=== PATIENT | female | born 1945 | race American Indian/Alaskan Native ===

== ENCOUNTER 2018-11-05 12:14 | Emergency (ER) | payer MEDICARE ==
[2018-11-05] MEDS ORDERED: ASPIRIN PO ONE (12:39)
[2018-11-05 12:57] LABS: Basophils % (Auto) 0.4 % (0.0-1.8); Eosinophils # (Auto) 0.1 K/mm3 (0.0-0.4); Eosinophils % (Auto) 1.2 % (0.0-4.3); Hematocrit 28.5 % (30.3-42.9); Hemoglobin 9.2 gm/dl (10.1-14.3); Lymphocytes # (Auto) 1.3 K/mm3 (1.2-5.4); Lymphocytes % (Auto) 11.3 % (13.4-35.0); Mean Corpuscular HGB Conc 33 % (30-34); Mean Corpuscular Volume 89 fl (79-97); Monocytes # (Auto) 0.7 K/mm3 (0.0-0.8); Monocytes % (Auto) 5.7 % (0.0-7.3); Platelet Count 193 K/mm3 (140-440); Red Blood Count 3.19 M/mm3 (3.65-5.03); Red Cell Distribution Width 17.3 % (13.2-15.2)
[2018-11-05 13:20] LABS: Calcium 8.6 mg/dL (8.4-10.2)
--- NOTE | 2018-11-05 13:26 | Emergency Department Report ---
HPI - General Chief Complaint: Chest Pain Time Seen by Provider: 11/05/18 12:43 - HPI HPI: Room 18 The patient is a 73-year-old female presenting with a chief complaint of transient hypotension. The patient states she was at dialysis when her blood pressure dropped and her heart rate increase so she was subsequently sent to the ED for evaluation. Patient states this happens almost every time she has dialysis. Patient denied ever having chest pain or shortness of breath. Patient is currently asymptomatic. The patient states received dialysis for 45 minutes Location: [See above] Duration: [See above] Quality: [See above] Severity: [See above] Modifying factors: [see above] Context: [see above] Mode of transportation: [not driving] ED Past Medical Hx - Past Medical History Previous Medical History?: Yes Hx Hypertension: Yes Hx Congestive Heart Failure: Yes Hx Diabetes: Yes (controlled, no pills or insulin per pt) Hx Renal Disease: Yes (ESRD/dialysis) Hx Arthritis: Yes Additional medical history: trach - Surgical History Past Surgical History?: Yes Hx Pacemaker: Yes Hx Cholecystectomy: Yes Hx Breast Surgery: Yes (duct clogged 1969) Additional Surgical History: breast surgery. tubal ligation. trach - Family History Family history: no significant - Social History Smoking Status: Never Smoker Substance Use Type: None - Medications Home Medications: Home Medications Medication Instructions Recorded Confirmed Last Taken Type Albuterol Sulfate [Ventolin HFA] 2 puff IH BID PRN 09/10/18 10/31/18 Unknown History Aspirin [Adult Aspirin] 81 mg PO DAILY 09/10/18 10/31/18 Unknown History Atorvastatin Calcium [Lipitor] 40 mg PO QPM 09/10/18 10/31/18 Unknown History Cholecalciferol Vit D3 [Vitamin D3] 1,000 unit PO QDAY 09/10/18 10/31/18 Unknown History Clotrimazole 1% [Lotrimin 1%] 1 applic TP BID 09/10/18 10/31/18 Unknown History Docusate Sodium [Colace CAP] 100 mg PO TID 09/10/18 10/31/18 Unknown History Fluticasone [Flonase] 2 sprays NS DAILY PRN 09/10/18 10/31/18 Unknown History Ipratropium/Albuterol Sulfate 1 ampul IH QID 09/10/18 10/31/18 Unknown History [DUONEB *Not for PRN Use*] Topiramate [Topamax] 25 mg PO BID 09/10/18 10/31/18 Unknown History tiZANidine [Zanaflex] 4 mg PO DAILY 09/10/18 10/31/18 Unknown History HYDROcodone/APAP 10-325 [[place] 1 each PO BID PRN #7 tablet 09/15/18 10/31/18 Unknown Rx 10-325 mg TAB] Metoprolol [Lopressor TAB] 25 mg PO BID #60 11/03/18 10/31/18 Unknown Rx Vancomycin Po 125 mg PO Q6HR 2 Days oral.liqd 11/03/18 Unknown Rx methIMAzole [Tapazole] 10 mg PO Q24HR #30 tablet 11/03/18 Unknown Rx ED Review of Systems ROS: Stated complaint: CHEST PAIN/SOB Other details as noted in HPI Constitutional: no symptoms reported Eyes: denies: eye pain ENT: denies: throat pain Respiratory: no symptoms reported Cardiovascular: denies: chest pain Endocrine: no symptoms reported Gastrointestinal: denies: abdominal pain Musculoskeletal: denies: back pain Neurological: denies: headache Physical Exam - Physical Exam Vital Signs: Vital Signs 11/05/18 12:54 Temperature 98.2 F Pulse Rate 104 H Respiratory 18 Rate Blood Pressure 156/44 [Right] O2 Sat by Pulse 100 Oximetry Physical Exam: GENERAL: The patient is well-developed well-nourished female lying on stretcher not appearing to be in acute distress. [] HEENT: Normocephalic. Atraumatic. Extraocular motions are intact. Patient has moist mucous membranes. NECK: Supple. Trachea midline CHEST/LUNGS: Clear to auscultation. There is no respiratory distress noted. HEART/CARDIOVASCULAR: Regular. There is no tachycardia. There is no gallop rub or murmur. ABDOMEN: Abdomen is soft, nontender. Patient has normal bowel sounds. There is no abdominal distention. SKIN: There is no rash. There is no diaphoresis. NEURO: The patient is awake, alert, and oriented. The patient is cooperative. The patient has normal speech MUSCULOSKELETAL: There is no evidence of acute injury. ED Course Vital Signs 11/05/18 12:54 Temperature 98.2 F Pulse Rate 104 H Respiratory 18 Rate Blood Pressure 156/44 [Right] O2 Sat by Pulse 100 Oximetry - Reevaluation(s) Reevaluation #1: 11/05/18 17:18 Patient remains asymptomatic. ED Medical Decision Making - Lab Data Result diagrams: 11/05/18 12:42 11/05/18 12:42 Laboratory Tests 11/05/18 11/05/18 11/05/18 12:42 12:42 15:50 WBC 11.5 H RBC 3.19 L Hgb 9.2 L Hct 28.5 L MCV 89 MCH 29 MCHC 33 RDW 17.3 H Plt Count 193 Lymph % (Auto) 11.3 L [place] % (Auto) 5.7 Eos % (Auto) 1.2 Baso % (Auto) 0.4 Lymph # 1.3 [place] # 0.7 Eos # 0.1 Baso # 0.0 Seg Neutrophils % 81.4 H Seg Neutrophils # 9.3 H Sodium 136 L Potassium 4.0 Chloride 94.4 L Carbon Dioxide 29 Anion Gap 17 BUN 20 H Creatinine 3.7 H Estimated GFR 15 BUN/Creatinine Ratio 5 Glucose 86 Calcium 8.6 Troponin T 0.243 H* 0.216 H* - EKG Data -: EKG Interpreted by Me EKG shows normal: sinus rhythm Rate: tachycardia (103 bpm) - EKG Data When compared to previous EKG there are: no significant change Interpretation: other (no ischemic changes seen) - Radiology Data Radiology results: report reviewed (chest x-ray), image reviewed (chest x-ray) interpreted by me: Chest [id number]. No pneumothorax [facility] [address] [place] [address] XRay Report Signed Patient: JAYDEN NUNEZ MR#: [id number] : 1945 Acct:[id number] Age/Sex: 73 / F ADM Date: 11/05/18 Loc: ED Attending Dr: Ordering Physician: BREA PALOMARES MD Date of Service: 11/05/18 Procedure(s): XR chest 1V ap Accession Number(s): [id number] cc: BREA PALOMARES MD Fluoro Time In Minutes: AP CHEST: HISTORY: Transient hypotension Moderate cardiomegaly, moderate pulmonary venous congestion and small bilateral pleural effusions are identified. These findings are increased since 10/31/18. There is no convincing pneumonia or pneumothorax. The bony structures are osteopenic. A tracheostomy is in good position. IMPRESSION: CHF. Transcribed By: TTR Dictated By: SMITH DO JR, MD Electronically Authenticated By: SMITH DO JR, MD Signed Date/Time: 11/05/181446 DD/ 45 TD/TT: 11/05/181446 - Differential Diagnosis transient hypotension, end-stage renal disease Critical care attestation.: If time is entered above; I have spent that time in minutes in the direct care of this critically ill patient, excluding procedure time. ED Disposition Clinical Impression: Transient hypotension, End-stage renal disease on hemodialysis Disposition: - TO HOME OR SELFCARE Is pt being admited?: No Does the pt Need Aspirin: No Condition: Stable Additional Instructions: Return to the emergency department immediately should you develop worsening symptoms, fever, inability to tolerate food or liquid or any other concerns. Time of Disposition: 17:20
--- NOTE | 2018-11-05 14:50 | XRay Report ---
AP CHEST: HISTORY: Transient hypotension Moderate cardiomegaly, moderate pulmonary venous congestion and small bilateral pleural effusions are identified. These findings are increased since 10/31/18. There is no convincing pneumonia or pneumothorax. The bony structures are osteopenic. A tracheostomy is in good position. IMPRESSION: CHF.
[2018-11-05 18:49] VITALS: BP 174/60
== END 2018-11-05 19:01 | disposition home or self-care (01) ==
LOC: ED 12:14
DX: I95.9 Hypotension, unspecified (principal); I13.2 Hypertensive heart and chronic kidney disease with heart failure and with stage 5 chronic kidney disease, or end stage renal disease; E11.22 Type 2 diabetes mellitus with diabetic chronic kidney disease; N18.6 End stage renal disease; I50.9 Heart failure, unspecified; M19.90 Unspecified osteoarthritis, unspecified site; Z99.2 Dependence on renal dialysis; Z79.82 Long term (current) use of aspirin; Z90.49 Acquired absence of other specified parts of digestive tract; Z98.51 Tubal ligation status
CPT/HCPCS: 36415; 71045; 80048; 84484; 85025; 93005; 93010; 99284

== ENCOUNTER 2018-11-06 02:27 | Inpatient (IN) | payer MEDICARE ==
[2018-11-06] MEDS ORDERED: CARDIZEM IV ONE ×2 (03:21→04:38)
--- NOTE | 2018-11-06 03:22 | Emergency Department Report ---
ED General Adult HPI - General Chief complaint: Chest Pain Stated complaint: CHEST PAIN/ANXIETY Time Seen by Provider: 11/06/18 03:09 Source: patient, EMS (ems notes not available at time of chart dictation), RN notes reviewed, old records reviewed Mode of arrival: Stretcher Limitations: Physical Limitation - History of Present Illness Initial comments: This is a 73-year-old female. Patient resides at a local half-way, bedbound status, with multiple medical problems, including sick sinus syndrome, dual- chamber permanent pacemaker, chronic respiratory failure with tracheostomy collar, paroxysmal atrial fibrillation, as per half-way paperwork, supposed to be on eliquis, end-stage renal disease, on dialysis, coronary artery disease, recently admitted to [facility] for bacteremia, sepsis, during this recent hospitalization, patient underwent attempted dual-chamber permanent pacemaker extraction, which was complicated by hemorrhagic pericardial effusion, requiring emergent pericardial window. Patient recently admitted to this hospital for A. fib with RVR, recently seen by cardiology, found to have a low TSH level, with chronically elevated troponins Today, the patient presents to the ER with a complaint of resolved left-sided chest wall pain. The pain started at 12:00. It did not radiate anywhere. it did not have exacerbating or relieving factors. She reports her manager convention is Dr. Day. She reports she typically receives dialysis Saturday, Saturday, Saturday. -: Sudden Location: chest Radiation: non-radiation Consistency: now resolved Improves with: none Worsens with: none Associated Symptoms: chest pain. denies: confusion - Related Data Home Medications Medication Instructions Recorded Confirmed Last Taken Albuterol Sulfate [Ventolin HFA] 2 puff IH BID PRN 09/10/18 10/31/18 Unknown Aspirin [Adult Aspirin] 81 mg PO DAILY 09/10/18 10/31/18 Unknown Atorvastatin Calcium [Lipitor] 40 mg PO QPM 09/10/18 10/31/18 Unknown Cholecalciferol Vit D3 [Vitamin D3] 1,000 unit PO QDAY 09/10/18 10/31/18 Unknown Clotrimazole 1% [Lotrimin 1%] 1 applic TP BID 09/10/18 10/31/18 Unknown Docusate Sodium [Colace CAP] 100 mg PO TID 09/10/18 10/31/18 Unknown Fluticasone [Flonase] 2 sprays NS DAILY PRN 09/10/18 10/31/18 Unknown Ipratropium/Albuterol Sulfate 1 ampul IH QID 09/10/18 10/31/18 Unknown [DUONEB *Not for PRN Use*] Topiramate [Topamax] 25 mg PO BID 09/10/18 10/31/18 Unknown tiZANidine [Zanaflex] 4 mg PO DAILY 09/10/18 10/31/18 Unknown Previous Rx's Medication Instructions Recorded Last Taken Type HYDROcodone/APAP 10-325 [[place] 1 each PO BID PRN #7 tablet 09/15/18 Unknown Rx 10-325 mg TAB] Metoprolol [Lopressor TAB] 25 mg PO BID #60 11/03/18 Unknown Rx Vancomycin Po 125 mg PO Q6HR 2 Days oral.liqd 11/03/18 Unknown Rx methIMAzole [Tapazole] 10 mg PO Q24HR #30 tablet 11/03/18 Unknown Rx Allergies Allergy/AdvReac Type Severity Reaction Status Date / Time No Known Allergies Allergy Unverified 06/20/18 15:19 ED Review of Systems ROS: Stated complaint: CHEST PAIN/ANXIETY Other details as noted in HPI Constitutional: malaise, weakness, other (chronic malaise, chronic weakness). denies: fever Eyes: denies: vision change Respiratory: shortness of breath (chronic shortness of breath) Cardiovascular: chest pain, palpitations Gastrointestinal: denies: vomiting Musculoskeletal: myalgia. denies: as per HPI Skin: denies: lesions Neurological: weakness Psychiatric: anxiety ED Past Medical Hx - Past Medical History Hx Hypertension: Yes Hx Congestive Heart Failure: Yes Hx Diabetes: Yes (controlled, no pills or insulin per pt) Hx Renal Disease: Yes (ESRD/dialysis) Hx Arthritis: Yes Additional medical history: trach - Surgical History Hx Pacemaker: Yes Hx Cholecystectomy: Yes Hx Breast Surgery: Yes (duct clogged 1968) Additional Surgical History: breast surgery. tubal ligation. trach - Social History Smoking Status: Never Smoker Substance Use Type: None - Medications Home Medications: Home Medications Medication Instructions Recorded Confirmed Last Taken Type Albuterol Sulfate [Ventolin HFA] 2 puff IH BID PRN 09/10/18 10/31/18 Unknown History Aspirin [Adult Aspirin] 81 mg PO DAILY 09/10/18 10/31/18 Unknown History Atorvastatin Calcium [Lipitor] 40 mg PO QPM 09/10/18 10/31/18 Unknown History Cholecalciferol Vit D3 [Vitamin D3] 1,000 unit PO QDAY 09/10/18 10/31/18 Unknown History Clotrimazole 1% [Lotrimin 1%] 1 applic TP BID 09/10/18 10/31/18 Unknown History Docusate Sodium [Colace CAP] 100 mg PO TID 09/10/18 10/31/18 Unknown History Fluticasone [Flonase] 2 sprays NS DAILY PRN 09/10/18 10/31/18 Unknown History Ipratropium/Albuterol Sulfate 1 ampul IH QID 09/10/18 10/31/18 Unknown History [DUONEB *Not for PRN Use*] Topiramate [Topamax] 25 mg PO BID 09/10/18 10/31/18 Unknown History tiZANidine [Zanaflex] 4 mg PO DAILY 09/10/18 10/31/18 Unknown History HYDROcodone/APAP 10-325 [[place] 1 each PO BID PRN #7 tablet 09/15/18 10/31/18 Unknown Rx 10-325 mg TAB] Metoprolol [Lopressor TAB] 25 mg PO BID #60 11/03/18 10/31/18 Unknown Rx Vancomycin Po 125 mg PO Q6HR 2 Days oral.liqd 11/03/18 Unknown Rx methIMAzole [Tapazole] 10 mg PO Q24HR #30 tablet 11/03/18 Unknown Rx ED Physical Exam - General Limitations: No Limitations General appearance: alert, in no apparent distress, obese - Head Head exam: Present: atraumatic, normocephalic - Eye Eye exam: Present: normal appearance, EOMI. Absent: nystagmus - ENT ENT exam: Present: normal exam, normal orophraynx, mucous membranes moist, normal external ear exam - Neck Neck exam: Present: normal inspection, full ROM. Absent: tenderness, meningismus - Respiratory Respiratory exam: Present: decreased breath sounds. Absent: respiratory distress - Cardiovascular Cardiovascular Exam: Present: regular rate, tachycardia, irregular rhythm, normal heart sounds. Absent: systolic murmur, diastolic murmur, rubs, gallop - GI/Abdominal GI/Abdominal exam: Present: soft. Absent: distended, tenderness, guarding, rebound, pulsatile mass - Extremities Exam Extremities exam: Present: normal inspection, full ROM, pedal edema, other (upper extremity graft noted, no redness, pus or streaking.) - Back Exam Back exam: Present: normal inspection, full ROM. Absent: paraspinal tenderness, vertebral tenderness - Neurological Exam Neurological exam: Present: alert, oriented X3, other (Extraocular movements intact. Tongue midline. No facial droop. Facial sensation intact to light touch in the V1, V2, V3 distribution bilaterally. 5 and 5 strength in 4 extremities.. Sensation is intact to light touch in 4 extremities.). Absent: motor sensory deficit - Psychiatric Psychiatric exam: Present: anxious - Skin Skin exam: Present: warm, dry, intact, normal color. Absent: rash ED Course Vital Signs 11/06/18 11/06/18 11/06/18 02:48 03:30 03:50 Temperature 98.5 F Pulse Rate 132 H 131 H Respiratory 23 39 H Rate Blood Pressure 106/68 106/38 O2 Sat by Pulse 100 100 Oximetry O2 Sat by Pulse 98 Oximetry [ Assessment] 11/06/18 11/06/18 11/06/18 04:14 04:30 04:45 Temperature Pulse Rate 132 H 129 H Respiratory 26 H Rate Blood Pressure 106/38 O2 Sat by Pulse 95 Oximetry O2 Sat by Pulse Oximetry [ Assessment] 11/06/18 11/06/18 04:46 04:48 Temperature Pulse Rate 134 H 133 H Respiratory 57 H Rate Blood Pressure 106/38 O2 Sat by Pulse 98 Oximetry O2 Sat by Pulse Oximetry [ Assessment] - Reevaluation(s) Reevaluation #1: 11/06/18 05:[address] noted, with no redness, pus or streaking ED Medical Decision Making - Lab Data Result diagrams: 11/06/18 03:48 11/06/18 03:48 Vital Signs 11/06/18 11/06/18 11/06/18 02:48 03:30 03:50 Temperature 98.5 F Pulse Rate 132 H 131 H Respiratory 23 39 H Rate Blood Pressure 106/68 106/38 O2 Sat by Pulse 100 100 Oximetry O2 Sat by Pulse 98 Oximetry [ Assessment] 11/06/18 11/06/18 11/06/18 04:14 04:30 04:45 Temperature Pulse Rate 132 H 129 H Respiratory 26 H Rate Blood Pressure 106/38 O2 Sat by Pulse 95 Oximetry O2 Sat by Pulse Oximetry [ Assessment] 11/06/18 11/06/18 04:46 04:48 Temperature Pulse Rate 134 H 133 H Respiratory 57 H Rate Blood Pressure 106/38 O2 Sat by Pulse 98 Oximetry O2 Sat by Pulse Oximetry [ Assessment] Lab Results 11/06/18 11/06/18 11/06/18 Range/Units 03:48 03:48 03:48 WBC 10.1 (4.5-11.0) K/mm3 RBC 3.32 L (3.65-5.03) M/mm3 Hgb 9.6 L (10.1-14.3) gm/dl Hct 30.3 (30.3-42.9) % MCV 91 (79-97) fl MCH 29 (28-32) pg MCHC 32 (30-34) % RDW 18.0 H (13.2-15.2) % Plt Count 218 (140-440) K/mm3 PT (12.2-14.9) Sec. INR (0.87-1.13) APTT (24.2-36.6) Sec. Sodium 136 L (137-145) mmol/L Potassium 4.4 (3.6-5.0) mmol/L Chloride 93.2 L (98-107) mmol/L Carbon Dioxide 28 (22-30) mmol/L Anion Gap 19 mmol/L BUN 27 H (7-17) mg/dL Creatinine 4.7 H (0.7-1.2) mg/dL Estimated GFR 11 ml/min BUN/Creatinine Ratio 6 % Glucose 107 H (65-100) mg/dL Calcium 8.6 (8.4-10.2) mg/dL Magnesium 2.00 (1.7-2.3) mg/dL Total Creatine Kinase 35 (30-135) units/L Troponin T 0.246 H* (0.00-0.029) ng/mL TSH (0.270-4.200) mlU/mL 11/06/18 11/06/18 Range/Units 03:48 03:48 WBC (4.5-11.0) K/mm3 RBC (3.65-5.03) M/mm3 Hgb (10.1-14.3) gm/dl Hct (30.3-42.9) % MCV (79-97) fl MCH (28-32) pg MCHC (30-34) % RDW (13.2-15.2) % Plt Count (140-440) K/mm3 PT 14.4 (12.2-14.9) Sec. INR 1.08 (0.87-1.13) APTT 29.7 (24.2-36.6) Sec. Sodium (137-145) mmol/L Potassium (3.6-5.0) mmol/L Chloride (98-107) mmol/L Carbon Dioxide (22-30) mmol/L Anion Gap mmol/L BUN (7-17) mg/dL Creatinine (0.7-1.2) mg/dL Estimated GFR ml/min BUN/Creatinine Ratio % Glucose (65-100) mg/dL Calcium (8.4-10.2) mg/dL Magnesium (1.7-2.3) mg/dL Total Creatine Kinase (30-135) units/L Troponin T (0.00-0.029) ng/mL TSH < 0.005 L (0.270-4.200) mlU/mL - EKG Data 11/06/18 05:25 EKG #1 shows atrial flutter, rapid rate, 130 bpm, variable conduction, prolonged [place] interval. EKG #2 shows flutter, variable conduction, normal axis, QTC within normal limits - Radiology Data Radiology results: report reviewed X-ray report reviewed and appreciated, however, secondary to technical issues with radiology system, unable to visualize films myself. X-ray from the past 24 hours has suggested congestive heart failure. Today's x- ray suggests a same, possible infiltrates. - Medical Decision Making Differential diagnosis, including but not limited to: Hyperthyroidism, atrial flutter with variable conduction acute coronary syndrome, chronic renal insufficiency, chronic fluid overload Assessment and plan: 73-year-old female in a flutter with RVR, required 2 rounds of IV diltiazem, rate currently in the 70s, 80s, not having fevers or chills, syncope, clinically suspect mild fluid overload. Elevated TSH reviewed and appreciated, we will give the patient methimazole. Do not clinically suspect pneumonia at this time. Patient reportedly on outpatient systemic anticoagulation which we will continue . Discussed with nephrology debone processing supervisor, Dr. Barfield, who is group will follow in consultation. X Presented to Hospital physician, Dr. Hernandez, who accepted the patient to the medical service. Critical Care Time: Yes Critical care time in (mins) excluding proc time.: 35 Critical care attestation.: If time is entered above; I have spent that time in minutes in the direct care of this critically ill patient, excluding procedure time. ED Disposition Clinical Impression: Atrial flutter with rapid ventricular response, Chest pain, End-stage renal disease on hemodialysis, Tracheostomy in place Disposition: DC-09 OP ADMIT IP TO THIS HOSP Is pt being admited?: Yes Condition: Fair Instructions: Chest Pain (ED) Referrals: PRIMARY CARE, [Primary Care Provider] - 3-5 Days
[2018-11-06 03:55] LABS: Hematocrit 30.3 % (30.3-42.9); Hemoglobin 9.6 gm/dl (10.1-14.3); Mean Corpuscular HGB Conc 32 % (30-34); Mean Corpuscular Volume 91 fl (79-97); Platelet Count 218 K/mm3 (140-440); Red Blood Count 3.32 M/mm3 (3.65-5.03)
[2018-11-06 04:06] LABS: INR 1.08 (0.87-1.13); Partial Thromboplastin Time 29.7 Sec. (24.2-36.6)
[2018-11-06 04:10] LABS: Calcium 8.6 mg/dL (8.4-10.2)
[2018-11-06] MEDS ORDERED: CARDIZEM PO ONE (04:38)
[2018-11-06] MEDS ORDERED: ELIQUIS PO STA (04:56)
--- NOTE | 2018-11-06 05:03 | XRay Report ---
FINAL REPORT PROCEDURE: XR CHEST 1V AP TECHNIQUE: Chest radiograph anteroposterior view. CPT 38187 HISTORY: cp afib w rvr COMPARISON: 10/31/2018 FINDINGS: Heart: The heart is enlarged Mediastinum/Vessels: Normal. Lungs/Pleural space: There is suboptimal inspiration. There are bibasilar infiltrates. There is small pleural effusions. There are no pneumothoraces.. Bony thorax: No acute osseous abnormality. There is an old fracture of the left humerus. Life support devices: Tracheostomy tube is in proper position.. IMPRESSION: The heart is enlarged There is suboptimal inspiration. There are bibasilar infiltrates. There is small pleural effusions. T here are no pneumothoraces.. Tracheostomy tube is in proper position.. .
[2018-11-06] MEDS ORDERED: ZOFRAN IV PRN (05:25)
[2018-11-06] MEDS ORDERED: TYLENOL PO PRN (05:25)
[2018-11-06] MEDS ORDERED: SODIUM CHLORIDE FLUSH SYRINGE 10 ML IV PRN (05:25)
[2018-11-06] MEDS ORDERED: TAPAZOLE PO STA (05:30)
--- NOTE | 2018-11-06 05:38 | History and Physical Report ---
<RADHA ALEXANDER - Last Filed: 11/06/18 06:29> History of Present Illness Date of examination: 11/06/18 Date of admission: 11/06/2018 Chief complaint: chest pain History of present illness: Pt is a 73 year old BF with PMHx of CAD, A-Fib, anemia, ESRD on HD, h/o chronic trach who return to the hospital after with c/o chest pain starting today. Pt states that the chest pain is located in the substernal area, it is constant dull pain that radiates to the left arm. Pt states that the pain is similar previous chest pain she had in the past when her heart rate is elevated. Pt's son at the bedside reports that had a pacemaker extraction with remaining pacemaker leads in 10/17/18 and since she had repeated hospitalization for rapid heart rate. Review of pt's record shows that pt was admitted from the 09/30- for A-Fib she [facility] the [facility], pt returned in 48 hrs with c/o chest pain, she presents to the ER, with a heart rate 134, she was started on PO cardizem with sone improvement in the heart rate, in less that an hr, the heart rate return again to > 130. Pt first cardiac enzyme is negative, she denies lightheadedness, denies dizziness, denies diaphoresis, denies nausea, denies vomiting, denies SOB. Pt is admitted for further evaluation for the chest pain and A-Fib with RVR. Past History Past Medical History: atrial fib, CAD, diabetes, ESRD, heart failure, hypertension, hyperlipidemia Past Surgical History: Other (Pacemaker insertion and extraction, recent pericardial window) Social history: other (reside in a SNF) Medications and Allergies Allergies Allergy/AdvReac Type Severity Reaction Status Date / Time No Known Allergies Allergy Unverified 06/20/18 15:19 Home Medications Medication Instructions Recorded Confirmed Last Taken Type Albuterol Sulfate [Ventolin HFA] 2 puff IH BID PRN 09/10/18 10/31/18 Unknown History Aspirin [Adult Aspirin] 81 mg PO DAILY 09/10/18 10/31/18 Unknown History Atorvastatin Calcium [Lipitor] 40 mg PO QPM 09/10/18 10/31/18 Unknown History Cholecalciferol Vit D3 [Vitamin D3] 1,000 unit PO QDAY 09/10/18 10/31/18 Unknown History Clotrimazole 1% [Lotrimin 1%] 1 applic TP BID 09/10/18 10/31/18 Unknown History Docusate Sodium [Colace CAP] 100 mg PO TID 09/10/18 10/31/18 Unknown History Fluticasone [Flonase] 2 sprays NS DAILY PRN 09/10/18 10/31/18 Unknown History Ipratropium/Albuterol Sulfate 1 ampul IH QID 09/10/18 10/31/18 Unknown History [DUONEB *Not for PRN Use*] Topiramate [Topamax] 25 mg PO BID 09/10/18 10/31/18 Unknown History tiZANidine [Zanaflex] 4 mg PO DAILY 09/10/18 10/31/18 Unknown History HYDROcodone/APAP 10-325 [[place] 1 each PO BID PRN #7 tablet 09/15/18 10/31/18 Unknown Rx 10-325 mg TAB] Metoprolol [Lopressor TAB] 25 mg PO BID #60 11/03/18 10/31/18 Unknown Rx Vancomycin Po 125 mg PO Q6HR 2 Days oral.liqd 11/03/18 Unknown Rx methIMAzole [Tapazole] 10 mg PO Q24HR #30 tablet 11/03/18 Unknown Rx Review of Systems Cardiovascular: chest pain Respiratory: other (chronic track) Exam - Constitutional Vitals: Temp Pulse Resp BP Pulse Ox 98.5 F 133 H 57 H 106/38 98 11/06/18 02:48 11/06/18 04:48 11/06/18 04:46 11/06/18 04:46 11/06/18 04:46 General appearance: Present: no acute distress - EENT Eyes: Present: EOM intact ENT: hearing intact - Neck Neck: Present: normal ROM - Respiratory Respiratory effort: normal - Cardiovascular Heart rate: 134 Rhythm: irregularly irregular - Extremities Extremities: no ischemia - Abdominal General gastrointestinal: Present: non-tender, non-distended - Rectal Rectal Exam: deferred - Integumentary Integumentary: Present: warm, dry - Musculoskeletal Musculoskeletal: strength equal bilaterally - Psychiatric Psychiatric: appropriate mood/affect, cooperative - Neurologic Neurologic: moves all extremities Results - Labs CBC & Chem 7: 11/06/18 03:48 11/06/18 03:48 Labs: Laboratory Last Values WBC 10.1 K/mm3 (4.5-11.0) 11/06/18 03:48 RBC 3.32 M/mm3 (3.65-5.03) L 11/06/18 03:48 Hgb 9.6 gm/dl (10.1-14.3) L 11/06/18 03:48 Hct 30.3 % (30.3-42.9) 11/06/18 03:48 MCV 91 fl (79-97) 11/06/18 03:48 MCH 29 pg (28-32) 11/06/18 03:48 MCHC 32 % (30-34) 11/06/18 03:48 RDW 18.0 % (13.2-15.2) H 11/06/18 03:48 Plt Count 218 K/mm3 (140-440) 11/06/18 03:48 PT 14.4 Sec. (12.2-14.9) 11/06/18 03:48 INR 1.08 (0.87-1.13) 11/06/18 03:48 APTT 29.7 Sec. (24.2-36.6) 11/06/18 03:48 Sodium 136 mmol/L (137-145) L 11/06/18 03:48 Potassium 4.4 mmol/L (3.6-5.0) 11/06/18 03:48 Chloride 93.2 mmol/L (98-107) L 11/06/18 03:48 Carbon Dioxide 28 mmol/L (22-30) 11/06/18 03:48 Anion Gap 19 mmol/L 11/06/18 03:48 BUN 27 mg/dL (7-17) H 11/06/18 03:48 Creatinine 4.7 mg/dL (0.7-1.2) H 11/06/18 03:48 Estimated GFR 11 ml/min 11/06/18 03:48 BUN/Creatinine Ratio 6 % 11/06/18 03:48 Glucose 107 mg/dL (65-100) H 11/06/18 03:48 Calcium 8.6 mg/dL (8.4-10.2) 11/06/18 03:48 Magnesium 2.00 mg/dL (1.7-2.3) 11/06/18 03:48 Total Creatine Kinase 35 units/L (30-135) 11/06/18 03:48 Troponin T 0.246 ng/mL (0.00-0.029) H* 11/06/18 03:48 TSH < 0.005 mlU/mL (0.270-4.200) L 11/06/18 03:48 Assessment and Plan Assessment and plan: 1. Recurrrent A. fib with RVR 2. Chest pain (likely due to A-fib) 3. End-stage renal disease on HD 4. DM type 2 5. CAD/CHF, stable 6. Recent endocarditis 7. Recent pacemaker extraction due to endocarditis 8. Chronic trach collar Plan Admit to cardiac ICU for A-Fib with RVR Continue heart monitoring Continue Cardizem drip, titrated, to keep HR < 100 Check cardiac enzymes, Consult cardiology for A-Fib management consult Nephrology for HD management Accu Check ACHS with insulin per sliding scale Continue home meds including Eliquis Accu check ACHS with insulin per sliding scale Resume home meds Further plan per hospital course Plan of care was d/w pt, voiced understanding Pt's condition and plan of care discussed with Dr Hernandez Advance Directives: Yes VTE prophylaxis?: Mechanical Plan of care discussed with patient/family: Yes <STEPHANIE HERNANDEZ - Last Filed: 11/06/18 06:59> History of Present Illness Date of admission: 11/06/18 05:24 Medications and Allergies Active Meds: Active Medications Acetaminophen (Tylenol) 650 mg PO Q4H PRN PRN Reason: Pain MILD(1-3)/Fever >100.5/TORRES Albuterol/Ipratropium (Duoneb *Not For Prn Use*) 1 ampul IH QID [facility] Aspirin (Halfprin Ec) 81 mg PO DAILY [facility] Atorvastatin Calcium (Lipitor) 40 mg PO QPM [facility] Cholecalciferol (Vitamin D3) 1,000 unit PO QDAY [facility] Dextrose (D50w (25gm) Syringe) 50 ml IV PRN PRN PRN Reason: Hypoglycemia Docusate Sodium (Colace) 100 mg PO TID [facility] Fluticasone Propionate (Flonase) 100 mcg NS DAILY PRN PRN Reason: Allergy Symptoms Diltiazem HCl (Cardizem/D5w 100mg/100ml) 100 mg in 100 mls @ 5 mls/hr IV TITR [facility]; Protocol Last Titration: 11/06/18 06:41 Dose: 7.5 mg/hr, 7.5 mls/hr Documented by: Insulin Human Lispro (Humalog) 0 unit SUB-Q ACHS [facility]; Protocol Methimazole (Tapazole) 10 mg PO Q24HR [facility] Ondansetron HCl (Zofran) 4 mg IV Q8H PRN PRN Reason: Nausea And Vomiting Sodium Chloride (Sodium Chloride Flush Syringe 10 Ml) 10 ml IV BID [facility] Sodium Chloride (Sodium Chloride Flush Syringe 10 Ml) 10 ml IV PRN PRN PRN Reason: LINE FLUSH Topiramate (Topamax) 25 mg PO BID [facility] Vancomycin HCl (Vancomycin Po) 125 mg PO Q6HR [facility] Exam - Constitutional Vitals: Temp Pulse Resp BP Pulse Ox 98.5 F 133 H 57 H 106/38 98 11/06/18 02:48 11/06/18 04:48 11/06/18 04:46 11/06/18 04:46 11/06/18 04:46 Results - Labs CBC & Chem 7: 11/06/18 03:48 11/06/18 03:48 Labs: Laboratory Last Values WBC 10.1 K/mm3 (4.5-11.0) 11/06/18 03:48 RBC 3.32 M/mm3 (3.65-5.03) L 11/06/18 03:48 Hgb 9.6 gm/dl (10.1-14.3) L 11/06/18 03:48 Hct 30.3 % (30.3-42.9) 11/06/18 03:48 MCV 91 fl (79-97) 11/06/18 03:48 MCH 29 pg (28-32) 11/06/18 03:48 MCHC 32 % (30-34) 11/06/18 03:48 RDW 18.0 % (13.2-15.2) H 11/06/18 03:48 Plt Count 218 K/mm3 (140-440) 11/06/18 03:48 PT 14.4 Sec. (12.2-14.9) 11/06/18 03:48 INR 1.08 (0.87-1.13) 11/06/18 03:48 APTT 29.7 Sec. (24.2-36.6) 11/06/18 03:48 Sodium 136 mmol/L (137-145) L 11/06/18 03:48 Potassium 4.4 mmol/L (3.6-5.0) 11/06/18 03:48 Chloride 93.2 mmol/L (98-107) L 11/06/18 03:48 Carbon Dioxide 28 mmol/L (22-30) 11/06/18 03:48 Anion Gap 19 mmol/L 11/06/18 03:48 BUN 27 mg/dL (7-17) H 11/06/18 03:48 Creatinine 4.7 mg/dL (0.7-1.2) H 11/06/18 03:48 Estimated GFR 11 ml/min 11/06/18 03:48 BUN/Creatinine Ratio 6 % 11/06/18 03:48 Glucose 107 mg/dL (65-100) H 11/06/18 03:48 Calcium 8.6 mg/dL (8.4-10.2) 11/06/18 03:48 Magnesium 2.00 mg/dL (1.7-2.3) 11/06/18 03:48 Total Creatine Kinase 37 units/L (30-135) 11/06/18 05:39 CK-MB (CK-2) 1.9 ng/mL (0.0-4.0) 11/06/18 05:39 CK-MB (CK-2) Rel Index 5.1 (0-4) H 11/06/18 05:39 Troponin T 0.241 ng/mL (0.00-0.029) H* 11/06/18 05:39 TSH < 0.005 mlU/mL (0.270-4.200) L 11/06/18 03:48 Free T4 1.52 ng/dL (0.76-1.46) H 11/06/18 03:48 Assessment and Plan Assessment and plan: 73-year-old woman with a history of coronary artery disease, diabetes, hypertension, CHF, end-stage renal disease on dialysis, chronic trach collar was sent to the emergency room from dialysis today because she became hypotensive and tachycardia. She was evaluated and discharged from the emergency room. At the [facility], she had recurrence of tachycardia, chest pain, in the emergency room she was found to be in A. fib with RVR, temporary response to IV Cardizem. Her chest pain is in the epigastric area, dull, constant, intensity 6/10, cannot identify exacerbating or relieving factors. Admits to shortness of breath, nausea. Agree with Cardizem drip, consult cardiology. In addition Check cardiac enzymes, continue vancomycin for C. difficile, place on contact precaution. Consult critical care, renal. Verify dose of eliquis and restart
[2018-11-06] MEDS: CARDIZEM/D5W 100MG/100ML 100 MG/100 ML BAG IV SCH ×2 (05:41→14:40)
[2018-11-06 06:08] LABS: Creatine Kinase MB 1.9 ng/mL (0.0-4.0)
[2018-11-06] MEDS ORDERED: D50W (25GM) Syringe IV PRN (06:46)
[2018-11-06] MEDS ORDERED: FLONASE NS PRN (06:46)
[2018-11-06] MEDS: HumaLOG SUB-Q SCH ×4 (07:47→22:11)
--- NOTE | 2018-11-06 08:46 | Progress Note ---
Assessment and Plan Impression * End-stage renal disease on maintenance hemodialysis * Hypertension * COPD * Sepsis * Pericardial effusion--s/p pericardial window * Atrial fibrillation with rvr Recommendations * Continue dialysis on MWF schedule as outpatient * cardiology evaluation for her tachycardia, recent sepsis and pacer removal * continue iv abx..rec id consult for iv abx management * Avoid nephrotoxins * rec labetolol gtt for bp control * Binders with meals * Procrit with dialysis * No IV, BP R venipuncture access arm * Adjust diet and meds for ESRD state Subjective Date of service: 11/06/18 Principal diagnosis: esrd Interval history: readmitted with sepsis and hypotension Objective - Vital Signs Vital signs: Vital Signs - 12hr 11/06/18 11/06/18 11/06/18 02:48 03:30 03:50 Temperature 98.5 F Pulse Rate 132 H 131 H Respiratory 23 39 H Rate Blood Pressure 106/68 106/38 Blood Pressure [Right] O2 Sat by Pulse 100 100 Oximetry O2 Sat by Pulse 98 Oximetry [ Assessment] 11/06/18 11/06/18 11/06/18 04:14 04:30 04:45 Temperature Pulse Rate 132 H 129 H Respiratory 26 H Rate Blood Pressure 106/38 Blood Pressure [Right] O2 Sat by Pulse 95 Oximetry O2 Sat by Pulse Oximetry [ Assessment] 11/06/18 11/06/18 11/06/18 04:46 04:48 05:00 Temperature Pulse Rate 134 H 133 H 120 H Respiratory 57 H 21 Rate Blood Pressure 106/38 106/38 Blood Pressure [Right] O2 Sat by Pulse 98 97 Oximetry O2 Sat by Pulse Oximetry [ Assessment] 11/06/18 11/06/18 11/06/18 05:30 06:00 06:15 Temperature Pulse Rate 109 H 131 H 132 H Respiratory 26 H 20 23 Rate Blood Pressure 116/27 189/66 185/58 Blood Pressure [Right] O2 Sat by Pulse 97 97 90 Oximetry O2 Sat by Pulse Oximetry [ Assessment] 11/06/18 11/06/18 11/06/18 06:30 06:46 07:40 Temperature 97.4 F L Pulse Rate 132 H 132 H 129 H Respiratory 25 H 28 H 16 Rate Blood Pressure 193/54 209/50 Blood Pressure 192/57 [Right] O2 Sat by Pulse 94 94 96 Oximetry O2 Sat by Pulse Oximetry [ Assessment] - Lab 11/06/18 03:48 11/06/18 03:48 Most recent lab results Calcium 8.6 mg/dL (8.4-10.2) 11/06/18 03:48 Magnesium 2.00 mg/dL (1.7-2.3) 11/06/18 03:48 Medications & Allergies - Medications Allergies/Adverse Reactions: Allergies No Known Allergies Allergy (Unverified 06/20/18 15:19) Home Medications: Home Medications Medication Instructions Recorded Confirmed Last Taken Type Albuterol Sulfate [Ventolin HFA] 2 puff IH BID PRN 09/10/18 10/31/18 Unknown History Aspirin [Adult Aspirin] 81 mg PO DAILY 09/10/18 10/31/18 Unknown History Atorvastatin Calcium [Lipitor] 40 mg PO QPM 09/10/18 10/31/18 Unknown History Cholecalciferol Vit D3 [Vitamin D3] 1,000 unit PO QDAY 09/10/18 10/31/18 Unknown History Clotrimazole 1% [Lotrimin 1%] 1 applic TP BID 09/10/18 10/31/18 Unknown History Docusate Sodium [Colace CAP] 100 mg PO TID 09/10/18 10/31/18 Unknown History Fluticasone [Flonase] 2 sprays NS DAILY PRN 09/10/18 10/31/18 Unknown History Ipratropium/Albuterol Sulfate 1 ampul IH QID 09/10/18 10/31/18 Unknown History [DUONEB *Not for PRN Use*] Topiramate [Topamax] 25 mg PO BID 09/10/18 10/31/18 Unknown History tiZANidine [Zanaflex] 4 mg PO DAILY 09/10/18 10/31/18 Unknown History HYDROcodone/APAP 10-325 [[place] 1 each PO BID PRN #7 tablet 09/15/18 10/31/18 Unknown Rx 10-325 mg TAB] Metoprolol [Lopressor TAB] 25 mg PO BID #60 11/03/18 10/31/18 Unknown Rx Vancomycin Po 125 mg PO Q6HR 2 Days oral.liqd 11/03/18 Unknown Rx methIMAzole [Tapazole] 10 mg PO Q24HR #30 tablet 11/03/18 Unknown Rx Active Medications: Generic Name Dose Route Start Last Admin Trade Name Freq PRN Reason Stop Dose Admin Acetaminophen 650 mg 11/06/18 05:25 Tylenol PO Q4H PRN Pain MILD(1-3)/Fever >100.5/TORRES Albuterol/Ipratropium 1 ampul 11/06/18 08:00 Duoneb *Not For Prn Use* IH QIDRT [facility] Aspirin 81 mg 11/06/18 10:00 Halfprin Ec PO DAILY [facility] Atorvastatin Calcium 40 mg 11/06/18 18:00 Lipitor PO QPM [facility] Cholecalciferol 1,000 unit 11/06/18 10:00 Vitamin D3 PO QDAY [facility] Dextrose 50 ml 11/06/18 06:46 D50w (25gm) Syringe IV PRN PRN Hypoglycemia Docusate Sodium 100 mg 11/06/18 08:00 Colace PO TID [facility] Fluticasone Propionate 100 mcg 11/06/18 06:46 Flonase NS DAILY PRN Allergy Symptoms Diltiazem HCl 100 mg in 100 mls @ 5 mls/hr 11/06/18 06:00 11/06/18 07:58 Cardizem/D5w 100mg/100ml IV 10 mg/hr TITR [facility] 10 mls/hr Titration Protocol 5 MG/HR Insulin Human Lispro 0 unit 11/06/18 07:30 11/06/18 07:47 Humalog SUB-Q Not Given ACHS [facility] Protocol Methimazole 10 mg 11/07/18 10:00 Tapazole PO Q24HR [facility] Ondansetron HCl 4 mg 11/06/18 05:25 Zofran IV Q8H PRN Nausea And Vomiting Sodium Chloride 10 ml 11/06/18 10:00 Sodium Chloride Flush Syringe 10 Ml IV BID [facility] Sodium Chloride 10 ml 11/06/18 05:25 Sodium Chloride Flush Syringe 10 Ml IV PRN PRN LINE FLUSH Topiramate 25 mg 11/06/18 10:00 Topamax PO BID [facility] Vancomycin HCl 125 mg 11/06/18 12:00 Vancomycin Po PO Q6HR [facility]
[2018-11-06] MEDS ORDERED: COLACE ONE ×2 (09:16→22:11)
[2018-11-06] MEDS: TOPAMAX PO SCH ×2 (09:34→22:15)
[2018-11-06] MEDS: HALFPRIN EC PO SCH (09:35)
[2018-11-06] MEDS: COLACE PO SCH ×3 (09:35→22:15)
[2018-11-06] MEDS: VITAMIN D3 PO SCH (09:36)
--- NOTE | 2018-11-06 10:45 | Consultation ---
History of Present Illness Consult date: 11/06/18 Requesting physician: STEPHANIE ALANIS Consult reason: atrial fibrillation History of present illness: This is a 73-year-old female who resides at [facility]/bedbound status with multiple medical problems including sick sinus syndrome/history of dual-chamber permanent pacemaker, chronic respiratory failure with chronic tracheostomy collar/for 15 years, paroxysmal atrial fibrillation, end-stage renal disease on hemodialysis, coronary artery disease, C. difficile on vancomycin by mouth with planned discontinuation 11/05/2018, staph epidermidis sepsis/endocarditis/pacemaker lead infection/RA lead who was recently hospitalized at [facility] for persistent bacteremia/sepsis. During this hospitalization the patient underwent attempted dual-chamber permanent pacemaker extraction however this was complicated by hemorrhagic pericardial effusion with requiring emergent pericardial window. The pacemaker generator was extracted parts of the right atrial lead were extracted however it appears b y the chest x-ray that the right ventricular lead is in place. The patient was admitted on 10/17/2018 and discharged 10/30/2018. She presents to [facility] emergency department for evaluation of tachycardia and SOB and [facility]. Pt states that her chest pain is aggravated by coughing. Following arrival, she was noted to be in AFlutter with RVR, HR 130s with elevated BPs. She was initiated on cardizem gtt. On evaluation, HR is 80s and BPs WNL. Past History Past Medical History: atrial fib, CAD, diabetes, ESRD, heart failure, hypertension, hyperlipidemia Past Surgical History: Other (Pacemaker insertion and extraction, recent pericardial window) Social history: other (reside in a SNF) Medications and Allergies Allergies Allergy/AdvReac Type Severity Reaction Status Date / Time No Known Allergies Allergy Unverified 06/20/18 15:19 Home Medications Medication Instructions Recorded Confirmed Last Taken Type Aspirin [Adult Aspirin] 81 mg PO DAILY 09/10/18 11/06/18 Unknown History Atorvastatin Calcium [Lipitor] 40 mg PO QPM 09/10/18 11/06/18 Unknown History Cholecalciferol Vit D3 [Vitamin D3] 1,000 unit PO QDAY 09/10/18 11/06/18 Unknown History Clotrimazole 1% [Lotrimin 1%] 1 applic TP BID 09/10/18 11/06/18 Unknown History Docusate Sodium [Colace CAP] 100 mg PO TID 09/10/18 11/06/18 Unknown History Fluticasone [Flonase] 2 sprays NS DAILY PRN 09/10/18 11/06/18 Unknown History Ipratropium/Albuterol Sulfate 1 ampul IH QID 09/10/18 11/06/18 Unknown History [DUONEB *Not for PRN Use*] Topiramate [Topamax] 25 mg PO BID 09/10/18 11/06/18 Unknown History tiZANidine [Zanaflex] 4 mg PO DAILY 09/10/18 11/06/18 Unknown History HYDROcodone/APAP 10-325 [Draper 1 each PO BID PRN #7 tablet 09/15/18 11/06/18 Unknown Rx 10-325 mg TAB] Vancomycin Po 125 mg PO Q6HR 2 Days oral.liqd 11/03/18 11/06/18 Unknown Rx methIMAzole [Tapazole] 10 mg PO Q24HR #30 tablet 11/03/18 11/06/18 Unknown Rx Cinacalcet [Sensipar] 30 mg PO DAILY 11/06/18 11/06/18 Unknown History Metoprolol Tartrate 25 mg PO BID 11/06/18 11/06/18 Unknown History Ventolin HFA 2 puff IH BID PRN 11/06/18 11/06/18 Unknown History rifAMPin [Rifampin] 600 mg PO DAILY 11/06/18 11/06/18 Unknown History Active Meds: Active Medications Acetaminophen (Tylenol) 650 mg PO Q4H PRN PRN Reason: Pain MILD(1-3)/Fever >100.5/TORRES Albuterol/Ipratropium (Duoneb *Not For Prn Use*) 1 ampul IH QIDRT [facility] Aspirin (Halfprin Ec) 81 mg PO DAILY [facility] Last Admin: 11/06/18 09:35 Dose: 81 mg Documented by: Atorvastatin Calcium (Lipitor) 40 mg PO QPM [facility] Cholecalciferol (Vitamin D3) 1,000 unit PO QDAY [facility] Last Admin: 11/06/18 09:36 Dose: 1,000 unit Documented by: Cinacalcet (Sensipar) 30 mg PO DAILY [facility] Clotrimazole (Lotrimin) 1 applic TP BID [facility] Dextrose (D50w (25gm) Syringe) 50 ml IV PRN PRN PRN Reason: Hypoglycemia Docusate Sodium (Colace) 100 mg PO TID [facility] Last Admin: 11/06/18 09:35 Dose: 100 mg Documented by: Fluticasone Propionate (Flonase) 100 mcg NS DAILY PRN PRN Reason: Allergy Symptoms Diltiazem HCl (Cardizem/D5w 100mg/100ml) 100 mg in 100 mls @ 5 mls/hr IV TITR [facility]; Protocol Last Titration: 11/06/18 09:46 Dose: 15 mg/hr, 15 mls/hr Documented by: Insulin Human Lispro (Humalog) 0 unit SUB-Q ACHS [facility]; Protocol Last Admin: 11/06/18 07:47 Dose: Not Given Documented by: Methimazole (Tapazole) 10 mg PO Q24HR [facility] Metoprolol Tartrate (Lopressor) 25 mg PO BID [facility] Ondansetron HCl (Zofran) 4 mg IV Q8H PRN PRN Reason: Nausea And Vomiting Rifampin (Rifadin) 600 mg PO DAILY [facility] Sodium Chloride (Sodium Chloride Flush Syringe 10 Ml) 10 ml IV BID [facility] Sodium Chloride (Sodium Chloride Flush Syringe 10 Ml) 10 ml IV PRN PRN PRN Reason: LINE FLUSH Topiramate (Topamax) 25 mg PO BID [facility] Last Admin: 11/06/18 09:34 Dose: 25 mg Documented by: Vancomycin HCl (Vancomycin Po) 125 mg PO Q6HR [facility] Review of Systems Constitutional: no weight loss, no weight gain, no fever, no chills, no sweats Ears, nose, mouth and throat: no ear pain, no nose pain, no sinus pressure, no sinus pain Cardiovascular: chest pain, palpitations, shortness of breath, no orthopnea, no edema, no syncope, no lightheadedness Respiratory: cough, shortness of breath, no congestion, no wheezing Gastrointestinal: no abdominal pain, no nausea, no vomiting, no diarrhea, no constipation, no change in bowel habits Genitourinary Female: no pelvic pain, no flank pain, no dysuria, no urinary frequency, no urgency Musculoskeletal: no neck stiffness, no neck pain, no shooting arm pain, no arm numbness/tingling, no low back pain, no shooting leg pain, no leg numbness/tingling Integumentary: no rash, no pruritis, no redness, no sores, no wounds Neurological: no head injury, no paralysis, no weakness, no parathesias, no numbness, no tingling, no seizures, no syncope Psychiatric: no anxiety Endocrine: no cold intolerance, no heat intolerance Hematologic/Lymphatic: no easy bruising, no easy bleeding Allergic/Immunologic: no urticaria, no wheezing Physical Examination Vital Signs Temp Pulse Resp BP Pulse Ox 98.5 F 132 H 23 106/68 100 11/06/18 02:48 11/06/18 02:48 11/06/18 02:48 11/06/18 02:48 11/06/18 02:48 General appearance: no acute distress HEENT: Positive: PERRL, Normocephaly, Mucus Membranes Moist Neck: Positive: neck supple, trachea midline, Other (trach) Cardiac: Positive: irregularly irregular, S1/S2 Lungs: Positive: Decreased Breath Sounds Neuro: Positive: Grossly Intact Abdomen: Positive: Soft. Negative: Tender Skin: Negative: Rash, Wound Musculoskeletal: No Pain Extremities: Absent: edema Results 11/06/18 03:48 11/06/18 03:48 Cardiac Enzymes 11/06/18 Range/Units 05:39 CK-MB (CK-2) 1.9 (0.0-4.0) ng/mL Coagulation 11/06/18 Range/Units 03:48 PT 14.4 (12.2-14.9) Sec. INR 1.08 (0.87-1.13) APTT 29.7 (24.2-36.6) Sec. CBC 11/06/18 Range/Units 03:48 WBC 10.1 (4.5-11.0) K/mm3 RBC 3.32 L (3.65-5.03) M/mm3 Hgb 9.6 L (10.1-14.3) gm/dl Hct 30.3 (30.3-42.9) % Plt Count 218 (140-440) K/mm3 Comprehensive Metabolic Panel 11/06/18 Range/Units 03:48 Sodium 136 L (137-145) mmol/L Potassium 4.4 (3.6-5.0) mmol/L Chloride 93.2 L (98-107) mmol/L Carbon Dioxide 28 (22-30) mmol/L BUN 27 H (7-17) mg/dL Creatinine 4.7 H (0.7-1.2) mg/dL Glucose 107 H (65-100) mg/dL Calcium 8.6 (8.4-10.2) mg/dL - Imaging and Cardiology Echo: report reviewed (TTE done 10/13/2018 showed EF 65-70%, mod MS, mild TR, mild LVH, pseudonormalization, mod pulm HTN with RVSP 59mmHg) EKG: report reviewed, image reviewed EKG interpretations - Telemetry EKG Rhythm: Atrial Flutter - EKG Supraventricular dysrhythmia: atrial flutter Assessment and Plan ECHO 10/15/18: 1. Left ventricular ejection fraction is 60%. 2. Mild tricuspid regurgitation. 3. Moderate mitral annular calcification. 4. No pericardial effusion seen. 5. The tricuspid regurgitant velocity is 3.96 m/s, and with an assumed right atrial pressure of 8 mmHg, the estimated right ventricular systolic pressure is severely elevated at 70.7 mmHg. Atrial fibrillation/atrial flutter with RVR/SSS Continue on beta aden but avoiding aggressive treatment to avoid b radycardia and sinus pauses. Wean cardizem gtt for resting HR <100 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 Cont IV Vancomycin, rifampin for 6 weeks records from [place] discharge Patient will be on prolonged antibiotics and will need follow up with ID on suppressive therapies. MATEUS on 10/15/18 showed a 0.5x1.15cm echodensity of RA lead S/P Emergent pericardial window secondary to attempt at lead extractrion complicated by pericardial effusion possible due to RA tear after extraction of the RA lead Elevated Cardiac Enzymes Nonspecific given ESRD monitor for now Accelerated HTN Low TSH Chronic respiratory failure with tracheostomy ESRD, on HD outpatient follow up with [facility] C. Diff The patient has been seen in conjunction with Dr. Holley who agrees with the assessment and plan of care.
--- NOTE | 2018-11-06 11:21 | Consultation ---
History of Present Illness Consult date: 11/06/18 Requesting physician: STEPHANIE ALANIS Reason for consult: other (Atrial Fibrillation with RVR; Chroni Hypoxemic Resp Failure s/p Tracheostomy) History of present illness: PULMONARY/CCM CONSULT NOTE (Full dictation # [id number]) Please see dictated notes for full details Past History Past Medical History: atrial fib, CAD, diabetes, ESRD, heart failure, hyp ertension, hyperlipidemia Past Surgical History: Other (Pacemaker insertion and extraction, recent pericardial window) Social history: other (reside in a SNF) Medications and Allergies Allergies Allergy/AdvReac Type Severity Reaction Status Date / Time No Known Allergies Allergy Unverified 06/20/18 15:19 Home Medications Medication Instructions Recorded Confirmed Last Taken Type Aspirin [Adult Aspirin] 81 mg PO DAILY 09/10/18 11/06/18 Unknown History Atorvastatin Calcium [Lipitor] 40 mg PO QPM 09/10/18 11/06/18 Unknown History Cholecalciferol Vit D3 [Vitamin D3] 1,000 unit PO QDAY 09/10/18 11/06/18 Unknown History Clotrimazole 1% [Lotrimin 1%] 1 applic TP BID 09/10/18 11/06/18 Unknown History Docusate Sodium [Colace CAP] 100 mg PO TID 09/10/18 11/06/18 Unknown History Fluticasone [Flonase] 2 sprays NS DAILY PRN 09/10/18 11/06/18 Unknown History Ipratropium/Albuterol Sulfate 1 ampul IH QID 09/10/18 11/06/18 Unknown History [DUONEB *Not for PRN Use*] Topiramate [Topamax] 25 mg PO BID 09/10/18 11/06/18 Unknown History tiZANidine [Zanaflex] 4 mg PO DAILY 09/10/18 11/06/18 Unknown History HYDROcodone/APAP 10-325 [Stewart 1 each PO BID PRN #7 tablet 09/15/18 11/06/18 Unknown Rx 10-325 mg TAB] Vancomycin Po 125 mg PO Q6HR 2 Days oral.liqd 11/03/18 11/06/18 Unknown Rx methIMAzole [Tapazole] 10 mg PO Q24HR #30 tablet 11/03/18 11/06/18 Unknown Rx Cinacalcet [Sensipar] 30 mg PO DAILY 11/06/18 11/06/18 Unknown History Metoprolol Tartrate 25 mg PO BID 11/06/18 11/06/18 Unknown History Ventolin HFA 2 puff IH BID PRN 11/06/18 11/06/18 Unknown History rifAMPin [Rifampin] 600 mg PO DAILY 11/06/18 11/06/18 Unknown History Active Meds: Active Medications Acetaminophen (Tylenol) 650 mg PO Q4H PRN PRN Reason: Pain MILD(1-3)/Fever >100.5/TORRES Albuterol/Ipratropium (Duoneb *Not For Prn Use*) 1 ampul IH QIDRT [facility] Aspirin (Halfprin Ec) 81 mg PO DAILY [facility] Last Admin: 11/06/18 09:35 Dose: 81 mg Documented by: Atorvastatin Calcium (Lipitor) 40 mg PO QPM [facility] Cholecalciferol (Vitamin D3) 1,000 unit PO QDAY [facility] Last Admin: 11/06/18 09:36 Dose: 1,000 unit Documented by: Cinacalcet (Sensipar) 30 mg PO DAILY [facility] Clotrimazole (Lotrimin) 1 applic TP BID [facility] Dextrose (D50w (25gm) Syringe) 50 ml IV PRN PRN PRN Reason: Hypoglycemia Docusate Sodium (Colace) 100 mg PO TID [facility] Last Admin: 11/06/18 09:35 Dose: 100 mg Documented by: Fluticasone Propionate (Flonase) 100 mcg NS DAILY PRN PRN Reason: Allergy Symptoms Diltiazem HCl (Cardizem/D5w 100mg/100ml) 100 mg in 100 mls @ 5 mls/hr IV TITR [facility]; Protocol Last Titration: 11/06/18 09:46 Dose: 15 mg/hr, 15 mls/hr Documented by: Insulin Human Lispro (Humalog) 0 unit SUB-Q ACHS [facility]; Protocol Last Admin: 11/06/18 07:47 Dose: Not Given Documented by: Methimazole (Tapazole) 10 mg PO Q24HR [facility] Metoprolol Tartrate (Lopressor) 25 mg PO BID [facility] Ondansetron HCl (Zofran) 4 mg IV Q8H PRN PRN Reason: Nausea And Vomiting Rifampin (Rifadin) 600 mg PO DAILY [facility] Sodium Chloride (Sodium Chloride Flush Syringe 10 Ml) 10 ml IV BID [facility] Sodium Chloride (Sodium Chloride Flush Syringe 10 Ml) 10 ml IV PRN PRN PRN Reason: LINE FLUSH Topiramate (Topamax) 25 mg PO BID [facility] Last Admin: 11/06/18 09:34 Dose: 25 mg Documented by: Vancomycin HCl (Vancomycin Po) 125 mg PO Q6HR [facility] Physical Examination Vital signs: Vital Signs Temp Pulse Resp BP Pulse Ox 98.5 F 132 H 23 106/68 100 11/06/18 02:48 11/06/18 02:48 11/06/18 02:48 11/06/18 02:48 11/06/18 02:48 Results - Laboratory Findings CBC and BMP: 11/06/18 03:48 11/06/18 03:48 PT/INR, D-dimer PT 14.4 Sec. (12.2-14.9) 11/06/18 03:48 INR 1.08 (0.87-1.13) 11/06/18 03:48 Abnormal lab findings: Abnormal Labs 11/06/18 11/06/18 11/06/18 03:48 03:48 03:48 RBC 3.32 L Hgb 9.6 L RDW 18.0 H Sodium 136 L Chloride 93.2 L BUN 27 H Creatinine 4.7 H Glucose 107 H CK-MB (CK-2) Rel Index Troponin T 0.246 H* TSH Free T4 11/06/18 11/06/18 11/06/18 03:48 03:48 05:39 RBC Hgb RDW Sodium Chloride BUN Creatinine Glucose CK-MB (CK-2) Rel Index 5.1 H Troponin T 0.241 H* TSH < 0.005 L Free T4 1.52 H
[2018-11-06] MEDS ORDERED: LOPRESSOR ONE (11:29)
[2018-11-06] MEDS: DUONEB *Not for PRN Use IH SCH ×3 (11:30→19:47)
[2018-11-06] MEDS: RIFADIN PO SCH (11:34)
[2018-11-06] MEDS: SODIUM CHLORIDE FLUSH SYRINGE 10 ML IV SCH ×2 (11:38→22:00)
[2018-11-06 11:48] LABS: Creatine Kinase MB 1.6 ng/mL (0.0-4.0)
[2018-11-06] MEDS: LOPRESSOR PO SCH ×2 (11:59→22:11)
[2018-11-06] MEDS: LOTRIMIN TP SCH ×2 (12:00→22:15)
[2018-11-06] MEDS: SENSIPAR PO SCH (12:56)
[2018-11-06] MEDS: VANCOMYCIN PO PO SCH ×2 (12:58→18:49)
--- NOTE | 2018-11-06 13:23 | Progress Note ---
Assessment and Plan Assessment and plan: Atrial fibrillation/atrial flutter with RVR. Continue beta aden and apixaban per cardiology. Wean Cardizem drip. Recent S epidermidis bacteremia. Continue IV vancomycin, rifampin for 6 weeks per discharge instructions from [facility]. ID consultation. MATEUS on 10/15/18 showed a 0.5 x 1.15 cm echodensity of right atrial lead. Patient is status post emergent pericardial window secondary to failed attempt at lead extraction complicated by pericardial effusion Accelerated hypertension. Not controlled. Continue current antihypertensive medications. Chronic respiratory failure with tracheostomy. Pulmonary consultation pending. Continue routine trach care, secretion control and airway management. ESRD on hemodialysis. Continue per nephrology. History C. difficile. The high probability of a clinically significant, sudden or life threatening deterioration of the [cardiac and respiratory] system(s) required my full and direct attention, intervention and personal management. The aggregate critical care time was [33] minutes. This time is in addition to time spent performing reported procedures but includes the following: [x] Data Review and interpretation [x] Patient assessment and monitoring of vital signs [x] Documentation [x] Medication orders and management History Interval history: This is a 73-year-old female who resides at [facility]/bedbound status with multiple medical problems including sick sinus syndrome/history of dual-chamber permanent pacemaker, chronic respiratory failure with chronic tracheostomy collar/for 15 years, paroxysmal atrial fibrillation, end-stage renal disease on hemodialysis, coronary artery disease, C. 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 During this hospitalization the patient underwent attempted dual-chamber permanent pacemaker extraction however this was complicated by hemorrhagic pericardial effusion with requiring emergent pericardial window. The pacemaker generator was extracted parts of the right atrial lead were extracted however it appears by the chest x-ray that the right ventricular lead is in place. The patient was admitted on 10/17/2018 and discharged 10/30/2018. She presents to [facility] emergency department for evaluation of tachycardia and SOB and chest pain noted at detention. Pt states that her chest pain is aggravated by coughing. Following arrival, she was noted to be in AFlutter with RVR, HR 130s with elevated BPs. She was initiated on cardizem gtt. On evaluation, HR is 80s and BPs WNL. Hospitalist Physical - Constitutional Vitals: Temp Pulse Resp BP Pulse Ox 97.8 F 130 H 16 91/29 98 11/06/18 12:50 11/06/18 12:50 11/06/18 12:50 11/06/18 12:50 11/06/18 12:50 General appearance: Present: no acute distress - EENT Eyes: Present: PERRL, EOM intact ENT: hearing intact, clear oral mucosa, dentition normal - Neck Neck: Present: supple, normal ROM - Respiratory Respiratory effort: normal Respiratory: bilateral: CTA - Cardiovascular Rhythm: regular Heart Sounds: Present: S1 & S2. Absent: gallop, rub - Extremities Extremities: no ischemia, No edema, Full ROM - Abdominal General gastrointestinal: soft, non-tender, non-distended, normal bowel sounds - Integumentary Integumentary: Present: clear, warm, dry - Neurologic Neurologic: CNII-XII intact, moves all extremities Results - Labs CBC & Chem 7: 11/06/18 03:48 11/06/18 03:48 Labs: Laboratory Last Values WBC 10.1 K/mm3 (4.5-11.0) 11/06/18 03:48 RBC 3.32 M/mm3 (3.65-5.03) L 11/06/18 03:48 Hgb 9.6 gm/dl (10.1-14.3) L 11/06/18 03:48 Hct 30.3 % (30.3-42.9) 11/06/18 03:48 MCV 91 fl (79-97) 11/06/18 03:48 MCH 29 pg (28-32) 11/06/18 03:48 MCHC 32 % (30-34) 11/06/18 03:48 RDW 18.0 % (13.2-15.2) H 11/06/18 03:48 Plt Count 218 K/mm3 (140-440) 11/06/18 03:48 PT 14.4 Sec. (12.2-14.9) 11/06/18 03:48 INR 1.08 (0.87-1.13) 11/06/18 03:48 APTT 29.7 Sec. (24.2-36.6) 11/06/18 03:48 Sodium 136 mmol/L (137-145) L 11/06/18 03:48 Potassium 4.4 mmol/L (3.6-5.0) 11/06/18 03:48 Chloride 93.2 mmol/L (98-107) L 11/06/18 03:48 Carbon Dioxide 28 mmol/L (22-30) 11/06/18 03:48 Anion Gap 19 mmol/L 11/06/18 03:48 BUN 27 mg/dL (7-17) H 11/06/18 03:48 Creatinine 4.7 mg/dL (0.7-1.2) H 11/06/18 03:48 Estimated GFR 11 ml/min 11/06/18 03:48 BUN/Creatinine Ratio 6 % 11/06/18 03:48 Glucose 107 mg/dL (65-100) H 11/06/18 03:48 POC Glucose 95 (70-105) 11/06/18 11:36 Calcium 8.6 mg/dL (8.4-10.2) 11/06/18 03:48 Magnesium 2.00 mg/dL (1.7-2.3) 11/06/18 03:48 Total Creatine Kinase 34 units/L (30-135) 11/06/18 11:06 CK-MB (CK-2) 1.6 ng/mL (0.0-4.0) 11/06/18 11:06 CK-MB (CK-2) Rel Index 4.7 (0-4) H 11/06/18 11:06 Troponin T 0.229 ng/mL (0.00-0.029) H* 11/06/18 11:06 TSH < 0.005 mlU/mL (0.270-4.200) L 11/06/18 03:48 Free T4 1.52 ng/dL (0.76-1.46) H 11/06/18 03:48
--- NOTE | 2018-11-06 22:45 | Consultation ---
PULMONARY AND CRITICAL CARE CONSULTATION NOTE CONSULTING PHYSICIAN: Dr. Hernandez. REASON FOR CONSULTATION: Critical care management, atrial fibrillation with rapid ventricular response. CHIEF COMPLAINT AND HISTORY OF PRESENT ILLNESS: The patient is a 73-year-old -[place] female, [facility] resident with past medical history significant amongst other things for a diagnosis of end-stage renal disease, on dialysis, but also cardiomyopathy status post dual chamber permanent pacemaker placement, who was recently treated for bacteremia and sepsis. At that recent hospitalization, she underwent an attempted dual chamber permanent pacemaker extraction; however, she reportedly developed a pericardial effusion that was hemorrhagic and required an emergent pericardial window. She came into the ER yesterday complaining of left-sided chest wall pain, did not radiate anywhere, no relieving or aggravating risk factors. She had dialysis on the day of presentation, but only for 45 minutes. In the ER, she was evaluated and found to be in atrial fibrillation with a rapid ventricular response. This was felt to be the etiology of her symptoms. She was placed on a Cardizem drip. We are asked to assist with management. When I stopped by to see her, she was resting in bed. She remained on the Cardizem drip at 15 mg per hour. She was feeling a little bit better. She denied any nausea, vomiting, or overt aspiration. Denied chest wall trauma. She is not sure if the pacemaker was actually removed or not at the last time. As far as she knows, she has been compliant with her medications at the [facility]. She also seems to have a history of hyperthyroidism. This really is as much of the history of presentation as I have. PAST MEDICAL HISTORY: Hypertension, congestive heart failure, diabetes, end-stage renal disease on dialysis, history of arthritis, history of chronic hypoxemic respiratory failure status post tracheostomy. She is obese. Recent sepsis. PAST SURGICAL HISTORY: She has had a pacemaker placed in the past. She has had a cholecystectomy. She has had breast surgery. She has had a tubal ligation. She is status post tracheostomy and status post recent pacemaker extraction. MEDICATIONS: She was on at the time I stopped by to see were reviewed, pertinent medications include the following: She was on a Cardizem drip going at 50 mg per hour. She was DuoNeb treatments nebulized q.i.d., aspirin 81 mg p.o. daily, Lipitor 40 mg p.o. q.p.m., vitamin D3 1000 units p.o. daily, Sensipar 30 mg p.o. daily, Lotrimin 1 application topically b.i.d. to affected area. Docusate sodium 100 mg p.o. t.i.d., Flonase nasal spray 100 mcg each nose p.r.n. daily, insulin via sliding scale, methimazole 10 mg p.o. daily, metoprolol 25 mg p.o. b.i.d., Zofran 4 mg IV q. 8 hours p.r.n. nausea and vomiting. Rifampin 600 mg p.o. daily, vancomycin 125 mg p.o. 6 hours, and topiramate 25 mg p.o. b.i.d. ALLERGIES: No known drug allergies. DIET: Obese lady. Denies acute weight loss or gain preceding few weeks to months. FAMILY AND SOCIAL HISTORY: Lives in the community. Denies alcohol, tobacco, or illicit drug use or abuse. Family and social history otherwise noncontributory. REVIEW OF SYSTEMS: No overt loss of consciousness. No new onset seizures. No new onset focal weakness. She denied gross hematochezia or melena. Denies gross hematuria or dysuria. No hematemesis. No hemoptysis. No current palpitations. Denied heat or cold intolerance. Denied polydipsia or polyuria. Denies nonrestorative sleep. Complete 13-system review of systems obtained. Pertinent positives and/or negatives as in body of history above, otherwise noncontributory. PHYSICAL EXAMINATION: VITAL SIGNS: At presentation in the ER, she was afebrile, temperature 98.5 degrees Fahrenheit, pulse was 132, respiratory rate was 23, blood pressure 106/68, O2 sats were 98%, inspired oxygen concentration at that time was not recorded. When I stopped by to see her, sats were 98%, but that was on 28% FiO2. GENERAL: Elderly looking -Fijian female, obese. Normocephalic, atraumatic, resting in bed with mildly increased respiratory effort at rest. HEAD, EYES, EARS, NOSE AND THROAT: She is anicteric. No conjunctival erythema. Oropharynx is a Mallampati #4 oropharynx, it is moist. There is mild oropharyngeal pallor. She has a midline Shiley #[address] No significant bleeding or exudation around it. Grossly, no palpable lymph nodes in the supraclavicular or submandibular lymph node chains. No gross jugular venous distention. LUNGS: Auscultation of both lung valdez, slightly diminished bilateral air movement; however, clear. HEART: Heart sounds 1 and 2 are heard. Irregular rate and rhythm at the time of my evaluation. She was also tachycardic with a pulse of about 115. ABDOMEN: Soft, full, bowel sounds are positive, nontender, no palpable hepatosplenomegaly. EXTREMITIES: Without overt digital clubbing or cyanosis. No significant pedal edema. Dorsalis pedis pulses are palpable bilaterally. NEUROLOGIC: Pupils were equal and round, about 4 mm, reactive to light. Extraocular muscle movements were intact. She moved all 4 extremities spontaneously. The skin was of poor turgor in particular in both lower extremities. She had a right upper anterior chest wall incision scar where the extraction was tried she tells me for the AICD. She has a left upper extremity AV graft. LABORATORY DATA: From my review are as follows: White cell count 10,100, hemoglobin 9.6, hematocrit 30.3, platelet count 218. INR 1.08. Serum sodium 136, potassium 4.4, chloride 93, bicarbonate 28, BUN 27, creatinine 4.7, glucose 107. Troponin was 0.246. TSH is less than 0.005. DIAGNOSTIC DATA: Radiographic studies have been reviewed. Chest x-ray, gross cardiomegaly, small bilateral pleural effusions, mild interstitial edema pattern. No gross pneumothorax, no gross bony fracture; appears to be some dilatation of either the gastric bubble or the transverse colon in the portion of the abdomen that I can see on the chest x-ray. ASSESSMENT: 1. Chest pain. 2. Atrial fibrillation with a rapid ventricular response. 3. Acute on chronic hypoxemic respiratory failure. 4. History of cardiomyopathy. 5. Status post tracheostomy. 6. History of congestive heart failure. 7. Diabetes type 2. 8. End-stage renal disease, on dialysis. 9. Arthritis. 10. Recent sepsis syndrome. 11. Obesity. PLAN: We will continue the IV Cardizem drip at this point. She will also be placed on anticoagulation. I will defer this to the senior cytogenetics laboratory director based on what I have seen recently. I really do not see any acute contraindication to anticoagulation. However, rate control will be deferred to the senior cytogenetics laboratory director. Oxygen will be weaned to keep sats greater than or equal to about 90%. Aspiration precautions will be maintained. We will continue bronchodilators with routine trachea and pulmonary hygiene per the respiratory therapist. Dialysis is scheduled Saturday, Saturday and Saturday according to the patient. Electrolytes will be followed and corrected as necessary. We will continue her methimazole for the hyperthyroidism at this point. She will be placed on GI prophylaxis as well as DVT prophylaxis. Flu and pneumonia vaccination will be addressed per protocol. Thank you very much for the consult. We will follow along and make further recommendations as picture progresses/becomes clearer. Hopefully, we can achieve rate control with Cardizem alone. Otherwise, we will consider introduction of other rate control medications. Thank you very much for the consult. Again, she is critically ill at high risk of decompensation including the risk of from decompensation of the cardiopulmonary systems as well as the renal system. At this time, I have spent about 30-35 minutes of critical care time without overlap excluding any procedural time that may be necessary. JOB# [id number] JOS/NOELLE PENA
[2018-11-07] MEDS: VANCOMYCIN PO PO SCH ×3 (00:05→14:30)
[2018-11-07 05:22] LABS: Basophils % (Auto) 0.5 % (0.0-1.8); Eosinophils # (Auto) 0.2 K/mm3 (0.0-0.4); Eosinophils % (Auto) 2.3 % (0.0-4.3); Hematocrit 26.1 % (30.3-42.9); Hemoglobin 8.4 gm/dl (10.1-14.3); Lymphocytes # (Auto) 1.6 K/mm3 (1.2-5.4); Lymphocytes % (Auto) 20.3 % (13.4-35.0); Mean Corpuscular HGB Conc 32 % (30-34); Mean Corpuscular Volume 91 fl (79-97); Monocytes # (Auto) 0.6 K/mm3 (0.0-0.8); Monocytes % (Auto) 7.9 % (0.0-7.3); Platelet Count 196 K/mm3 (140-440); Red Blood Count 2.89 M/mm3 (3.65-5.03); Red Cell Distribution Width 17.9 % (13.2-15.2)
[2018-11-07 05:38] LABS: Calcium 8.2 mg/dL (8.4-10.2)
[2018-11-07] MEDS: CARDIZEM/D5W 100MG/100ML 100 MG/100 ML BAG IV SCH (08:05)
--- NOTE | 2018-11-07 09:08 | Progress Note ---
Assessment and Plan Atrial fibrillation/atrial flutter with RVR/SSS Continue on beta aden 25mg tid and stop cardizem drip but avoiding aggres sive treatment to avoid bradycardia and sinus pauses. 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 Cont IV Vancomycin, rifampin for 6 weeks records from [place] discharge Patient will be on prolonged antibiotics and will need follow up with ID on suppressive therapies. MATEUS on 10/15/18 showed a 0.5x1.15cm echodensity of RA lead S/P Emergent pericardial window secondary to attempt at lead extractrion complicated by pericardial effusion possible due to RA tear after extraction of the RA lead NSTEMI type 2 Nonspecific given ESRD monitor for now Accelerated HTN Low TSH Chronic respiratory failure with tracheostomy ESRD, on HD outpatient follow up with Demetria Jaimes Date of service: 11/07/18 Principal diagnosis: esrd Interval history: pt lying in bed and no chest pain or palpations, mild sob Objective Vital Signs Temp Pulse Pulse Resp Resp BP BP 11/07/18 08:00 89 21 112/44 11/07/18 07:00 88 21 102/33 11/07/18 06:00 86 17 117/34 11/07/18 05:46 97.8 F 88 21 117/49 11/07/18 05:00 83 20 108/51 11/07/18 04:34 11/07/18 04:00 87 30 H 141/97 11/07/18 03:32 83 18 116/38 11/07/18 03:00 85 22 110/36 11/07/18 02:00 82 24 128/32 11/07/18 01:00 81 25 H 112/28 11/07/18 00:46 79 21 116/28 11/07/18 00:00 82 39 H 103/84 11/06/18 23:00 84 22 111/39 11/06/18 22:49 83 22 97/40 11/06/18 22:11 118/30 11/06/18 22:00 82 20 111/34 11/06/18 21:00 83 22 139/25 11/06/18 20:06 81 18 118/30 11/06/18 20:03 85 18 11/06/18 19:49 11/06/18 19:15 85 18 11/06/18 18:40 97.7 F 88 16 119/35 11/06/18 17:55 88 16 129/34 11/06/18 16:55 86 16 104/36 11/06/18 15:55 85 16 111/55 11/06/18 14:55 85 16 105/25 11/06/18 13:35 106 H 16 98/39 11/06/18 12:50 97.8 F 130 H 16 91/29 11/06/18 11:40 130 H 16 125/39 11/06/18 11:00 72 16 138/27 11/06/18 10:46 88 16 134/20 11/06/18 10:16 76 16 125/21 11/06/18 09:46 98 F 130 H 16 154/45 Pulse Ox Pulse Ox 11/07/18 08:00 96 11/07/18 07:00 96 11/07/18 06:00 89 11/07/18 05:46 96 11/07/18 05:00 97 11/07/18 04:34 96 11/07/18 04:00 95 11/07/18 03:32 96 11/07/18 03:00 96 11/07/18 02:00 11/07/18 01:00 11/07/18 00:46 98 11/07/18 00:00 11/06/18 23:00 11/06/18 22:49 99 11/06/18 22:11 11/06/18 22:00 11/06/18 21:00 11/06/18 20:06 98 11/06/18 20:03 11/06/18 19:49 96 11/06/18 19:15 11/06/18 18:40 98 11/06/18 17:55 98 11/06/18 16:55 98 11/06/18 15:55 98 11/06/18 14:55 96 11/06/18 13:35 98 11/06/18 12:50 98 11/06/18 11:40 96 11/06/18 11:00 96 11/06/18 10:46 96 11/06/18 10:16 96 11/06/18 09:46 98 - Physical Examination General: No Apparent Distress HEENT: Positive: PERRL, Normocephaly, Mucus Membranes Moist Neck: Positive: neck supple, trachea midline, Other (trach) Cardiac: Positive: Irregularly Regular Lungs: Positive: Decreased Breath Sounds Neuro: Positive: Grossly Intact Abdomen: Positive: Soft. Negative: Tender Skin: Negative: Rash, Wound Musculoskeletal: No Pain Extremities: Absent: edema - Labs and Meds Cardiac Enzymes 11/06/18 Range/Units 11:06 CK-MB (CK-2) 1.6 (0.0-4.0) ng/mL CBC 11/07/18 Range/Units 05:02 WBC 7.9 (4.5-11.0) K/mm3 RBC 2.89 L (3.65-5.03) M/mm3 Hgb 8.4 L (10.1-14.3) gm/dl Hct 26.1 L (30.3-42.9) % Plt Count 196 (140-440) K/mm3 Lymph # 1.6 (1.2-5.4) K/mm3 [place] # 0.6 (0.0-0.8) K/mm3 Eos # 0.2 (0.0-0.4) K/mm3 Baso # 0.0 (0.0-0.1) K/mm3 Comprehensive Metabolic Panel 11/07/18 Range/Units 05:02 Sodium 138 (137-145) mmol/L Potassium 4.4 (3.6-5.0) mmol/L Chloride 95.3 L (98-107) mmol/L Carbon Dioxide 28 (22-30) mmol/L BUN 33 H (7-17) mg/dL Creatinine 5.2 H (0.7-1.2) mg/dL Glucose 85 (65-100) mg/dL Calcium 8.2 L (8.4-10.2) mg/dL - Imaging and Cardiology EKG: report reviewed, image reviewed Echo: report reviewed (TTE done 10/13/2018 showed EF 65-70%, mod MS, mild TR, mild LVH, pseudonormalization, mod pulm HTN with RVSP 59mmHg) - Telemetry EKG Rhythm: Atrial Fibrillation (afib in 80's)
[2018-11-07] MEDS: HALFPRIN EC PO SCH (09:45)
[2018-11-07] MEDS: COLACE PO SCH ×4 (09:45→22:45)
[2018-11-07] MEDS: RIFADIN PO SCH (09:45)
[2018-11-07] MEDS: LOPRESSOR PO SCH ×3 (09:45→22:30)
[2018-11-07] MEDS: TOPAMAX PO SCH ×2 (09:46→23:50)
[2018-11-07] MEDS: TAPAZOLE PO SCH (09:46)
[2018-11-07] MEDS: VITAMIN D3 PO SCH (09:46)
[2018-11-07] MEDS: SODIUM CHLORIDE FLUSH SYRINGE 10 ML IV SCH ×2 (09:46→22:45)
[2018-11-07] MEDS ORDERED: BABY ASPIRIN ONE (09:51)
[2018-11-07] MEDS ORDERED: PEPCID ONE (09:53)
[2018-11-07] MEDS: PEPCID PO SCH (09:55)
[2018-11-07] MEDS ORDERED: PROCRIT IV PRN (10:52)
[2018-11-07] MEDS ORDERED: ALBURX 25% (ALBUMIN) IV PRN (10:52)
[2018-11-07] MEDS ORDERED: NACL 0.9% 100 ML IV PRN (10:52)
[2018-11-07] MEDS ORDERED: DUONEB *Not for PRN Use IH ONE (11:14)
[2018-11-07] MEDS: HumaLOG SUB-Q SCH ×4 (11:26→22:50)
[2018-11-07] MEDS: LOTRIMIN TP SCH ×2 (11:27→23:50)
[2018-11-07] MEDS: SENSIPAR PO SCH (11:28)
--- NOTE | 2018-11-07 12:25 | Progress Note ---
Subjective Principal diagnosis: esrd Interval history: Patient was seen today for follow-up of multiple renal related issues No complaints of any chest pain pressure or shortness of breath she was seen in the emergency room She is resting comfortably, mild respiratory distress Interdisciplinary notes that also reviewed Events of 24 hours vitals labs intake output medications were reviewed Past medical history: Reviewed Family history: Reviewed Social history: Reviewed Allergies: Reviewed Physical examination: Vitals: Reviewed HEENT: No pallor or icterus oral mucosa moist Neck: Supple no JVD no thyromegaly Chest: Bilateral clear to auscultation anteriorly Heart: Regular rate and rhythm S1-S2 heard no S3-S4 Abdomen: Soft nontender no voluntary guarding rigidity rebound Extremity: Dry skin less than 1+ peripheral edema Psychiatric: No evidence of agitation and aggression noted Dermatology: No petechial rashes Labs and x-rays: Reviewed from today Assessment and plan End-stage renal disease: Patient is currently on hemodialysis, and will need to continue with hemodialysis on Saturday and Saturday, schedule. Anemia and end-stage renal disease: Monitor hemoglobin and hematocrit erythropoietin as needed. Current hemoglobin 8.4 Secondary hyperpathyroidism: Check phosphorus and PTH level periodically, binders as needed Dialysis access: Currently working well Malnutrition risk: High consider high-protein diet dietitian evaluation and follow-up in general 1.5 g protein per KG body weight Fluid restriction: 1200 cc per day not to exceed more than that Adequately counseled and educated about other hospital related issues as well Labs were discussed with patient and simple Dutch Patient does appear to have good understanding of all the dialysis related issues All questions were answered and simple Dutch We'll continue to follow and make recommendation for renal standpoint Objective - Vital Signs Vital signs: Vital Signs - 12hr 11/07/18 11/07/18 11/07/18 00:46 01:00 02:00 Temperature Pulse Rate 79 81 82 Respiratory 21 25 H 24 Rate Blood Pressure 112/28 128/32 Blood Pressure 116/28 [Right] O2 Sat by Pulse 98 Oximetry O2 Sat by Pulse Oximetry [ Assessment] 11/07/18 11/07/18 11/07/18 03:00 03:32 04:00 Temperature Pulse Rate 85 83 87 Respiratory 22 18 30 H Rate Blood Pressure 110/36 141/97 Blood Pressure 116/38 [Right] O2 Sat by Pulse 96 96 95 Oximetry O2 Sat by Pulse Oximetry [ Assessment] 11/07/18 11/07/18 11/07/18 04:34 05:00 05:46 Temperature 97.8 F Pulse Rate 83 88 Respiratory 20 21 Rate Blood Pressure 108/51 Blood Pressure 117/49 [Right] O2 Sat by Pulse 97 96 Oximetry O2 Sat by Pulse 96 Oximetry [ Assessment] 11/07/18 11/07/18 11/07/18 06:00 07:00 08:00 Temperature Pulse Rate 86 88 89 Respiratory 17 21 21 Rate Blood Pressure 117/34 102/33 112/44 Blood Pressure [Right] O2 Sat by Pulse 89 96 96 Oximetry O2 Sat by Pulse Oximetry [ Assessment] 11/07/18 11/07/18 11/07/18 09:00 09:45 10:00 Temperature Pulse Rate 89 88 94 H Respiratory 26 H 20 Rate Blood Pressure 132/42 130/36 Blood Pressure [Right] O2 Sat by Pulse 95 93 Oximetry O2 Sat by Pulse Oximetry [ Assessment] 11/07/18 11:00 Temperature Pulse Rate 90 Respiratory 26 H Rate Blood Pressure 112/77 Blood Pressure [Right] O2 Sat by Pulse 98 Oximetry O2 Sat by Pulse Oximetry [ Assessment] - Lab 11/08/18 04:49 11/08/18 04:49 Most recent lab results Calcium 8.2 mg/dL (8.4-10.2) L 11/07/18 05:02 Magnesium 2.00 mg/dL (1.7-2.3) 11/06/18 03:48 Medications & Allergies - Medications Allergies/Adverse Reactions: Allergies No Known Allergies Allergy (Unverified 06/20/18 15:19) Home Medications: Home Medications Medication Instructions Recorded Confirmed Last Taken Type Aspirin [Adult Aspirin] 81 mg PO DAILY 09/10/18 11/06/18 Unknown History Atorvastatin Calcium [Lipitor] 40 mg PO QPM 09/10/18 11/06/18 Unknown History Cholecalciferol Vit D3 [Vitamin D3] 1,000 unit PO QDAY 09/10/18 11/06/18 Unknown History Clotrimazole 1% [Lotrimin 1%] 1 applic TP BID 09/10/18 11/06/18 Unknown History Docusate Sodium [Colace CAP] 100 mg PO TID 09/10/18 11/06/18 Unknown History Fluticasone [Flonase] 2 sprays NS DAILY PRN 09/10/18 11/06/18 Unknown History Ipratropium/Albuterol Sulfate 1 ampul IH QID 09/10/18 11/06/18 Unknown History [DUONEB *Not for PRN Use*] Topiramate [Topamax] 25 mg PO BID 09/10/18 11/06/18 Unknown History tiZANidine [Zanaflex] 4 mg PO DAILY 09/10/18 11/06/18 Unknown History HYDROcodone/APAP 10-325 [[place] 1 each PO BID PRN #7 tablet 09/15/18 11/06/18 Unknown Rx 10-325 mg TAB] Vancomycin Po 125 mg PO Q6HR 2 Days oral.liqd 11/03/18 11/06/18 Unknown Rx methIMAzole [Tapazole] 10 mg PO Q24HR #30 tablet 11/03/18 11/06/18 Unknown Rx Cinacalcet [Sensipar] 30 mg PO DAILY 11/06/18 11/06/18 Unknown History Metoprolol Tartrate 25 mg PO BID 11/06/18 11/06/18 Unknown History Ventolin HFA 2 puff IH BID PRN 11/06/18 11/06/18 Unknown History rifAMPin [Rifampin] 600 mg PO DAILY 11/06/18 11/06/18 Unknown History Active Medications: Generic Name Dose Route Start Last Admin Trade Name Freq PRN Reason Stop Dose Admin Acetaminophen 650 mg 11/06/18 05:25 Tylenol PO Q4H PRN Pain MILD(1-3)/Fever >100.5/TORRES Albumin Human 25 gm 11/07/18 10:52 Alburx 25% (Albumin) IV CAROL PRN Hypotension Albuterol/Ipratropium 1 ampul 11/06/18 08:00 11/06/18 19:47 Duoneb *Not For Prn Use* IH 1 ampul QIDRT [facility] Administration Aspirin 81 mg 11/06/18 10:00 11/07/18 09:45 Halfprin Ec PO 81 mg DAILY [facility] Administration Atorvastatin Calcium 40 mg 11/06/18 18:00 11/06/18 18:49 Lipitor PO 40 mg QPM [facility] Administration Cholecalciferol 1,000 unit 11/06/18 10:00 11/07/18 09:46 Vitamin D3 PO 1,000 unit QDAY [facility] Administration Cinacalcet 30 mg 11/06/18 10:00 11/07/18 11:28 Sensipar PO Not Given DAILY [facility] Clotrimazole 1 applic 11/06/18 10:00 11/07/18 11:27 Lotrimin TP Not Given BID [facility] Dextrose 50 ml 11/06/18 06:46 D50w (25gm) Syringe IV PRN PRN Hypoglycemia Docusate Sodium 100 mg 11/06/18 08:00 11/07/18 09:45 Colace PO 100 mg TID [facility] Administration Epoetin Nomi 20,000 unit 11/07/18 10:52 Procrit IV CAROL PRN hemodialysis Famotidine 20 mg 11/07/18 10:00 11/07/18 09:55 Pepcid PO 20 mg QDAY [facility] Administration Fluticasone Propionate 100 mcg 11/06/18 06:46 Flonase NS DAILY PRN Allergy Symptoms Sodium Chloride 100 mls @ 999 mls/hr 11/07/18 10:52 Nacl 0.9% IV CAROL PRN Hypotension Insulin Human Lispro 0 unit 11/06/18 07:30 11/07/18 12:24 Humalog SUB-Q Not Given ACHS [facility] Protocol Methimazole 10 mg 11/07/18 10:00 11/07/18 09:46 Tapazole PO 10 mg Q24HR [facility] Administration Metoprolol Tartrate 25 mg 11/07/18 10:00 11/07/18 09:45 Lopressor PO 25 mg TID [facility] Administration Ondansetron HCl 4 mg 11/06/18 05:25 Zofran IV Q8H PRN Nausea And Vomiting Rifampin 600 mg 11/06/18 10:00 11/07/18 09:45 Rifadin PO 600 mg DAILY [facility] Administration Sodium Chloride 10 ml 11/06/18 10:00 11/07/18 09:46 Sodium Chloride Flush Syringe 10 Ml IV 10 ml BID [facility] Administration Sodium Chloride 10 ml 11/06/18 05:25 Sodium Chloride Flush Syringe 10 Ml IV PRN PRN LINE FLUSH Topiramate 25 mg 11/06/18 10:00 11/07/18 09:46 Topamax PO 25 mg BID [facility] Administration Vancomycin HCl 125 mg 11/06/18 12:00 11/07/18 08:04 Vancomycin Po PO 125 mg Q6HR [facility] Administration
--- NOTE | 2018-11-07 12:25 | Consultation ---
Past History Past Medical History: atrial fib, CAD, diabetes, ESRD, heart failure, hypertension, hyperlipidemia Past Surgical History: Other (Pacemaker insertion and extraction, recent pericardial window) Social history: other (reside in a SNF) Medications and Allergies Allergies Allergy/AdvReac Type Severity Reaction Status Date / Time No Known Allergies Allergy Unverified 06/20/18 15:19 Home Medications Medication Instructions Recorded Confirmed Last Taken Type Aspirin [Adult Aspirin] 81 mg PO DAILY 09/10/18 11/06/18 Unknown History Atorvastatin Calcium [Lipitor] 40 mg PO QPM 09/10/18 11/06/18 Unknown History Cholecalciferol Vit D3 [Vitamin D3] 1,000 unit PO QDAY 09/10/18 11/06/18 Unknown History Clotrimazole 1% [Lotrimin 1%] 1 applic TP BID 09/10/18 11/06/18 Unknown History Docusate Sodium [Colace CAP] 100 mg PO TID 09/10/18 11/06/18 Unknown History Fluticasone [Flonase] 2 sprays NS DAILY PRN 09/10/18 11/06/18 Unknown History Ipratropium/Albuterol Sulfate 1 ampul IH QID 09/10/18 11/06/18 Unknown History [DUONEB *Not for PRN Use*] Topiramate [Topamax] 25 mg PO BID 09/10/18 11/06/18 Unknown History tiZANidine [Zanaflex] 4 mg PO DAILY 09/10/18 11/06/18 Unknown History HYDROcodone/APAP 10-325 [[place] 1 each PO BID PRN #7 tablet 09/15/18 11/06/18 Unknown Rx 10-325 mg TAB] Vancomycin Po 125 mg PO Q6HR 2 Days oral.liqd 11/03/18 11/06/18 Unknown Rx methIMAzole [Tapazole] 10 mg PO Q24HR #30 tablet 11/03/18 11/06/18 Unknown Rx Cinacalcet [Sensipar] 30 mg PO DAILY 11/06/18 11/06/18 Unknown History Metoprolol Tartrate 25 mg PO BID 11/06/18 11/06/18 Unknown History Ventolin HFA 2 puff IH BID PRN 11/06/18 11/06/18 Unknown History rifAMPin [Rifampin] 600 mg PO DAILY 11/06/18 11/06/18 Unknown History Active Meds: Active Medications Acetaminophen (Tylenol) 650 mg PO Q4H PRN PRN Reason: Pain MILD(1-3)/Fever >100.5/TORRES Albumin Human (Alburx 25% (Albumin)) 25 gm IV CAROL PRN PRN Reason: Hypotension Albuterol/Ipratropium (Duoneb *Not For Prn Use*) 1 ampul IH QIDRT [facility] Last Admin: 11/06/18 19:47 Dose: 1 ampul Documented by: Aspirin (Halfprin Ec) 81 mg PO DAILY [facility] Last Admin: 11/07/18 09:45 Dose: 81 mg Documented by: Atorvastatin Calcium (Lipitor) 40 mg PO QPM [facility] Last Admin: 11/06/18 18:49 Dose: 40 mg Documented by: Cholecalciferol (Vitamin D3) 1,000 unit PO QDAY [facility] Last Admin: 11/07/18 09:46 Dose: 1,000 unit Documented by: Cinacalcet (Sensipar) 30 mg PO DAILY [facility] Last Admin: 11/07/18 11:28 Dose: Not Given Documented by: Clotrimazole (Lotrimin) 1 applic TP BID [facility] Last Admin: 11/07/18 11:27 Dose: Not Given Documented by: Dextrose (D50w (25gm) Syringe) 50 ml IV PRN PRN PRN Reason: Hypoglycemia Docusate Sodium (Colace) 100 mg PO TID [facility] Last Admin: 11/07/18 09:45 Dose: 100 mg Documented by: Epoetin Nomi (Procrit) 20,000 unit IV CAROL PRN PRN Reason: hemodialysis Famotidine (Pepcid) 20 mg PO QDAY [facility] Last Admin: 11/07/18 09:55 Dose: 20 mg Documented by: Fluticasone Propionate (Flonase) 100 mcg NS DAILY PRN PRN Reason: Allergy Symptoms Sodium Chloride (Nacl 0.9%) 100 mls @ 999 mls/hr IV CAROL PRN PRN Reason: Hypotension Insulin Human Lispro (Humalog) 0 unit SUB-Q ACHS [facility]; Protocol Last Admin: 11/07/18 12:24 Dose: Not Given Documented by: Methimazole (Tapazole) 10 mg PO Q24HR [facility] Last Admin: 11/07/18 09:46 Dose: 10 mg Documented by: Metoprolol Tartrate (Lopressor) 25 mg PO TID [facility] Last Admin: 11/07/18 09:45 Dose: 25 mg Documented by: Ondansetron HCl (Zofran) 4 mg IV Q8H PRN PRN Reason: Nausea And Vomiting Rifampin (Rifadin) 600 mg PO DAILY [facility] Last Admin: 11/07/18 09:45 Dose: 600 mg Documented by: Sodium Chloride (Sodium Chloride Flush Syringe 10 Ml) 10 ml IV BID [facility] Last Admin: 11/07/18 09:46 Dose: 10 ml Documented by: Sodium Chloride (Sodium Chloride Flush Syringe 10 Ml) 10 ml IV PRN PRN PRN Reason: LINE FLUSH Topiramate (Topamax) 25 mg PO BID [facility] Last Admin: 11/07/18 09:46 Dose: 25 mg Documented by: Vancomycin HCl (Vancomycin Po) 125 mg PO Q6HR [facility] Last Admin: 11/07/18 08:04 Dose: 125 mg Documented by: Exam - Vital Signs Vital signs: Vital Signs Temp Pulse Resp BP Pulse Ox 98.5 F 132 H 23 106/68 100 11/06/18 02:48 11/06/18 02:48 11/06/18 02:48 11/06/18 02:48 11/06/18 02:48 Results - Lab Results 11/07/18 05:02 11/07/18 05:02 Most recent lab results Calcium 8.2 mg/dL (8.4-10.2) L 11/07/18 05:02 Magnesium 2.00 mg/dL (1.7-2.3) 11/06/18 03:48
--- NOTE | 2018-11-07 13:29 | Progress Note ---
Assessment and Plan Assessment and plan: Atrial fibrillation/atrial flutter with RVR. Continue beta aden and apixaban per cardiology. Wean Cardizem drip. Recent S epidermidis bacteremia. Continue IV vancomycin, rifampin for 6 weeks per discharge instructions from [facility]. ID consultation. MATEUS on 10/15/18 showed a 0.5 x 1.15 cm echodensity of right atrial lead. Patient is status post emergent pericardial window secondary to failed attempt at lead extraction complicated by pericardial effusion Accelerated hypertension. Controlled. Continue current antihypertensive medications. Chronic respiratory failure with tracheostomy. Pulmonary consultation pending. Continue routine trach care, secretion control and airway management. ESRD on hemodialysis. Continue per nephrology. History C. difficile. The high probability of a clinically significant, sudden or life threatening deterioration of the [cardiac and respiratory] system(s) required my full and direct attention, intervention and personal management. The aggregate critical care time was [33] minutes. This time is in addition to time spent performing reported procedures but includes the following: [x] Data Review and interpretation [x] Patient assessment and monitoring of vital signs [x] Documentation [x] Medication orders and management History Interval history: This is a 73-year-old female who resides at [facility]/bedbound status with multiple medical problems including sick sinus syndrome/history of dual-chamber permanent pacemaker, chronic respiratory failure with chronic tracheostomy collar/for 15 years, paroxysmal atrial fibrillation, end-stage renal disease on hemodialysis, coronary artery disease, C. 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 for persistent bacteremia/sepsis. During this hospitalization the patient underwent attempted dual-chamber permanent pacemaker extraction however this was complicated by hemorrhagic pericardial effusion with requiring emergent pericardial window. The pacemaker generator was extracted parts of the right atrial lead were extracted however it appears by the chest x-ray that the right ventricular lead is in place. The patient was admitted on 10/17/2018 and discharged 10/30/2018. She presents to [facility] emergency department for evaluation of tachycardia and SOB and chest pain noted at intermediate. Pt states that her chest pain is aggravated by coughing. Following arrival, she was noted to be in AFlutter with RVR, HR 130s with elevated BPs. She was initiated on cardizem gtt. On evaluation, HR is 80s and BPs WNL. Hospitalist Physical - Constitutional Vitals: Temp Pulse Resp BP Pulse Ox 97.8 F 87 21 138/33 100 11/07/18 05:46 11/07/18 12:00 11/07/18 12:00 11/07/18 12:00 11/07/18 12:00 General appearance: Present: no acute distress - EENT Eyes: Present: PERRL, EOM intact ENT: hearing intact, clear oral mucosa, dentition normal - Neck Neck: Present: supple, normal ROM - Respiratory Respiratory effort: normal Respiratory: bilateral: CTA - Cardiovascular Rhythm: regular Heart Sounds: Present: S1 & S2. Absent: gallop, rub - Extremities Extremities: no ischemia, No edema, Full ROM - Abdominal General gastrointestinal: soft, non-tender, non-distended, normal bowel sounds - Integumentary Integumentary: Present: clear, warm, dry - Neurologic Neurologic: CNII-XII intact, moves all extremities Results - Labs CBC & Chem 7: 11/07/18 05:02 11/07/18 05:02 Labs: Laboratory Last Values WBC 7.9 K/mm3 (4.5-11.0) 11/07/18 05:02 RBC 2.89 M/mm3 (3.65-5.03) L 11/07/18 05:02 Hgb 8.4 gm/dl (10.1-14.3) L 11/07/18 05:02 Hct 26.1 % (30.3-42.9) L 11/07/18 05:02 MCV 91 fl (79-97) 11/07/18 05:02 MCH 29 pg (28-32) 11/07/18 05:02 MCHC 32 % (30-34) 11/07/18 05:02 RDW 17.9 % (13.2-15.2) H 11/07/18 05:02 Plt Count 196 K/mm3 (140-440) 11/07/18 05:02 Lymph % (Auto) 20.3 % (13.4-35.0) 11/07/18 05:02 [place] % (Auto) 7.9 % (0.0-7.3) H 11/07/18 05:02 Eos % (Auto) 2.3 % (0.0-4.3) 11/07/18 05:02 Baso % (Auto) 0.5 % (0.0-1.8) 11/07/18 05:02 Lymph # 1.6 K/mm3 (1.2-5.4) 11/07/18 05:02 [place] # 0.6 K/mm3 (0.0-0.8) 11/07/18 05:02 Eos # 0.2 K/mm3 (0.0-0.4) 11/07/18 05:02 Baso # 0.0 K/mm3 (0.0-0.1) 11/07/18 05:02 Seg Neutrophils % 69.0 % (40.0-70.0) 11/07/18 05:02 Seg Neutrophils # 5.4 K/mm3 (1.8-7.7) 11/07/18 05:02 PT 14.4 Sec. (12.2-14.9) 11/06/18 03:48 INR 1.08 (0.87-1.13) 11/06/18 03:48 APTT 29.7 Sec. (24.2-36.6) 11/06/18 03:48 Sodium 138 mmol/L (137-145) 11/07/18 05:02 Potassium 4.4 mmol/L (3.6-5.0) 11/07/18 05:02 Chloride 95.3 mmol/L (98-107) L 11/07/18 05:02 Carbon Dioxide 28 mmol/L (22-30) 11/07/18 05:02 Anion Gap 19 mmol/L 11/07/18 05:02 BUN 33 mg/dL (7-17) H 11/07/18 05:02 Creatinine 5.2 mg/dL (0.7-1.2) H 11/07/18 05:02 Estimated GFR 10 ml/min 11/07/18 05:02 BUN/Creatinine Ratio 6 % 11/07/18 05:02 Glucose 85 mg/dL (65-100) 11/07/18 05:02 POC Glucose 137 (70-105) H 11/07/18 12:25 Calcium 8.2 mg/dL (8.4-10.2) L 11/07/18 05:02 Magnesium 2.00 mg/dL (1.7-2.3) 11/06/18 03:48 Total Creatine Kinase 34 units/L (30-135) 11/06/18 11:06 CK-MB (CK-2) 1.6 ng/mL (0.0-4.0) 11/06/18 11:06 CK-MB (CK-2) Rel Index 4.7 (0-4) H 11/06/18 11:06 Troponin T 0.229 ng/mL (0.00-0.029) H* 11/06/18 11:06 TSH < 0.005 mlU/mL (0.270-4.200) L 11/06/18 03:48 Free T4 1.52 ng/dL (0.76-1.46) H 11/06/18 03:48
--- NOTE | 2018-11-07 14:41 | Progress Note ---
Assessment and Plan Chest pain. Atrial fibrillation with a rapid ventricular response. Acute on chronic hypoxemic respiratory failure. History of cardiomyopathy. Status post tracheostomy. History of congestive heart failure. Diabetes type 2. End-stage renal disease, on dialysis. Arthritis. Recent sepsis syndrome. Obesity - continue supplemental oxygen to keep O2 sat's > 90% - continue bronchodilators with routine trach care and pulmonary hygiene per RT - aspiration precautions - continue rate control per cardiology with metoprolol - continue Apixaban for anticoagulation - PT/OT - continue IV AB's (Vanc & Rifampin) to complete 6 weeks of therapy - continue HD/UF for toxin amnd volume clearance - mobility protocol for pressure ulcer prophylaxis ... continue other care per attending / other consultants ... re-evaluate in am & prn Subjective Date of service: 11/07/18 Principal diagnosis: Chest pain; A-Fib with RVR; Ac on Ch Hypoxemic Resp failure; CMOP; ESRD Interval history: Patient is seen today for: Chest pain; Atrial fibrillation with a rapid ventricular response; Acute on chronic hypoxemic respiratory failure; History of cardiomyopathy; Status post tracheostomy. Seen and examined at bedside; 24hour events reviewed; nursing and respiratory care staff consulted; no adverse overnight events reported to me; resting peacefully in bed; remains on supplemental oxygen; No emesis or overt aspiration Objective Vital Signs - 12hr 11/07/18 11/07/18 11/07/18 03:00 03:32 04:00 Temperature Pulse Rate 85 83 87 Respiratory 22 18 30 H Rate Blood Pressure 110/36 141/97 Blood Pressure 116/38 [Right] O2 Sat by Pulse 96 96 95 Oximetry O2 Sat by Pulse Oximetry [ Assessment] 11/07/18 11/07/18 11/07/18 04:34 05:00 05:46 Temperature 97.8 F Pulse Rate 83 88 Respiratory 20 21 Rate Blood Pressure 108/51 Blood Pressure 117/49 [Right] O2 Sat by Pulse 97 96 Oximetry O2 Sat by Pulse 96 Oximetry [ Assessment] 11/07/18 11/07/18 11/07/18 06:00 07:00 08:00 Temperature Pulse Rate 86 88 89 Respiratory 17 21 21 Rate Blood Pressure 117/34 102/33 112/44 Blood Pressure [Right] O2 Sat by Pulse 89 96 96 Oximetry O2 Sat by Pulse Oximetry [ Assessment] 11/07/18 11/07/18 11/07/18 09:00 09:45 10:00 Temperature Pulse Rate 89 88 94 H Respiratory 26 H 20 Rate Blood Pressure 132/42 130/36 Blood Pressure [Right] O2 Sat by Pulse 95 93 Oximetry O2 Sat by Pulse Oximetry [ Assessment] 11/07/18 11/07/18 11/07/18 11:00 12:00 13:00 Temperature Pulse Rate 90 87 89 Respiratory 26 H 21 24 Rate Blood Pressure 112/77 138/33 94/34 Blood Pressure [Right] O2 Sat by Pulse 98 100 98 Oximetry O2 Sat by Pulse Oximetry [ Assessment] 11/07/18 14:00 Temperature Pulse Rate 88 Respiratory 21 Rate Blood Pressure 110/65 Blood Pressure [Right] O2 Sat by Pulse 100 Oximetry O2 Sat by Pulse Oximetry [ Assessment] Constitutional: no acute distress, other (elderly looking female, normocephalica nd atraumatic with mildly increased respiratory effort at rest) Eyes: non-icteric ENT: oropharynx moist Neck: supple, no JVD, other (tracheostomy) Effort: mildly labored Ascultation: Bilateral: diminished breath sounds, rhonchi Percussion: Bilateral: not dull Cardiovascular: irregular rhythm, murmur noted (systolic) Gastrointestinal: normoactive bowel sounds, soft, non-tender, non-distended Integumentary: rash Extremities: no cyanosis, no edema, pulses normal, no ischemia or petechiae Neurologic: pupils equal and round, CN II-XII normal, unable to assess Psychiatric: other (unable to assess) CBC and BMP: 11/10/18 10:07 11/12/18 07:32 ABG, PT/INR, D-dimer: PT/INR, D-dimer PT 14.4 Sec. (12.2-14.9) 11/06/18 03:48 INR 1.08 (0.87-1.13) 11/06/18 03:48 Abnormal lab findings: Abnormal Labs 11/06/18 11/06/18 11/06/18 03:48 03:48 03:48 RBC 3.32 L Hgb 9.6 L Hct RDW 18.0 H [place] % (Auto) Sodium 136 L Chloride 93.2 L BUN 27 H Creatinine 4.7 H Glucose 107 H POC Glucose Calcium CK-MB (CK-2) Rel Index Troponin T 0.246 H* TSH Free T4 11/06/18 11/06/18 11/06/18 03:48 03:48 05:39 RBC Hgb Hct RDW [place] % (Auto) Sodium Chloride BUN Creatinine Glucose POC Glucose Calcium CK-MB (CK-2) Rel Index 5.1 H Troponin T 0.241 H* TSH < 0.005 L Free T4 1.52 H 11/06/18 11/06/18 11/06/18 11:06 17:39 21:20 RBC Hgb Hct RDW [place] % (Auto) Sodium Chloride BUN Creatinine Glucose POC Glucose 126 H 159 H Calcium CK-MB (CK-2) Rel Index 4.7 H Troponin T 0.229 H* TSH Free T4 11/07/18 11/07/18 11/07/18 05:02 05:02 12:25 RBC 2.89 L Hgb 8.4 L Hct 26.1 L RDW 17.9 H [place] % (Auto) 7.9 H Sodium Chloride 95.3 L BUN 33 H Creatinine 5.2 H Glucose POC Glucose 137 H Calcium 8.2 L CK-MB (CK-2) Rel Index Troponin T TSH Free T4 Chest x-ray: image reviewed (mild volume overload pattern) Allied health notes reviewed: nursing
--- NOTE | 2018-11-07 15:44 | Consultation ---
History of Present Illness - Reason for Consult Consult date: 11/07/18 Sepsis Requesting physician: DRE ENCISO - History of Present Illness The patient is a 73-year-old female with sick sinus syndrome status post permanent pacemaker, chronic respiratory failure with tracheostomy, paroxysmal atrial fibrillation, ESRD on hemodialysis via left arm AVG, coronary artery disease, recent history of C. difficile for which she was on oral vancomycin. 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 She was on IV vancomycin post HD and transferred to [facility] for cardiac device explant as well as lead extraction on 10/17/2018. Apparently, this was complicated by hemorrhagic pericardial effusion which required the patient to have an emergent pericardial window. She still has the retained lead, and hence it seems she was discharged on 6 weeks of IV vancomycin with rifampin with plans for long-term suppression with PO abx. Patient was admitted to the hospital yesterday with atrial fibrillation with rapid ventricular rate. She was placed on Cardizem drip. Currently, she is still in the emergency room awaiting a bed however denies any distress, just ate some lunch. Her heart rate has normalized and she has no complaints at this time. She denies any diarrhea. Review of Systems: General: no fevers,chills or rigors HEENT: no new visual disturbance Respiratory: No cough, sputum, hemoptysis or shortness of breath Cardiovascular: No chest pain, syncope Gastrointestinal: No nausea, vomiting or diarrhea Genitourinary: No dysuria or hematuria Musculoskeletal: No new or worsening neck pain or back pain Neurologic: No headaches, seizures Hematologic: No easy bruising or bleeding Endocrine: No night sweats or acute weight loss Skin: negative for rash, jaundice Psychiatric: No suicidal or homicidal ideation Past History Past Medical History: atrial fib, CAD, diabetes, ESRD, heart failure, hypertension, hyperlipidemia Past Surgical History: Other (Pacemaker insertion and extraction, recent pericardial window) Social history: other (reside in a SNF) Medications and Allergies Allergies Allergy/AdvReac Type Severity Reaction Status Date / Time No Known Allergies Allergy Unverified 06/20/18 15:19 Home Medications Medication Instructions Recorded Confirmed Last Taken Type Aspirin [Adult Aspirin] 81 mg PO DAILY 09/10/18 11/06/18 Unknown History Atorvastatin Calcium [Lipitor] 40 mg PO QPM 09/10/18 11/06/18 Unknown History Cholecalciferol Vit D3 [Vitamin D3] 1,000 unit PO QDAY 09/10/18 11/06/18 Unknown History Clotrimazole 1% [Lotrimin 1%] 1 applic TP BID 09/10/18 11/06/18 Unknown History Docusate Sodium [Colace CAP] 100 mg PO TID 09/10/18 11/06/18 Unknown History Fluticasone [Flonase] 2 sprays NS DAILY PRN 09/10/18 11/06/18 Unknown History Ipratropium/Albuterol Sulfate 1 ampul IH QID 09/10/18 11/06/18 Unknown History [DUONEB *Not for PRN Use*] Topiramate [Topamax] 25 mg PO BID 09/10/18 11/06/18 Unknown History tiZANidine [Zanaflex] 4 mg PO DAILY 09/10/18 11/06/18 Unknown History HYDROcodone/APAP 10-325 [[place] 1 each PO BID PRN #7 tablet 09/15/18 11/06/18 Unknown Rx 10-325 mg TAB] Vancomycin Po 125 mg PO Q6HR 2 Days oral.liqd 11/03/18 11/06/18 Unknown Rx methIMAzole [Tapazole] 10 mg PO Q24HR #30 tablet 11/03/18 11/06/18 Unknown Rx Cinacalcet [Sensipar] 30 mg PO DAILY 11/06/18 11/06/18 Unknown History Metoprolol Tartrate 25 mg PO BID 11/06/18 11/06/18 Unknown History Ventolin HFA 2 puff IH BID PRN 11/06/18 11/06/18 Unknown History rifAMPin [Rifampin] 600 mg PO DAILY 11/06/18 11/06/18 Unknown History Active Meds: Active Medications Acetaminophen (Tylenol) 650 mg PO Q4H PRN PRN Reason: Pain MILD(1-3)/Fever >100.5/TORRES Albumin Human ([place] 25% (Albumin)) 25 gm IV CAROL PRN PRN Reason: Hypotension Albuterol/Ipratropium (Duoneb *Not For Prn Use*) 1 ampul IH QIDRT [facility] Last Admin: 11/06/18 19:47 Dose: 1 ampul Documented by: Aspirin (Halfprin Ec) 81 mg PO DAILY [facility] Last Admin: 11/07/18 09:45 Dose: 81 mg Documented by: Atorvastatin Calcium (Lipitor) 40 mg PO QPM [facility] Last Admin: 11/06/18 18:49 Dose: 40 mg Documented by: Cholecalciferol (Vitamin D3) 1,000 unit PO QDAY [facility] Last Admin: 11/07/18 09:46 Dose: 1,000 unit Documented by: Cinacalcet (Sensipar) 30 mg PO DAILY [facility] Last Admin: 11/07/18 11:28 Dose: Not Given Documented by: Clotrimazole (Lotrimin) 1 applic TP BID [facility] Last Admin: 11/07/18 11:27 Dose: Not Given Documented by: Dextrose (D50w (25gm) Syringe) 50 ml IV PRN PRN PRN Reason: Hypoglycemia Docusate Sodium (Colace) 100 mg PO TID [facility] Last Admin: 11/07/18 09:45 Dose: 100 mg Documented by: Epoetin Nomi (Procrit) 20,000 unit IV CAROL PRN PRN Reason: hemodialysis Famotidine (Pepcid) 20 mg PO QDAY [facility] Last Admin: 11/07/18 09:55 Dose: 20 mg Documented by: Fluticasone Propionate (Flonase) 100 mcg NS DAILY PRN PRN Reason: Allergy Symptoms Sodium Chloride (Nacl 0.9%) 100 mls @ 999 mls/hr IV CAROL PRN PRN Reason: Hypotension Insulin Human Lispro (Humalog) 0 unit SUB-Q ACHS [facility]; Protocol Last Admin: 11/07/18 12:24 Dose: Not Given Documented by: Methimazole (Tapazole) 10 mg PO Q24HR [facility] Last Admin: 11/07/18 09:46 Dose: 10 mg Documented by: Metoprolol Tartrate (Lopressor) 25 mg PO TID [facility] Last Admin: 11/07/18 09:45 Dose: 25 mg Documented by: Ondansetron HCl (Zofran) 4 mg IV Q8H PRN PRN Reason: Nausea And Vomiting Rifampin (Rifadin) 600 mg PO DAILY [facility] Last Admin: 11/07/18 09:45 Dose: 600 mg Documented by: Sodium Chloride (Sodium Chloride Flush Syringe 10 Ml) 10 ml IV BID [facility] Last Admin: 11/07/18 09:46 Dose: 10 ml Documented by: Sodium Chloride (Sodium Chloride Flush Syringe 10 Ml) 10 ml IV PRN PRN PRN Reason: LINE FLUSH Topiramate (Topamax) 25 mg PO BID [facility] Last Admin: 11/07/18 09:46 Dose: 25 mg Documented by: Vancomycin HCl (Vancomycin Po) 125 mg PO Q6HR [facility] Last Admin: 11/07/18 14:30 Dose: 125 mg Documented by: Physical Examination - Physical Exam Narrative exam: Physical Exam: Constitutional: Alert, cooperative. No acute distress Head, Ears, Nose: Normocephalic, atraumatic. External ears, nose normal Eyes: Conjunctivae/corneas clear. No icterus. No ptosis. Neck: trach collar + Oral: no thrush, no ulcers Cardiovascular: S1, S2 normal, systolic murmur Respiratory: Good air entry, clear to auscultation bilaterally GI: Soft, non-tender; bowel sounds normal. No peritoneal signs Musculoskeletal: No pedal edema, no cyanosis. Left AVG with thrill. Old toe amputations well healed. Skin: No rash or abscess Hem/Lymphatic: No palpable cervical or supraclavicular nodes. No lymphangitis Psych: Mood ok. Affect normal Neurological: Awake, alert, oriented. No gross abnormality - Constitutional Vitals: Vital Signs Temp Pulse Resp BP Pulse Ox 97.8 F 88 21 110/65 100 11/07/18 05:46 11/07/18 14:00 11/07/18 14:00 11/07/18 14:00 11/07/18 14:00 Temperature -Last 24 Hours Temperature 97.8 F Temperature 97.7 F Results - Labs CBC & Chem 7: 11/07/18 05:02 11/07/18 05:02 Labs: Abnormal lab results 11/06/18 11/06/18 11/07/18 Range/Units 17:39 21:20 05:02 RBC 2.89 L (3.65-5.03) M/mm3 Hgb 8.4 L (10.1-14.3) gm/dl Hct 26.1 L (30.3-42.9) % RDW 17.9 H (13.2-15.2) % [place] % (Auto) 7.9 H (0.0-7.3) % Chloride (98-107) mmol/L BUN (7-17) mg/dL Creatinine (0.7-1.2) mg/dL POC Glucose 126 H 159 H (70-105) Calcium (8.4-10.2) mg/dL 11/07/18 11/07/18 Range/Units 05:02 12:25 RBC (3.65-5.03) M/mm3 Hgb (10.1-14.3) gm/dl Hct (30.3-42.9) % RDW (13.2-15.2) % [place] % (Auto) (0.0-7.3) % Chloride 95.3 L (98-107) mmol/L BUN 33 H (7-17) mg/dL Creatinine 5.2 H (0.7-1.2) mg/dL POC Glucose 137 H (70-105) Calcium 8.2 L (8.4-10.2) mg/dL - Imaging and Cardiology Chest x-ray: report reviewed, image reviewed (retained leads seen. bilateral basal effusions.) Assessment and Plan Cultures: Previous chart and cultures reviewed. Patient had coag negative staph bacteremia with Staphylococcus epidermidis, the isolate was susceptible only to vancomycin, tetracycline and was resistant to Bactrim, amoxicillin and clindamycin. A/P: 73-year-old female with sick sinus syndrome status post permanent pacemaker, chronic respiratory failure with tracheostomy, paroxysmal atrial fibrillation, ESRD on hemodialysis via left arm AVG, coronary artery disease, recent history of C. difficile for which she was on oral vancomycin, now admitted with A.fib and RVR. 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 Agree with their plan for 6 weeks of IV vancomycin along with rifampin for its biofilm activity. After completing 6 weeks, she will need long-term suppression with doxycycline. 2) Recent C. difficile: was supposed to complete oral vancomycin on 11/05/2018. Currently no diarrhea, hence can stop. Monitor for now. 3) Atrial fibrillation with rapid ventricular rate: Cardiology following. 4) ESRD on hemodialysis: Renally dose antibiotics. Recs: continue 6 weeks of IV vancomycin post HD along with PO rifampin (will have to clarify end date, bacteremia clearance here was 10/17/2018) please watch for drug - drug interactions with Rifampin since it is a potent CYP inducer and dose adjust accordingly PO vancomycin discontinued MD [facility] C: [phone] O: [phone] F: [phone]
[2018-11-07] MEDS ORDERED: VANCOMYCIN PHARMACY TO DOSE IV SCH (16:00)
[2018-11-07] MEDS ORDERED: VANCOMYCIN 1,500 MG in NACL 0.9% 500 ML 500 ML IV ONE (18:00)
[2018-11-07] MEDS: DUONEB *Not for PRN Use IH SCH ×2 (18:27→21:25)
[2018-11-08 06:13] LABS: Basophils % (Auto) 0.2 % (0.0-1.8); Eosinophils # (Auto) 0.1 K/mm3 (0.0-0.4); Eosinophils % (Auto) 1.8 % (0.0-4.3); Hemoglobin 8.6 gm/dl (10.1-14.3); Lymphocytes # (Auto) 1.1 K/mm3 (1.2-5.4); Lymphocytes % (Auto) 13.2 % (13.4-35.0); Mean Corpuscular HGB Conc 32 % (30-34); Mean Corpuscular Volume 91 fl (79-97); Monocytes # (Auto) 0.7 K/mm3 (0.0-0.8); Monocytes % (Auto) 8.4 % (0.0-7.3); Platelet Count 182 K/mm3 (140-440); Red Blood Count 2.96 M/mm3 (3.65-5.03); Red Cell Distribution Width 17.8 % (13.2-15.2)
[2018-11-08 06:33] LABS: Calcium 10.1 mg/dL (8.4-10.2)
[2018-11-08] MEDS: HumaLOG SUB-Q SCH ×4 (07:50→22:28)
[2018-11-08] MEDS: SENSIPAR PO SCH (10:00)
[2018-11-08] MEDS: RIFADIN PO SCH (10:20)
[2018-11-08] MEDS: TOPAMAX PO SCH ×2 (10:22→22:31)
[2018-11-08] MEDS: LOTRIMIN TP SCH ×2 (10:30→22:29)
[2018-11-08] MEDS: TAPAZOLE PO SCH (10:33)
[2018-11-08] MEDS: HALFPRIN EC PO SCH (10:34)
[2018-11-08] MEDS: LOPRESSOR PO SCH ×4 (10:34→22:32)
[2018-11-08] MEDS: PEPCID PO SCH (10:36)
[2018-11-08] MEDS: COLACE PO SCH ×3 (10:40→21:00)
[2018-11-08] MEDS: SODIUM CHLORIDE FLUSH SYRINGE 10 ML IV SCH ×2 (10:44→22:31)
--- NOTE | 2018-11-08 11:12 | Progress Note ---
Subjective Principal diagnosis: Chest pain; A-Fib with RVR; Ac on Ch Hypoxemic Resp failure; CMOP; ESRD Interval history: Patient was seen today for follow-up of multiple renal related issues No complaints of any chest pain pressure or shortness of breath she is feeling better, has had hemodialysis yesterday Events of 24 hours vitals labs intake output medications were reviewed Past medical history: Reviewed Family history: Reviewed Social history: Reviewed Allergies: Reviewed Physical examination: Vitals: Reviewed HEENT: No pallor or icterus oral mucosa moist Neck: Supple no JVD no thyromegaly patient does have tracheotomy Chest: Bilateral clear to auscultation anteriorly Heart: Regular rate and rhythm S1-S2 heard no S3-S4 Abdomen: Soft nontender no voluntary guarding rigidity rebound Extremity: Dry skin less than 1+ peripheral edema Psychiatric: No evidence of agitation and aggression noted Dermatology: No petechial rashes Labs and x-rays: Reviewed from today Assessment and plan End-stage renal disease: Patient is currently on hemodialysis, and will need to continue with hemodialysis on Saturday and Saturday, schedule. patient tolerated dialysis fairly well Staphylococcus epidermidis bacteremia due to pacemaker lead vegetation and endocarditis failed complete extraction, at [place] in September 2018 which is complicated by hemorrhagic pericardial effusion requiring pericardial window ; needs to follow up with Carla Hobbs as well as cardiology recommendation Anemia and end-stage renal disease: Monitor hemoglobin and hematocrit erythropoietin as needed. Current hemoglobin 8.4 Secondary hyperpathyroidism: Check phosphorus and PTH level periodically, binders as needed Dialysis access: Currently working well Malnutrition risk: High consider high-protein diet dietitian evaluation and follow-up in general 1.5 g protein per KG body weight Fluid restriction: 1200 cc per day not to exceed more than that, we'll follow We'll continue to follow and make recommendation for renal standpoint Objective - Vital Signs Vital signs: Vital Signs - 12hr 11/07/18 11/08/18 11/08/18 23:52 00:00 05:20 Temperature 98.4 F 98.2 F Pulse Rate 105 H 100 H Respiratory 20 20 Rate Blood Pressure 98/25 116/31 Blood Pressure [Right] O2 Sat by Pulse 96 97 Oximetry O2 Sat by Pulse 97 Oximetry [ Assessment] 11/08/18 11/08/18 08:49 08:51 Temperature 97.9 F 97.9 F Pulse Rate 100 H Respiratory 20 Rate Blood Pressure Blood Pressure 119/31 [Right] O2 Sat by Pulse 91 Oximetry O2 Sat by Pulse Oximetry [ Assessment] - Lab 11/08/18 04:49 11/08/18 04:49 Most recent lab results Calcium 10.1 mg/dL (8.4-10.2) D 11/08/18 04:49 Magnesium 2.00 mg/dL (1.7-2.3) 11/06/18 03:48 Medications & Allergies - Medications Allergies/Adverse Reactions: Allergies No Known Allergies Allergy (Unverified 06/20/18 15:19) Home Medications: Home Medications Medication Instructions Recorded Confirmed Last Taken Type Aspirin [Adult Aspirin] 81 mg PO DAILY 09/10/18 11/06/18 Unknown History Atorvastatin Calcium [Lipitor] 40 mg PO QPM 09/10/18 11/06/18 Unknown History Cholecalciferol Vit D3 [Vitamin D3] 1,000 unit PO QDAY 09/10/18 11/06/18 Unknown History Clotrimazole 1% [Lotrimin 1%] 1 applic TP BID 09/10/18 11/06/18 Unknown History Docusate Sodium [Colace CAP] 100 mg PO TID 09/10/18 11/06/18 Unknown History Fluticasone [Flonase] 2 sprays NS DAILY PRN 09/10/18 11/06/18 Unknown History Ipratropium/Albuterol Sulfate 1 ampul IH QID 09/10/18 11/06/18 Unknown History [DUONEB *Not for PRN Use*] Topiramate [Topamax] 25 mg PO BID 09/10/18 11/06/18 Unknown History tiZANidine [Zanaflex] 4 mg PO DAILY 09/10/18 11/06/18 Unknown History HYDROcodone/APAP 10-325 [[place] 1 each PO BID PRN #7 tablet 09/15/18 11/06/18 Unknown Rx 10-325 mg TAB] Vancomycin Po 125 mg PO Q6HR 2 Days oral.liqd 11/03/18 11/06/18 Unknown Rx methIMAzole [Tapazole] 10 mg PO Q24HR #30 tablet 11/03/18 11/06/18 Unknown Rx Cinacalcet [Sensipar] 30 mg PO DAILY 11/06/18 11/06/18 Unknown History Metoprolol Tartrate 25 mg PO BID 11/06/18 11/06/18 Unknown History Ventolin HFA 2 puff IH BID PRN 11/06/18 11/06/18 Unknown History rifAMPin [Rifampin] 600 mg PO DAILY 11/06/18 11/06/18 Unknown History Active Medications: Generic Name Dose Route Start Last Admin Trade Name Freq PRN Reason Stop Dose Admin Acetaminophen 650 mg 11/06/18 05:25 Tylenol PO Q4H PRN Pain MILD(1-3)/Fever >100.5/TORRES Albumin Human 25 gm 11/07/18 10:52 Alburx 25% (Albumin) IV CAROL PRN Hypotension Albuterol/Ipratropium 1 ampul 11/06/18 08:00 11/07/18 21:25 Duoneb *Not For Prn Use* IH 1 ampul QIDRT CRYSTAL Administration Aspirin 81 mg 11/06/18 10:00 11/07/18 09:45 Halfprin Ec PO 81 mg DAILY CRYSTAL Administration Atorvastatin Calcium 40 mg 11/06/18 18:00 11/07/18 18:39 Lipitor PO 40 mg QPM CRYSTAL Administration Cholecalciferol 1,000 unit 11/06/18 10:00 11/07/18 09:46 Vitamin D3 PO 1,000 unit QDAY CRYSTAL Administration Cinacalcet 30 mg 11/06/18 10:00 11/07/18 11:28 Sensipar PO Not Given DAILY [facility] Clotrimazole 1 applic 11/06/18 10:00 11/07/18 23:50 Lotrimin TP 1 applic BID CRYSTAL Administration Dextrose 50 ml 11/06/18 06:46 D50w (25gm) Syringe IV PRN PRN Hypoglycemia Docusate Sodium 100 mg 11/06/18 08:00 11/07/18 22:45 Colace PO Not Given TID CRYSTAL Epoetin Nomi 20,000 unit 11/07/18 10:52 Procrit IV CAROL PRN hemodialysis Famotidine 20 mg 11/07/18 10:00 11/07/18 09:55 Pepcid PO 20 mg QDAY CRYSTAL Administration Fluticasone Propionate 100 mcg 11/06/18 06:46 Flonase NS DAILY PRN Allergy Symptoms Sodium Chloride 100 mls @ 999 mls/hr 11/07/18 10:52 Nacl 0.9% IV CAROL PRN Hypotension Insulin Human Lispro 0 unit 11/06/18 07:30 11/07/18 22:50 Humalog SUB-Q Not Given ACHS CRYSTAL Protocol Methimazole 10 mg 11/07/18 10:00 11/07/18 09:46 Tapazole PO 10 mg Q24HR CRYSTAL Administration Metoprolol Tartrate 25 mg 11/07/18 10:00 11/07/18 22:30 Lopressor PO Not Given TID CRYSTAL Ondansetron HCl 4 mg 11/06/18 05:25 Zofran IV Q8H PRN Nausea And Vomiting Rifampin 600 mg 11/06/18 10:00 11/07/18 09:45 Rifadin PO 600 mg DAILY CRYSTAL Administration Sodium Chloride 10 ml 11/06/18 10:00 11/07/18 22:45 Sodium Chloride Flush Syringe 10 Ml IV 10 ml BID CRYSTAL Administration Sodium Chloride 10 ml 11/06/18 05:25 Sodium Chloride Flush Syringe 10 Ml IV PRN PRN LINE FLUSH Topiramate 25 mg 11/06/18 10:00 11/07/18 23:50 Topamax PO 25 mg BID CRYSTAL Administration
[2018-11-08] MEDS: DUONEB *Not for PRN Use IH SCH ×4 (11:28→20:17)
[2018-11-08] MEDS: VITAMIN D3 PO SCH (11:41)
--- NOTE | 2018-11-08 12:18 | Progress Note ---
Assessment and Plan Assessment and plan: Atrial fibrillation/atrial flutter with RVR. Continue beta aden and apixaban per cardiology. Recent S epidermidis bacteremia. Continue IV vancomycin, rifampin for 6 weeks per discharge instructions from [place]. ID following. MATEUS on 10/15/18 showed a 0.5 x 1.15 cm echodensity of right atrial lead. Patient is status post emergent pericardial window secondary to failed attempt at lead extraction complicated by pericardial effusion Accelerated hypertension. Controlled. Continue current antihypertensive medications. Chronic respiratory failure with tracheostomy. Pulmonary following. Continue routine trach care, secretion control and airway management. ESRD on hemodialysis. Continue per nephrology. History C. difficile. The high probability of a clinically significant, sudden or life threatening deterioration of the [cardiac and respiratory] system(s) required my full and direct attention, intervention and personal management. The aggregate critical care time was [33] minutes. This time is in addition to time spent performing reported procedures but includes the following: [x] Data Review and interpretation [x] Patient assessment and monitoring of vital signs [x] Documentation [x] Medication orders and management History Interval history: This is a 73-year-old female who resides at [facility] with multiple medical problems including sick sinus syndrome/history of dual- chamber permanent pacemaker, chronic respiratory failure with chronic tracheostomy collar/for 15 years, paroxysmal atrial fibrillation, end-stage renal disease on hemodialysis, coronary artery disease, C. difficile on [place] ncomycin by mouth with planned discontinuation 11/05/2018, staph epidermidis sepsis/endocarditis/pacemaker lead infection/RA lead who was recently hospitalized at [facility] for persistent bacteremia/sepsis. During this hospitalization the patient underwent attempted dual-chamber permanent pacemaker extraction however this was complicated by hemorrhagic pericardial effusion with requiring emergent pericardial window. The pacemaker generator was extracted parts of the right atrial lead were extracted however it appears by the chest x-ray that the right ventricular lead is in place. The patient was admitted on 10/17/2018 and discharged 10/30/2018. She presents to [facility] emergency department for evaluation of tachycardia and SOB and chest pain noted at alf. Pt states that her chest pain is aggravated by coughing. Following arrival, she was noted to be in AFlutter with RVR, HR 130s with elevated BPs. She was initiated on cardizem gtt. On evaluation, HR is 80s and BPs WNL. Hospitalist Physical - Constitutional Vitals: Temp Pulse Resp BP Pulse Ox 98.4 F 107 H 20 116/27 95 11/08/18 12:04 11/08/18 12:04 11/08/18 12:04 11/08/18 12:04 11/08/18 12:04 General appearance: Present: no acute distress - EENT Eyes: Present: PERRL, EOM intact ENT: hearing intact, clear oral mucosa, dentition normal - Neck Neck: Present: supple, normal ROM - Respiratory Respiratory effort: normal Respiratory: bilateral: CTA - Cardiovascular Rhythm: regular Heart Sounds: Present: S1 & S2. Absent: gallop, rub - Extremities Extremities: no ischemia, No edema, Full ROM - Abdominal General gastrointestinal: soft, non-tender, non-distended, normal bowel sounds - Integumentary Integumentary: Present: clear, warm, dry - Neurologic Neurologic: CNII-XII intact, moves all extremities Results - Labs CBC & Chem 7: 11/08/18 04:49 11/08/18 04:49 Labs: Laboratory Last Values WBC 8.3 K/mm3 (4.5-11.0) 11/08/18 04:49 RBC 2.96 M/mm3 (3.65-5.03) L 11/08/18 04:49 Hgb 8.6 gm/dl (10.1-14.3) L 11/08/18 04:49 Hct 27.0 % (30.3-42.9) L 11/08/18 04:49 MCV 91 fl (79-97) 11/08/18 04:49 MCH 29 pg (28-32) 11/08/18 04:49 MCHC 32 % (30-34) 11/08/18 04:49 RDW 17.8 % (13.2-15.2) H 11/08/18 04:49 Plt Count 182 K/mm3 (140-440) 11/08/18 04:49 Lymph % (Auto) 13.2 % (13.4-35.0) L 11/08/18 04:49 [place] % (Auto) 8.4 % (0.0-7.3) H 11/08/18 04:49 Eos % (Auto) 1.8 % (0.0-4.3) 11/08/18 04:49 Baso % (Auto) 0.2 % (0.0-1.8) 11/08/18 04:49 Lymph # 1.1 K/mm3 (1.2-5.4) L 11/08/18 04:49 [place] # 0.7 K/mm3 (0.0-0.8) 11/08/18 04:49 Eos # 0.1 K/mm3 (0.0-0.4) 11/08/18 04:49 Baso # 0.0 K/mm3 (0.0-0.1) 11/08/18 04:49 Seg Neutrophils % 76.4 % (40.0-70.0) H 11/08/18 04:49 Seg Neutrophils # 6.4 K/mm3 (1.8-7.7) 11/08/18 04:49 PT 14.4 Sec. (12.2-14.9) 11/06/18 03:48 INR 1.08 (0.87-1.13) 11/06/18 03:48 APTT 29.7 Sec. (24.2-36.6) 11/06/18 03:48 Sodium 141 mmol/L (137-145) 11/08/18 04:49 Potassium 4.8 mmol/L (3.6-5.0) 11/08/18 04:49 Chloride 99.9 mmol/L (98-107) 11/08/18 04:49 Carbon Dioxide 28 mmol/L (22-30) 11/08/18 04:49 Anion Gap 18 mmol/L 11/08/18 04:49 BUN 26 mg/dL (7-17) H 11/08/18 04:49 Creatinine 4.5 mg/dL (0.7-1.2) H 11/08/18 04:49 Estimated GFR 12 ml/min 11/08/18 04:49 BUN/Creatinine Ratio 6 % 11/08/18 04:49 Glucose 122 mg/dL (65-100) H 11/08/18 04:49 POC Glucose 66 (70-105) L 11/08/18 06:37 Calcium 10.1 mg/dL (8.4-10.2) D 11/08/18 04:49 Magnesium 2.00 mg/dL (1.7-2.3) 11/06/18 03:48 Total Creatine Kinase 34 units/L (30-135) 11/06/18 11:06 CK-MB (CK-2) 1.6 ng/mL (0.0-4.0) 11/06/18 11:06 CK-MB (CK-2) Rel Index 4.7 (0-4) H 11/06/18 11:06 Troponin T 0.229 ng/mL (0.00-0.029) H* 11/06/18 11:06 TSH < 0.005 mlU/mL (0.270-4.200) L 11/06/18 03:48 Free T4 1.52 ng/dL (0.76-1.46) H 11/06/18 03:48 Nutrition/Malnutrition Assess - Dietary Evaluation Nutrition/Malnutrition Findings: Nutrition Notes Start: 11/07/18 14:14 Freq: Status: Active Protocol: Document 11/07/18 14:14 JESU (Rec: 11/07/18 14:17 JESU [email or web address]) Co-Sign 11/07/18 14:14 LP Nutrition Notes Need for Assessment generated from: MD Order Initial or Follow up Brief Note Current Diagnosis CKD (stage V CKD) Coronary Artery Disease Diabetes Hypertension Heart Failure Hyperlipidemia Other Pertinent Diagnosis A.fib, anemia, ESRD on HD, Hx of c.diff Subjective/Other Information consult for evaluation of nutritional intake. Pt. in ED. Nutrition Intervention Follow-Up By: 11/10/18 Additional Comments F/U: Consult for evaluation of nutritional intake
--- NOTE | 2018-11-08 14:32 | Progress Note ---
Assessment and Plan Atrial fibrillation/atrial flutter with RVR/SSS 11/08/2018>patient is in S.r.,continue present rx. Continue on beta aden 25mg tid and stop cardizem drip but avoiding aggressive treatment to avoid bradycardia and sinus pauses. 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 Cont IV Vancomycin, rifampin for 6 weeks records from [place] discharge Patient will be on prolonged antibiotics and will need follow up with ID on suppressive therapies. MATEUS on 10/15/18 showed a 0.5x1.15cm echodensity of RA lead S/P Emergent pericardial window secondary to attempt at lead extractrion complicated by pericardial effusion possible due to RA tear after extraction of the RA lead NSTEMI type 2 Nonspecific given ESRD monitor for now Accelerated HTN Low TSH Chronic respiratory failure with tracheostomy ESRD, [facility] Date of service: 11/08/18 Principal diagnosis: Chest pain; A-Fib with RVR; Ac on Ch Hypoxemic Resp failure; CMOP; ESRD Interval history: Patient is comfortable,in no distress. Objective Vital Signs Temp Pulse Pulse Resp Resp BP BP 11/08/18 12:04 98.4 F 107 H 20 116/27 11/08/18 12:03 20 116/27 11/08/18 12:00 11/08/18 11:59 98.4 F 11/08/18 08:51 97.9 F 100 H 20 119/31 11/08/18 08:49 97.9 F 11/08/18 05:20 98.2 F 100 H 20 116/31 11/08/18 00:00 11/07/18 23:52 98.4 F 105 H 20 98/11/07/18 22:30 102 H 98/11/07/18 22:16 11/07/18 22:00 97 H 11/07/18 21:40 108 H 18 11/07/18 21:30 98.1 F 106 H 28 H 98/25 11/07/18 21:25 102 H 18 11/07/18 21:00 106 H 102/26 11/07/18 20:45 104 H 107/23 11/07/18 20:30 107 H 99/36 11/07/18 20:15 107 H 93/33 11/07/18 20:00 115 H 117/55 11/07/18 19:45 100 H 98/20 11/07/18 19:30 99 H 113/24 11/07/18 19:15 99 H 117/25 11/07/18 19:00 94 H 20 117/25 11/07/18 18:45 99 H 113/23 11/07/18 18:30 94 H 115/68 11/07/18 18:15 98 H 138/29 11/07/18 18:00 100 H 121/29 11/07/18 17:45 81 127/39 11/07/18 17:40 98 H 131/39 11/07/18 17:36 98.1 F 104 H 28 H 123/67 11/07/18 17:30 98.1 F 100 H 28 H 138/31 11/07/18 16:50 103 H 19 126/33 11/07/18 16:40 100 H 28 H 136/41 11/07/18 16:32 102 H 20 119/59 11/07/18 16:00 104 H 30 H 123/67 11/07/18 15:00 88 28 H 129/22 Pulse Ox Pulse Ox 11/08/18 12:04 95 11/08/18 12:03 11/08/18 12:00 95 11/08/18 11:59 11/08/18 08:51 91 11/08/18 08:49 11/08/18 05:20 97 11/08/18 00:00 97 11/07/18 23:52 96 11/07/18 22:30 11/07/18 22:16 100 11/07/18 22:00 11/07/18 21:40 11/07/18 21:30 11/07/18 21:25 11/07/18 21:00 11/07/18 20:45 11/07/18 20:30 11/07/18 20:15 11/07/18 20:00 11/07/18 19:45 11/07/18 19:30 11/07/18 19:15 11/07/18 19:00 11/07/18 18:45 11/07/18 18:30 11/07/18 18:15 11/07/18 18:00 11/07/18 17:45 11/07/18 17:40 11/07/18 17:36 100 11/07/18 17:30 11/07/18 16:50 11/07/18 16:40 96 11/07/18 16:32 52 L 11/07/18 16:00 100 11/07/18 15:00 99 - Physical Examination General: No Apparent Distress HEENT: Positive: PERRL, Normocephaly, Mucus Membranes Moist Neck: Positive: neck supple, trachea midline, Other (trach) Cardiac: Positive: Regular Rate Neuro: Positive: Grossly Intact Abdomen: Positive: Soft. Negative: Tender Skin: Negative: Rash, Wound Musculoskeletal: No Pain Extremities: Absent: edema - Labs and Meds CBC 11/08/18 Range/Units 04:49 WBC 8.3 (4.5-11.0) K/mm3 RBC 2.96 L (3.65-5.03) M/mm3 Hgb 8.6 L (10.1-14.3) gm/dl Hct 27.0 L (30.3-42.9) % Plt Count 182 (140-440) K/mm3 Lymph # 1.1 L (1.2-5.4) K/mm3 [place] # 0.7 (0.0-0.8) K/mm3 Eos # 0.1 (0.0-0.4) K/mm3 Baso # 0.0 (0.0-0.1) K/mm3 Comprehensive Metabolic Panel 11/08/18 Range/Units 04:49 Sodium 141 (137-145) mmol/L Potassium 4.8 (3.6-5.0) mmol/L Chloride 99.9 (98-107) mmol/L Carbon Dioxide 28 (22-30) mmol/L BUN 26 H (7-17) mg/dL Creatinine 4.5 H (0.7-1.2) mg/dL Glucose 122 H (65-100) mg/dL Calcium 10.1 D (8.4-10.2) mg/dL - Imaging and Cardiology EKG: report reviewed, image reviewed Echo: report reviewed (TTE done 10/13/2018 showed EF 65-70%, mod MS, mild TR, mild LVH, pseudonormalization, mod pulm HTN with RVSP 59mmHg) - EKG Sinus rhythms and dysrhythmias: sinus rhythm
--- NOTE | 2018-11-08 18:47 | Progress Note ---
Assessment and Plan Cultures: Previous chart and cultures reviewed. Patient had coag negative staph bacteremia with Staphylococcus epidermidis, the isolate was susceptible only to vancomycin, tetracycline and was resistant to Bactrim, amoxicillin and clindamycin. A/P: 73-year-old female with sick sinus syndrome status post permanent pacemaker, chronic respiratory failure with tracheostomy, paroxysmal atrial fibrillation, ESRD on hemodialysis via left arm AVG, coronary artery disease, recent history of C. difficile for which she was on oral vancomycin, now admitted with A.fib and RVR. 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 Agree with their plan for 6 weeks of IV vancomycin along with rifampin for its biofilm activity. After completing 6 weeks, she will need long-term suppression with doxycycline. 2) Recent C. difficile: was supposed to complete oral vancomycin on 11/05/2018. Currently no diarrhea, hence can stop. Monitor for now. 3) Atrial fibrillation with rapid ventricular rate: Cardiology following. 4) ESRD on hemodialysis: Renally dose antibiotics. Recs: - continue 6 weeks of IV vancomycin post HD along with PO rifampin (will have to clarify end date, bacteremia clearance here was 10/17/2018) - monitor drug - drug interactions with Rifampin - wound care to left chest surg wound Dr Jose vázquez on Saturday Deirdre Ramirez MD Infectious Diseases [employer] [facility] M [phone] O [phone] Subjective Date of service: 11/08/18 Principal diagnosis: esrd Interval history: Patient reports feeling good, no complaints, no fever Objective - Exam Narrative Exam: General appearance: Alert in NAD, conversant Eyes: anicteric sclerae, moist conjunctivae; no lid-lag; PERRLA HENT: Atraumatic; oropharynx clear Neck: Trach clear secretion Lungs: CTA, with normal respiratory effort and no intercostal retractions CV: RRR Abdomen: Soft, non-tender; no masses or hepatosplenomegaly Extremities: No peripheral edema or extremity lymphadenopathy Skin: right chest surg wound open with slough Psych: Appropriate affect, alert and oriented to person, place and time. Neuro: alert and oriented x 3. Moving all extermities Lines: No CVL / PICC - Constitutional Vitals: Vital Signs Temp Pulse Resp BP Pulse Ox 98.1 F 100 H 20 112/32 94 11/08/18 17:07 11/08/18 17:06 11/08/18 17:06 11/08/18 17:06 11/08/18 17:06 Temperature -Last 24 Hours Temperature 98.1 F Temperature 98.4 F Temperature 98.4 F Temperature 97.9 F Temperature 97.9 F Temperature 98.2 F Temperature 98.4 F Temperature 98.1 F - Labs CBC & Chem 7: 11/08/18 04:49 11/08/18 04:49 Labs: Abnormal lab results 11/08/18 11/08/18 11/08/18 Range/Units 04:49 04:49 06:37 RBC 2.96 L (3.65-5.03) M/mm3 Hgb 8.6 L (10.1-14.3) gm/dl Hct 27.0 L (30.3-42.9) % RDW 17.8 H (13.2-15.2) % Lymph % (Auto) 13.2 L (13.4-35.0) % [place] % (Auto) 8.4 H (0.0-7.3) % Lymph # 1.1 L (1.2-5.4) K/mm3 Seg Neutrophils % 76.4 H (40.0-70.0) % BUN 26 H (7-17) mg/dL Creatinine 4.5 H (0.7-1.2) mg/dL Glucose 122 H (65-100) mg/dL POC Glucose 66 L (70-105)
--- NOTE | 2018-11-08 22:26 | Progress Note ---
Assessment and Plan Patient alert, awake. Resting on trach collar, FIO2 35%. O2 saturation 96%.Still complaining shortness of breath even with slight exertion. - Patient Problems (1) Tracheostomy in place Current Visit: Yes Status: Acute Plan to address problem: Resting on trach collar, FIO2 35%, O2 saturation 96%. Albuterol/atrovent aerosol treatments q 6 hours. (2) Atrial flutter with rapid ventricular response Current Visit: Yes Status: Acute Plan to address problem: Management as per cardiology. Heart rate running 100 now. (3) Chest pain Current Visit: Yes Status: Acute Plan to address problem: Managent as per cardiology. (4) Acute heart failure Current Visit: No Status: Acute Plan to address problem: Management as per cardiology. (5) End-stage renal disease on hemodialysis Current Visit: Yes Status: Acute Plan to address problem: Management as per nephrology. (6) Hypotension Current Visit: No Status: Acute Plan to address problem: Improved. Recent blood pressure 112/32. (7) SIRS (systemic inflammatory response syndrome) Current Visit: No Status: Acute Plan to address problem: Improved. (8) Diabetes mellitus Current Visit: No Status: Chronic Plan to address problem: Management as per primary care. (9) History of hypertension Current Visit: No Status: Chronic Plan to address problem: Management as per primary care. Subjective Date of service: 11/08/18 Principal diagnosis: esrd Interval history: Patient alert, awake. Resting on trach collar, FIO2 35%. O2 saturation 96%.Still complaining shortness of breath even with slight exertion. Objective Vital Signs - 12hr 11/08/18 11/08/18 11/08/18 11:59 12:00 12:03 Temperature 98.4 F Pulse Rate Pulse Rate [ Anterior Bilateral Throughout] Respiratory 20 Rate Respiratory Rate [Anterior Bilateral Throughout] Blood Pressure 116/27 Blood Pressure [Right] O2 Sat by Pulse 95 Oximetry 11/08/18 11/08/18 11/08/18 12:04 16:15 17:06 Temperature 98.4 F Pulse Rate 107 H 100 H Pulse Rate [ 95 H Anterior Bilateral Throughout] Respiratory 20 20 Rate Respiratory 20 Rate [Anterior Bilateral Throughout] Blood Pressure 112/32 Blood Pressure 116/27 [Right] O2 Sat by Pulse 95 94 Oximetry 11/08/18 11/08/18 11/08/18 17:07 19:46 20:20 Temperature 98.1 F 98.3 F Pulse Rate 101 H Pulse Rate [ 100 H Anterior Bilateral Throughout] Respiratory 16 Rate Respiratory 20 Rate [Anterior Bilateral Throughout] Blood Pressure Blood Pressure [Right] O2 Sat by Pulse 87 Oximetry 11/08/18 20:38 Temperature Pulse Rate Pulse Rate [ 101 H Anterior Bilateral Throughout] Respiratory Rate Respiratory 20 Rate [Anterior Bilateral Throughout] Blood Pressure Blood Pressure [Right] O2 Sat by Pulse 96 Oximetry Constitutional: no acute distress, alert Eyes: non-icteric ENT: oropharynx moist Neck: supple, no lymphadenopathy, other (Tracheostomy.) Ascultation: Bilateral: diminished breath sounds (Decreased breath sounds at the bases.), rales Cardiovascular: irregular rhythm Gastrointestinal: normoactive bowel sounds, soft, non-tender Integumentary: normal Extremities: no cyanosis, no edema Neurologic: normal mental status, non-focal exam, pupils equal and round, CN II- XII normal Psychiatric: mood appropriate CBC and BMP: 11/08/18 04:49 11/08/18 04:49 ABG, PT/INR, D-dimer: PT/INR, D-dimer PT 14.4 Sec. (12.2-14.9) 11/06/18 03:48 INR 1.08 (0.87-1.13) 11/06/18 03:48 Abnormal lab findings: Abnormal Labs 11/06/18 11/06/18 11/06/18 03:48 03:48 03:48 RBC 3.32 L Hgb 9.6 L Hct RDW 18.0 H Lymph % (Auto) [facility] % (Auto) Lymph # Seg Neutrophils % Sodium 136 L Chloride 93.2 L BUN 27 H Creatinine 4.7 H Glucose 107 H POC Glucose Calcium CK-MB (CK-2) Rel Index Troponin T 0.246 H* TSH Free T4 11/06/18 11/06/18 11/06/18 03:48 03:48 05:39 RBC Hgb Hct RDW Lymph % (Auto) [facility] % (Auto) Lymph # Seg Neutrophils % Sodium Chloride BUN Creatinine Glucose POC Glucose Calcium CK-MB (CK-2) Rel Index 5.1 H Troponin T 0.241 H* TSH < 0.005 L Free T4 1.52 H 11/06/18 11/06/18 11/06/18 11:06 17:39 21:20 RBC Hgb Hct RDW Lymph % (Auto) [facility] % (Auto) Lymph # Seg Neutrophils % Sodium Chloride BUN Creatinine Glucose POC Glucose 126 H 159 H Calcium CK-MB (CK-2) Rel Index 4.7 H Troponin T 0.229 H* TSH Free T4 11/07/18 11/07/18 11/07/18 05:02 05:02 12:25 RBC 2.89 L Hgb 8.4 L Hct 26.1 L RDW 17.9 H Lymph % (Auto) [facility] % (Auto) 7.9 H Lymph # Seg Neutrophils % Sodium Chloride 95.3 L BUN 33 H Creatinine 5.2 H Glucose POC Glucose 137 H Calcium 8.2 L CK-MB (CK-2) Rel Index Troponin T TSH Free T4 11/08/18 11/08/18 11/08/18 04:49 04:49 06:37 RBC 2.96 L Hgb 8.6 L Hct 27.0 L RDW 17.8 H Lymph % (Auto) 13.2 L [facility] % (Auto) 8.4 H Lymph # 1.1 L Seg Neutrophils % 76.4 H Sodium Chloride BUN 26 H Creatinine 4.5 H Glucose 122 H POC Glucose 66 L Calcium CK-MB (CK-2) Rel Index Troponin T TSH Free T4 Chest x-ray: report reviewed (Bibasilar infiltrates. Bilateral small effusions.), image reviewed
[2018-11-09 05:34] LABS: Basophils % (Auto) 0.5 % (0.0-1.8); Eosinophils # (Auto) 0.2 K/mm3 (0.0-0.4); Eosinophils % (Auto) 1.9 % (0.0-4.3); Hematocrit 26.2 % (30.3-42.9); Hemoglobin 8.3 gm/dl (10.1-14.3); Lymphocytes # (Auto) 1.8 K/mm3 (1.2-5.4); Lymphocytes % (Auto) 21.3 % (13.4-35.0); Mean Corpuscular HGB Conc 32 % (30-34); Mean Corpuscular Volume 92 fl (79-97); Monocytes # (Auto) 0.7 K/mm3 (0.0-0.8); Monocytes % (Auto) 8.8 % (0.0-7.3); Platelet Count 193 K/mm3 (140-440); Red Blood Count 2.86 M/mm3 (3.65-5.03)
[2018-11-09 05:44] LABS: Calcium 8.3 mg/dL (8.4-10.2)
[2018-11-09] MEDS: DUONEB *Not for PRN Use IH SCH ×5 (05:58→21:34)
--- NOTE | 2018-11-09 09:09 | Progress Note ---
Assessment and Plan Assessment and plan: Atrial fibrillation/atrial flutter with RVR. Continue beta aden and apixaban per cardiology. Recent S epidermidis bacteremia. Continue IV vancomycin, rifampin for 6 weeks per discharge instructions from [place]. ID following. MATEUS on 10/15/18 showed a 0.5 x 1.15 cm echodensity of right atrial lead. Patient is status post emergent pericardial window secondary to failed attempt at lead extraction complicated by pericardial effusion Accelerated hypertension. Controlled. Continue current antihypertensive medications. Chronic respiratory failure with tracheostomy. Pulmonary following. Continue routine trach care, secretion control and airway management. ESRD on hemodialysis. Continue per nephrology. History C. difficile. History Interval history: This is a 73-year-old female who resides at [facility]/bedbound status with multiple medical problems including sick sinus syndrome/history of dual-chamber permanent pacemaker, chronic respiratory failure with chronic tracheostomy collar/for 15 years, paroxysmal atrial fibrillation, end-stage renal disease on hemodialysis, coronary artery disease, C. difficile on vancomycin by mouth with planned discontinuation 11/05/2018, staph epidermidis sepsis/endocarditis/pacemaker lead infection/RA lead who was recently hospitalized at [facility] for persistent bacteremia/sepsis. During this hospitalization the patient underwent attempted dual-chamber permanent pacemaker extraction however this was complicated by hemorrhagic pericardial effusion with requiring emergent pericardial window. The pacemaker generator was extracted parts of the right atrial lead were extracted however it appears by the chest x-ray that the right ventricular lead is in place. The patient was admitted on 10/17/2018 and discharged 10/30/2018. She presents to [facility] emergency department for evaluation of tachycardia and SOB and chest pain noted at custodial. Pt states that her chest pain is aggravated by coughing. Following arrival, she was noted to be in AFlutter with RVR, HR 130s with elevated BPs. She was initiated on cardizem gtt. On evaluation, HR is 80s and BPs WNL. Hospitalist Physical - Constitutional Vitals: Temp Pulse Resp BP Pulse Ox 97.8 F 100 H 20 152/29 97 11/09/18 08:41 11/09/18 08:45 11/09/18 08:45 11/09/18 08:41 11/09/18 08:45 General appearance: Present: no acute distress - EENT Eyes: Present: PERRL, EOM intact ENT: hearing intact, clear oral mucosa, dentition normal - Neck Neck: Present: supple, normal ROM - Respiratory Respiratory effort: normal Respiratory: bilateral: CTA - Cardiovascular Rhythm: regular Heart Sounds: Present: S1 & S2. Absent: gallop, rub - Extremities Extremities: no ischemia, No edema, Full ROM - Abdominal General gastrointestinal: soft, non-tender, non-distended, normal bowel sounds - Integumentary Integumentary: Present: clear, warm, dry - Neurologic Neurologic: CNII-XII intact, moves all extremities Results - Labs CBC & Chem 7: 11/09/18 04:54 11/09/18 04:54 Labs: Laboratory Last Values WBC 8.2 K/mm3 (4.5-11.0) 11/09/18 04:54 RBC 2.86 M/mm3 (3.65-5.03) L 11/09/18 04:54 Hgb 8.3 gm/dl (10.1-14.3) L 11/09/18 04:54 Hct 26.2 % (30.3-42.9) L 11/09/18 04:54 MCV 92 fl (79-97) 11/09/18 04:54 MCH 29 pg (28-32) 11/09/18 04:54 MCHC 32 % (30-34) 11/09/18 04:54 RDW 18.0 % (13.2-15.2) H 11/09/18 04:54 Plt Count 193 K/mm3 (140-440) 11/09/18 04:54 Lymph % (Auto) 21.3 % (13.4-35.0) 11/09/18 04:54 [place] % (Auto) 8.8 % (0.0-7.3) H 11/09/18 04:54 Eos % (Auto) 1.9 % (0.0-4.3) 11/09/18 04:54 Baso % (Auto) 0.5 % (0.0-1.8) 11/09/18 04:54 Lymph # 1.8 K/mm3 (1.2-5.4) 11/09/18 04:54 [place] # 0.7 K/mm3 (0.0-0.8) 11/09/18 04:54 Eos # 0.2 K/mm3 (0.0-0.4) 11/09/18 04:54 Baso # 0.0 K/mm3 (0.0-0.1) 11/09/18 04:54 Seg Neutrophils % 67.5 % (40.0-70.0) 11/09/18 04:54 Seg Neutrophils # 5.6 K/mm3 (1.8-7.7) 11/09/18 04:54 PT 14.4 Sec. (12.2-14.9) 11/06/18 03:48 INR 1.08 (0.87-1.13) 11/06/18 03:48 APTT 29.7 Sec. (24.2-36.6) 11/06/18 03:48 Sodium 138 mmol/L (137-145) 11/09/18 04:54 Potassium 4.5 mmol/L (3.6-5.0) 11/09/18 04:54 Chloride 97.8 mmol/L (98-107) L 11/09/18 04:54 Carbon Dioxide 28 mmol/L (22-30) 11/09/18 04:54 Anion Gap 17 mmol/L 11/09/18 04:54 BUN 23 mg/dL (7-17) H 11/09/18 04:54 Creatinine 4.2 mg/dL (0.7-1.2) H 11/09/18 04:54 Estimated GFR 13 ml/min 11/09/18 04:54 BUN/Creatinine Ratio 5 % 11/09/18 04:54 Glucose 78 mg/dL (65-100) 11/09/18 04:54 POC Glucose 81 (70-105) 11/09/18 06:19 Calcium 8.3 mg/dL (8.4-10.2) L D 11/09/18 04:54 Magnesium 2.00 mg/dL (1.7-2.3) 11/06/18 03:48 Total Creatine Kinase 34 units/L (30-135) 11/06/18 11:06 CK-MB (CK-2) 1.6 ng/mL (0.0-4.0) 11/06/18 11:06 CK-MB (CK-2) Rel Index 4.7 (0-4) H 11/06/18 11:06 Troponin T 0.229 ng/mL (0.00-0.029) H* 11/06/18 11:06 TSH < 0.005 mlU/mL (0.270-4.200) L 11/06/18 03:48 Free T4 1.52 ng/dL (0.76-1.46) H 11/06/18 03:48 Nutrition/Malnutrition Assess - Dietary Evaluation Nutrition/Malnutrition Findings: Nutrition Notes Start: 11/07/18 14:14 Freq: Status: Active Protocol: Document 11/07/18 14:14 JESU (Rec: 11/07/18 14:17 [email or web address]) Co-Sign 11/07/18 14:14 LP Nutrition Notes Need for Assessment generated from: MD Order Initial or Follow up Brief Note Current Diagnosis CKD (stage V CKD) Coronary Artery Disease Diabetes Hypertension Heart Failure Hyperlipidemia Other Pertinent Diagnosis A.fib, anemia, ESRD on HD, Hx of c.diff Subjective/Other Information consult for evaluation of nutritional intake. Pt. in ED. Nutrition Intervention Follow-Up By: 11/10/18 Additional Comments F/U: Consult for evaluation of nutritional intake
[2018-11-09] MEDS: TAPAZOLE PO SCH (09:37)
[2018-11-09] MEDS: SENSIPAR PO SCH (09:37)
[2018-11-09] MEDS: LOPRESSOR PO SCH ×3 (09:37→20:50)
[2018-11-09] MEDS: COLACE PO SCH ×3 (09:37→20:50)
[2018-11-09] MEDS: PEPCID PO SCH (09:37)
[2018-11-09] MEDS: VITAMIN D3 PO SCH (09:37)
[2018-11-09] MEDS: HumaLOG SUB-Q SCH ×4 (09:38→23:12)
[2018-11-09] MEDS: HALFPRIN EC PO SCH (09:38)
[2018-11-09] MEDS: LOTRIMIN TP SCH ×2 (09:39→23:14)
[2018-11-09] MEDS: SODIUM CHLORIDE FLUSH SYRINGE 10 ML IV SCH ×2 (09:39→23:13)
[2018-11-09] MEDS: RIFADIN PO SCH (10:20)
[2018-11-09] MEDS: TOPAMAX PO SCH ×2 (10:21→23:12)
--- NOTE | 2018-11-09 11:02 | Progress Note ---
Subjective Principal diagnosis: Chest pain; A-Fib with RVR; Ac on Ch Hypoxemic Resp failure; CMOP; ESRD Interval history: Patient was seen today for follow-up of multiple renal related issues No acute complaints today Mild cough no shortness of breath Events of 24 hours vitals labs intake output medications were reviewed Past medical history: Reviewed Family history: Reviewed Social history: Reviewed Allergies: Reviewed Physical examination: Vitals: Reviewed HEENT: No pallor or icterus oral mucosa moist Neck: Supple no JVD no thyromegaly patient does have tracheotomy Chest: Bilateral clear to auscultation anteriorly Few basilar crackles posteriorly Heart: Regular rate and rhythm S1-S2 heard no S3-S4 Abdomen: Soft nontender no voluntary guarding rigidity rebound Extremity: Dry skin less than 1+ peripheral edema Psychiatric: No evidence of agitation and aggression noted Dermatology: No petechial rashes Labs and x-rays: Reviewed from today Assessment and plan End-stage renal disease: Patient is currently on maintenance hemodialysis on Saturday and she will need to continue with that Anemia in end-stage renal disease: To monitor and follow she is currently erythropoietin 20,000 units 3 times a week Dialysis access currently working well Status post tracheotomy currently on FiO2 35% saturating well on nebulizer treatment Atrial flutter with rapid ventricular response and chest pain with history of heart failure patient is currently doing better her heart rate is currently well controlled blood pressure is stable Patient needs to maintain fluid restriction: She has been noncompliant has had dialysis ultrafiltration with improvement in her symptoms 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 currently an antibiotic will need to follow-up with infectious disease in outpatient setting as well, We'll continue to follow and make recommendation for renal standpoint Objective - Vital Signs Vital signs: Vital Signs - 12hr 11/08/18 11/09/18 11/09/18 23:52 05:04 05:40 Temperature 97.7 F 97.7 F Pulse Rate 104 H 94 H Pulse Rate [ 96 H Anterior Bilateral Throughout] Pulse Rate [ Apical] Respiratory 17 17 Rate Respiratory 20 Rate [Anterior Bilateral Throughout] Blood Pressure 154/37 177/46 Blood Pressure [Right] O2 Sat by Pulse 96 91 Oximetry 11/09/18 11/09/18 11/09/18 05:50 05:59 08:41 Temperature 97.8 F Pulse Rate 91 H 95 H Pulse Rate [ 95 H Anterior Bilateral Throughout] Pulse Rate [ Apical] Respiratory 22 20 Rate Respiratory 20 Rate [Anterior Bilateral Throughout] Blood Pressure 152/29 Blood Pressure 131/26 [Right] O2 Sat by Pulse 93 99 Oximetry 11/09/18 08:45 Temperature Pulse Rate Pulse Rate [ Anterior Bilateral Throughout] Pulse Rate [ 100 H Apical] Respiratory 20 Rate Respiratory Rate [Anterior Bilateral Throughout] Blood Pressure Blood Pressure [Right] O2 Sat by Pulse 97 Oximetry - Lab 11/09/18 04:54 11/09/18 04:54 Most recent lab results Calcium 8.3 mg/dL (8.4-10.2) L D 11/09/18 04:54 Magnesium 2.00 mg/dL (1.7-2.3) 11/06/18 03:48 Medications & Allergies - Medications Allergies/Adverse Reactions: Allergies No Known Allergies Allergy (Unverified 06/20/18 15:19) Home Medications: Home Medications Medication Instructions Recorded Confirmed Last Taken Type Aspirin [Adult Aspirin] 81 mg PO DAILY 09/10/18 11/06/18 Unknown History Atorvastatin Calcium [Lipitor] 40 mg PO QPM 09/10/18 11/06/18 Unknown History Cholecalciferol Vit D3 [Vitamin D3] 1,000 unit PO QDAY 09/10/18 11/06/18 Unknown History Clotrimazole 1% [Lotrimin 1%] 1 applic TP BID 09/10/18 11/06/18 Unknown History Docusate Sodium [Colace CAP] 100 mg PO TID 09/10/18 11/06/18 Unknown History Fluticasone [Flonase] 2 sprays NS DAILY PRN 09/10/18 11/06/18 Unknown History Ipratropium/Albuterol Sulfate 1 ampul IH QID 09/10/18 11/06/18 Unknown History [DUONEB *Not for PRN Use*] Topiramate [Topamax] 25 mg PO BID 09/10/18 11/06/18 Unknown History tiZANidine [Zanaflex] 4 mg PO DAILY 09/10/18 11/06/18 Unknown History HYDROcodone/APAP 10-325 [[place] 1 each PO BID PRN #7 tablet 09/15/18 11/06/18 Unknown Rx 10-325 mg TAB] Vancomycin Po 125 mg PO Q6HR 2 Days oral.liqd 11/03/18 11/06/18 Unknown Rx methIMAzole [Tapazole] 10 mg PO Q24HR #30 tablet 11/03/18 11/06/18 Unknown Rx Cinacalcet [Sensipar] 30 mg PO DAILY 11/06/18 11/06/18 Unknown History Metoprolol Tartrate 25 mg PO BID 11/06/18 11/06/18 Unknown History Ventolin HFA 2 puff IH BID PRN 11/06/18 11/06/18 Unknown History rifAMPin [Rifampin] 600 mg PO DAILY 11/06/18 11/06/18 Unknown History Active Medications: Generic Name Dose Route Start Last Admin Trade Name Freq PRN Reason Stop Dose Admin Acetaminophen 650 mg 11/06/18 05:25 Tylenol PO Q4H PRN Pain MILD(1-3)/Fever >100.5/TORRES Albumin Human 25 gm 11/07/18 10:52 Alburx 25% (Albumin) IV CAROL PRN Hypotension Albuterol/Ipratropium 1 ampul 11/06/18 08:00 11/09/18 10:15 Duoneb *Not For Prn Use* IH Not Given QIDRT CRYSTAL Aspirin 81 mg 11/06/18 10:00 11/09/18 09:38 Halfprin Ec PO 81 mg DAILY CRYSTAL Administration Atorvastatin Calcium 40 mg 11/06/18 18:00 11/08/18 18:50 Lipitor PO 40 mg QPM CRYSTAL Administration Cholecalciferol 1,000 unit 11/06/18 10:00 11/09/18 09:37 Vitamin D3 PO 1,000 unit QDAY CRYSTAL Administration Cinacalcet 30 mg 11/06/18 10:00 11/09/18 09:37 Sensipar PO 30 mg DAILY CRYSTAL Administration Clotrimazole 1 applic 11/06/18 10:00 11/09/18 09:39 Lotrimin TP Not Given BID [facility] Dextrose 50 ml 11/06/18 06:46 D50w (25gm) Syringe IV PRN PRN Hypoglycemia Docusate Sodium 100 mg 11/06/18 08:00 11/09/18 09:37 Colace PO 100 mg TID CRYSTAL Administration Epoetin Nomi 20,000 unit 11/07/18 10:52 Procrit IV CAROL PRN hemodialysis Famotidine 20 mg 11/07/18 10:00 11/09/18 09:37 Pepcid PO 20 mg QDAY CRYSTAL Administration Fluticasone Propionate 100 mcg 11/06/18 06:46 Flonase NS DAILY PRN Allergy Symptoms Sodium Chloride 100 mls @ 999 mls/hr 11/07/18 10:52 Nacl 0.9% IV CAROL PRN Hypotension Insulin Human Lispro 0 unit 11/06/18 07:30 11/09/18 09:38 Humalog SUB-Q Not Given ACHS [facility] Protocol Methimazole 10 mg 11/07/18 10:00 11/09/18 09:37 Tapazole PO 10 mg Q24HR CRYSTAL Administration Metoprolol Tartrate 25 mg 11/07/18 10:00 11/09/18 09:37 Lopressor PO 25 mg TID CRYSTAL Administration Ondansetron HCl 4 mg 11/06/18 05:25 Zofran IV Q8H PRN Nausea And Vomiting Rifampin 600 mg 11/06/18 10:00 11/09/18 10:20 Rifadin PO 600 mg DAILY CRYSTAL Administration Sodium Chloride 10 ml 11/06/18 10:00 11/09/18 09:39 Sodium Chloride Flush Syringe 10 Ml IV 10 ml BID CRYSTAL Administration Sodium Chloride 10 ml 11/06/18 05:25 Sodium Chloride Flush Syringe 10 Ml IV PRN PRN LINE FLUSH Topiramate 25 mg 11/06/18 10:00 11/09/18 10:21 Topamax PO 25 mg BID CRYSTAL Administration
--- NOTE | 2018-11-09 14:19 | Progress Note ---
Assessment and Plan Atrial fibrillation/atrial flutter with RVR/SSS 11/08/2018>patient is in S.r.,continue present rx. 11/09/2018>no change in patient's symptoms. Continue on beta aden 25mg tid and stop cardizem drip but avoiding aggressive treatment to avoid bradycardia and sinus pauses. 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 Cont IV Vancomycin, rifampin for 6 weeks records from [place] discharge Patient will be on prolonged antibiotics and will need follow up with ID on suppressive therapies. MATEUS on 10/15/18 showed a 0.5x1.15cm echodensity of RA lead S/P Emergent pericardial window secondary to attempt at lead extractrion complicated by pericardial effusion possible due to RA tear after extraction of the RA lead NSTEMI type 2 Nonspecific given ESRD monitor for now Accelerated HTN Low TSH Chronic respiratory failure with tracheostomy ESRD, on HD outpatient follow up with [facility] Date of service: 11/09/18 Principal diagnosis: Chest pain; A-Fib with RVR; Ac on Ch Hypoxemic Resp failure; CMOP; ESRD Interval history: Patient is comfortable,in no distress. Objective Vital Signs Temp Pulse Pulse Pulse Resp Resp BP 11/09/18 12:22 11/09/18 12:20 92 H 17 11/09/18 12:10 11/09/18 12:00 97.7 F 11/09/18 11:58 88 20 134/64 11/09/18 11:45 11/09/18 11:43 83 17 11/09/18 08:45 100 H 20 11/09/18 08:41 97.8 F 95 H 20 152/29 11/09/18 05:59 91 H 22 11/09/18 05:50 95 H 20 11/09/18 05:40 96 H 20 11/09/18 05:04 97.7 F 94 H 17 177/46 11/08/18 23:52 97.7 F 104 H 17 154/37 11/08/18 22:00 104 H 104 H 20 11/08/18 21:45 100 H 125/32 11/08/18 20:38 101 H 20 11/08/18 20:20 100 H 20 11/08/18 19:46 98.3 F 101 H 16 11/08/18 17:07 98.1 F 11/08/18 17:06 100 H 20 112/32 11/08/18 16:15 95 H 20 BP Pulse Ox Pulse Ox 11/09/18 12:22 35 L 11/09/18 12:20 11/09/18 12:10 98 11/09/18 12:00 11/09/18 11:58 93 11/09/18 11:45 98 11/09/18 11:43 11/09/18 08:45 97 11/09/18 08:41 99 11/09/18 05:59 131/26 93 11/09/18 05:50 11/09/18 05:40 11/09/18 05:04 91 11/08/18 23:52 96 11/08/18 22:00 97 11/08/18 21:45 11/08/18 20:38 96 11/08/18 20:20 11/08/18 19:46 87 11/08/18 17:07 11/08/18 17:06 94 11/08/18 16:15 - Physical Examination General: No Apparent Distress HEENT: Positive: PERRL, Normocephaly, Mucus Membranes Moist Neck: Positive: neck supple, trachea midline, Other (trach) Neuro: Positive: Grossly Intact Abdomen: Positive: Soft. Negative: Tender Skin: Negative: Rash, Wound Musculoskeletal: No Pain Extremities: Absent: edema - Labs and Meds CBC 11/09/18 Range/Units 04:54 WBC 8.2 (4.5-11.0) K/mm3 RBC 2.86 L (3.65-5.03) M/mm3 Hgb 8.3 L (10.1-14.3) gm/dl Hct 26.2 L (30.3-42.9) % Plt Count 193 (140-440) K/mm3 Lymph # 1.8 (1.2-5.4) K/mm3 [place] # 0.7 (0.0-0.8) K/mm3 Eos # 0.2 (0.0-0.4) K/mm3 Baso # 0.0 (0.0-0.1) K/mm3 Comprehensive Metabolic Panel 11/09/18 Range/Units 04:54 Sodium 138 (137-145) mmol/L Potassium 4.5 (3.6-5.0) mmol/L Chloride 97.8 L (98-107) mmol/L Carbon Dioxide 28 (22-30) mmol/L BUN 23 H (7-17) mg/dL Creatinine 4.2 H (0.7-1.2) mg/dL Glucose 78 (65-100) mg/dL Calcium 8.3 L D (8.4-10.2) mg/dL - Imaging and Cardiology EKG: report reviewed, image reviewed Echo: report reviewed (TTE done 10/13/2018 showed EF 65-70%, mod MS, mild TR, mild LVH, pseudonormalization, mod pulm HTN with RVSP 59mmHg) - EKG Sinus rhythms and dysrhythmias: sinus rhythm
--- NOTE | 2018-11-09 15:21 | Progress Note ---
Assessment and Plan Patient alert, awake. Resting on trach collar, FIO2 35%. O2 saturation 96%.Still complaining shortness of breath even with slight exertion. - Patient Problems (1) Tracheostomy in place Current Visit: Yes Status: Acute Plan to address problem: Resting on trach collar, FIO2 40%, O2 saturation 94%. Albuterol/atrovent aerosol treatments q 6 hours. (2) Atrial flutter with rapid ventricular response Current Visit: Yes Status: Acute Plan to address problem: Management as per cardiology. Heart rate running 84 now. (3) Chest pain Current Visit: Yes Status: Acute Plan to address problem: Managent as per cardiology. (4) Acute heart failure Current Visit: No Status: Acute Plan to address problem: Management as per cardiology. (5) End-stage renal disease on hemodialysis Current Visit: Yes Status: Acute Plan to address problem: Management as per nephrology. (6) Hypotension Current Visit: No Status: Acute Plan to address problem: Improved. Recent blood pressure 154/57. (7) SIRS (systemic inflammatory response syndrome) Current Visit: No Status: Acute Plan to address problem: Improved. (8) Diabetes mellitus Current Visit: No Status: Chronic Plan to address problem: Management as per primary care. (9) History of hypertension Current Visit: No Status: Chronic Plan to address problem: Management as per primary care. Subjective Date of service: 11/09/18 Principal diagnosis: Chest pain; A-Fib with RVR; Ac on Ch Hypoxemic Resp failure; CMOP; ESRD Interval history: Patient alert, awake. Resting on trach collar, FIO2 40%. O2 saturation 94%.No acute respiratory distress. Objective Vital Signs - 12hr 11/09/18 11/09/18 11/09/18 05:04 05:40 05:50 Temperature 97.7 F Pulse Rate 94 H Pulse Rate [ 96 H 95 H Anterior Bilateral Throughout] Pulse Rate [ Apical] Respiratory 17 Rate Respiratory 20 20 Rate [Anterior Bilateral Throughout] Blood Pressure 177/46 Blood Pressure [Right] O2 Sat by Pulse 91 Oximetry O2 Sat by Pulse Oximetry [ Assessment] 11/09/18 11/09/18 11/09/18 05:59 08:41 08:45 Temperature 97.8 F Pulse Rate 91 H 95 H Pulse Rate [ Anterior Bilateral Throughout] Pulse Rate [ 100 H Apical] Respiratory 22 20 20 Rate Respiratory Rate [Anterior Bilateral Throughout] Blood Pressure 152/29 Blood Pressure 131/26 [Right] O2 Sat by Pulse 93 99 97 Oximetry O2 Sat by Pulse Oximetry [ Assessment] 11/09/18 11/09/18 11/09/18 11:43 11:45 11:58 Temperature Pulse Rate 88 Pulse Rate [ 83 Anterior Bilateral Throughout] Pulse Rate [ Apical] Respiratory 20 Rate Respiratory 17 Rate [Anterior Bilateral Throughout] Blood Pressure 134/64 Blood Pressure [Right] O2 Sat by Pulse 98 93 Oximetry O2 Sat by Pulse Oximetry [ Assessment] 11/09/18 11/09/18 11/09/18 12:00 12:10 12:20 Temperature 97.7 F Pulse Rate Pulse Rate [ 92 H Anterior Bilateral Throughout] Pulse Rate [ Apical] Respiratory Rate Respiratory 17 Rate [Anterior Bilateral Throughout] Blood Pressure Blood Pressure [Right] O2 Sat by Pulse Oximetry O2 Sat by Pulse 98 Oximetry [ Assessment] 11/09/18 11/09/18 11/09/18 12:22 15:09 15:17 Temperature Pulse Rate Pulse Rate [ 96 H 105 H Anterior Bilateral Throughout] Pulse Rate [ Apical] Respiratory Rate Respiratory 17 17 Rate [Anterior Bilateral Throughout] Blood Pressure Blood Pressure [Right] O2 Sat by Pulse 35 L Oximetry O2 Sat by Pulse Oximetry [ Assessment] Constitutional: no acute distress, alert Eyes: non-icteric ENT: oropharynx moist Neck: supple, no lymphadenopathy, other (Tracheostomy.) Ascultation: Bilateral: diminished breath sounds (Decreased breath sounds at the bases.), rales Cardiovascular: irregular rhythm Gastrointestinal: normoactive bowel sounds, soft, non-tender Integumentary: normal Extremities: no cyanosis, no edema Neurologic: normal mental status, non-focal exam, pupils equal and round, CN II- XII normal Psychiatric: mood appropriate CBC and BMP: 11/09/18 04:54 11/09/18 04:54 ABG, PT/INR, D-dimer: PT/INR, D-dimer PT 14.4 Sec. (12.2-14.9) 11/06/18 03:48 INR 1.08 (0.87-1.13) 11/06/18 03:48 Abnormal lab findings: Abnormal Labs 11/06/18 11/06/18 11/06/18 03:48 03:48 03:48 RBC 3.32 L Hgb 9.6 L Hct RDW 18.0 H Lymph % (Auto) [place] % (Auto) Lymph # Seg Neutrophils % Sodium 136 L Chloride 93.2 L BUN 27 H Creatinine 4.7 H Glucose 107 H POC Glucose Calcium CK-MB (CK-2) Rel Index Troponin T 0.246 H* TSH Free T4 11/06/18 11/06/18 11/06/18 03:48 03:48 05:39 RBC Hgb Hct RDW Lymph % (Auto) [place] % (Auto) Lymph # Seg Neutrophils % Sodium Chloride BUN Creatinine Glucose POC Glucose Calcium CK-MB (CK-2) Rel Index 5.1 H Troponin T 0.241 H* TSH < 0.005 L Free T4 1.52 H 11/06/18 11/06/18 11/06/18 11:06 17:39 21:20 RBC Hgb Hct RDW Lymph % (Auto) [place] % (Auto) Lymph # Seg Neutrophils % Sodium Chloride BUN Creatinine Glucose POC Glucose 126 H 159 H Calcium CK-MB (CK-2) Rel Index 4.7 H Troponin T 0.229 H* TSH Free T4 11/07/18 11/07/18 11/07/18 05:02 05:02 12:25 RBC 2.89 L Hgb 8.4 L Hct 26.1 L RDW 17.9 H Lymph % (Auto) [place] % (Auto) 7.9 H Lymph # Seg Neutrophils % Sodium Chloride 95.3 L BUN 33 H Creatinine 5.2 H Glucose POC Glucose 137 H Calcium 8.2 L CK-MB (CK-2) Rel Index Troponin T TSH Free T4 11/08/18 11/08/18 11/08/18 04:49 04:49 06:37 RBC 2.96 L Hgb 8.6 L Hct 27.0 L RDW 17.8 H Lymph % (Auto) 13.2 L [place] % (Auto) 8.4 H Lymph # 1.1 L Seg Neutrophils % 76.4 H Sodium Chloride BUN 26 H Creatinine 4.5 H Glucose 122 H POC Glucose 66 L Calcium CK-MB (CK-2) Rel Index Troponin T TSH Free T4 11/09/18 11/09/18 11/09/18 04:54 04:54 12:00 RBC 2.86 L Hgb 8.3 L Hct 26.2 L RDW 18.0 H Lymph % (Auto) [place] % (Auto) 8.8 H Lymph # Seg Neutrophils % Sodium Chloride 97.8 L BUN 23 H Creatinine 4.2 H Glucose POC Glucose 68 L Calcium 8.3 L D CK-MB (CK-2) Rel Index Troponin T TSH Free T4
[2018-11-10] MEDS: DUONEB *Not for PRN Use IH SCH ×4 (02:32→20:09)
[2018-11-10 06:09] LABS: Basophils % (Auto) 0.4 % (0.0-1.8); Eosinophils # (Auto) 0.2 K/mm3 (0.0-0.4); Eosinophils % (Auto) 2.3 % (0.0-4.3); Hematocrit 27.5 % (30.3-42.9); Hemoglobin 8.8 gm/dl (10.1-14.3); Lymphocytes # (Auto) 1.6 K/mm3 (1.2-5.4); Lymphocytes % (Auto) 22.9 % (13.4-35.0); Mean Corpuscular HGB Conc 32 % (30-34); Mean Corpuscular Volume 91 fl (79-97); Monocytes # (Auto) 0.6 K/mm3 (0.0-0.8); Monocytes % (Auto) 9.1 % (0.0-7.3); Platelet Count 190 K/mm3 (140-440); Red Blood Count 3.01 M/mm3 (3.65-5.03); Red Cell Distribution Width 17.4 % (13.2-15.2)
[2018-11-10 06:21] LABS: Calcium 8.3 mg/dL (8.4-10.2)
[2018-11-10] MEDS: HumaLOG SUB-Q SCH ×4 (09:23→23:03)
--- NOTE | 2018-11-10 09:31 | Progress Note ---
Subjective Principal diagnosis: Chest pain; A-Fib with RVR; Ac on Ch Hypoxemic Resp failure; CMOP; ESRD Interval history: Patient was seen today for follow-up of multiple renal related issues No acute complaints today Patient is due for dialysis today Hemoglobin is somewhat better Events of 24 hours vitals labs intake output medications were reviewed Past medical history: Reviewed Family history: Reviewed Social history: Reviewed Allergies: Reviewed Physical examination: Vitals: Reviewed HEENT: No pallor or icterus oral mucosa moist Neck: Supple no JVD no thyromegaly patient does have tracheotomy Chest: Bilateral clear to auscultation anteriorly Few basilar crackles posteriorly Heart: Regular rate and rhythm S1-S2 heard no S3-S4 Abdomen: Soft nontender no voluntary guarding rigidity rebound Extremity: Dry skin less than 1+ peripheral edema Psychiatric: No evidence of agitation and aggression noted Dermatology: No petechial rashes Labs and x-rays: Reviewed from today Assessment and plan ESRD continue with hemodialysis on Saturday ultrafiltration as tolerated Anemia in end-stage renal disease currently on erythropoietin 20,000 units 3 times a week hemoglobin improving Patient needs to be in high protein diet History of atrial flutter with rapid ventricular response and chest pain currently being followed by cardiology Overall stable from dialysis perspective Patient needs to maintain fluid restriction: She has been noncompliant has had dialysis ultrafiltration with improvement in her symptoms 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 currently an antibiotic will need to follow-up with infectious disease in outpatient setting as well, We'll continue to follow and make recommendation for renal standpoint Objective - Vital Signs Vital signs: Vital Signs - 12hr 11/09/18 11/09/18 11/09/18 21:36 21:46 22:10 Temperature Pulse Rate Pulse Rate [ 78 84 Anterior Bilateral Throughout] Pulse Rate [ 89 Apical] Respiratory 22 Rate Respiratory 18 18 Rate [Anterior Bilateral Throughout] Blood Pressure O2 Sat by Pulse 99 93 Oximetry O2 Sat by Pulse Oximetry [ Assessment] 11/09/18 11/10/18 11/10/18 23:52 00:00 02:33 Temperature 97.6 F Pulse Rate 85 Pulse Rate [ 86 Anterior Bilateral Throughout] Pulse Rate [ Apical] Respiratory 17 Rate Respiratory 16 Rate [Anterior Bilateral Throughout] Blood Pressure 156/33 O2 Sat by Pulse 94 Oximetry O2 Sat by Pulse 97 Oximetry [ Assessment] 11/10/18 02:46 Temperature Pulse Rate Pulse Rate [ 84 Anterior Bilateral Throughout] Pulse Rate [ Apical] Respiratory Rate Respiratory 18 Rate [Anterior Bilateral Throughout] Blood Pressure O2 Sat by Pulse Oximetry O2 Sat by Pulse Oximetry [ Assessment] - Lab 11/10/18 05:12 11/10/18 05:12 Most recent lab results Calcium 8.3 mg/dL (8.4-10.2) L 11/10/18 05:12 Magnesium 2.00 mg/dL (1.7-2.3) 11/06/18 03:48 Medications & Allergies - Medications Allergies/Adverse Reactions: Allergies No Known Allergies Allergy (Unverified 06/20/18 15:19) Home Medications: Home Medications Medication Instructions Recorded Confirmed Last Taken Type Aspirin [Adult Aspirin] 81 mg PO DAILY 09/10/18 11/06/18 Unknown History Atorvastatin Calcium [Lipitor] 40 mg PO QPM 09/10/18 11/06/18 Unknown History Cholecalciferol Vit D3 [Vitamin D3] 1,000 unit PO QDAY 09/10/18 11/06/18 Unknown History Clotrimazole 1% [Lotrimin 1%] 1 applic TP BID 09/10/18 11/06/18 Unknown History Docusate Sodium [Colace CAP] 100 mg PO TID 09/10/18 11/06/18 Unknown History Fluticasone [Flonase] 2 sprays NS DAILY PRN 09/10/18 11/06/18 Unknown History Ipratropium/Albuterol Sulfate 1 ampul IH QID 09/10/18 11/06/18 Unknown History [DUONEB *Not for PRN Use*] Topiramate [Topamax] 25 mg PO BID 09/10/18 11/06/18 Unknown History tiZANidine [Zanaflex] 4 mg PO DAILY 09/10/18 11/06/18 Unknown History HYDROcodone/APAP 10-325 [[place] 1 each PO BID PRN #7 tablet 09/15/18 11/06/18 Unknown Rx 10-325 mg TAB] Vancomycin Po 125 mg PO Q6HR 2 Days oral.liqd 11/03/18 11/06/18 Unknown Rx methIMAzole [Tapazole] 10 mg PO Q24HR #30 tablet 11/03/18 11/06/18 Unknown Rx Cinacalcet [Sensipar] 30 mg PO DAILY 11/06/18 11/06/18 Unknown History Metoprolol Tartrate 25 mg PO BID 11/06/18 11/06/18 Unknown History Ventolin HFA 2 puff IH BID PRN 11/06/18 11/06/18 Unknown History rifAMPin [Rifampin] 600 mg PO DAILY 11/06/18 11/06/18 Unknown History Active Medications: Generic Name Dose Route Start Last Admin Trade Name Freq PRN Reason Stop Dose Admin Acetaminophen 650 mg 11/06/18 05:25 Tylenol PO Q4H PRN Pain MILD(1-3)/Fever >100.5/TORRES Albumin Human 25 gm 11/07/18 10:52 Alburx 25% (Albumin) IV CAROL PRN Hypotension Albuterol/Ipratropium 1 ampul 11/09/18 14:00 11/10/18 09:27 Duoneb *Not For Prn Use* IH 1 ampul Q6HRT CRYSTAL Administration Aspirin 81 mg 11/06/18 10:00 11/09/18 09:38 Halfprin Ec PO 81 mg DAILY CRYSTAL Administration Atorvastatin Calcium 40 mg 11/06/18 18:00 11/09/18 17:48 Lipitor PO 40 mg QPM CRYSTAL Administration Cholecalciferol 1,000 unit 11/06/18 10:00 11/09/18 09:37 Vitamin D3 PO 1,000 unit QDAY CRYSTAL Administration Cinacalcet 30 mg 11/06/18 10:00 11/09/18 09:37 Sensipar PO 30 mg DAILY CRYSTAL Administration Clotrimazole 1 applic 11/06/18 10:00 11/09/18 23:14 Lotrimin TP Not Given BID CRYSTAL Dextrose 50 ml 11/06/18 06:46 D50w (25gm) Syringe IV PRN PRN Hypoglycemia Docusate Sodium 100 mg 11/06/18 08:00 11/09/18 20:50 Colace PO 100 mg TID CRYSTAL Administration Epoetin Nomi 20,000 unit 11/07/18 10:52 Procrit IV CAROL PRN hemodialysis Famotidine 20 mg 11/07/18 10:00 11/09/18 09:37 Pepcid PO 20 mg QDAY CRYSTAL Administration Fluticasone Propionate 100 mcg 11/06/18 06:46 Flonase NS DAILY PRN Allergy Symptoms Sodium Chloride 100 mls @ 999 mls/hr 11/07/18 10:52 Nacl 0.9% IV CAROL PRN Hypotension Insulin Human Lispro 0 unit 11/06/18 07:30 11/09/18 23:12 Humalog SUB-Q Not Given ACHS CRYSTAL Protocol Methimazole 10 mg 11/07/18 10:00 11/09/18 09:37 Tapazole PO 10 mg Q24HR CRYSTAL Administration Metoprolol Tartrate 25 mg 11/07/18 10:00 11/09/18 20:50 Lopressor PO 25 mg TID CRYSTAL Administration Ondansetron HCl 4 mg 11/06/18 05:25 Zofran IV Q8H PRN Nausea And Vomiting Rifampin 600 mg 11/06/18 10:00 11/09/18 10:20 Rifadin PO 600 mg DAILY CRYSTAL Administration Sodium Chloride 10 ml 11/06/18 10:00 11/09/18 23:13 Sodium Chloride Flush Syringe 10 Ml IV 10 ml BID CRYSTAL Administration Sodium Chloride 10 ml 11/06/18 05:25 Sodium Chloride Flush Syringe 10 Ml IV PRN PRN LINE FLUSH Topiramate 25 mg 11/06/18 10:00 11/09/18 23:12 Topamax PO 25 mg BID CRYSTAL Administration
--- NOTE | 2018-11-10 09:44 | Progress Note ---
Assessment and Plan Cultures: Previous chart and cultures reviewed. Patient had coag negative staph bacteremia with Staphylococcus epidermidis, the isolate was susceptible only to vancomycin, tetracycline and was resistant to Bactrim, amoxicillin and clindamycin. A/P: 73-year-old female with sick sinus syndrome status post permanent pacemaker, chronic respiratory failure with tracheostomy, paroxysmal atrial fibrillation, ESRD on hemodialysis via left arm AVG, coronary artery disease, recent history of C. difficile for which she was on oral vancomycin, now admitted with A.fib and RVR. 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 Agree with their plan for 6 weeks of IV vancomycin along with rifampin for its biofilm activity. After completing 6 weeks, she will need long-term suppression with doxycycline. 2) Recent C. difficile: was supposed to complete oral vancomycin on 11/05/2018. Currently no diarrhea, hence can stop. Monitor for now. 3) Atrial fibrillation with rapid ventricular rate: Cardiology following. 4) ESRD on hemodialysis: Renally dose antibiotics. Recs: - continue 6 weeks of IV vancomycin post HD along with PO rifampin 600 PO daily until 11/28/18 - continue to monitor drug - drug interactions with Rifampin - After completing 6 weeks, she will need long-term suppression with doxycycli ne.100 mg PO q 12 hours - wound care to left chest surg wound -order placed with case management -f/u in ID office 11/25/18 Anita Farias NP [facility] M: [phone] O:[phone] Subjective Date of service: 11/10/18 Principal diagnosis: Chest pain; A-Fib with RVR; Ac on Ch Hypoxemic Resp failure; CMOP; ESRD Interval history: Patient seen and examined. Patient getting HD in room. Generalized weakness observed. Objective - Exam Narrative Exam: Narrative Exam: General appearance: Asleep, easily arousable, receiving HD. Mild distress observed Eyes: anicteric sclerae, moist conjunctivae; no lid-lag; PERRLA HENT: Atraumatic; oropharynx clear Neck: Trach clear secretion Lungs: CTA, with normal respiratory effort and no intercostal retractions CV: RRR Abdomen: Soft, non-tender; no masses or hepatosplenomegaly Extremities: No peripheral edema or extremity lymphadenopathy Skin: right chest surg wound open with slough Psych: Generalized weakness. Neuro: alert and oriented x 3. Moving all extermities Lines: No CVL / PICC - Constitutional Vitals: Vital Signs Temp Pulse Resp BP Pulse Ox 97.6 F 84 18 156/33 97 11/09/18 23:52 11/10/18 02:46 11/10/18 02:46 11/09/18 23:52 11/10/18 00:00 Temperature -Last 24 Hours Temperature 97.6 F Temperature 98.1 F Temperature 98.4 F Temperature 97.7 F - Labs CBC & Chem 7: 11/10/18 10:07 11/10/18 10:07 Labs: Abnormal lab results 11/09/18 11/09/18 11/10/18 Range/Units 12:00 17:06 05:12 RBC 3.01 L (3.65-5.03) M/mm3 Hgb 8.8 L (10.1-14.3) gm/dl Hct 27.5 L (30.3-42.9) % RDW 17.4 H (13.2-15.2) % [place] % (Auto) 9.1 H (0.0-7.3) % Sodium (137-145) mmol/L Potassium (3.6-5.0) mmol/L Chloride (98-107) mmol/L BUN (7-17) mg/dL Creatinine (0.7-1.2) mg/dL POC Glucose 68 L 64 L (70-105) Calcium (8.4-10.2) mg/dL 11/10/18 Range/Units 05:12 RBC (3.65-5.03) M/mm3 Hgb (10.1-14.3) gm/dl Hct (30.3-42.9) % RDW (13.2-15.2) % [place] % (Auto) (0.0-7.3) % Sodium 135 L (137-145) mmol/L Potassium 5.2 H (3.6-5.0) mmol/L Chloride 94.8 L (98-107) mmol/L BUN 31 H (7-17) mg/dL Creatinine 5.1 H (0.7-1.2) mg/dL POC Glucose (70-105) Calcium 8.3 L (8.4-10.2) mg/dL
[2018-11-10 10:42] LABS: Basophils % (Auto) 0.4 % (0.0-1.8); Eosinophils # (Auto) 0.2 K/mm3 (0.0-0.4); Hematocrit 28.3 % (30.3-42.9); Hemoglobin 9.1 gm/dl (10.1-14.3); Lymphocytes # (Auto) 1.5 K/mm3 (1.2-5.4); Lymphocytes % (Auto) 18.5 % (13.4-35.0); Mean Corpuscular HGB Conc 32 % (30-34); Mean Corpuscular Volume 90 fl (79-97); Monocytes # (Auto) 0.6 K/mm3 (0.0-0.8); Monocytes % (Auto) 7.5 % (0.0-7.3); Platelet Count 207 K/mm3 (140-440); Red Blood Count 3.13 M/mm3 (3.65-5.03); Red Cell Distribution Width 17.6 % (13.2-15.2)
--- NOTE | 2018-11-10 10:57 | Progress Note ---
Assessment and Plan Assessment and plan: Atrial fibrillation/atrial flutter with RVR. Continue beta aden and apixaban per cardiology. Recent S epidermidis bacteremia. Continue IV vancomycin, rifampin for 6 weeks per discharge instructions from [place]. ID following. MATEUS on 10/15/18 showed a 0.5 x 1.15 cm echodensity of right atrial lead. Patient is status post emergent pericardial window secondary to failed attempt at lead extraction complicated by pericardial effusion Accelerated hypertension. Controlled. Continue current antihypertensive medications. Chronic respiratory failure with tracheostomy. Pulmonary following. Continue routine trach care, secretion control and airway management. ESRD on hemodialysis. Continue per nephrology. History C. difficile. Disposition. Discharge per ID recommendations. History Interval history: This is a 73-year-old female who resides at [facility]/bedbound status with multiple medical problems including sick sinus syndrome/history of dual-chamber permanent pacemaker, chronic respiratory failure with chronic tracheostomy collar/for 15 years, paroxysmal atrial fibrillation, end-stage renal disease on hemodialysis, coronary artery disease, C. difficile on vancomycin by mouth with planned discontinuation 11/05/2018, staph epidermidis sepsis/endocarditis/pacemaker lead infection/RA lead who was recently hospitalized at [facility] for persistent bacteremia/sepsis. During this hospitalization the patient underwent attempted dual-chamber permanent pacemaker extraction however this was complicated by hemorrhagic pericardial effusion with requiring emergent pericardial window. The pacemaker generator wa s extracted parts of the right atrial lead were extracted however it appears by the chest x-ray that the right ventricular lead is in place. The patient was admitted on 10/17/2018 and discharged 10/30/2018. She presents to [facility] emergency department for evaluation of tachycardia and SOB and chest pain noted at half-way. Pt states that her chest pain is aggravated by coughing. Following arrival, she was noted to be in AFlutter with RVR, HR 130s with elevated BPs. She was initiated on cardizem gtt. On evaluation, HR is 80s and BPs WNL. Hospitalist Physical - Constitutional Vitals: Temp Pulse Resp BP Pulse Ox 97.6 F 84 18 156/33 97 11/09/18 23:52 11/10/18 02:46 11/10/18 02:46 11/09/18 23:52 11/10/18 00:00 General appearance: Present: no acute distress - EENT Eyes: Present: PERRL, EOM intact ENT: hearing intact, clear oral mucosa, dentition normal - Neck Neck: Present: supple, normal ROM - Respiratory Respiratory effort: normal Respiratory: bilateral: CTA - Cardiovascular Rhythm: regular Heart Sounds: Present: S1 & S2. Absent: gallop, rub - Extremities Extremities: no ischemia, No edema, Full ROM - Abdominal General gastrointestinal: soft, non-tender, non-distended, normal bowel sounds - Integumentary Integumentary: Present: clear, warm, dry - Neurologic Neurologic: CNII-XII intact, moves all extremities Results - Labs CBC & Chem 7: 11/10/18 10:07 11/10/18 05:12 Labs: Laboratory Last Values WBC 8.2 K/mm3 (4.5-11.0) 11/10/18 10:07 RBC 3.13 M/mm3 (3.65-5.03) L 11/10/18 10:07 Hgb 9.1 gm/dl (10.1-14.3) L 11/10/18 10:07 Hct 28.3 % (30.3-42.9) L 11/10/18 10:07 MCV 90 fl (79-97) 11/10/18 10:07 MCH 29 pg (28-32) 11/10/18 10:07 MCHC 32 % (30-34) 11/10/18 10:07 RDW 17.6 % (13.2-15.2) H 11/10/18 10:07 Plt Count 207 K/mm3 (140-440) 11/10/18 10:07 Lymph % (Auto) 18.5 % (13.4-35.0) 11/10/18 10:07 [place] % (Auto) 7.5 % (0.0-7.3) H 11/10/18 10:07 Eos % (Auto) 2.0 % (0.0-4.3) 11/10/18 10:07 Baso % (Auto) 0.4 % (0.0-1.8) 11/10/18 10:07 Lymph # 1.5 K/mm3 (1.2-5.4) 11/10/18 10:07 [place] # 0.6 K/mm3 (0.0-0.8) 11/10/18 10:07 Eos # 0.2 K/mm3 (0.0-0.4) 11/10/18 10:07 Baso # 0.0 K/mm3 (0.0-0.1) 11/10/18 10:07 Seg Neutrophils % 71.6 % (40.0-70.0) H 11/10/18 10:07 Seg Neutrophils # 5.9 K/mm3 (1.8-7.7) 11/10/18 10:07 PT 14.4 Sec. (12.2-14.9) 11/06/18 03:48 INR 1.08 (0.87-1.13) 11/06/18 03:48 APTT 29.7 Sec. (24.2-36.6) 11/06/18 03:48 Sodium 135 mmol/L (137-145) L 11/10/18 05:12 Potassium 5.2 mmol/L (3.6-5.0) H 11/10/18 05:12 Chloride 94.8 mmol/L (98-107) L 11/10/18 05:12 Carbon Dioxide 27 mmol/L (22-30) 11/10/18 05:12 Anion Gap 18 mmol/L 11/10/18 05:12 BUN 31 mg/dL (7-17) H 11/10/18 05:12 Creatinine 5.1 mg/dL (0.7-1.2) H 11/10/18 05:12 Estimated GFR 10 ml/min 11/10/18 05:12 BUN/Creatinine Ratio 6 % 11/10/18 05:12 Glucose 71 mg/dL (65-100) 11/10/18 05:12 POC Glucose 74 (70-105) 11/10/18 06:03 Calcium 8.3 mg/dL (8.4-10.2) L 11/10/18 05:12 Magnesium 2.00 mg/dL (1.7-2.3) 11/06/18 03:48 Total Creatine Kinase 34 units/L (30-135) 11/06/18 11:06 CK-MB (CK-2) 1.6 ng/mL (0.0-4.0) 11/06/18 11:06 CK-MB (CK-2) Rel Index 4.7 (0-4) H 11/06/18 11:06 Troponin T 0.229 ng/mL (0.00-0.029) H* 11/06/18 11:06 TSH < 0.005 mlU/mL (0.270-4.200) L 11/06/18 03:48 Free T4 1.52 ng/dL (0.76-1.46) H 11/06/18 03:48 Random Vancomycin 36.2 ug/mL (0-40.0) 11/10/18 05:12 Nutrition/Malnutrition Assess - Dietary Evaluation Nutrition/Malnutrition Findings: Nutrition Notes Start: 11/07/18 14:14 Freq: Status: Active Protocol: Document 11/07/18 14:14 KH (Rec: 11/07/18 14:17 [email or web address]) Co-Sign 11/07/18 14:14 LP Nutrition Notes Need for Assessment generated from: MD Order Initial or Follow up Brief Note Current Diagnosis CKD (stage V CKD) Coronary Artery Disease Diabetes Hypertension Heart Failure Hyperlipidemia Other Pertinent Diagnosis A.fib, anemia, ESRD on HD, Hx of c.diff Subjective/Other Information MD consult for evaluation of nutritional intake. Pt. in ED. Nutrition Intervention Follow-Up By: 11/10/18 Additional Comments F/U: Consult for evaluation of nutritional intake
[2018-11-10 10:58] LABS: Albumin 3.2 g/dL (3.9-5); Calcium 8.3 mg/dL (8.4-10.2)
[2018-11-10] MEDS: COLACE PO SCH ×3 (11:15→21:37)
[2018-11-10] MEDS: TOPAMAX PO SCH ×2 (11:15→21:37)
[2018-11-10] MEDS: PEPCID PO SCH (11:15)
[2018-11-10] MEDS: HALFPRIN EC PO SCH (11:15)
[2018-11-10] MEDS: VITAMIN D3 PO SCH (11:15)
[2018-11-10] MEDS: SENSIPAR PO SCH (11:16)
[2018-11-10] MEDS: TAPAZOLE PO SCH (11:16)
[2018-11-10] MEDS: RIFADIN PO SCH (11:16)
[2018-11-10] MEDS: SODIUM CHLORIDE FLUSH SYRINGE 10 ML IV SCH ×2 (11:17→21:37)
[2018-11-10] MEDS: LOPRESSOR PO SCH ×3 (11:36→21:37)
[2018-11-10] MEDS: LOTRIMIN TP SCH ×2 (11:36→21:40)
--- NOTE | 2018-11-10 12:33 | Progress Note ---
Addendum entered and electronically signed by ELIZA WEBBER MD 11/10/18 13:05: Atrial fibrillation/atrial flutter with RVR/SSS Recent History of Persistent Bacteremia/Sepsis/RA lead vegetation S/P Emergent pericardial window secondary to attempt at lead extractrion complicated by pericardial effusion possible due to RA tear after extraction of the RA lead Low TSH/Hyperthyroidism Original Note: Assessment and Plan ECHO 10/15/18: 1. Left ventricular ejection fraction is 60%. 2. Mild tricuspid regurgitation. 3. Moderate mitral annular calcification. 4. No pericardial effusion seen. 5. The tricuspid regurgitant velocity is 3.96 m/s, and with an assumed right atrial pressure of 8 mmHg, the estimated right ventricular systolic pressure is severely elevated at 70.7 mmHg. Atrial fibrillation/atrial flutter with RVR/SSS Continue on beta aden but avoiding aggressive treatment to avoid bradycardia and sinus pauses. Wean cardizem gtt for resting HR <100 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 Cont IV Vancomycin, rifampin for 6 weeks records from [place] discharge Patient will be on prolonged antibiotics and will need follow up with ID on suppressive therapies. MATEUS on 10/15/18 showed a 0.5x1.15cm echodensity of RA lead S/P Emergent pericardial window secondary to attempt at lead extractrion co mplicated by pericardial effusion possible due to RA tear after extraction of the RA lead Elevated Cardiac Enzymes Nonspecific given ESRD monitor for now HTN Low TSH Chronic respiratory failure with tracheostomy ESRD, on HD outpatient follow up with [facility] Hyperkalemia Management per nephrology C. Diff The patient has been seen in conjunction with Dr. Webber who agrees with the assessment and plan of care. Subjective Date of service: 11/10/18 Principal diagnosis: Chest pain; A-Fib with RVR; Ac on Ch Hypoxemic Resp failure; CMOP; ESRD Interval history: pt resting in bed, undergoing HD, no current cardiac complaints. tele reviewed - currently in SR. Objective Last Vital Signs Temp 98.9 F 11/10/18 10:55 Pulse 96 H 11/10/18 12:30 Resp 16 11/10/18 10:55 BP 134/39 11/10/18 12:30 Pulse Ox 97 11/10/18 00:00 - Physical Examination General: No Apparent Distress HEENT: Positive: PERRL, Normocephaly, Mucus Membranes Moist Neck: Positive: neck supple, trachea midline, Other (trach) Cardiac: Positive: Reg Rate and Rhythm, S1/S2 Lungs: Positive: Decreased Breath Sounds Neuro: Positive: Grossly Intact Abdomen: Positive: Soft. Negative: Tender Skin: Negative: Rash, Wound Musculoskeletal: No Pain Extremities: Absent: edema - Labs and Meds Cardiac Enzymes 11/10/18 Range/Units 10:07 AST 10 (5-40) units/L CBC 11/10/18 11/10/18 Range/Units 05:12 10:07 WBC 7.0 8.2 (4.5-11.0) K/mm3 RBC 3.01 L 3.13 L (3.65-5.03) M/mm3 Hgb 8.8 L 9.1 L (10.1-14.3) gm/dl Hct 27.5 L 28.3 L (30.3-42.9) % Plt Count 190 207 (140-440) K/mm3 Lymph # 1.6 1.5 (1.2-5.4) K/mm3 [place] # 0.6 0.6 (0.0-0.8) K/mm3 Eos # 0.2 0.2 (0.0-0.4) K/mm3 Baso # 0.0 0.0 (0.0-0.1) K/mm3 Comprehensive Metabolic Panel 11/10/18 11/10/18 Range/Units 05:12 10:07 Sodium 135 L 132 L (137-145) mmol/L Potassium 5.2 H 5.2 H (3.6-5.0) mmol/L Chloride 94.8 L 91.5 L (98-107) mmol/L Carbon Dioxide 27 27 (22-30) mmol/L BUN 31 H 31 H (7-17) mg/dL Creatinine 5.1 H 5.2 H (0.7-1.2) mg/dL Glucose 71 105 H (65-100) mg/dL Calcium 8.3 L 8.3 L (8.4-10.2) mg/dL AST 10 (5-40) units/L ALT 7 (7-56) units/L Alkaline Phosphatase 91 (35-129) units/L Total Protein 7.4 (6.3-8.2) g/dL Albumin 3.2 L (3.9-5) g/dL - Imaging and Cardiology EKG: report reviewed, image reviewed Echo: report reviewed (TTE done 10/13/2018 showed EF 65-70%, mod MS, mild TR, mild LVH, pseudonormalization, mod pulm HTN with RVSP 59mmHg) - EKG Sinus rhythms and dysrhythmias: sinus rhythm
[2018-11-10] MEDS ORDERED: NACL 0.9% 1000 ML 2,000 ML ONE (14:23)
--- NOTE | 2018-11-10 19:29 | Progress Note ---
Assessment and Plan atient alert, awake. Resting on trach collar, FIO2 28%. O2 saturation 98%.No acute respiratory distress. - Patient Problems (1) Tracheostomy in place Current Visit: Yes Status: Acute Plan to address problem: Resting on trach collar, FIO2 28%, O2 saturation 98%. Albuterol/atrovent aerosol treatments q 6 hours. (2) Atrial flutter with rapid ventricular response Current Visit: Yes Status: Acute Plan to address problem: Management as per cardiology. Heart rate running 93 now. (3) Chest pain Current Visit: Yes Status: Acute Plan to address problem: Managent as per cardiology. (4) Acute heart failure Current Visit: No Status: Acute Plan to address problem: Management as per cardiology. (5) End-stage renal disease on hemodialysis Current Visit: Yes Status: Acute Plan to address problem: Management as per nephrology. (6) Hypotension Current Visit: No Status: Acute Plan to address problem: Improved. Recent blood pressure 141/23 (7) SIRS (systemic inflammatory response syndrome) Current Visit: No Status: Acute Plan to address problem: Improved. (8) Diabetes mellitus Current Visit: No Status: Chronic Plan to address problem: Management as per primary care. (9) History of hypertension Current Visit: No Status: Chronic Plan to address problem: Management as per primary care. Subjective Date of service: 11/10/18 Principal diagnosis: Chest pain; A-Fib with RVR; Ac on Ch Hypoxemic Resp f ailure; CMOP; ESRD Interval history: Patient alert, awake. Resting on trach collar, FIO2 28%. O2 saturation 98%.No acute respiratory distress. Objective Vital Signs - 12hr 11/10/18 11/10/18 11/10/18 09:27 09:37 10:55 Temperature 98.9 F Pulse Rate 96 H Pulse Rate [ 90 89 Anterior Bilateral Throughout] Respiratory 16 Rate Respiratory 18 20 Rate [Anterior Bilateral Throughout] Blood Pressure 130/83 O2 Sat by Pulse 96 Oximetry O2 Sat by Pulse 96 Oximetry [ Assessment] 11/10/18 11/10/18 11/10/18 11:00 11:15 11:30 Temperature Pulse Rate 93 H 93 H 94 H Pulse Rate [ Anterior Bilateral Throughout] Respiratory Rate Respiratory Rate [Anterior Bilateral Throughout] Blood Pressure 130/28 124/27 124/26 O2 Sat by Pulse Oximetry O2 Sat by Pulse Oximetry [ Assessment] 11/10/18 11/10/18 11/10/18 11:45 12:00 12:15 Temperature Pulse Rate 93 H 94 H 94 H Pulse Rate [ Anterior Bilateral Throughout] Respiratory Rate Respiratory Rate [Anterior Bilateral Throughout] Blood Pressure 141/27 124/30 129/31 O2 Sat by Pulse Oximetry O2 Sat by Pulse Oximetry [ Assessment] 11/10/18 11/10/18 11/10/18 12:30 12:45 13:00 Temperature Pulse Rate 96 H 96 H 96 H Pulse Rate [ Anterior Bilateral Throughout] Respiratory Rate Respiratory Rate [Anterior Bilateral Throughout] Blood Pressure 134/39 131/25 127/28 O2 Sat by Pulse Oximetry O2 Sat by Pulse Oximetry [ Assessment] 11/10/18 11/10/18 11/10/18 13:15 13:30 13:45 Temperature Pulse Rate 94 H 96 H 96 H Pulse Rate [ Anterior Bilateral Throughout] Respiratory Rate Respiratory Rate [Anterior Bilateral Throughout] Blood Pressure 129/22 134/18 121/24 O2 Sat by Pulse Oximetry O2 Sat by Pulse Oximetry [ Assessment] 11/10/18 11/10/18 11/10/18 13:52 14:00 14:02 Temperature Pulse Rate 89 Pulse Rate [ 99 H 87 Anterior Bilateral Throughout] Respiratory Rate Respiratory 20 20 Rate [Anterior Bilateral Throughout] Blood Pressure 139/18 O2 Sat by Pulse Oximetry O2 Sat by Pulse Oximetry [ Assessment] 11/10/18 11/10/18 14:15 14:30 Temperature 97.8 F Pulse Rate 93 H 93 H Pulse Rate [ Anterior Bilateral Throughout] Respiratory 18 Rate Respiratory Rate [Anterior Bilateral Throughout] Blood Pressure 135/19 141/23 O2 Sat by Pulse Oximetry O2 Sat by Pulse Oximetry [ Assessment] Constitutional: no acute distress, alert Eyes: non-icteric ENT: oropharynx moist Neck: supple, no lymphadenopathy, other (Tracheostomy.) Ascultation: Bilateral: diminished breath sounds (Decreased breath sounds at the bases.), rales Cardiovascular: irregular rhythm Gastrointestinal: normoactive bowel sounds, soft, non-tender Integumentary: normal Extremities: no cyanosis, no edema Neurologic: normal mental status, non-focal exam, pupils equal and round, CN II- XII normal Psychiatric: mood appropriate CBC and BMP: 11/10/18 10:07 11/10/18 10:07 ABG, PT/INR, D-dimer: PT/INR, D-dimer PT 14.4 Sec. (12.2-14.9) 11/06/18 03:48 INR 1.08 (0.87-1.13) 11/06/18 03:48 Abnormal lab findings: Abnormal Labs 11/06/18 11/06/18 11/06/18 03:48 03:48 03:48 RBC 3.32 L Hgb 9.6 L Hct RDW 18.0 H Lymph % (Auto) [place] % (Auto) Lymph # Seg Neutrophils % Sodium 136 L Potassium Chloride 93.2 L BUN 27 H Creatinine 4.7 H Glucose 107 H POC Glucose Calcium Phosphorus CK-MB (CK-2) Rel Index Troponin T 0.246 H* Albumin TSH Free T4 PTH Intact 11/06/18 11/06/18 11/06/18 03:48 03:48 05:39 RBC Hgb Hct RDW Lymph % (Auto) [place] % (Auto) Lymph # Seg Neutrophils % Sodium Potassium Chloride BUN Creatinine Glucose POC Glucose Calcium Phosphorus CK-MB (CK-2) Rel Index 5.1 H Troponin T 0.241 H* Albumin TSH < 0.005 L Free T4 1.52 H PTH Intact 11/06/18 11/06/18 11/06/18 11:06 17:39 21:20 RBC Hgb Hct RDW Lymph % (Auto) [place] % (Auto) Lymph # Seg Neutrophils % Sodium Potassium Chloride BUN Creatinine Glucose POC Glucose 126 H 159 H Calcium Phosphorus CK-MB (CK-2) Rel Index 4.7 H Troponin T 0.229 H* Albumin TSH Free T4 PTH Intact 11/07/18 11/07/18 11/07/18 05:02 05:02 12:25 RBC 2.89 L Hgb 8.4 L Hct 26.1 L RDW 17.9 H Lymph % (Auto) [place] % (Auto) 7.9 H Lymph # Seg Neutrophils % Sodium Potassium Chloride 95.3 L BUN 33 H Creatinine 5.2 H Glucose POC Glucose 137 H Calcium 8.2 L Phosphorus CK-MB (CK-2) Rel Index Troponin T Albumin TSH Free T4 PTH Intact 11/08/18 11/08/18 11/08/18 04:49 04:49 06:37 RBC 2.96 L Hgb 8.6 L Hct 27.0 L RDW 17.8 H Lymph % (Auto) 13.2 L [place] % (Auto) 8.4 H Lymph # 1.1 L Seg Neutrophils % 76.4 H Sodium Potassium Chloride BUN 26 H Creatinine 4.5 H Glucose 122 H POC Glucose 66 L Calcium Phosphorus CK-MB (CK-2) Rel Index Troponin T Albumin TSH Free T4 PTH Intact 11/09/18 11/09/18 11/09/18 04:54 04:54 12:00 RBC 2.86 L Hgb 8.3 L Hct 26.2 L RDW 18.0 H Lymph % (Auto) [place] % (Auto) 8.8 H Lymph # Seg Neutrophils % Sodium Potassium Chloride 97.8 L BUN 23 H Creatinine 4.2 H Glucose POC Glucose 68 L Calcium 8.3 L D Phosphorus CK-MB (CK-2) Rel Index Troponin T Albumin TSH Free T4 PTH Intact 11/09/18 11/10/18 11/10/18 17:06 05:12 05:12 RBC 3.01 L Hgb 8.8 L Hct 27.5 L RDW 17.4 H Lymph % (Auto) [place] % (Auto) 9.1 H Lymph # Seg Neutrophils % Sodium 135 L Potassium 5.2 H Chloride 94.8 L BUN 31 H Creatinine 5.1 H Glucose POC Glucose 64 L Calcium 8.3 L Phosphorus CK-MB (CK-2) Rel Index Troponin T Albumin TSH Free T4 PTH Intact 11/10/18 11/10/18 11/10/18 10:07 10:07 10:07 RBC 3.13 L Hgb 9.1 L Hct 28.3 L RDW 17.6 H Lymph % (Auto) [place] % (Auto) 7.5 H Lymph # Seg Neutrophils % 71.6 H Sodium 132 L Potassium 5.2 H Chloride 91.5 L BUN 31 H Creatinine 5.2 H Glucose 105 H POC Glucose Calcium 8.3 L Phosphorus 5.70 H CK-MB (CK-2) Rel Index Troponin T Albumin 3.2 L TSH Free T4 PTH Intact 354.9 H
[2018-11-10] MEDS: ELIQUIS PO SCH (21:37)
[2018-11-11] MEDS: DUONEB *Not for PRN Use IH SCH ×4 (01:48→21:59)
--- NOTE | 2018-11-11 09:27 | Progress Note ---
Subjective Principal diagnosis: Chest pain; A-Fib with RVR; Ac on Ch Hypoxemic Resp failure; CMOP; ESRD Interval history: Patient was seen today for follow-up of multiple renal related issues tolerated dialysis treatment well Hemoglobin is somewhat better Events of 24 hours vitals labs intake output medications were reviewed Past medical history: Reviewed Family history: Reviewed Social history: Reviewed Allergies: Reviewed Physical examination: Vitals: Reviewed HEENT: No pallor or icterus oral mucosa moist Neck: Supple no JVD no thyromegaly patient does have tracheotomy Chest: Bilateral clear to auscultation anteriorly Few basilar crackles posteriorly Heart: Regular rate and rhythm S1-S2 heard no S3-S4 Abdomen: Soft nontender no voluntary guarding rigidity rebound Extremity: Dry skin less than 1+ peripheral edema Psychiatric: No evidence of agitation and aggression noted Dermatology: No petechial rashes Labs and x-rays: Reviewed from today Assessment and plan ESRD continue with hemodialysis on Saturday ultrafiltration as tolerated counseled and educated about fluid control Anemia in end-stage renal disease currently on erythropoietin 20,000 units 3 times a week hemoglobin improving Patient needs to be in high protein diet History of atrial flutter with rapid ventricular response and chest pain currently being followed by cardiology Overall stable from dialysis perspective Patient needs to maintain fluid restriction: She has been noncompliant has had dialysis ultrafiltration with improvement in her symptoms 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 currently an antibiotic will need to follow-up with infectious disease in outpatient setting as well, We'll continue to follow and make recommendation for renal standpoint Objective - Vital Signs Vital signs: Vital Signs - 12hr 11/10/18 11/11/18 11/11/18 22:00 01:14 01:48 Temperature Pulse Rate 93 H Pulse Rate [ 93 H Anterior Bilateral Throughout] Respiratory Rate Respiratory 20 Rate [Anterior Bilateral Throughout] Blood Pressure O2 Sat by Pulse 99 Oximetry 11/11/18 11/11/18 11/11/18 01:58 04:14 09:03 Temperature 98.4 F 97.6 F Pulse Rate 92 H Pulse Rate [ 95 H Anterior Bilateral Throughout] Respiratory 18 Rate Respiratory 20 Rate [Anterior Bilateral Throughout] Blood Pressure 132/25 O2 Sat by Pulse 98 Oximetry 11/11/18 09:04 Temperature Pulse Rate 102 H Pulse Rate [ Anterior Bilateral Throughout] Respiratory 20 Rate Respiratory Rate [Anterior Bilateral Throughout] Blood Pressure 151/37 O2 Sat by Pulse 94 Oximetry - Lab 11/10/18 10:07 11/10/18 10:07 Most recent lab results Calcium 8.3 mg/dL (8.4-10.2) L 11/10/18 10:07 Phosphorus 5.70 mg/dL (2.5-4.5) H 11/10/18 10:07 Magnesium 2.00 mg/dL (1.7-2.3) 11/06/18 03:48 Medications & Allergies - Medications Allergies/Adverse Reactions: Allergies No Known Allergies Allergy (Unverified 06/20/18 15:19) Home Medications: Home Medications Medication Instructions Recorded Confirmed Last Taken Type Aspirin [Adult Aspirin] 81 mg PO DAILY 09/10/18 11/06/18 Unknown History Atorvastatin Calcium [Lipitor] 40 mg PO QPM 09/10/18 11/06/18 Unknown History Cholecalciferol Vit D3 [Vitamin D3] 1,000 unit PO QDAY 09/10/18 11/06/18 Unknown History Clotrimazole 1% [Lotrimin 1%] 1 applic TP BID 09/10/18 11/06/18 Unknown History Docusate Sodium [Colace CAP] 100 mg PO TID 09/10/18 11/06/18 Unknown History Fluticasone [Flonase] 2 sprays NS DAILY PRN 09/10/18 11/06/18 Unknown History Ipratropium/Albuterol Sulfate 1 ampul IH QID 09/10/18 11/06/18 Unknown History [DUONEB *Not for PRN Use*] Topiramate [Topamax] 25 mg PO BID 09/10/18 11/06/18 Unknown History tiZANidine [Zanaflex] 4 mg PO DAILY 09/10/18 11/06/18 Unknown History HYDROcodone/APAP 10-325 [[place] 1 each PO BID PRN #7 tablet 09/15/18 11/06/18 Unknown Rx 10-325 mg TAB] Vancomycin Po 125 mg PO Q6HR 2 Days oral.liqd 11/03/18 11/06/18 Unknown Rx methIMAzole [Tapazole] 10 mg PO Q24HR #30 tablet 11/03/18 11/06/18 Unknown Rx Cinacalcet [Sensipar] 30 mg PO DAILY 11/06/18 11/06/18 Unknown History Metoprolol Tartrate 25 mg PO BID 11/06/18 11/06/18 Unknown History Ventolin HFA 2 puff IH BID PRN 11/06/18 11/06/18 Unknown History rifAMPin [Rifampin] 600 mg PO DAILY 11/06/18 11/06/18 Unknown History Active Medications: Generic Name Dose Route Start Last Admin Trade Name Freq PRN Reason Stop Dose Admin Acetaminophen 650 mg 11/06/18 05:25 Tylenol PO Q4H PRN Pain MILD(1-3)/Fever >100.5/TORRES Albumin Human 25 gm 11/07/18 10:52 Alburx 25% (Albumin) IV CAROL PRN Hypotension Albuterol/Ipratropium 1 ampul 11/09/18 14:00 11/11/18 01:48 Duoneb *Not For Prn Use* IH 1 ampul Q6HRT CRYSTAL Administration Apixaban 5 mg 11/10/18 22:00 11/10/18 21:37 Eliquis PO 5 mg Q12HR CRYSTAL Administration Protocol Aspirin 81 mg 11/06/18 10:00 11/10/18 11:15 Halfprin Ec PO 81 mg DAILY CRYSTAL Administration Atorvastatin Calcium 40 mg 11/06/18 18:00 11/10/18 18:01 Lipitor PO 40 mg QPM CRYSTAL Administration Cholecalciferol 1,000 unit 11/06/18 10:00 11/10/18 11:15 Vitamin D3 PO 1,000 unit QDAY CRYSTAL Administration Cinacalcet 30 mg 11/06/18 10:00 11/10/18 11:16 Sensipar PO 30 mg DAILY CRYSTAL Administration Clotrimazole 1 applic 11/06/18 10:00 11/10/18 21:40 Lotrimin TP 1 applic BID CRYSTAL Administration Dextrose 50 ml 11/06/18 06:46 D50w (25gm) Syringe IV PRN PRN Hypoglycemia Docusate Sodium 100 mg 11/06/18 08:00 11/10/18 21:37 Colace PO 100 mg TID CRYSTAL Administration Epoetin Nomi 20,000 unit 11/07/18 10:52 11/10/18 14:19 Procrit IV 20,000 unit CAROL PRN Administration hemodialysis Famotidine 20 mg 11/07/18 10:00 11/10/18 11:15 Pepcid PO 20 mg QDAY CRYSTAL Administration Fluticasone Propionate 100 mcg 11/06/18 06:46 Flonase NS DAILY PRN Allergy Symptoms Sodium Chloride 100 mls @ 999 mls/hr 11/07/18 10:52 Nacl 0.9% IV CAROL PRN Hypotension Insulin Human Lispro 0 unit 11/06/18 07:30 11/10/18 23:03 Humalog SUB-Q Not Given ACHS [facility] Protocol Methimazole 10 mg 11/07/18 10:00 11/10/18 11:16 Tapazole PO 10 mg Q24HR CRYSTAL Administration Metoprolol Tartrate 25 mg 11/07/18 10:00 11/10/18 21:37 Lopressor PO 25 mg TID CRYSTAL Administration Ondansetron HCl 4 mg 11/06/18 05:25 Zofran IV Q8H PRN Nausea And Vomiting Rifampin 600 mg 11/06/18 10:00 11/10/18 11:16 Rifadin PO 600 mg DAILY CRYSTAL Administration Sodium Chloride 10 ml 11/06/18 10:00 11/10/18 21:37 Sodium Chloride Flush Syringe 10 Ml IV 10 ml BID CRYSTAL Administration Sodium Chloride 10 ml 11/06/18 05:25 Sodium Chloride Flush Syringe 10 Ml IV PRN PRN LINE FLUSH Topiramate 25 mg 11/06/18 10:00 11/10/18 21:37 Topamax PO 25 mg BID CRYSTAL Administration
--- NOTE | 2018-11-11 09:59 | Progress Note ---
Assessment and Plan Cultures: Previous chart and cultures reviewed. Patient had coag negative staph bacteremia with Staphylococcus epidermidis, the isolate was susceptible only to vancomycin, tetracycline and was resistant to Bactrim, amoxicillin and clindamycin. A/P: 73-year-old female with sick sinus syndrome status post permanent pacemaker, chronic respiratory failure with tracheostomy, paroxysmal atrial fibrillation, ESRD on hemodialysis via left arm AVG, coronary artery disease, recent history of C. difficile for which she was on oral vancomycin, now admitted with A.fib and RVR. 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 Agree with their plan for 6 weeks of IV vancomycin along with rifampin for its biofilm activity. After completing 6 weeks, she will need long-term suppression with doxycycline. 2) Recent C. difficile: was supposed to complete oral vancomycin on 11/05/2018. Currently no diarrhea, hence can stop. Monitor for now. 3) Atrial fibrillation with rapid ventricular rate: Cardiology following. 4) ESRD on hemodialysis: Renally dose antibiotics. Recs: - continue 6 weeks of IV vancomycin post HD along with PO rifampin 600 PO daily until 11/28/18 - continue to monitor drug - drug interactions with Rifampin - After completing 6 weeks, she will need long-term suppression with doxycycli ne.100 mg PO q 12 hours - wound care to left chest surg wound -order placed with case management -f/u in ID office 11/25/18 Anita Farias NP [facility] M: [phone] O:[phone] Subjective Date of service: 11/11/18 Principal diagnosis: Chest pain; A-Fib with RVR; Ac on Ch Hypoxemic Resp failure; CMOP; ESRD Interval history: Patient seen and examined. Stated that she was feeling better today. Discharge medications and antibiotics discussed, verbalized understanding. Objective - Exam Narrative Exam: Narrative Exam: General appearance: Awake, alert, no acute distress Eyes: anicteric sclerae, moist conjunctivae; no lid-lag; PERRLA HENT: Atraumatic; oropharynx clear Neck: Trach clear secretion Lungs: CTA, with normal respiratory effort and no intercostal retractions CV: RRR Abdomen: Soft, non-tender; no masses or hepatosplenomegaly Extremities: No peripheral edema or extremity lymphadenopathy Skin: right chest surg wound open with slough Psych: Generalized weakness. Neuro: alert and oriented x 3. Moving all extermities Lines: No CVL / PICC - Constitutional Vitals: Vital Signs Temp Pulse Resp BP Pulse Ox 97.6 F 102 H 20 151/37 94 11/11/18 09:03 11/11/18 09:04 11/11/18 09:04 11/11/18 09:04 11/11/18 09:04 Temperature -Last 24 Hours Temperature 97.6 F Temperature 98.4 F Temperature 98.2 F Temperature 97.8 F Temperature 98.9 F - Labs CBC & Chem 7: 11/10/18 10:07 11/10/18 10:07 Labs: Abnormal lab results 11/10/18 11/10/18 11/10/18 Range/Units 10:07 10:07 10:07 RBC 3.13 L (3.65-5.03) M/mm3 Hgb 9.1 L (10.1-14.3) gm/dl Hct 28.3 L (30.3-42.9) % RDW 17.6 H (13.2-15.2) % [place] % (Auto) 7.5 H (0.0-7.3) % Seg Neutrophils % 71.6 H (40.0-70.0) % Sodium 132 L (137-145) mmol/L Potassium 5.2 H (3.6-5.0) mmol/L Chloride 91.5 L (98-107) mmol/L BUN 31 H (7-17) mg/dL Creatinine 5.2 H (0.7-1.2) mg/dL Glucose 105 H (65-100) mg/dL Calcium 8.3 L (8.4-10.2) mg/dL Phosphorus 5.70 H (2.5-4.5) mg/dL Albumin 3.2 L (3.9-5) g/dL PTH Intact 354.9 H (15-65) pg/mL
--- NOTE | 2018-11-11 11:27 | Progress Note ---
Addendum entered and electronically signed by ELIZA WEBBER MD 11/11/18 12:20: Afib/flutter likely exacerbated by hyperthyroid state Follow up with Endocrine Continue Beta Sunni Original Note: Assessment and Plan ECHO 10/15/18: 1. Left ventricular ejection fraction is 60%. 2. Mild tricuspid regurgitation. 3. Moderate mitral annular calcification. 4. No pericardial effusion seen. 5. The tricuspid regurgitant velocity is 3.96 m/s, and with an assumed right atrial pressure of 8 mmHg, the estimated right ventricular systolic pressure is severely elevated at 70.7 mmHg. Atrial fibrillation/atrial flutter with RVR/SSS Now with CVR. Continue on beta sunni but avoiding aggressive treatment to avoid bradycardia and sinus pauses. 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 Cont IV Vancomycin, rifampin for 6 weeks records from [place] discharge Patient will be on prolonged antibiotics and will need follow up with ID on suppressive therapies. MATEUS on 10/15/18 showed a 0.5x1.15cm echodensity of RA lead S/P Emergent pericardial window secondary to attempt at lead extractrion complicated by pericardial effusion possible due to RA tear after extraction of the RA lead Elevated Cardiac Enzymes Nonspecific given ESRD monitor for now HTN Low TSH/ Hyperthyroidism Chronic respiratory failure with tracheostomy ESRD, on HD outpatient follow up with [facility] Hyperkalemia Management per nephrology C. Diff Currently stable cardiac status. Nothing further to add from cardiac perspective at this time. Will follow on as needed basis. Recommend pt follow up in our office with Dr. Holley within 1-2 weeks of hospital discharge ([phone]). The patient has been seen in conjunction with Dr. Webber who agrees with the assessment and plan of care. Subjective Date of service: 11/11/18 Principal diagnosis: Chest pain; A-Fib with RVR; Ac on Ch Hypoxemic Resp failure; CMOP; ESRD Interval history: pt resting in bed, no current cardiac complaints. Objective Last Vital Signs Temp 97.6 F 11/11/18 09:03 Pulse 102 H 11/11/18 09:04 Resp 20 11/11/18 09:04 BP 151/37 11/11/18 09:04 Pulse Ox 94 11/11/18 09:04 - Physical Examination General: No Apparent Distress HEENT: Positive: PERRL, Normocephaly, Mucus Membranes Moist Neck: Positive: neck supple, trachea midline, Other (trach) Cardiac: Positive: Reg Rate and Rhythm, S1/S2 Lungs: Positive: Decreased Breath Sounds Neuro: Positive: Grossly Intact Abdomen: Positive: Soft. Negative: Tender Skin: Negative: Rash, Wound Musculoskeletal: No Pain Extremities: Absent: edema - Imaging and Cardiology EKG: report reviewed, image reviewed Echo: report reviewed (TTE done 10/13/2018 showed EF 65-70%, mod MS, mild TR, mild LVH, pseudonormalization, mod pulm HTN with RVSP 59mmHg) - EKG Sinus rhythms and dysrhythmias: sinus rhythm
[2018-11-11] MEDS: RIFADIN PO SCH (11:51)
[2018-11-11] MEDS: COLACE PO SCH ×3 (11:51→20:00)
[2018-11-11] MEDS: HALFPRIN EC PO SCH (11:51)
[2018-11-11] MEDS: LOPRESSOR PO SCH ×3 (11:52→20:00)
[2018-11-11] MEDS: PEPCID PO SCH (11:52)
[2018-11-11] MEDS: TAPAZOLE PO SCH (11:52)
[2018-11-11] MEDS: SENSIPAR PO SCH (11:52)
[2018-11-11] MEDS: VITAMIN D3 PO SCH (11:52)
[2018-11-11] MEDS: ELIQUIS PO SCH ×2 (11:52→22:20)
[2018-11-11] MEDS: SODIUM CHLORIDE FLUSH SYRINGE 10 ML IV SCH ×2 (11:54→22:20)
[2018-11-11] MEDS: TOPAMAX PO SCH ×2 (11:58→22:20)
[2018-11-11] MEDS: LOTRIMIN TP SCH ×2 (11:58→22:20)
[2018-11-11] MEDS: HumaLOG SUB-Q SCH ×4 (11:58→22:20)
--- NOTE | 2018-11-11 13:42 | Progress Note ---
Assessment and Plan atient alert, awake.Oriented. Resting on trach collar, FIO2 35%. O2 saturation 92%.No acute respiratory distress. - Patient Problems (1) Tracheostomy in place Current Visit: Yes Status: Acute Plan to address problem: Resting on trach collar, FIO2 35%, O2 saturation 92%. Albuterol/atrovent aerosol treatments q 6 hours. (2) Atrial flutter with rapid ventricular response Current Visit: Yes Status: Acute Plan to address problem: Management as per cardiology. Heart rate running 93 now. (3) Chest pain Current Visit: Yes Status: Acute Plan to address problem: Managent as per cardiology. (4) Acute heart failure Current Visit: No Status: Acute Plan to address problem: Management as per cardiology. (5) End-stage renal disease on hemodialysis Current Visit: Yes Status: Acute Plan to address problem: Management as per nephrology. (6) Hypotension Current Visit: No Status: Acute Plan to address problem: Improved. Recent blood pressure 141/23 (7) SIRS (systemic inflammatory response syndrome) Current Visit: No Status: Acute Plan to address problem: Improved. (8) Diabetes mellitus Current Visit: No Status: Chronic Plan to address problem: Management as per primary care. (9) History of hypertension Current Visit: No Status: Chronic Plan to address problem: Management as per primary care. Subjective Date of service: 11/11/18 Principal diagnosis: Chest pain; A-Fib with RVR; Ac on Ch Hypoxemic Resp failure; CMOP; ESRD Interval history: Patient alert, awake. Oriented. Resting on trach collar, FIO2 35%. O2 saturation 92%.No acute respiratory distress.. Objective Vital Signs - 12hr 11/11/18 11/11/18 11/11/18 01:48 01:58 04:14 Temperature 98.4 F Pulse Rate 92 H Pulse Rate [ 93 H 95 H Anterior Bilateral Throughout] Respiratory 18 Rate Respiratory 20 20 Rate [Anterior Bilateral Throughout] Blood Pressure 132/25 O2 Sat by Pulse 98 Oximetry 11/11/18 11/11/18 11/11/18 09:03 09:04 12:17 Temperature 97.6 F 98.6 F Pulse Rate 102 H Pulse Rate [ Anterior Bilateral Throughout] Respiratory 20 Rate Respiratory Rate [Anterior Bilateral Throughout] Blood Pressure 151/37 O2 Sat by Pulse 94 Oximetry 11/11/18 12:18 Temperature Pulse Rate 111 H Pulse Rate [ Anterior Bilateral Throughout] Respiratory 20 Rate Respiratory Rate [Anterior Bilateral Throughout] Blood Pressure 124/30 O2 Sat by Pulse 93 Oximetry Constitutional: no acute distress, alert Eyes: non-icteric ENT: oropharynx moist Neck: supple, no lymphadenopathy, other (Tracheostomy.) Ascultation: Bilateral: diminished breath sounds (Decreased breath sounds at the bases.), rales Cardiovascular: irregular rhythm Gastrointestinal: normoactive bowel sounds, soft, non-tender Integumentary: normal Extremities: no cyanosis, no edema Neurologic: normal mental status, non-focal exam, pupils equal and round, CN II- XII normal Psychiatric: mood appropriate CBC and BMP: 11/10/18 10:07 11/10/18 10:07 ABG, PT/INR, D-dimer: PT/INR, D-dimer PT 14.4 Sec. (12.2-14.9) 11/06/18 03:48 INR 1.08 (0.87-1.13) 11/06/18 03:48 Abnormal lab findings: Abnormal Labs 11/06/18 11/06/18 11/06/18 03:48 03:48 03:48 RBC 3.32 L Hgb 9.6 L Hct RDW 18.0 H Lymph % (Auto) [place] % (Auto) Lymph # Seg Neutrophils % Sodium 136 L Potassium Chloride 93.2 L BUN 27 H Creatinine 4.7 H Glucose 107 H POC Glucose Calcium Phosphorus CK-MB (CK-2) Rel Index Troponin T 0.246 H* Albumin TSH Free T4 PTH Intact 11/06/18 11/06/18 11/06/18 03:48 03:48 05:39 RBC Hgb Hct RDW Lymph % (Auto) [place] % (Auto) Lymph # Seg Neutrophils % Sodium Potassium Chloride BUN Creatinine Glucose POC Glucose Calcium Phosphorus CK-MB (CK-2) Rel Index 5.1 H Troponin T 0.241 H* Albumin TSH < 0.005 L Free T4 1.52 H PTH Intact 11/06/18 11/06/18 11/06/18 11:06 17:39 21:20 RBC Hgb Hct RDW Lymph % (Auto) [place] % (Auto) Lymph # Seg Neutrophils % Sodium Potassium Chloride BUN Creatinine Glucose POC Glucose 126 H 159 H Calcium Phosphorus CK-MB (CK-2) Rel Index 4.7 H Troponin T 0.229 H* Albumin TSH Free T4 PTH Intact 11/07/18 11/07/18 11/07/18 05:02 05:02 12:25 RBC 2.89 L Hgb 8.4 L Hct 26.1 L RDW 17.9 H Lymph % (Auto) [place] % (Auto) 7.9 H Lymph # Seg Neutrophils % Sodium Potassium Chloride 95.3 L BUN 33 H Creatinine 5.2 H Glucose POC Glucose 137 H Calcium 8.2 L Phosphorus CK-MB (CK-2) Rel Index Troponin T Albumin TSH Free T4 PTH Intact 11/08/18 11/08/18 11/08/18 04:49 04:49 06:37 RBC 2.96 L Hgb 8.6 L Hct 27.0 L RDW 17.8 H Lymph % (Auto) 13.2 L [place] % (Auto) 8.4 H Lymph # 1.1 L Seg Neutrophils % 76.4 H Sodium Potassium Chloride BUN 26 H Creatinine 4.5 H Glucose 122 H POC Glucose 66 L Calcium Phosphorus CK-MB (CK-2) Rel Index Troponin T Albumin TSH Free T4 PTH Intact 11/09/18 11/09/18 11/09/18 04:54 04:54 12:00 RBC 2.86 L Hgb 8.3 L Hct 26.2 L RDW 18.0 H Lymph % (Auto) [place] % (Auto) 8.8 H Lymph # Seg Neutrophils % Sodium Potassium Chloride 97.8 L BUN 23 H Creatinine 4.2 H Glucose POC Glucose 68 L Calcium 8.3 L D Phosphorus CK-MB (CK-2) Rel Index Troponin T Albumin TSH Free T4 PTH Intact 11/09/18 11/10/18 11/10/18 17:06 05:12 05:12 RBC 3.01 L Hgb 8.8 L Hct 27.5 L RDW 17.4 H Lymph % (Auto) [place] % (Auto) 9.1 H Lymph # Seg Neutrophils % Sodium 135 L Potassium 5.2 H Chloride 94.8 L BUN 31 H Creatinine 5.1 H Glucose POC Glucose 64 L Calcium 8.3 L Phosphorus CK-MB (CK-2) Rel Index Troponin T Albumin TSH Free T4 PTH Intact 11/10/18 11/10/18 11/10/18 10:07 10:07 10:07 RBC 3.13 L Hgb 9.1 L Hct 28.3 L RDW 17.6 H Lymph % (Auto) [place] % (Auto) 7.5 H Lymph # Seg Neutrophils % 71.6 H Sodium 132 L Potassium 5.2 H Chloride 91.5 L BUN 31 H Creatinine 5.2 H Glucose 105 H POC Glucose Calcium 8.3 L Phosphorus 5.70 H CK-MB (CK-2) Rel Index Troponin T Albumin 3.2 L TSH Free T4 PTH Intact 354.9 H 11/11/18 12:17 RBC Hgb Hct RDW Lymph % (Auto) [place] % (Auto) Lymph # Seg Neutrophils % Sodium Potassium Chloride BUN Creatinine Glucose POC Glucose 128 H Calcium Phosphorus CK-MB (CK-2) Rel Index Troponin T Albumin TSH Free T4 PTH Intact
--- NOTE | 2018-11-11 15:15 | Progress Note ---
Assessment and Plan Assessment and plan: Atrial fibrillation/atrial flutter with RVR. Continue beta aden and apixaban per cardiology. Recent S epidermidis bacteremia. Continue IV vancomycin, rifampin for 6 weeks per discharge instructions from [place]. ID following. MATEUS on 10/15/18 showed a 0.5 x 1.15 cm echodensity of right atrial lead. Patient is status post emergent pericardial window secondary to failed attempt at lead extraction complicated by pericardial effusion Accelerated hypertension. Controlled. Continue current antihypertensive medications. Chronic respiratory failure with tracheostomy. Pulmonary following. Continue routine trach care, secretion control and airway management. ESRD on hemodialysis. Continue per nephrology. History C. difficile. Disposition.To discharge after arrangements made for iv Abx. History Interval history: Feels better No chest pain No SOB Hospitalist Physical - Physical exam Narrative exam: GEN: Not in acute distress,lying in bed HEENT: Normocephalic, atraumatic, Neck: supple, No JVD Lungs: Clear to auscultation, no wheeze Heart:S1 and S2 regular, no murmurs, rubs or gallop, Abd:soft, non tender, non distended, normal bowel sounds Ext: No edema, no clubbing or cyanosis Neuro: Awake,alert, oriented x 3, No focal signs Psych:Normal mood - Constitutional Vitals: Temp Pulse Resp BP Pulse Ox 98.6 F 111 H 20 124/30 93 11/11/18 12:17 11/11/18 12:18 11/11/18 12:18 11/11/18 12:18 11/11/18 12:18 General appearance: Present: no acute distress Results - Labs CBC & Chem 7: 11/10/18 10:07 11/12/18 07:32 Labs: Laboratory Last Values WBC 8.2 K/mm3 (4.5-11.0) 11/10/18 10:07 RBC 3.13 M/mm3 (3.65-5.03) L 11/10/18 10:07 Hgb 9.1 gm/dl (10.1-14.3) L 11/10/18 10:07 Hct 28.3 % (30.3-42.9) L 11/10/18 10:07 MCV 90 fl (79-97) 11/10/18 10:07 MCH 29 pg (28-32) 11/10/18 10:07 MCHC 32 % (30-34) 11/10/18 10:07 RDW 17.6 % (13.2-15.2) H 11/10/18 10:07 Plt Count 207 K/mm3 (140-440) 11/10/18 10:07 Lymph % (Auto) 18.5 % (13.4-35.0) 11/10/18 10:07 [place] % (Auto) 7.5 % (0.0-7.3) H 11/10/18 10:07 Eos % (Auto) 2.0 % (0.0-4.3) 11/10/18 10:07 Baso % (Auto) 0.4 % (0.0-1.8) 11/10/18 10:07 Lymph # 1.5 K/mm3 (1.2-5.4) 11/10/18 10:07 [place] # 0.6 K/mm3 (0.0-0.8) 11/10/18 10:07 Eos # 0.2 K/mm3 (0.0-0.4) 11/10/18 10:07 Baso # 0.0 K/mm3 (0.0-0.1) 11/10/18 10:07 Seg Neutrophils % 71.6 % (40.0-70.0) H 11/10/18 10:07 Seg Neutrophils # 5.9 K/mm3 (1.8-7.7) 11/10/18 10:07 PT 14.4 Sec. (12.2-14.9) 11/06/18 03:48 INR 1.08 (0.87-1.13) 11/06/18 03:48 APTT 29.7 Sec. (24.2-36.6) 11/06/18 03:48 Sodium 132 mmol/L (137-145) L 11/10/18 10:07 Potassium 5.2 mmol/L (3.6-5.0) H 11/10/18 10:07 Chloride 91.5 mmol/L (98-107) L 11/10/18 10:07 Carbon Dioxide 27 mmol/L (22-30) 11/10/18 10:07 Anion Gap 19 mmol/L 11/10/18 10:07 BUN 31 mg/dL (7-17) H 11/10/18 10:07 Creatinine 5.2 mg/dL (0.7-1.2) H 11/10/18 10:07 Estimated GFR 10 ml/min 11/10/18 10:07 BUN/Creatinine Ratio 6 % 11/10/18 10:07 Glucose 105 mg/dL (65-100) H 11/10/18 10:07 POC Glucose 128 (70-105) H 11/11/18 12:17 Calcium 8.3 mg/dL (8.4-10.2) L 11/10/18 10:07 Phosphorus 5.70 mg/dL (2.5-4.5) H 11/10/18 10:07 Magnesium 2.00 mg/dL (1.7-2.3) 11/06/18 03:48 Total Bilirubin 0.30 mg/dL (0.1-1.2) 11/10/18 10:07 AST 10 units/L (5-40) 11/10/18 10:07 ALT 7 units/L (7-56) 11/10/18 10:07 Alkaline Phosphatase 91 units/L (35-129) 11/10/18 10:07 Total Creatine Kinase 34 units/L (30-135) 11/06/18 11:06 CK-MB (CK-2) 1.6 ng/mL (0.0-4.0) 11/06/18 11:06 CK-MB (CK-2) Rel Index 4.7 (0-4) H 11/06/18 11:06 Troponin T 0.229 ng/mL (0.00-0.029) H* 11/06/18 11:06 Total Protein 7.4 g/dL (6.3-8.2) 11/10/18 10:07 Albumin 3.2 g/dL (3.9-5) L 11/10/18 10:07 Albumin/Globulin Ratio 0.8 % 11/10/18 10:07 TSH < 0.005 mlU/mL (0.270-4.200) L 11/06/18 03:48 Free T4 1.52 ng/dL (0.76-1.46) H 11/06/18 03:48 PTH Intact 354.9 pg/mL (15-65) H 11/10/18 10:07 Random Vancomycin 36.2 ug/mL (0-40.0) 11/10/18 05:12 Nutrition/Malnutrition Assess - Dietary Evaluation Nutrition/Malnutrition Findings: Nutrition Notes Start: 11/07/18 14:14 Freq: Status: Active Protocol: Document 11/10/18 16:41 OL (Rec: 11/10/18 16:48 OL [id number]) Nutrition Notes Initial or Follow up Assessment Current Diagnosis CKD (stage V CKD) Coronary Artery Disease Diabetes Hypertension Heart Failure Hyperlipidemia Other Pertinent Diagnosis A.fib, anemia, ESRD on HD, Hx of c.diff Current Diet cardiac/consistent CHO Labs/Tests Na 132 K 5.2 BUN 31 Cr 5.2 Phos 5.7 Pertinent Medications Reviewed Height 5 ft 5 in Weight 75.1 kg [place] Body Weight (lbs) 125.0 BMI 27.5 Subjective/Other Information Pt. with poor oral intake. Pt. receiving HD during visit. Obtained food preferences. Pt. willing to try ONS #1 Nutrition Diagnosis Inadequate oral intake Etiology decreased appetite As Evidenced by Signs and Symptoms intakes of 50% Is patient on ventilator? No Is Patient Ambulatory and/or Out of Bed No REE-([facility]-confined to bed) 1526.160 Additional Notes protein (1.2-1.4g/kg): 90-104g fluid: 1mL/kcal or per Nutrition Intervention Change Diet Order: Renal/consistent CHO Add Supplement/Snack (indicate name/kcal [place] daily /protein ) Provides kCal: 425 Provides Protein (gm) 19 Goal #1 PO + ONS intake to meet 75-100 % of nutrient needs Follow-Up By: 11/12/18 Additional Comments f/u: intakes, need to increase ONS
[2018-11-12] MEDS: DUONEB *Not for PRN Use IH SCH ×3 (04:03→13:45)
[2018-11-12 08:22] LABS: Calcium 8.5 mg/dL (8.4-10.2)
--- NOTE | 2018-11-12 09:25 | Progress Note ---
Subjective Principal diagnosis: Chest pain; A-Fib with RVR; Ac on Ch Hypoxemic Resp failure; CMOP; ESRD Interval history: Patient was seen today for follow-up of multiple renal related issues She is tolerating her hemodialysis treatment fairly well now Fluid still remains an issue Events of 24 hours vitals labs intake output medications were reviewed Past medical history: Reviewed Family history: Reviewed Social history: Reviewed Allergies: Reviewed Physical examination: Vitals: Reviewed HEENT: No pallor or icterus oral mucosa moist Neck: Supple no JVD no thyromegaly patient does have tracheotomy Chest: Bilateral clear to auscultation anteriorly Few basilar crackles posteriorly Heart: Regular rate and rhythm S1-S2 heard no S3-S4 Abdomen: Soft nontender no voluntary guarding rigidity rebound Extremity: Dry skin less than 1+ peripheral edema Psychiatric: No evidence of agitation and aggression noted Dermatology: No petechial rashes Labs and x-rays: Reviewed from today Assessment and plan End-stage renal disease: Patient will continue with hemodialysis Saturdayted Saturday Anemia in end-stage renal disease continue to monitor erythropoietin 20,000 units 3 times a week Atrial flutter with rapid ventricular response, currently on beta aden Bone mineral disorder: Patient's PTH is satisfactory to 54 phosphorus is currently at 5.7 Malnutrition: Present upon admission patient's albumin is 3.2: She needs to be seen by dietitian and needs to be in high protein diet Mild hyponatremia but much better today at 136 to monitor and follow Calcium which was 10.1 currently 8.5 patient likely may not have been taking her Sensipar needs to be monitored Hypertension and volume: Patient appears adequately [place] educated on multiple occasion to regulate her fluid she does not tolerate ultrafiltration very well this was clearly discussed with patient she still does have a lot of fluid on her table Hypertension currently much better controlled , ? Compliance issue continue to monitor blood pressure, staph epidermidis bacteremia being followed by infectious disease currently on antibiotic. Decision making fairly complex in a patient who is partly noncompliant as well We'll continue to follow and make recommendation from renal standpoint Objective - Vital Signs Vital signs: Vital Signs - 12hr 11/11/18 11/11/18 11/11/18 21:55 22:07 22:08 Temperature Pulse Rate Pulse Rate [ 90 100 H Anterior Bilateral Throughout] Pulse Rate [ Throughout] Respiratory Rate Respiratory 20 20 Rate [Anterior Bilateral Throughout] Respiratory Rate [ Throughout] Blood Pressure O2 Sat by Pulse 92 Oximetry O2 Sat by Pulse 92 Oximetry [ Assessment] 11/11/18 11/12/18 11/12/18 23:56 03:43 04:00 Temperature 98.2 F 98.2 F Pulse Rate 95 H 91 H Pulse Rate [ Anterior Bilateral Throughout] Pulse Rate [ 78 Throughout] Respiratory 18 18 Rate Respiratory Rate [Anterior Bilateral Throughout] Respiratory 16 Rate [ Throughout] Blood Pressure 138/35 123/27 O2 Sat by Pulse 96 97 Oximetry O2 Sat by Pulse Oximetry [ Assessment] 11/12/18 11/12/18 11/12/18 04:06 04:09 09:04 Temperature 98.7 F Pulse Rate Pulse Rate [ 82 Anterior Bilateral Throughout] Pulse Rate [ Throughout] Respiratory Rate Respiratory 18 Rate [Anterior Bilateral Throughout] Respiratory Rate [ Throughout] Blood Pressure O2 Sat by Pulse Oximetry O2 Sat by Pulse 95 Oximetry [ Assessment] 11/12/18 11/12/18 09:05 09:06 Temperature 98.7 F Pulse Rate 98 H Pulse Rate [ Anterior Bilateral Throughout] Pulse Rate [ Throughout] Respiratory 20 Rate Respiratory Rate [Anterior Bilateral Throughout] Respiratory Rate [ Throughout] Blood Pressure 119/41 O2 Sat by Pulse 91 Oximetry O2 Sat by Pulse Oximetry [ Assessment] - Lab 11/10/18 10:07 11/12/18 07:32 Most recent lab results Calcium 8.5 mg/dL (8.4-10.2) 11/12/18 07:32 Phosphorus 5.70 mg/dL (2.5-4.5) H 11/10/18 10:07 Magnesium 2.00 mg/dL (1.7-2.3) 11/06/18 03:48 Medications & Allergies - Medications Allergies/Adverse Reactions: Allergies No Known Allergies Allergy (Unverified 06/20/18 15:19) Home Medications: Home Medications Medication Instructions Recorded Confirmed Last Taken Type Aspirin [Adult Aspirin] 81 mg PO DAILY 09/10/18 11/06/18 Unknown History Atorvastatin Calcium [Lipitor] 40 mg PO QPM 09/10/18 11/06/18 Unknown History Cholecalciferol Vit D3 [Vitamin D3] 1,000 unit PO QDAY 09/10/18 11/06/18 Unknown History Clotrimazole 1% [Lotrimin 1%] 1 applic TP BID 09/10/18 11/06/18 Unknown History Docusate Sodium [Colace CAP] 100 mg PO TID 09/10/18 11/06/18 Unknown History Fluticasone [Flonase] 2 sprays NS DAILY PRN 09/10/18 11/06/18 Unknown History Ipratropium/Albuterol Sulfate 1 ampul IH QID 09/10/18 11/06/18 Unknown History [DUONEB *Not for PRN Use*] Topiramate [Topamax] 25 mg PO BID 09/10/18 11/06/18 Unknown History tiZANidine [Zanaflex] 4 mg PO DAILY 09/10/18 11/06/18 Unknown History HYDROcodone/APAP 10-325 [[place] 1 each PO BID PRN #7 tablet 09/15/18 11/06/18 Unknown Rx 10-325 mg TAB] Vancomycin Po 125 mg PO Q6HR 2 Days oral.liqd 11/03/18 11/06/18 Unknown Rx methIMAzole [Tapazole] 10 mg PO Q24HR #30 tablet 11/03/18 11/06/18 Unknown Rx Cinacalcet [Sensipar] 30 mg PO DAILY 11/06/18 11/06/18 Unknown History Metoprolol Tartrate 25 mg PO BID 11/06/18 11/06/18 Unknown History Ventolin HFA 2 puff IH BID PRN 11/06/18 11/06/18 Unknown History rifAMPin [Rifampin] 600 mg PO DAILY 11/06/18 11/06/18 Unknown History Active Medications: Generic Name Dose Route Start Last Admin Trade Name Freq PRN Reason Stop Dose Admin Acetaminophen 650 mg 11/06/18 05:25 Tylenol PO Q4H PRN Pain MILD(1-3)/Fever >100.5/TORRES Albumin Human 25 gm 11/07/18 10:52 Alburx 25% (Albumin) IV CAROL PRN Hypotension Albuterol/Ipratropium 1 ampul 11/09/18 14:00 11/12/18 04:03 Duoneb *Not For Prn Use* IH 1 ampul Q6HRT CRYSTAL Administration Apixaban 5 mg 11/10/18 22:00 11/11/18 22:20 Eliquis PO 5 mg Q12HR CRYSTAL Administration Protocol Aspirin 81 mg 11/06/18 10:00 11/11/18 11:51 Halfprin Ec PO 81 mg DAILY CRYSTAL Administration Atorvastatin Calcium 40 mg 11/06/18 18:00 11/11/18 17:12 Lipitor PO 40 mg QPM CRYSTAL Administration Cholecalciferol 1,000 unit 11/06/18 10:00 11/11/18 11:52 Vitamin D3 PO 1,000 unit QDAY CR[facility]STAL Administration Cinacalcet 30 mg 11/06/18 10:00 11/11/18 11:52 Sensipar PO 30 mg DAILY CRYSTAL Administration Clotrimazole 1 applic 11/06/18 10:00 11/11/18 22:20 Lotrimin TP 1 applic BID CRYSTAL Administration Dextrose 50 ml 11/06/18 06:46 D50w (25gm) Syringe IV PRN PRN Hypoglycemia Docusate Sodium 100 mg 11/06/18 08:00 11/11/18 20:00 Colace PO 100 mg TID CRYSTAL Administration Epoetin Nomi 20,000 unit 11/07/18 10:52 11/10/18 14:19 Procrit IV 20,000 unit CAROL PRN Administration hemodialysis Famotidine 20 mg 11/07/18 10:00 11/11/18 11:52 Pepcid PO 20 mg QDAY [facility] Administration Fluticasone Propionate 100 mcg 11/06/18 06:46 Flonase NS DAILY PRN Allergy Symptoms Sodium Chloride 100 mls @ 999 mls/hr 11/07/18 10:52 Nacl 0.9% IV CAROL PRN Hypotension Insulin Human Lispro 0 unit 11/06/18 07:30 11/11/18 22:20 Humalog SUB-Q Not Given ACHS [facility] Protocol Methimazole 10 mg 11/07/18 10:00 11/11/18 11:52 Tapazole PO 10 mg Q24HR [facility] Administration Metoprolol Tartrate 25 mg 11/07/18 10:00 11/11/18 20:00 Lopressor PO 25 mg TID CR[facility]STAL Administration Ondansetron HCl 4 mg 11/06/18 05:25 Zofran IV Q8H PRN Nausea And Vomiting Rifampin 600 mg 11/06/18 10:00 11/11/18 11:51 Rifadin PO 600 mg DAILY CRYSTAL Administration Sodium Chloride 10 ml 11/06/18 10:00 11/11/18 22:20 Sodium Chloride Flush Syringe 10 Ml IV 10 ml BID CR[facility]STAL Administration Sodium Chloride 10 ml 11/06/18 05:25 Sodium Chloride Flush Syringe 10 Ml IV PRN PRN LINE FLUSH Topiramate 25 mg 11/06/18 10:00 11/11/18 22:20 Topamax PO 25 mg BID [facility]STAL Administration
--- NOTE | 2018-11-12 09:41 | Progress Note ---
Assessment and Plan Cultures: Previous chart and cultures reviewed. Patient had coag negative staph bacteremia with Staphylococcus epidermidis, the isolate was susceptible only to vancomycin, tetracycline and was resistant to Bactrim, amoxicillin and clindamycin. A/P: 73-year-old female with sick sinus syndrome status post permanent pacemaker, chronic respiratory failure with tracheostomy, paroxysmal atrial fibrillation, ESRD on hemodialysis via left arm AVG, coronary artery disease, recent history of C. difficile for which she was on oral vancomycin, now admitted with A.fib and RVR. 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 Agree with their plan for 6 weeks of IV vancomycin along with rifampin for its biofilm activity. After completing 6 weeks, she will need long-term suppression with doxycycline. 2) Recent C. difficile: was supposed to complete oral vancomycin on 11/05/2018. Currently no diarrhea, hence can stop. Monitor for now. 3) Atrial fibrillation with rapid ventricular rate: Cardiology following. 4) ESRD on hemodialysis: Renally dose antibiotics. Recs: - continue 6 weeks of IV vancomycin post HD along with PO rifampin 600 PO daily until 11/28/18 - continue to monitor drug - drug interactions with Rifampin - After completing 6 weeks, she will need long-term suppression with doxycycli ne.100 mg PO q 12 hours - wound care to left chest surg wound -order placed with case management -f/u in ID office 11/25/18 Anita Farias NP [facility] M: [phone] O:[phone] Subjective Date of service: 11/12/18 Principal diagnosis: Chest pain; A-Fib with RVR; Ac on Ch Hypoxemic Resp failure; CMOP; ESRD Interval history: Patient seen and examined. Stated that she was feeling better today. Discharge medications and antibiotics discussed, verbalized understanding. Objective - Exam Narrative Exam: Narrative Exam: General appearance: Awake, alert, no acute distress Eyes: anicteric sclerae, moist conjunctivae; no lid-lag; PERRLA HENT: Atraumatic; oropharynx clear Neck: Trach clear secretion Lungs: CTA, with normal respiratory effort and no intercostal retractions CV: RRR Abdomen: Soft, non-tender; no masses or hepatosplenomegaly Extremities: No peripheral edema or extremity lymphadenopathy Skin: right chest surg wound open with slough Psych: Generalized weakness. Neuro: alert and oriented x 3. Moving all extermities Lines: No CVL / PICC - Constitutional Vitals: Vital Signs Temp Pulse Resp BP Pulse Ox 98.7 F 98 H 20 119/41 92 11/12/18 09:06 11/12/18 09:05 11/12/18 09:05 11/12/18 09:05 11/12/18 09:31 Temperature -Last 24 Hours Temperature 98.7 F Temperature 98.7 F Temperature 98.2 F Temperature 98.2 F Temperature 98.0 F Temperature 98.2 F Temperature 98.6 F - Labs CBC & Chem 7: 11/10/18 10:07 11/12/18 07:32 Labs: Abnormal lab results 11/11/18 11/11/18 11/12/18 Range/Units 12:17 16:56 07:32 Sodium 136 L (137-145) mmol/L Chloride 95.9 L (98-107) mmol/L BUN 24 H (7-17) mg/dL Creatinine 4.6 H (0.7-1.2) mg/dL POC Glucose 128 H 129 H (70-105)
[2018-11-12] MEDS: LOTRIMIN TP SCH (10:12)
[2018-11-12] MEDS ORDERED: NACL 0.9 (PRIMING MACHINE ONLY DIALYSIS) MC ONE (10:43)
--- NOTE | 2018-11-12 11:06 | Progress Note ---
Assessment and Plan Patient alert, awake. Having slight increase in work of breathing. Gien aerosol treatment. Patient is on trach collar, FIO2 35% and O2 saturation 92%.Patient has hemodialysis to day. - Patient Problems (1) Tracheostomy in place Current Visit: Yes Status: Acute Plan to address problem: Resting on trach collar, FIO2 35%, O2 saturation 92%. Albuterol/atrovent aerosol treatments q 6 hours and prn for shortness of breath. (2) Atrial flutter with rapid ventricular response Current Visit: Yes Status: Acute Plan to address problem: Management as per cardiology. Heart rate running 90 now. (3) Chest pain Current Visit: Yes Status: Acute Plan to address problem: Managent as per cardiology. (4) Acute heart failure Current Visit: No Status: Acute Plan to address problem: Management as per cardiology. (5) End-stage renal disease on hemodialysis Current Visit: Yes Status: Acute Plan to address problem: Management as per nephrology. (6) Hypotension Current Visit: No Status: Acute Plan to address problem: Improved. Recent blood pressure 153/36 (7) SIRS (systemic inflammatory response syndrome) Current Visit: No Status: Acute Plan to address problem: Improved. (8) Diabetes mellitus Current Visit: No Status: Chronic Plan to address problem: Management as per primary care. (9) History of hypertension Current Visit: No Status: Chronic Plan to address problem: Management as per primary care. Subjective Date of service: 11/12/18 Principal diagnosis: Chest pain; A-Fib with RVR; Ac on Ch Hypoxemic Resp failure; CMOP; ESRD Interval history: Patient alert, awake. Having slight increase in work of breathing. Gien aerosol treatment. Patient is on trach collar, FIO2 35% and O2 saturation 92%.Patient has hemodialysis to day. Objective Vital Signs - 12hr 11/11/18 11/12/18 11/12/18 23:56 03:43 04:00 Temperature 98.2 F 98.2 F Pulse Rate 95 H 91 H Pulse Rate [ Anterior Bilateral Throughout] Pulse Rate [ 78 Throughout] Respiratory 18 18 Rate Respiratory Rate [Anterior Bilateral Throughout] Respiratory 16 Rate [ Throughout] Blood Pressure 138/35 123/27 O2 Sat by Pulse 96 97 Oximetry O2 Sat by Pulse Oximetry [ Assessment] 11/12/18 11/12/18 11/12/18 04:06 04:09 09:04 Temperature 98.7 F Pulse Rate Pulse Rate [ 82 Anterior Bilateral Throughout] Pulse Rate [ Throughout] Respiratory Rate Respiratory 18 Rate [Anterior Bilateral Throughout] Respiratory Rate [ Throughout] Blood Pressure O2 Sat by Pulse Oximetry O2 Sat by Pulse 95 Oximetry [ Assessment] 11/12/18 11/12/18 11/12/18 09:05 09:06 09:29 Temperature 98.7 F Pulse Rate 98 H Pulse Rate [ Anterior Bilateral Throughout] Pulse Rate [ 96 H Throughout] Respiratory 20 Rate Respiratory Rate [Anterior Bilateral Throughout] Respiratory 20 Rate [ Throughout] Blood Pressure 119/41 O2 Sat by Pulse 91 Oximetry O2 Sat by Pulse Oximetry [ Assessment] 11/12/18 11/12/18 09:31 09:49 Temperature Pulse Rate Pulse Rate [ Anterior Bilateral Throughout] Pulse Rate [ 95 H Throughout] Respiratory Rate Respiratory Rate [Anterior Bilateral Throughout] Respiratory 18 Rate [ Throughout] Blood Pressure O2 Sat by Pulse 92 Oximetry O2 Sat by Pulse Oximetry [ Assessment] Constitutional: no acute distress, alert, other (Slight increase in work of breathing.) Eyes: non-icteric ENT: oropharynx moist Neck: supple, no lymphadenopathy, other (Tracheostomy.) Ascultation: Bilateral: diminished breath sounds (Decreased breath sounds at the bases.), rales Cardiovascular: irregular rhythm Gastrointestinal: normoactive bowel sounds, soft, non-tender Integumentary: normal Extremities: no cyanosis, no edema Neurologic: normal mental status, non-focal exam, pupils equal and round, CN II- XII normal Psychiatric: mood appropriate CBC and BMP: 11/10/18 10:07 11/12/18 07:32 ABG, PT/INR, D-dimer: PT/INR, D-dimer PT 14.4 Sec. (12.2-14.9) 11/06/18 03:48 INR 1.08 (0.87-1.13) 11/06/18 03:48 Abnormal lab findings: Abnormal Labs 11/06/18 11/06/18 11/06/18 03:48 03:48 03:48 RBC 3.32 L Hgb 9.6 L Hct RDW 18.0 H Lymph % (Auto) Stanley % (Auto) Lymph # Seg Neutrophils % Sodium 136 L Potassium Chloride 93.2 L BUN 27 H Creatinine 4.7 H Glucose 107 H POC Glucose Calcium Phosphorus CK-MB (CK-2) Rel Index Troponin T 0.246 H* Albumin TSH Free T4 PTH Intact 11/06/18 11/06/18 11/06/18 03:48 03:48 05:39 RBC Hgb Hct RDW Lymph % (Auto) Stanley % (Auto) Lymph # Seg Neutrophils % Sodium Potassium Chloride BUN Creatinine Glucose POC Glucose Calcium Phosphorus CK-MB (CK-2) Rel Index 5.1 H Troponin T 0.241 H* Albumin TSH < 0.005 L Free T4 1.52 H PTH Intact 11/06/18 11/06/18 11/06/18 11:06 17:39 21:20 RBC Hgb Hct RDW Lymph % (Auto) Stanley % (Auto) Lymph # Seg Neutrophils % Sodium Potassium Chloride BUN Creatinine Glucose POC Glucose 126 H 159 H Calcium Phosphorus CK-MB (CK-2) Rel Index 4.7 H Troponin T 0.229 H* Albumin TSH Free T4 PTH Intact 11/07/18 11/07/18 11/07/18 05:02 05:02 12:25 RBC 2.89 L Hgb 8.4 L Hct 26.1 L RDW 17.9 H Lymph % (Auto) Stanley % (Auto) 7.9 H Lymph # Seg Neutrophils % Sodium Potassium Chloride 95.3 L BUN 33 H Creatinine 5.2 H Glucose POC Glucose 137 H Calcium 8.2 L Phosphorus CK-MB (CK-2) Rel Index Troponin T Albumin TSH Free T4 PTH Intact 11/08/18 11/08/18 11/08/18 04:49 04:49 06:37 RBC 2.96 L Hgb 8.6 L Hct 27.0 L RDW 17.8 H Lymph % (Auto) 13.2 L Stanley % (Auto) 8.4 H Lymph # 1.1 L Seg Neutrophils % 76.4 H Sodium Potassium Chloride BUN 26 H Creatinine 4.5 H Glucose 122 H POC Glucose 66 L Calcium Phosphorus CK-MB (CK-2) Rel Index Troponin T Albumin TSH Free T4 PTH Intact 11/09/18 11/09/18 11/09/18 04:54 04:54 12:00 RBC 2.86 L Hgb 8.3 L Hct 26.2 L RDW 18.0 H Lymph % (Auto) Stanley % (Auto) 8.8 H Lymph # Seg Neutrophils % Sodium Potassium Chloride 97.8 L BUN 23 H Creatinine 4.2 H Glucose POC Glucose 68 L Calcium 8.3 L D Phosphorus CK-MB (CK-2) Rel Index Troponin T Albumin TSH Free T4 PTH Intact 11/09/18 11/10/18 11/10/18 17:06 05:12 05:12 RBC 3.01 L Hgb 8.8 L Hct 27.5 L RDW 17.4 H Lymph % (Auto) Stanley % (Auto) 9.1 H Lymph # Seg Neutrophils % Sodium 135 L Potassium 5.2 H Chloride 94.8 L BUN 31 H Creatinine 5.1 H Glucose POC Glucose 64 L Calcium 8.3 L Phosphorus CK-MB (CK-2) Rel Index Troponin T Albumin TSH Free T4 PTH Intact 11/10/18 11/10/18 11/10/18 10:07 10:07 10:07 RBC 3.13 L Hgb 9.1 L Hct 28.3 L RDW 17.6 H Lymph % (Auto) Stanley % (Auto) 7.5 H Lymph # Seg Neutrophils % 71.6 H Sodium 132 L Potassium 5.2 H Chloride 91.5 L BUN 31 H Creatinine 5.2 H Glucose 105 H POC Glucose Calcium 8.3 L Phosphorus 5.70 H CK-MB (CK-2) Rel Index Troponin T Albumin 3.2 L TSH Free T4 PTH Intact 354.9 H 11/11/18 11/11/18 11/12/18 12:17 16:56 07:32 RBC Hgb Hct RDW Lymph % (Auto) Stanley % (Auto) Lymph # Seg Neutrophils % Sodium 136 L Potassium 5.7 H Chloride 95.9 L BUN 24 H Creatinine 4.6 H Glucose POC Glucose 128 H 129 H Calcium Phosphorus CK-MB (CK-2) Rel Index Troponin T Albumin TSH Free T4 PTH Intact
[2018-11-12] MEDS: HumaLOG SUB-Q SCH ×2 (11:30→16:30)
--- NOTE | 2018-11-12 13:22 | Discharge Summary ---
Providers - Providers Date of Admission: 11/06/18 05:24 Date of discharge: 11/12/18 Attending physician: TEREZA ZEPEDA 11/06/18 04:14 Consult to Physician [CONS] Urgent Comment: Dr. Lazo spoke with Dr. Barfield @ 2231 Consulting Provider: LETY JUNIOR Physician Instructions: Reason For Exam: esrd 11/06/18 05:25 Consult to Physician [CONS] Routine Comment: Consulting Provider: ELIZA BOO Physician Instructions: Reason For Exam: afib/rvr 11/06/18 05:27 Consult to Physician [CONS] Routine Comment: Dr. 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 Lines: Lab monitoring: CBC, ALT, AST, vancomycin trough once a week preferly on Saturday morning. Please fax results to [phone] and call [phone] for critical lab results. Anita Farias NP/ Dr. Jose MD Date: 11/10/18 Primary care physician: [employer] Hospitalization Condition: Fair Hospital course: Pt is a 73 year old BF with PMHx of CAD, A-Fib, anemia, ESRD on HD, h/o chronic trach who return to the hospital after with c/o chest pain. Pt's son at the bedside reports that had a pacemaker extraction with remaining pacemaker leads in 10/17/18 and since she had repeated hospitalization for rapid heart rate. She presents to the ER, with a heart rate 134, she was diagnosed with rapid afib , started on Cardizem and admitted. Patient was evaluated by Cardiology., Pulmonology, nephrology and ID Physiciana. She had recent s. epidermidis bacteremia and was discharged home with Vancomycin iv with dialysis until 11/28/18 Total time spent on discharge, 33 mins Disposition: [id number]/[id number] SNF [facility] - Discharge Diagnoses (1) Acute and chronic respiratory failure Status: Acute (2) Atrial fibrillation with rapid ventricular response Status: Acute (3) Hemodialysis catheter malfunction Status: Acute (4) Positive blood culture Status: Acute (5) Tracheostomy in place Status: Acute (6) Diabetes mellitus Status: Chronic (7) End-stage renal disease on hemodialysis Status: Chronic (8) Tracheostomy in place Status: Chronic (9) Vegetation of heart valve Status: Acute Core Measure Documentation - Palliative Care Palliative Care/ Comfort Measures: Not Applicable - Core Measures Any of the following diagnoses?: none Exam - Physical Exam Narrative exam: GEN: Not in acute distress,lying in bed HEENT: Normocephalic, atraumatic, trach Neck: supple, No JVD Lungs: Clear to auscultation, no wheeze Heart:S1 and S2 regular, no murmurs, rubs or gallop, Abd:soft, non tender, non distended, normal bowel sounds Ext: No edema, no clubbing or cyanosis Neuro: Awake,alert, oriented x 3, No focal signs Psych:Normal mood - Constitutional Vitals: Temp Pulse Resp BP Pulse Ox 98.1 F 108 H 16 174/18 92 11/12/18 10:00 11/12/18 11:30 11/12/18 10:00 11/12/18 11:30 11/12/18 09:31 Plan Activity: advance as tolerated Diet: low fat, low cholesterol, low salt, diabetic Additional Instructions: 1.Follow up at Physician at [facility] in 2-3 days. 2.Follow up with NELSON Quach on 11/25/18. 3.Vancomycin iv 3 times a week after dialysis sessions and Rifampin daily until 11/28/18. 4.Continue routine hemodialysis as scheduled Follow up with: PRIMARY CARE, [Primary Care Provider] - 3-5 Days Prescriptions: Apixaban [Eliquis] 5 mg PO Q12HR #60 tablet
[2018-11-12] MEDS: LOPRESSOR PO SCH (14:22)
[2018-11-12] MEDS: HALFPRIN EC PO SCH (15:09)
[2018-11-12] MEDS: SENSIPAR PO SCH (15:10)
[2018-11-12] MEDS: TAPAZOLE PO SCH (15:10)
[2018-11-12] MEDS: ELIQUIS PO SCH (15:10)
[2018-11-12] MEDS: PEPCID PO SCH (15:10)
[2018-11-12] MEDS: TOPAMAX PO SCH (15:11)
[2018-11-12] MEDS: SODIUM CHLORIDE FLUSH SYRINGE 10 ML IV SCH (15:12)
[2018-11-12] MEDS: RIFADIN PO SCH (15:14)
[2018-11-12] MEDS: COLACE PO SCH ×2 (15:19)
[2018-11-12] MEDS: VITAMIN D3 PO SCH (16:33)
[2018-11-12 17:09] VITALS: BP 153/36
== END 2018-11-12 19:45 | DRG 280 ==
LOC: ED 02:27 → CC1 05:24 → 4A 11-07 16:00
PROVIDERS: ADMIT Internal Medicine; ATTEND Internal Medicine
PROC: 5A1D70Z Performance of Urinary Filtration, Intermittent, Less than 6 Hours Per Day (ICD-10-PCS; principal; 2018-11-07)
PROC: 5A1D70Z Performance of Urinary Filtration, Intermittent, Less than 6 Hours Per Day (ICD-10-PCS; 2018-11-10)
PROC: 5A1D70Z Performance of Urinary Filtration, Intermittent, Less than 6 Hours Per Day (ICD-10-PCS; 2018-11-12)
DX: I21.A1 Myocardial infarction type 2 (principal); N18.6 End stage renal disease; J96.21 Acute and chronic respiratory failure with hypoxia; I13.2 Hypertensive heart and chronic kidney disease with heart failure and with stage 5 chronic kidney disease, or end stage renal disease; N25.81 Secondary hyperparathyroidism of renal origin; E87.1 Hypo-osmolality and hyponatremia; I25.10 Atherosclerotic heart disease of native coronary artery without angina pectoris; E66.9 Obesity, unspecified; E05.90 Thyrotoxicosis, unspecified without thyrotoxic crisis or storm; E87.5 Hyperkalemia; D63.1 Anemia in chronic kidney disease; I48.91 Unspecified atrial fibrillation; E11.22 Type 2 diabetes mellitus with diabetic chronic kidney disease; I50.9 Heart failure, unspecified; Z79.51 Long term (current) use of inhaled steroids; Z79.82 Long term (current) use of aspirin; Z99.2 Dependence on renal dialysis; Z79.899 Other long term (current) drug therapy; Z79.84 Long term (current) use of oral hypoglycemic drugs; Z93.0 Tracheostomy status; Z90.49 Acquired absence of other specified parts of digestive tract; Z98.51 Tubal ligation status; Z68.27 Body mass index [BMI] 27.0-27.9, adult; Z71.89 Other specified counseling
CPT/HCPCS: 36415; 71045; 80048; 80053; 80202; 82550; 82553; 82962; 83735; 83970; 84100; 84439; 84443; 84484; 85025; 85027; 85610; 85730; 93005; 93010; 94640; 94760; 96374; 96375; 99284; 99291; G0378; A9270-GY; J0885; J2405; J3370; J7030; J7040; P9047

== ENCOUNTER 2018-11-13 13:01 | Inpatient (IN) | payer MEDICARE ==
--- NOTE | 2018-11-13 13:11 | Emergency Department Report ---
ED Chest Pain HPI - General Stated Complaint: CHEST PAIN Time Seen by Provider: 11/13/18 13:01 Source: EMS Mode of arrival: Stretcher Limitations: No Limitations - History of Present Illness Initial Comments: 73-year-old prison patient who presents emergency room via EMS for chest pain that started 1 hour prior to arrival. Patient complains of shortness of breath as well. Patient states the pain is worsening. Patient states the pain is in the bilateral chest region and is nonradiating. Patient states the pain is a 6 out of 10. Patient denies fever and chills. Patient denies nausea vomiting. Patient denies diaphoresis. Patient has a trach MD Complaint: chest pain -: Sudden Onset: during rest Pain Location: substernal, left chest Pain Radiation: none Severity: severe Severity scale (0 -10): 10 Quality: heaviness, sharp Consistency: constant Improves With: rest Worsens With: exertion re: dyspnea. denies: nausea, vomting, diaphoresis, sense of impending doom Other Symptoms: denies: cough, fever, syncope, rash, acid taste in mouth, leg swelling, palpitations, burping Treatments Prior to Arrival: oxygen Aspirin use within the Past 7 Days: (1) Yes - Related Data On Oral Contraceptives: No Home Medications Medication Instructions Recorded Confirmed Last Taken Aspirin [Adult Aspirin] 81 mg PO DAILY 09/10/18 11/13/18 Unknown Atorvastatin Calcium [Lipitor] 40 mg PO QPM 09/10/18 11/13/18 Unknown Cholecalciferol Vit D3 [Vitamin D3] 1,000 unit PO QDAY 09/10/18 11/13/18 Unknown Clotrimazole 1% [Lotrimin 1%] 1 applic TP BID 09/10/18 11/13/18 Unknown Docusate Sodium [Colace CAP] 100 mg PO TID 09/10/18 11/13/18 Unknown Fluticasone [Flonase] 2 sprays NS DAILY PRN 09/10/18 11/13/18 Unknown Ipratropium/Albuterol Sulfate 1 ampul IH QID 09/10/18 11/13/18 Unknown [DUONEB *Not for PRN Use*] Topiramate [Topamax] 25 mg PO BID 09/10/18 11/13/18 Unknown tiZANidine [Zanaflex] 4 mg PO DAILY 09/10/18 11/13/18 Unknown Cinacalcet [Sensipar] 30 mg PO DAILY 11/06/18 11/13/18 Unknown Metoprolol Tartrate 25 mg PO BID 11/06/18 11/13/18 Unknown Ventolin HFA 2 puff IH BID PRN 11/06/18 11/13/18 Unknown rifAMPin [Rifampin] 600 mg PO DAILY 11/06/18 11/13/18 Unknown Previous Rx's Medication Instructions Recorded Last Taken Type HYDROcodone/APAP 10-325 [[place] 1 each PO BID PRN #7 tablet 09/15/18 Unknown Rx 10-325 mg TAB] methIMAzole [Tapazole] 10 mg PO Q24HR #30 tablet 11/03/18 Unknown Rx Apixaban [Eliquis] 5 mg PO Q12HR #60 tablet 11/12/18 Unknown Rx Allergies Allergy/AdvReac Type Severity Reaction Status Date / Time No Known Allergies Allergy Unverified 06/20/18 15:19 Heart Score - HEART Score History: Moderately suspicious EKG: Non-specific Age: > 65 Risk factors: 1-2 risk factors Troponin: > 3x normal limit HEART Score: 7 ED Review of Systems ROS: Stated complaint: CHEST PAIN Other details as noted in HPI Constitutional: denies: chills, fever Eyes: denies: eye pain, eye discharge, vision change ENT: denies: ear pain, throat pain Respiratory: denies: cough, shortness of breath, wheezing Cardiovascular: chest pain. denies: palpitations Endocrine: no symptoms reported Gastrointestinal: denies: abdominal pain, nausea, diarrhea Genitourinary: denies: urgency, dysuria, discharge Musculoskeletal: denies: back pain, joint swelling, arthralgia Skin: denies: rash, lesions Neurological: denies: headache, weakness, paresthesias Psychiatric: denies: anxiety, depression Hematological/Lymphatic: denies: easy bleeding, easy bruising ED Past Medical Hx - Past Medical History Previous Medical History?: Yes Hx Hypertension: Yes Hx Congestive Heart Failure: Yes Hx Diabetes: Yes (controlled, no pills or insulin per pt) Hx Renal Disease: Yes (ESRD/dialysis) Hx Arthritis: Yes Additional medical history: trach - Surgical History Past Surgical History?: Yes Hx Pacemaker: Yes Hx Cholecystectomy: Yes Hx Breast Surgery: Yes (duct clogged 1969) Additional Surgical History: breast surgery. tubal ligation. trach - Family History Family history: hypertension - Social History Smoking Status: Never Smoker Substance Use Type: None - Medications Home Medications: Home Medications Medication Instructions Recorded Confirmed Last Taken Type Aspirin [Adult Aspirin] 81 mg PO DAILY 09/10/18 11/13/18 Unknown History Atorvastatin Calcium [Lipitor] 40 mg PO QPM 09/10/18 11/13/18 Unknown History Cholecalciferol Vit D3 [Vitamin D3] 1,000 unit PO QDAY 09/10/18 11/13/18 Unknown History Clotrimazole 1% [Lotrimin 1%] 1 applic TP BID 09/10/18 11/13/18 Unknown History Docusate Sodium [Colace CAP] 100 mg PO TID 09/10/18 11/13/18 Unknown History Fluticasone [Flonase] 2 sprays NS DAILY PRN 09/10/18 11/13/18 Unknown History Ipratropium/Albuterol Sulfate 1 ampul IH QID 09/10/18 11/13/18 Unknown History [DUONEB *Not for PRN Use*] Topiramate [Topamax] 25 mg PO BID 09/10/18 11/13/18 Unknown History tiZANidine [Zanaflex] 4 mg PO DAILY 09/10/18 11/13/18 Unknown History HYDROcodone/APAP 10-325 [[place] 1 each PO BID PRN #7 tablet 09/15/18 11/13/18 Unknown Rx 10-325 mg TAB] methIMAzole [Tapazole] 10 mg PO Q24HR #30 tablet 11/03/18 11/13/18 Unknown Rx Cinacalcet [Sensipar] 30 mg PO DAILY 11/06/18 11/13/18 Unknown History Metoprolol Tartrate 25 mg PO BID 11/06/18 11/13/18 Unknown History Ventolin HFA 2 puff IH BID PRN 11/06/18 11/13/18 Unknown History rifAMPin [Rifampin] 600 mg PO DAILY 11/06/18 11/13/18 Unknown History Apixaban [Eliquis] 5 mg PO Q12HR #60 tablet 11/12/18 11/13/18 Unknown Rx ED Physical Exam - General Limitations: Physical Limitation General appearance: alert, in no apparent distress - Head Head exam: Present: atraumatic, normocephalic - Eye Eye exam: Present: normal appearance - ENT ENT exam: Present: mucous membranes moist - Neck Neck exam: Present: normal inspection - Respiratory Respiratory exam: Present: normal lung sounds bilaterally, decreased breath sounds. Absent: respiratory distress - Cardiovascular Cardiovascular Exam: Present: regular rate, normal rhythm. Absent: systolic murmur, diastolic murmur, rubs, gallop - GI/Abdominal GI/Abdominal exam: Present: soft, normal bowel sounds - Extremities Exam Extremities exam: Present: normal inspection - Back Exam Back exam: Present: normal inspection - Neurological Exam Neurological exam: Present: alert, oriented X3 - Psychiatric Psychiatric exam: Present: normal affect, normal mood - Skin Skin exam: Present: warm, dry, intact, normal color. Absent: rash ED Course Vital Signs 11/13/18 11/13/18 11/13/18 13:17 13:45 13:50 Temperature 98 F Pulse Rate 107 H Respiratory 16 Rate Blood Pressure 139/68 Blood Pressure [Right] O2 Sat by Pulse 91 96 Oximetry O2 Sat by Pulse 96 Oximetry [ Assessment] 11/13/18 11/13/18 14:27 15:00 Temperature 98.0 F Pulse Rate 110 H Respiratory 22 Rate Blood Pressure Blood Pressure 145/75 [Right] O2 Sat by Pulse 94 97 Oximetry O2 Sat by Pulse Oximetry [ Assessment] - Reevaluation(s) Reevaluation #1: Initial evaluation done. Patient found to be hypoxic. Patient placed on trach oxygen and humidified oxygen and saturation improved. 11/13/18 13:00 Discussed All results with patient. Patient admitted to the hospitalist service. 11/13/18 15:54 - Consultations Consultation #1: pcp consulted for admission. Dr. Bhat to admit patient and assume care of patient. bridge order. 11/13/18 15:[address] Gómez to see pt. 11/13/18 18:07 LEONELA score - Leonela Score Age > 65: (1) Yes Aspirin use within the Past 7 Days: (1) Yes 3 or more CAD Risk Factors: (1) Yes 2 or more Angina events in past 24 hrs: (0) No Known CAD with more than 50% Stenosis: (0) No Elevated Cardiac Markers: (1) Yes ST Deviation Greater than 0.5mm: (0) No LEONELA Score: 4 ED Medical Decision Making - Lab Data Result diagrams: 11/13/18 13:25 11/13/18 13:25 - EKG Data -: EKG Interpreted by Me EKG shows normal: sinus rhythm, axis, intervals, QRS complexes, ST-T waves Rate: tachycardia - Radiology Data Radiology results: report reviewed AP CHEST: HISTORY: chest pain Cardiomegaly, pulmonary venous congestion and moderate bilateral pleural effusions are identified. There is compressive atelectasis of the lower lobes. No pneumothorax. Tracheostomy is in position. IMPRESSION: CHF. - Medical Decision Making Patient is a 73-year-old female that presents emergency room with complaints of chest pain and shortness of breath. Patient found to have CHF exacerbation elevated BNP and elevated troponin. Patient seek 85. Nephrology consultation. Patient's primary care was consulted for admission. Patient's PCP to admit to the hospital. - Differential Diagnosis hypoxia. sob. cp. chf. acs Critical Care Time: Yes Critical care attestation.: If time is entered above; I have spent that time in minutes in the direct care of this critically ill patient, excluding procedure time. Critical Care Time: 55 minutes/ ED Disposition Clinical Impression: End-stage renal disease on hemodialysis, SOB (shortness of breath), Elevated troponin I level, Elevated brain natriuretic peptide (BNP) level, Hypoxia, Cardiac volume overload CHF (congestive heart failure) Qualifiers: Heart failure type: unspecified Heart failure chronicity: acute Qualified Code(s): I50.9 - Heart failure, unspecified Acute heart failure Qualifiers: Heart failure type: unspecified Qualified Code(s): I50.9 - Heart failure, unspecified Chest pain Qualifiers: Chest pain type: unspecified Qualified Code(s): R07.9 - Chest pain, unspecified Disposition: 09 OP ADMIT IP TO THIS HOSP Is pt being admited?: Yes Does the pt Need Aspirin: No Condition: Critical Time of Disposition: 15:54
[2018-11-13 13:50] LABS: Basophils % (Auto) 0.5 % (0.0-1.8); Eosinophils # (Auto) 0.1 K/mm3 (0.0-0.4); Eosinophils % (Auto) 0.8 % (0.0-4.3); Hematocrit 31.4 % (30.3-42.9); Hemoglobin 10.1 gm/dl (10.1-14.3); Lymphocytes # (Auto) 0.9 K/mm3 (1.2-5.4); Lymphocytes % (Auto) 10.7 % (13.4-35.0); Mean Corpuscular HGB Conc 32 % (30-34); Mean Corpuscular Volume 91 fl (79-97); Monocytes # (Auto) 0.6 K/mm3 (0.0-0.8); Monocytes % (Auto) 7.6 % (0.0-7.3); Platelet Count 182 K/mm3 (140-440); Red Blood Count 3.46 M/mm3 (3.65-5.03); Red Cell Distribution Width 17.9 % (13.2-15.2)
[2018-11-13 14:06] LABS: Albumin 3.5 g/dL (3.9-5)
[2018-11-13 14:17] LABS: Chol/HDL Ratio 2.48 %
--- NOTE | 2018-11-13 14:21 | XRay Report ---
AP CHEST: HISTORY: chest pain Cardiomegaly, pulmonary venous congestion and moderate bilateral pleural effusions are identified. There is compressive atelectasis of the lower lobes. No pneumothorax. Tracheostomy is in position. IMPRESSION: CHF.
--- NOTE | 2018-11-13 16:55 | Nuclear Medicine Report ---
FINAL REPORT EXAM: NM PERFUSION ONLY LUNG SCAN HISTORY: cp. hypoxia TECHNIQUE: Lung ventilation not done Lung perfusion with 3.76 mCi of IV technetium 99m MAA Standard multiple planar perfusion only lung images PRIORS: One-view chest 11/06/2018 FINDINGS: Limited examination due to prominent soft tissue attenuation. Nonspecific bilateral lung base defect s may correspond with bilateral pleural effusions on x-ray. Perfusion uptake is otherwise diffusely h omogeneous bilaterally without definite other defect. IMPRESSION: Perfusion only lung imaging demonstrates nonspecific bilateral lung base defects which may correspond with bilateral pleural effusions on chest x-ray. Differential includes PE, considered less likely gi macarena relative bilateral symmetry
[2018-11-13] MEDS ORDERED: NACL 0.9% 100 ML IV PRN (18:21)
[2018-11-13] MEDS ORDERED: VENTOLIN IH PRN (19:57)
[2018-11-13] MEDS ORDERED: FLONASE NS PRN (19:57)
--- NOTE | 2018-11-13 20:09 | History and Physical Report ---
History of Present Illness Date of examination: 11/13/18 Date of admission: 11/13/18 16:08 Chief complaint: Chest pain/SOB History of present illness: [place] CC of Chest pain, SOB, work up in ER revealed heart failure, renal failure. patient had these hx, and these are exacerbations.appropriate consults in progress.. Past History Past Medical History: anemia, CAD, ESRD, hyperlipidemia, renal failure Social history: no significant social history Family history: no significant family history Medications and Allergies Allergies Allergy/AdvReac Type Severity Reaction Status Date / Time No Known Allergies Allergy Unverified 06/20/18 15:19 Home Medications Medication Instructions Recorded Confirmed Last Taken Type Aspirin [Adult Aspirin] 81 mg PO DAILY 09/10/18 11/13/18 Unknown History Atorvastatin Calcium [Lipitor] 40 mg PO QPM 09/10/18 11/13/18 Unknown History Cholecalciferol Vit D3 [Vitamin D3] 1,000 unit PO QDAY 09/10/18 11/13/18 Unknown History Clotrimazole 1% [Lotrimin 1%] 1 applic TP BID 09/10/18 11/13/18 Unknown History Docusate Sodium [Colace CAP] 100 mg PO TID 09/10/18 11/13/18 Unknown History Fluticasone [Flonase] 2 sprays NS DAILY PRN 09/10/18 11/13/18 Unknown History Ipratropium/Albuterol Sulfate 1 ampul IH QID 09/10/18 11/13/18 Unknown History [DUONEB *Not for PRN Use*] Topiramate [Topamax] 25 mg PO BID 09/10/18 11/13/18 Unknown History tiZANidine [Zanaflex] 4 mg PO DAILY 09/10/18 11/13/18 Unknown History HYDROcodone/APAP 10-325 [[place] 1 each PO BID PRN #7 tablet 09/15/18 11/13/18 Unknown Rx 10-325 mg TAB] methIMAzole [Tapazole] 10 mg PO Q24HR #30 tablet 11/03/18 11/13/18 Unknown Rx Cinacalcet [Sensipar] 30 mg PO DAILY 11/06/18 11/13/18 Unknown History Metoprolol Tartrate 25 mg PO BID 11/06/18 11/13/18 Unknown History Ventolin HFA 2 puff IH BID PRN 11/06/18 11/13/18 Unknown History rifAMPin [Rifampin] 600 mg PO DAILY 11/06/18 11/13/18 Unknown History Apixaban [Eliquis] 5 mg PO Q12HR #60 tablet 11/12/18 11/13/18 Unknown Rx Active Meds: Active Medications Acetaminophen/Hydrocodone Bitart ([place] 10/325) 1 each PO BID PRN PRN Reason: Pain Albuterol/Ipratropium (Duoneb *Not For Prn Use*) 1 ampul IH QID [facility] Apixaban (Eliquis) 5 mg PO Q12HR [facility]; Protocol Aspirin (Halfprin Ec) 81 mg PO DAILY [facility] Atorvastatin Calcium (Lipitor) 40 mg PO QPM [facility] Cholecalciferol (Vitamin D3) 1,000 unit PO QDAY [facility] Cinacalcet (Sensipar) 30 mg PO DAILY [facility] Clotrimazole (Lotrimin) 1 applic TP BID [facility] Docusate Sodium (Colace) 100 mg PO TID [facility] Fluticasone Propionate (Flonase) 100 mcg NS DAILY PRN PRN Reason: Allergy Symptoms Sodium Chloride (Nacl 0.9%) 100 mls @ 999 mls/hr IV CAROL PRN PRN Reason: Hypotension Methimazole (Tapazole) 10 mg PO Q24HR [facility] Metoprolol Tartrate (Lopressor) 25 mg PO BID [facility] Miscellaneous Medication (Ventolin Hfa) 2 puff IH BID PRN PRN Reason: Dyspnea Tizanidine HCl (Zanaflex) 4 mg PO DAILY [facility] Topiramate (Topamax) 25 mg PO BID [facility] Review of Systems Constitutional: fatigue Breasts: deferred Cardiovascular: chest pain Respiratory: shortness of breath Exam - Constitutional Vitals: Temp Pulse Resp BP Pulse Ox 98.0 F 102 H 16 122/33 97 11/13/18 18:15 11/13/18 20:00 11/13/18 18:15 11/13/18 20:00 11/13/18 15:00 General appearance: Present: mild distress, well-nourished - EENT Eyes: Present: PERRL ENT: hearing intact, clear oral mucosa - Neck Neck: Present: supple, normal ROM - Respiratory Respiratory effort: normal Respiratory: bilateral: diminished - Cardiovascular Heart Sounds: Present: S1 & S2. Absent: rub, click - Extremities Extremities: pulses symmetrical, No edema Peripheral Pulses: within normal limits - Abdominal General gastrointestinal: Present: soft, non-tender, non-distended, normal bowel sounds Female genitourinary: Present: deferred - Rectal Rectal Exam: deferred - Integumentary Integumentary: Present: clear, warm, dry - Musculoskeletal Musculoskeletal: gait normal, strength equal bilaterally - Psychiatric Psychiatric: appropriate mood/affect, intact judgment & insight - Neurologic Neurologic: CNII-XII intact, moves all extremities Results - Labs CBC & Chem 7: 11/13/18 13:25 11/13/18 13:25 Labs: Abnormal lab results 11/13/18 11/13/18 11/13/18 Range/Units 13:25 13:25 13:25 RBC 3.46 L (3.65-5.03) M/mm3 RDW 17.9 H (13.2-15.2) % Lymph % (Auto) 10.7 L (13.4-35.0) % [place] % (Auto) 7.6 H (0.0-7.3) % Lymph # 0.9 L (1.2-5.4) K/mm3 Seg Neutrophils % 80.4 H (40.0-70.0) % Sodium 136 L (137-145) mmol/L Potassium 5.2 H (3.6-5.0) mmol/L Chloride 95.5 L (98-107) mmol/L BUN 20 H (7-17) mg/dL Creatinine 3.7 H (0.7-1.2) mg/dL Glucose 147 H (65-100) mg/dL ALT 6 L (7-56) units/L Troponin T 0.216 H* (0.00-0.029) ng/mL NT-Pro-B Natriuret Pep 61684 H (0-900) pg/mL Albumin 3.5 L (3.9-5) g/dL LDL Cholesterol Direct 39 L (50-130) mg/dL HDL Cholesterol 33 L (40-59) mg/dL Assessment and Plan - Patient Problems (1) Acute heart failure Current Visit: Yes Status: Acute Qualifiers: Heart failure type: unspecified Qualified Code(s): I50.9 - Heart failure, unspecified Plan to address problem: diuretics, echo. (2) Cardiac volume overload Current Visit: Yes Status: Acute Plan to address problem: see notes below. (3) Chest pain Current Visit: Yes Status: Acute Qualifiers: Chest pain type: unspecified Qualified Code(s): R07.9 - Chest pain, unspecified Plan to address problem: continue w/up.,may get cardiology. (4) Elevated brain natriuretic peptide (BNP) level Current Visit: Yes Status: Acute Plan to address problem: diuretic ,until HD.may check 2decho. (5) Elevated troponin I level Current Visit: Yes Status: Acute Plan to address problem: monitor labs. This may be due to renal failure. (6) End-stage renal disease on hemodialysis Current Visit: Yes Status: Acute Plan to address problem: HD, (7) Hypoxia Current Visit: Yes Status: Acute Plan to address problem: oxygen support. (8) SOB (shortness of breath) Current Visit: Yes Status: Acute Plan to address problem: oxygen support.
[2018-11-13] MEDS ORDERED: PROVENTIL IH PRN (20:15)
--- NOTE | 2018-11-13 22:02 | Consultation ---
Past History Past Medical History: anemia, CAD, ESRD, hyperlipidemia, renal failure Social history: no significant social history Family history: no significant family history Medications and Allergies Allergies Allergy/AdvReac Type Severity Reaction Status Date / Time No Known Allergies Allergy Unverified 06/20/18 15:19 Home Medications Medication Instructions Recorded Confirmed Last Taken Type Aspirin [Adult Aspirin] 81 mg PO DAILY 09/10/18 11/13/18 Unknown History Atorvastatin Calcium [Lipitor] 40 mg PO QPM 09/10/18 11/13/18 Unknown History Cholecalciferol Vit D3 [Vitamin D3] 1,000 unit PO QDAY 09/10/18 11/13/18 Unknown History Clotrimazole 1% [Lotrimin 1%] 1 applic TP BID 09/10/18 11/13/18 Unknown History Docusate Sodium [Colace CAP] 100 mg PO TID 09/10/18 11/13/18 Unknown History Fluticasone [Flonase] 2 sprays NS DAILY PRN 09/10/18 11/13/18 Unknown History Ipratropium/Albuterol Sulfate 1 ampul IH QID 09/10/18 11/13/18 Unknown History [DUONEB *Not for PRN Use*] Topiramate [Topamax] 25 mg PO BID 09/10/18 11/13/18 Unknown History tiZANidine [Zanaflex] 4 mg PO DAILY 09/10/18 11/13/18 Unknown History HYDROcodone/APAP 10-325 [[place] 1 each PO BID PRN #7 tablet 09/15/18 11/13/18 Unknown Rx 10-325 mg TAB] methIMAzole [Tapazole] 10 mg PO Q24HR #30 tablet 11/03/18 11/13/18 Unknown Rx Cinacalcet [Sensipar] 30 mg PO DAILY 11/06/18 11/13/18 Unknown History Metoprolol Tartrate 25 mg PO BID 11/06/18 11/13/18 Unknown History Ventolin HFA 2 puff IH BID PRN 11/06/18 11/13/18 Unknown History rifAMPin [Rifampin] 600 mg PO DAILY 11/06/18 11/13/18 Unknown History Apixaban [Eliquis] 5 mg PO Q12HR #60 tablet 11/12/18 11/13/18 Unknown Rx Active Meds: Active Medications Acetaminophen/Hydrocodone Bitart ([place] 10/325) 1 each PO BID PRN PRN Reason: Pain Albuterol (Proventil) 2.5 mg IH Q4HRT PRN PRN Reason: Shortness Of Breath Albuterol (Proventil) 2.5 mg IH BID PRN PRN Reason: Shortness Of Breath Albuterol/Ipratropium (Duoneb *Not For Prn Use*) 1 ampul IH QID [facility] Apixaban (Eliquis) 5 mg PO Q12HR [facility]; Protocol Aspirin (Halfprin Ec) 81 mg PO DAILY [facility] Atorvastatin Calcium (Lipitor) 40 mg PO QPM [facility] Cholecalciferol (Vitamin D3) 1,000 unit PO QDAY [facility] Cinacalcet (Sensipar) 30 mg PO DAILY [facility] Clotrimazole (Lotrimin) 1 applic TP BID [facility] Docusate Sodium (Colace) 100 mg PO TID [facility] Fluticasone Propionate (Flonase) 100 mcg NS DAILY PRN PRN Reason: Allergy Symptoms Sodium Chloride (Nacl 0.9%) 100 mls @ 999 mls/hr IV CAROL PRN PRN Reason: Hypotension Methimazole (Tapazole) 10 mg PO Q24HR [facility] Metoprolol Tartrate (Lopressor) 25 mg PO BID [facility] Tizanidine HCl (Zanaflex) 4 mg PO DAILY [facility] Topiramate (Topamax) 25 mg PO BID [facility] Exam - Vital Signs Vital signs: Vital Signs Temp Pulse Resp BP Pulse Ox 98 F 107 H 16 139/68 91 11/13/18 13:17 11/13/18 13:17 11/13/18 13:17 11/13/18 13:17 11/13/18 13:17 Results - Lab Results 11/13/18 13:25 11/13/18 13:25 Most recent lab results Calcium 9.0 mg/dL (8.4-10.2) 11/13/18 13:25
--- NOTE | 2018-11-13 22:03 | Event Note ---
Event note, Patient was admitted today with fluid overload shortness of breath mild hyperkalemia chest x-ray shows evidence of pulmonary edema In this recent admission patient was also noted to be very noncompliant despite counseling and education patient still coming in with fluid overload We'll order for immediate hemodialysis Discussed with Namita dialysis nurse to dialyze the patient case was also discussed with emergency room physician at length as well dialysis orders were given, around 6:20 PM
[2018-11-14] MEDS: ELIQUIS PO SCH ×3 (01:08→21:25)
[2018-11-14] MEDS: TOPAMAX PO SCH ×3 (01:23→21:25)
[2018-11-14] MEDS: LOTRIMIN TP SCH ×3 (01:24→21:26)
[2018-11-14] MEDS: LOPRESSOR PO SCH ×3 (03:06→21:26)
[2018-11-14 04:38] LABS: Creatine Kinase MB 1.7 ng/mL (0.0-4.0)
[2018-11-14] MEDS: DUONEB *Not for PRN Use IH SCH ×7 (08:33→21:24)
--- NOTE | 2018-11-14 08:48 | Consultation ---
History of Present Illness - History of Present Illness Thank you for the consultation ! Patient was evaluated today My assessment and plan are as follows; ESRD: Patient did receive hemodialysis treatmentt yesterday for shortness of b jeffry, this was done emergently she will need chemotherapy tomorrow, She is noncompliant with fluid and sodium restriction Congestive heart failure volume overload clinically doing better patient noted to be noncompliant Anemia and end-stage renal disease: To monitor and follow Secondary hyperparathyroidism: Monitor and follow Strict fluid restriction 800 cc per day History of bacteremia, pericardial effusion, status post pericardial window Patient was adequately counseled and educated regarding multiple renal related issues. overall prognosis is guarded All renal related questions were answered and simple Czech pertinent lab studies as well as imaging results were also discussed with patient We will continue to follow and make recommendations from renal standpoint. Thank you for the consultation Author: Jj Gómez M.D. [facility], [address] [place] [address] Tel; [phone] Source of information: From patient and old records History of present illness Patient is a 73-year-old -Irish female who was recently admitted here with multiple health issues and was treated with hemodialysis. Patient was also noted to be noncompliant with fluid even during hospitalization and was adequately counseled and educated to comply with fluid and sodium restriction. Patient was discharged from the hospital and quickly returned back with severe fluid overload shortness of breath upon asking, coffee and one cup of water a day,. He had this hospitalizations were noted, patient did receive hemodialysis treatment yesterday and she does feel better she does have tracheotomy, and does have history of several health issues Past medical history significant for End-stage renal disease currently on maintenance dialysis Anemia and end-stage renal disease Tracheotomy, last 15 years Paroxysmal atrial fibrillation C. difficile colitis Bacteremia Secondary hyperparathyroidism Coronary artery disease Hyperlipidemia Sick sinus syndrome Dual-chamber pacemaker Noncompliance with treatment recommendation History of pericardial effusion and window creation at [facility] Current allergies: None Home medication present medication: Reviewed Social history: Reviewed Family history: Reviewed Review of system: Shortness of breath pulmonary vascular congestion No fever chills nausea vomiting All other review of systems negative Physical examination Vitals: Reviewed General: No acute distress HEENT: Oral mucosa moist no pallor or icterus Neck: Supple without any JVD thyromegaly or nodular mass patient has chronic tracheotomy Chest:still has bilateral crackles and some wheezes Heart: Regular rate and rhythm S1-S2 heard no S3-S4 Abdomen: Soft nontender, bowel sounds present no renal bruit no suprapubic osvaldo s no CVA tenderness noted Extremity: Minimal edema dry skin no peripheral cyanosis Endocrine: Thyroid not enlarged Psychiatric: No agitation and aggression noted Musculoskeletal: No joint effusion noted Labs and x-rays: Reviewed from this admission Past History Past Medical History: anemia, CAD, ESRD, hyperlipidemia, renal failure Social history: no significant social history Family history: no significant family history Medications and Allergies Allergies Allergy/AdvReac Type Severity Reaction Status Date / Time No Known Allergies Allergy Unverified 06/20/18 15:19 Home Medications Medication Instructions Recorded Confirmed Last Taken Type Aspirin [Adult Aspirin] 81 mg PO DAILY 09/10/18 11/13/18 Unknown History Atorvastatin Calcium [Lipitor] 40 mg PO QPM 09/10/18 11/13/18 Unknown History Cholecalciferol Vit D3 [Vitamin D3] 1,000 unit PO QDAY 09/10/18 11/13/18 Unknown History Clotrimazole 1% [Lotrimin 1%] 1 applic TP BID 09/10/18 11/13/18 Unknown History Docusate Sodium [Colace CAP] 100 mg PO TID 09/10/18 11/13/18 Unknown History Fluticasone [Flonase] 2 sprays NS DAILY PRN 09/10/18 11/13/18 Unknown History Ipratropium/Albuterol Sulfate 1 ampul IH QID 09/10/18 11/13/18 Unknown History [DUONEB *Not for PRN Use*] Topiramate [Topamax] 25 mg PO BID 09/10/18 11/13/18 Unknown History tiZANidine [Zanaflex] 4 mg PO DAILY 09/10/18 11/13/18 Unknown History HYDROcodone/APAP 10-325 [[place] 1 each PO BID PRN #7 tablet 09/15/18 11/13/18 Unknown Rx 10-325 mg TAB] methIMAzole [Tapazole] 10 mg PO Q24HR #30 tablet 11/03/18 11/13/18 Unknown Rx Cinacalcet [Sensipar] 30 mg PO DAILY 11/06/18 11/13/18 Unknown History Metoprolol Tartrate 25 mg PO BID 11/06/18 11/13/18 Unknown History Ventolin HFA 2 puff IH BID PRN 11/06/18 11/13/18 Unknown History rifAMPin [Rifampin] 600 mg PO DAILY 11/06/18 11/13/18 Unknown History Apixaban [Eliquis] 5 mg PO Q12HR #60 tablet 11/12/18 11/13/18 Unknown Rx Active Meds: Active Medications Acetaminophen/Hydrocodone Bitart ([place] 10/325) 1 each PO BID PRN PRN Reason: Pain Albuterol (Proventil) 2.5 mg IH Q4HRT PRN PRN Reason: Shortness Of Breath Albuterol (Proventil) 2.5 mg IH BID PRN PRN Reason: Shortness Of Breath Albuterol/Ipratropium (Duoneb *Not For Prn Use*) 1 ampul IH QID [facility] Last Admin: 11/14/18 08:33 Dose: 1 ampul Documented by: Apixaban (Eliquis) 5 mg PO Q12HR [facility]; Protocol Last Admin: 11/14/18 01:08 Dose: 5 mg Documented by: Aspirin (Halfprin Ec) 81 mg PO DAILY [facility] Atorvastatin Calcium (Lipitor) 40 mg PO QPM [facility] Cholecalciferol (Vitamin D3) 1,000 unit PO QDAY [facility] Cinacalcet (Sensipar) 30 mg PO DAILY [facility] Clotrimazole (Lotrimin) 1 applic TP BID [facility] Last Admin: 11/14/18 01:24 Dose: Not Given Documented by: Docusate Sodium (Colace) 100 mg PO TID [facility] Fluticasone Propionate (Flonase) 100 mcg NS DAILY PRN PRN Reason: Allergy Symptoms Sodium Chloride (Nacl 0.9%) 100 mls @ 999 mls/hr IV CAROL PRN PRN Reason: Hypotension Methimazole (Tapazole) 10 mg PO Q24HR [facility] Metoprolol Tartrate (Lopressor) 25 mg PO BID [facility] Last Admin: 11/14/18 03:06 Dose: Not Given Documented by: Tizanidine HCl (Zanaflex) 4 mg PO DAILY [facility] Topiramate (Topamax) 25 mg PO BID [facility] Last Admin: 11/14/18 01:23 Dose: Not Given Documented by: Exam - Vital Signs Vital signs: Vital Signs Temp Pulse Resp BP Pulse Ox 98 F 107 H 16 139/68 91 11/13/18 13:17 11/13/18 13:17 11/13/18 13:17 11/13/18 13:17 11/13/18 13:17 Results - Lab Results 11/13/18 13:25 11/13/18 13:25 Most recent lab results Calcium 9.0 mg/dL (8.4-10.2) 11/13/18 13:25 Magnesium 1.70 mg/dL (1.7-2.3) 11/14/18 03:52
[2018-11-14] MEDS: HALFPRIN EC PO SCH (11:25)
[2018-11-14] MEDS: VITAMIN D3 PO SCH (11:25)
[2018-11-14] MEDS: ZANAFLEX PO SCH (11:26)
[2018-11-14] MEDS: TAPAZOLE PO SCH (11:26)
[2018-11-14] MEDS: COLACE PO SCH ×2 (11:28→21:26)
[2018-11-14] MEDS: SENSIPAR PO SCH (11:29)
--- NOTE | 2018-11-14 12:30 | Consultation ---
History of Present Illness Consult date: 11/14/18 Requesting physician: ANTHONY FOREMAN Consult reason: congestive heart failure History of present illness: This is a 73-year-old female who resides at [facility]/bedbound status with multiple medical problems including sick sinus syndrome/history of dual-chamber permanent pacemaker, chronic respiratory failure with chronic tracheostomy collar/for 15 years, paroxysmal atrial fibrillation, end-stage alondra l disease on hemodialysis, coronary artery disease, C. 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 During this hospitalization the patient underwent attempted dual-chamber permanent pacemaker extraction however this was complicated by hemorrhagic pericardial effusion with requiring emergent pericardial window. The pacemaker generator was extracted parts of the right atrial lead were extracted however it appears by the chest x-ray that the right ventricular lead is in place. The patient was admitted on 10/17/2018 and discharged 10/30/2018. She presents to [facility] emergency department for evaluation of chest pain and SOB noted at alf. Pt states that her chest pain is aggravated by coughing and palpation of the sternum. CXR c/w heart failure, pro-BNP >32K. Past History Past Medical History: anemia, CAD, ESRD, hyperlipidemia, renal failure Social history: no significant social history Family history: no significant family history Medications and Allergies Allergies Allergy/AdvReac Type Severity Reaction Status Date / Time No Known Allergies Allergy Unverified 06/20/18 15:19 Home Medications Medication Instructions Recorded Confirmed Last Taken Type Aspirin [Adult Aspirin] 81 mg PO DAILY 09/10/18 11/13/18 Unknown History Atorvastatin Calcium [Lipitor] 40 mg PO QPM 09/10/18 11/13/18 Unknown History Cholecalciferol Vit D3 [Vitamin D3] 1,000 unit PO QDAY 09/10/18 11/13/18 Unknown History Clotrimazole 1% [Lotrimin 1%] 1 applic TP BID 09/10/18 11/13/18 Unknown History Docusate Sodium [Colace CAP] 100 mg PO TID 09/10/18 11/13/18 Unknown History Fluticasone [Flonase] 2 sprays NS DAILY PRN 09/10/18 11/13/18 Unknown History Ipratropium/Albuterol Sulfate 1 ampul IH QID 09/10/18 11/13/18 Unknown History [DUONEB *Not for PRN Use*] Topiramate [Topamax] 25 mg PO BID 09/10/18 11/13/18 Unknown History tiZANidine [Zanaflex] 4 mg PO DAILY 09/10/18 11/13/18 Unknown History HYDROcodone/APAP 10-325 [[place] 1 each PO BID PRN #7 tablet 09/15/18 11/13/18 Unknown Rx 10-325 mg TAB] methIMAzole [Tapazole] 10 mg PO Q24HR #30 tablet 11/03/18 11/13/18 Unknown Rx Cinacalcet [Sensipar] 30 mg PO DAILY 11/06/18 11/13/18 Unknown History Metoprolol Tartrate 25 mg PO BID 11/06/18 11/13/18 Unknown History Ventolin HFA 2 puff IH BID PRN 11/06/18 11/13/18 Unknown History rifAMPin [Rifampin] 600 mg PO DAILY 11/06/18 11/13/18 Unknown History Apixaban [Eliquis] 5 mg PO Q12HR #60 tablet 11/12/18 11/13/18 Unknown Rx Active Meds: Active Medications Acetaminophen/Hydrocodone Bitart ([place] 10/325) 1 each PO BID PRN PRN Reason: Pain Albuterol (Proventil) 2.5 mg IH Q4HRT PRN PRN Reason: Shortness Of Breath Albuterol (Proventil) 2.5 mg IH BID PRN PRN Reason: Shortness Of Breath Albuterol/Ipratropium (Duoneb *Not For Prn Use*) 1 ampul IH QID COUNT INCLUDES THE [facility] Last Admin: 11/14/18 09:19 Dose: Not Given Documented by: Apixaban (Eliquis) 5 mg PO Q12HR COUNT INCLUDES THE [facility]; Protocol Last Admin: 11/14/18 11:25 Dose: 5 mg Documented by: Aspirin (Halfprin Ec) 81 mg PO DAILY COUNT INCLUDES THE [facility] Last Admin: 11/14/18 11:25 Dose: 81 mg Documented by: Atorvastatin Calcium (Lipitor) 40 mg PO QPM COUNT INCLUDES THE [facility] Cholecalciferol (Vitamin D3) 1,000 unit PO QDAY COUNT INCLUDES THE [facility] Last Admin: 11/14/18 11:25 Dose: 1,000 unit Documented by: Cinacalcet (Sensipar) 30 mg PO DAILY COUNT INCLUDES THE [facility] Last Admin: 11/14/18 11: Dose: 30 mg Documented by: Clotrimazole (Lotrimin) 1 applic TP BID COUNT INCLUDES THE [facility] Last Admin: 11/14/18 11:29 Dose: Not Given Documented by: Docusate Sodium (Colace) 100 mg PO TID COUNT INCLUDES THE [facility] Last Admin: 11/14/18 11:28 Dose: 100 mg Documented by: Fluticasone Propionate (Flonase) 100 mcg NS DAILY PRN PRN Reason: Allergy Symptoms Sodium Chloride (Nacl 0.9%) 100 mls @ 999 mls/hr IV CAROL PRN PRN Reason: Hypotension Methimazole (Tapazole) 10 mg PO Q24HR COUNT INCLUDES THE [facility] Last Admin: 11/14/18 11: Dose: 10 mg Documented by: Metoprolol Tartrate (Lopressor) 25 mg PO BID COUNT INCLUDES THE [facility] Last Admin: 11/14/18 11:28 Dose: 25 mg Documented by: Tizanidine HCl (Zanaflex) 4 mg PO DAILY COUNT INCLUDES THE [facility] Last Admin: 11/14/18 11: Dose: 4 mg Documented by: Topiramate (Topamax) 25 mg PO BID COUNT INCLUDES THE [facility] Last Admin: 11/14/18 11:29 Dose: 25 mg Documented by: Review of Systems Constitutional: no weight loss, no weight gain, no fever, no chills, no sweats Ears, nose, mouth and throat: no ear pain, no nose pain, no sinus pressure, no sinus pain Cardiovascular: chest pain, orthopnea, shortness of breath, no palpitations, no rapid/irregular heart beat, no edema, no syncope, no lightheadedness, no leg e rupa Respiratory: cough, shortness of breath, pain on inspiration, no cough with sputum, no congestion, no wheezing Gastrointestinal: no abdominal pain, no nausea, no vomiting, no diarrhea, no constipation, no change in bowel habits Genitourinary Female: no pelvic pain, no flank pain, no dysuria, no urinary frequency, no urgency Musculoskeletal: no neck stiffness, no neck pain, no shooting arm pain, no arm numbness/tingling, no low back pain, no shooting leg pain Integumentary: no rash, no pruritis, no redness, no sores, no wounds Neurological: no head injury, no paralysis, no weakness, no parathesias, no numbness, no tingling, no seizures, no syncope Psychiatric: no anxiety Endocrine: no cold intolerance, no heat intolerance Hematologic/Lymphatic: no easy bruising, no easy bleeding Allergic/Immunologic: no urticaria, no wheezing Physical Examination Vital Signs Temp Pulse Resp BP Pulse Ox 98 F 107 H 16 139/68 91 11/13/18 13:17 11/13/18 13:17 11/13/18 13:17 11/13/18 13:17 11/13/18 13:17 General appearance: no acute distress HEENT: Positive: PERRL, Normocephaly, Mucus Membranes Moist Neck: Positive: neck supple, trachea midline, Other (trached) Cardiac: Positive: irregularly irregular, S1/S2 Lungs: Positive: Decreased Breath Sounds Neuro: Positive: Grossly Intact Abdomen: Positive: Soft. Negative: Tender Skin: Negative: Rash, Wound Musculoskeletal: No Pain Extremities: Absent: edema Results 11/13/18 13:25 11/13/18 13:25 Cardiac Enzymes 11/13/18 11/14/18 Range/Units 13:25 03:52 AST 11 (5-40) units/L CK-MB (CK-2) 1.7 (0.0-4.0) ng/mL Lipids 11/13/18 Range/Units 13:25 Triglycerides 66 (2-149) mg/dL Cholesterol 82 (50-199) mg/dL HDL Cholesterol 33 L (40-59) mg/dL Cholesterol/HDL Ratio 2.48 % CBC 11/13/18 Range/Units 13:25 WBC 8.2 (4.5-11.0) K/mm3 RBC 3.46 L (3.65-5.03) M/mm3 Hgb 10.1 (10.1-14.3) gm/dl Hct 31.4 (30.3-42.9) % Plt Count 182 (140-440) K/mm3 Lymph # 0.9 L (1.2-5.4) K/mm3 [place] # 0.6 (0.0-0.8) K/mm3 Eos # 0.1 (0.0-0.4) K/mm3 Baso # 0.0 (0.0-0.1) K/mm3 Comprehensive Metabolic Panel 11/13/18 Range/Units 13:25 Sodium 136 L (137-145) mmol/L Potassium 5.2 H (3.6-5.0) mmol/L Chloride 95.5 L (98-107) mmol/L Carbon Dioxide 25 (22-30) mmol/L BUN 20 H (7-17) mg/dL Creatinine 3.7 H (0.7-1.2) mg/dL Glucose 147 H (65-100) mg/dL Calcium 9.0 (8.4-10.2) mg/dL AST 11 (5-40) units/L ALT 6 L (7-56) units/L Alkaline Phosphatase 98 (35-129) units/L Total Protein 8.0 (6.3-8.2) g/dL Albumin 3.5 L (3.9-5) g/dL - Imaging and Cardiology Echo: report reviewed (TTE done 10/13/2018 showed EF 65-70%, mod MS, mild TR, mild LVH, pseudonormalization, mod pulm HTN with RVSP 59mmHg) EKG: report reviewed, image reviewed EKG interpretations - Telemetry EKG Rhythm: Sinus Tachycardia - EKG Sinus rhythms and dysrhythmias: sinus rhythm Assessment and Plan ECHO 10/15/18: 1. Left ventricular ejection fraction is 60%. 2. Mild tricuspid regurgitation. 3. Moderate mitral annular calcification. 4. No pericardial effusion seen. 5. The tricuspid regurgitant velocity is 3.96 m/s, and with an assumed right a trial pressure of 8 mmHg, the estimated right ventricular systolic pressure is severely elevated at 70.7 mmHg. Acute heart failure with preserved EF Agree with present management. Volume optimization per nephrology. Acute on chronic respiratory failure with tracheostomy Atrial fibrillation/atrial flutter with RVR/SSS Currently in SR. Continue on beta aden but avoiding aggressive treatment to avoid bradycardia and sinus pauses. 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 Cont IV Vancomycin, rifampin for 6 weeks records from [place] discharge Patient will be on prolonged antibiotics and will need follow up with ID on suppressive therapies. MATEUS on 10/15/18 showed a 0.5x1.15cm echodensity of RA lead S/P Emergent pericardial window secondary to attempt at lead extractrion complicated by pericardial effusion possible due to RA tear after extraction of the RA lead Elevated Cardiac Enzymes Nonspecific given ESRD monitor for now HTN Low TSH/ Hyperthyroidism ESRD, on HD outpatient follow up with [facility] Hyperkalemia Management per nephrology C. Diff The patient has been seen in conjunction with Dr. Webber who agrees with the assessment and plan of care.
--- NOTE | 2018-11-14 19:45 | Progress Note ---
Assessment and Plan - Patient Problems (1) Acute heart failure Current Visit: Yes Status: Acute Qualifiers: Heart failure type: unspecified Qualified Code(s): I50.9 - Heart failure, unspecified Plan to address problem: diuretics, echo. old result reviewed. (2) Cardiac volume overload Current Visit: Yes Status: Acute Plan to address problem: see notes below. follow cardiology. (3) Chest pain Current Visit: Yes Status: Acute Qualifiers: Chest pain type: unspecified Qualified Code(s): R07.9 - Chest pain, unspecified Plan to address problem: continue w/up.,may get cardiology. (4) Elevated brain natriuretic peptide (BNP) level Current Visit: Yes Status: Acute Plan to address problem: diuretic ,until HD.may check 2decho. see notes up. (5) Elevated troponin I level Current Visit: Yes Status: Acute Plan to address problem: monitor labs. This may be due to renal failure. follow cardiology. (6) End-stage renal disease on hemodialysis Current Visit: Yes Status: Acute Plan to address problem: HD, follow renal (7) Hypoxia Current Visit: Yes Status: Acute Plan to address problem: oxygen support. (8) SOB (shortness of breath) Current Visit: Yes Status: Acute Plan to address problem: oxygen support. Subjective Date of service: 11/14/18 Interval history: Patient seen/erxamined, resting in bed, records reviewed, no new issues at this time.Appreciate the consultants input. Objective - Constitutional Vitals: Vital Signs - 12hr 11/14/18 11/14/18 11/14/18 08:33 08:39 08:40 Temperature 98.7 F Pulse Rate 108 H Pulse Rate [ 108 H Anterior Bilateral Throughout] Respiratory 18 Rate Respiratory 20 Rate [Anterior Bilateral Throughout] Blood Pressure 124/43 O2 Sat by Pulse 96 Oximetry O2 Sat by Pulse 95 Oximetry [ Assessment] 11/14/18 11/14/18 11/14/18 08:43 10:00 13:53 Temperature Pulse Rate Pulse Rate [ 102 H 100 H Anterior Bilateral Throughout] Respiratory Rate Respiratory 20 20 Rate [Anterior Bilateral Throughout] Blood Pressure O2 Sat by Pulse 95 Oximetry O2 Sat by Pulse Oximetry [ Assessment] 11/14/18 11/14/18 11/14/18 14:03 16:50 17:04 Temperature Pulse Rate Pulse Rate [ 98 H 99 H Anterior Bilateral Throughout] Respiratory Rate Respiratory 20 20 Rate [Anterior Bilateral Throughout] Blood Pressure O2 Sat by Pulse Oximetry O2 Sat by Pulse 94 Oximetry [ Assessment] General appearance: Present: mild distress, well-nourished - EENT Eyes: PERRL, EOM intact ENT: hearing intact, clear oral mucosa Ears: bilateral: normal - Neck Neck: supple, normal ROM - Respiratory Respiratory effort: normal Respiratory: bilateral: CTA - Breasts Breasts: deferred - Cardiovascular Rhythm: regular Heart Sounds: Present: S1 & S2. Absent: gallop, rub Extremities: pulses intact, No edema, normal color, Full ROM - Gastrointestinal General gastrointestinal: Present: soft, non-tender, non-distended, normal bowel sounds Rectal Exam: deferred - Genitourinary Female genitourinary: deferred - Integumentary Integumentary: clear, warm, dry - Musculoskeletal Musculoskeletal: 1, strength equal bilaterally - Neurologic Neurologic: moves all extremities - Psychiatric Psychiatric: appropriate mood/affect - Labs CBC & Chem 7: 11/13/18 13:25 11/13/18 13:25 Labs: Abnormal lab results 11/13/18 11/14/18 11/14/18 Range/Units 23:59 03:52 18:03 POC Glucose 119 H 142 H (70-105) Total Creatine Kinase 24 L (30-135) units/L CK-MB (CK-2) Rel Index 7.0 H (0-4) Troponin T 0.286 H* D (0.00-0.029) ng/mL Medications & Allergies - Medications Allergies/Adverse Reactions: Allergies No Known Allergies Allergy (Unverified 06/20/18 15:19) Home Medications: Home Medications Medication Instructions Recorded Confirmed Last Taken Type Aspirin [Adult Aspirin] 81 mg PO DAILY 09/10/18 11/13/18 Unknown History Atorvastatin Calcium [Lipitor] 40 mg PO QPM 09/10/18 11/13/18 Unknown History Cholecalciferol Vit D3 [Vitamin D3] 1,000 unit PO QDAY 09/10/18 11/13/18 Unknown History Clotrimazole 1% [Lotrimin 1%] 1 applic TP BID 09/10/18 11/13/18 Unknown History Docusate Sodium [Colace CAP] 100 mg PO TID 09/10/18 11/13/18 Unknown History Fluticasone [Flonase] 2 sprays NS DAILY PRN 09/10/18 11/13/18 Unknown History Ipratropium/Albuterol Sulfate 1 ampul IH QID 09/10/18 11/13/18 Unknown History [DUONEB *Not for PRN Use*] Topiramate [Topamax] 25 mg PO BID 09/10/18 11/13/18 Unknown History tiZANidine [Zanaflex] 4 mg PO DAILY 09/10/18 11/13/18 Unknown History HYDROcodone/APAP 10-325 [[place] 1 each PO BID PRN #7 tablet 09/15/18 11/13/18 Unknown Rx 10-325 mg TAB] methIMAzole [Tapazole] 10 mg PO Q24HR #30 tablet 11/03/18 11/13/18 Unknown Rx Cinacalcet [Sensipar] 30 mg PO DAILY 11/06/18 11/13/18 Unknown History Metoprolol Tartrate 25 mg PO BID 11/06/18 11/13/18 Unknown History Ventolin HFA 2 puff IH BID PRN 11/06/18 11/13/18 Unknown History rifAMPin [Rifampin] 600 mg PO DAILY 11/06/18 11/13/18 Unknown History Apixaban [Eliquis] 5 mg PO Q12HR #60 tablet 11/12/18 11/13/18 Unknown Rx Active Medications: Generic Name Dose Route Start Last Admin Trade Name Freq PRN Reason Stop Dose Admin Acetaminophen/Hydrocodone Bitart 1 each 11/13/18 19:57 [place] 10/325 PO BID PRN Pain Albuterol 2.5 mg 11/13/18 20:14 Proventil IH Q4HRT PRN Shortness Of Breath Albuterol/Ipratropium 1 ampul 11/13/18 22:00 11/14/18 17:04 Duoneb *Not For Prn Use* IH 1 ampul QID [facility] Administration Apixaban 5 mg 11/13/18 22:00 11/14/18 11:25 Eliquis PO 5 mg Q12HR [facility] Administration Protocol Aspirin 81 mg 11/14/18 10:00 11/14/18 11:25 Halfprin Ec PO 81 mg DAILY [facility]AL Administration Atorvastatin Calcium 40 mg 11/14/18 18:00 11/14/18 17:39 Lipitor PO 40 mg QPM [facility]AL Administration Cholecalciferol 1,000 unit 11/14/18 10:00 11/14/18 11:25 Vitamin D3 PO 1,000 unit QDAY [facility] Administration Cinacalcet 30 mg 11/14/18 10:00 11/14/18 11:29 Sensipar PO 30 mg DAILY [facility]AL Administration Clotrimazole 1 applic 11/13/18 22:00 11/14/18 11:29 Lotrimin TP Not Given BID [facility] Docusate Sodium 100 mg 11/13/18 20:00 11/14/18 11:28 Colace PO 100 mg TID [facility] Administration Fluticasone Propionate 100 mcg 11/13/18 19:57 Flonase NS DAILY PRN Allergy Symptoms Sodium Chloride 100 mls @ 999 mls/hr 11/13/18 18:21 Nacl 0.9% IV CAROL PRN Hypotension Rifampin 600 mg/ Sodium 500 mls @ 167 mls/hr 11/15/18 10:00 Chloride IV QDAY [facility] Methimazole 10 mg 11/14/18 10:00 11/14/18 11:26 Tapazole PO 10 mg Q24HR [facility] Administration Metoprolol Tartrate 25 mg 11/13/18 22:00 11/14/18 11:28 Lopressor PO 25 mg BID [facility] Administration Tizanidine HCl 4 mg 11/14/18 10:00 11/14/18 11:26 Zanaflex PO 4 mg DAILY [facility] Administration Topiramate 25 mg 11/13/18 22:00 11/14/18 11:29 Topamax PO 25 mg BID [facility] Administration
[2018-11-15] MEDS: PROVENTIL IH PRN ×2 (04:23→11:03)
[2018-11-15] MEDS: COLACE PO SCH ×4 (07:15→21:24)
[2018-11-15] MEDS ORDERED: RIFADIN IV SCH (10:00)
[2018-11-15] MEDS ORDERED: NACL 0.9% IV SCH (10:00)
[2018-11-15] MEDS: TOPAMAX PO SCH ×2 (10:05→21:27)
[2018-11-15] MEDS: ZANAFLEX PO SCH (10:05)
[2018-11-15] MEDS: VITAMIN D3 PO SCH (10:06)
[2018-11-15] MEDS: SENSIPAR PO SCH (10:06)
[2018-11-15] MEDS: TAPAZOLE PO SCH (10:06)
[2018-11-15] MEDS: ELIQUIS PO SCH ×2 (10:06→21:29)
[2018-11-15] MEDS: HALFPRIN EC PO SCH (10:07)
[2018-11-15] MEDS: LOPRESSOR PO SCH ×2 (10:07→21:28)
[2018-11-15] MEDS: LOTRIMIN TP SCH ×2 (10:08→21:28)
[2018-11-15] MEDS: RIFADIN PO SCH (10:09)
[2018-11-15] MEDS ORDERED: NACL 0.9% 100 ML IV PRN (10:14)
[2018-11-15] MEDS: DUONEB *Not for PRN Use IH SCH ×4 (11:22→21:15)
--- NOTE | 2018-11-15 12:34 | Progress Note ---
Assessment and Plan Acute heart failure with preserved EF Agree with present management. Volume optimization per nephrology. Dialysis is in progress. Acute on chronic respiratory failure with tracheostomy Atrial fibrillation/atrial flutter with RVR/SSS Currently in SR. Continue on beta aden but avoiding aggressive treatment to avoid bradycardia and sinus pauses. 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 Cont IV Vancomycin, rifampin for 6 weeks records from [place] discharge Patient will be on prolonged antibiotics and will need follow up with ID on suppressive therapies. MATEUS on 10/15/18 showed a 0.5x1.15cm echodensity of RA lead S/P Emergent pericardial window secondary to attempt at lead extractrion complicated by pericardial effusion possible due to RA tear after extraction of the RA lead Elevated Cardiac Enzymes Nonspecific given ESRD monitor for now HTN Low TSH/ Hyperthyroidism ESRD, on HD outpatient follow up with [facility] Hyperkalemia Management per nephrology C. Diff ECHO 10/15/18: 1. Left ventricular ejection fraction is 60%. 2. Mild tricuspid regurgitation. 3. Moderate mitral annular calcification. 4. No pericardial effusion seen. 5. The tricuspid regurgitant velocity is 3.96 m/s, and with an assumed right atrial pressure of 8 mmHg, the estimated right ventricular systolic pressure is severely elevated at 70.7 mmHg. Dialysis is in progress. During the dialysis patient has periods of atrial fibrillation with rapid ventricular response however this is the transient. Increase metoprolol to 50 mg twice a day and continue monitoring closely. Subjective Date of service: 11/15/18 Interval history: Dialysis is in progress. Patient denies significant chest pain today. Difficulty in breathing is improving. During dialysis she is noted to have periods of tachycardia. Objective Vital Signs Temp Pulse Pulse Resp Resp BP Pulse Ox 11/15/18 11:00 118 H 20 11/15/18 10:00 98 11/15/18 09:26 96 H 11/15/18 09:19 18 96 11/15/18 08:29 98.0 F 99 H 20 118/45 85 11/15/18 07:50 77 18 11/15/18 07:40 77 18 11/15/18 04:36 103 H 21 11/15/18 04:24 101 H 19 11/15/18 04:10 97.8 F 108 H 16 135/42 92 11/15/18 04:00 102 H 11/14/18 23:43 97.8 F 99 H 115/45 97 11/14/18 23:00 20 11/14/18 21:26 109 H 11/14/18 21:05 109 H 22 11/14/18 20:40 107 H 21 93 11/14/18 20:25 97.8 F 109 H 16 126/47 87 11/14/18 19:00 114 H 18 91 11/14/18 18:09 97.7 F 16 125/32 88 11/14/18 17:04 99 H 20 11/14/18 16:50 11/14/18 14:03 98 H 20 11/14/18 13:53 100 H 20 Pulse Ox 11/15/18 11:00 11/15/18 10:00 11/15/18 09:26 11/15/18 09:19 11/15/18 08:29 11/15/18 07:50 11/15/18 07:40 11/15/18 04:36 11/15/18 04:24 11/15/18 04:10 11/15/18 04:00 11/14/18 23:43 11/14/18 23:00 11/14/18 21:26 11/14/18 21:05 11/14/18 20:40 93 11/14/18 20:25 11/14/18 19:00 11/14/18 18:09 11/14/18 17:04 11/14/18 16:50 94 11/14/18 14:03 11/14/18 13:53 - Physical Examination HEENT: Positive: PERRL, Normocephaly, Mucus Membranes Moist Neck: Positive: neck supple, Other (tracheostomy in place) Cardiac: Positive: Reg Rate and Rhythm Lungs: Positive: clear to auscultation Neuro: Positive: Grossly Intact Abdomen: Positive: Soft. Negative: Tender Skin: Negative: Rash, Wound Musculoskeletal: No Pain Extremities: Absent: edema - Imaging and Cardiology EKG: report reviewed, image reviewed Echo: report reviewed (TTE done 10/13/2018 showed EF 65-70%, mod MS, mild TR, mild LVH, pseudonormalization, mod pulm HTN with RVSP 59mmHg) - EKG Sinus rhythms and dysrhythmias: sinus rhythm
--- NOTE | 2018-11-15 14:42 | Progress Note ---
Assessment and Plan Impression: * End stage renal disease * Atrial fibrillation * Recent hx of staph epi bacteremia/RA lead vegetation * Acute on chronic respiratory failure * Anemia secondary to ESRD * Secondary hyperPTH Plan: * Hemodialysis today * UF limited due to HR in 140s at times w/ hypotension * Optimization of cardiac function/rate control - patient is not receiving metoprolol as ordered (?due to hypotension) * Abx per primary team * Dose medications for renal function * Renal diet Subjective Date of service: 11/15/18 Interval history: Patient seen on dialysis Objective - Vital Signs Vital signs: Vital Signs - 12hr 11/15/18 11/15/18 11/15/18 04:00 04:10 04:24 Temperature 97.8 F Pulse Rate 102 H 108 H Pulse Rate [ 101 H Anterior Bilateral Throughout] Respiratory 16 Rate Respiratory 19 Rate [Anterior Bilateral Throughout] Blood Pressure 135/42 O2 Sat by Pulse 92 Oximetry 11/15/18 11/15/18 11/15/18 04:36 07:40 07:50 Temperature Pulse Rate Pulse Rate [ 103 H 77 77 Anterior Bilateral Throughout] Respiratory Rate Respiratory 21 18 18 Rate [Anterior Bilateral Throughout] Blood Pressure O2 Sat by Pulse Oximetry 11/15/18 11/15/18 11/15/18 08:29 09:19 09:26 Temperature 98.0 F Pulse Rate 99 H 96 H Pulse Rate [ Anterior Bilateral Throughout] Respiratory 20 18 Rate Respiratory Rate [Anterior Bilateral Throughout] Blood Pressure 118/45 O2 Sat by Pulse 85 96 Oximetry 11/15/18 11/15/18 10:00 11:00 Temperature Pulse Rate Pulse Rate [ 118 H Anterior Bilateral Throughout] Respiratory Rate Respiratory 20 Rate [Anterior Bilateral Throughout] Blood Pressure O2 Sat by Pulse 98 Oximetry - General Appearance General appearance: well-developed, well-nourished EENT: ATNC Neck: other (trach) Respiratory: Present: Decreased Breath Sounds Cardiology: irregular Gastrointestinal: normal, no tenderness, no distended, obese Integumentary: no rash, warm and dry Musculoskeletal: other (no edema) Psychiatric: cooperative - Lab 11/15/18 16:14 11/15/18 16:14 Most recent lab results Calcium 9.0 mg/dL (8.4-10.2) 11/13/18 13:25 Magnesium 1.70 mg/dL (1.7-2.3) 11/14/18 03:52 Medications & Allergies - Medications Allergies/Adverse Reactions: Allergies No Known Allergies Allergy (Unverified 06/20/18 15:19) Home Medications: Home Medications Medication Instructions Recorded Confirmed Last Taken Type Aspirin [Adult Aspirin] 81 mg PO DAILY 09/10/18 11/13/18 Unknown History Atorvastatin Calcium [Lipitor] 40 mg PO QPM 09/10/18 11/13/18 Unknown History Cholecalciferol Vit D3 [Vitamin D3] 1,000 unit PO QDAY 09/10/18 11/13/18 Unknown History Clotrimazole 1% [Lotrimin 1%] 1 applic TP BID 09/10/18 11/13/18 Unknown History Docusate Sodium [Colace CAP] 100 mg PO TID 09/10/18 11/13/18 Unknown History Fluticasone [Flonase] 2 sprays NS DAILY PRN 09/10/18 11/13/18 Unknown History Ipratropium/Albuterol Sulfate 1 ampul IH QID 09/10/18 11/13/18 Unknown History [DUONEB *Not for PRN Use*] Topiramate [Topamax] 25 mg PO BID 09/10/18 11/13/18 Unknown History tiZANidine [Zanaflex] 4 mg PO DAILY 09/10/18 11/13/18 Unknown History HYDROcodone/APAP 10-325 [[place] 1 each PO BID PRN #7 tablet 09/15/18 11/13/18 Unknown Rx 10-325 mg TAB] methIMAzole [Tapazole] 10 mg PO Q24HR #30 tablet 11/03/18 11/13/18 Unknown Rx Cinacalcet [Sensipar] 30 mg PO DAILY 11/06/18 11/13/18 Unknown History Metoprolol Tartrate 25 mg PO BID 11/06/18 11/13/18 Unknown History Ventolin HFA 2 puff IH BID PRN 11/06/18 11/13/18 Unknown History rifAMPin [Rifampin] 600 mg PO DAILY 11/06/18 11/13/18 Unknown History Apixaban [Eliquis] 5 mg PO Q12HR #60 tablet 11/12/18 11/13/18 Unknown Rx Active Medications: Generic Name Dose Route Start Last Admin Trade Name Freq PRN Reason Stop Dose Admin Acetaminophen/Hydrocodone Bitart 1 each 11/13/18 19:57 [place] 10/325 PO BID PRN Pain Albuterol 2.5 mg 11/13/18 20:14 11/15/18 11:03 Proventil IH 2.5 mg Q4HRT PRN Administration Shortness Of Breath Albuterol/Ipratropium 1 ampul 11/15/18 12:00 11/15/18 13:21 Duoneb *Not For Prn Use* IH Not Given QIDRT [facility] Apixaban 5 mg 11/13/18 22:00 11/15/18 10:06 Eliquis PO 5 mg Q12HR [facility] Administration Protocol Aspirin 81 mg 11/14/18 10:00 11/15/18 10:07 Halfprin Ec PO 81 mg DAILY [facility] Administration Atorvastatin Calcium 40 mg 11/15/18 22:00 Lipitor PO QHS [facility] Cholecalciferol 1,000 unit 11/14/18 10:00 11/15/18 10:06 Vitamin D3 PO 1,000 unit QDAY [facility] Administration Cinacalcet 30 mg 11/14/18 10:00 11/15/18 10:06 Sensipar PO 30 mg DAILY [facility] Administration Clotrimazole 1 applic 11/13/18 22:00 11/15/18 10:08 Lotrimin TP 1 applic BID [facility] Administration Docusate Sodium 100 mg 11/13/18 20:00 11/15/18 13:20 Colace PO Not Given TID [facility] Fluticasone Propionate 100 mcg 11/13/18 19:57 Flonase NS DAILY PRN Allergy Symptoms Sodium Chloride 100 mls @ 999 mls/hr 11/13/18 18:21 Nacl 0.9% IV CAROL PRN Hypotension Sodium Chloride 100 mls @ 999 mls/hr 11/15/18 10:14 Nacl 0.9% IV CAROL PRN Hypotension Methimazole 10 mg 11/14/18 10:00 11/15/18 10:06 Tapazole PO 10 mg Q24HR [facility] Administration Metoprolol Tartrate 25 mg 11/13/18 22:00 11/15/18 10:07 Lopressor PO 25 mg BID [facility] Administration Metoprolol Tartrate 50 mg 11/15/18 22:00 Lopressor PO BID [facility] Rifampin 600 mg 11/15/18 10:00 11/15/18 10:09 Rifadin PO 600 mg QDAY [facility] Administration Tizanidine HCl 4 mg 11/14/18 10:00 11/15/18 10:05 Zanaflex PO 4 mg DAILY [facility] Administration Topiramate 25 mg 11/13/18 22:00 11/15/18 10:05 Topamax PO 25 mg BID [facility] Administration
[2018-11-15 16:24] LABS: Basophils % (Auto) 0.4 % (0.0-1.8); Eosinophils # (Auto) 0.2 K/mm3 (0.0-0.4); Eosinophils % (Auto) 2.1 % (0.0-4.3); Hematocrit 27.2 % (30.3-42.9); Hemoglobin 8.9 gm/dl (10.1-14.3); Lymphocytes # (Auto) 1.4 K/mm3 (1.2-5.4); Lymphocytes % (Auto) 16.5 % (13.4-35.0); Mean Corpuscular HGB Conc 33 % (30-34); Mean Corpuscular Volume 92 fl (79-97); Monocytes # (Auto) 0.9 K/mm3 (0.0-0.8); Monocytes % (Auto) 10.1 % (0.0-7.3); Platelet Count 172 K/mm3 (140-440); Red Blood Count 2.96 M/mm3 (3.65-5.03)
[2018-11-15 16:45] LABS: Calcium 8.3 mg/dL (8.4-10.2)
[2018-11-15] MEDS ORDERED: LOPRESSOR PO STA (18:04)
--- NOTE | 2018-11-15 20:10 | Progress Note ---
Assessment and Plan - Patient Problems (1) Acute heart failure Current Visit: Yes Status: Acute Qualifiers: Qualified Code(s): I50.9 - Heart failure, unspecified Plan to address problem: diuretics, echo. old result reviewed. follow cardiology rec. (2) Cardiac volume overload Current Visit: Yes Status: Acute Plan to address problem: see notes below. follow cardiology. better, following HD. (3) Chest pain Current Visit: Yes Status: Acute Qualifiers: Qualified Code(s): R07.9 - Chest pain, unspecified Plan to address problem: continue w/up.,may get cardiology. Follow cardiology. (4) Elevated brain natriuretic peptide (BNP) level Current Visit: Yes Status: Acute Plan to address problem: diuretic ,until HD.may check 2decho. see notes up. (5) Elevated troponin I level Current Visit: Yes Status: Acute Plan to address problem: monitor labs. This may be due to renal failure. follow cardiology. (6) End-stage renal disease on hemodialysis Current Visit: Yes Status: Acute Plan to address problem: HD, follow renal (7) Hypoxia Current Visit: Yes Status: Acute Plan to address problem: oxygen support. (8) SOB (shortness of breath) Current Visit: Yes Status: Acute Plan to address problem: oxygen support. Subjective Date of service: 11/15/18 Interval history: Patient seen/erxamined, resting in bed, records reviewed, no new issues at this time.Appreciate the consultants input. Patient seen/examined, resting in bed, labs /records/notes reviewed.[place] plan [place] the [place]. unless renal, and cardio say otherwise. Objective - Constitutional Vitals: Vital Signs - 12hr 11/15/18 11/15/18 11/15/18 08:29 09:19 09:26 Temperature 98.0 F Pulse Rate 99 H 96 H Pulse Rate [ Anterior Bilateral Throughout] Respiratory 20 18 Rate Respiratory Rate [Anterior Bilateral Throughout] Blood Pressure 118/45 O2 Sat by Pulse 85 96 Oximetry 11/15/18 11/15/18 11/15/18 10:00 11:00 11:15 Temperature 97.8 F Pulse Rate 127 H Pulse Rate [ 118 H Anterior Bilateral Throughout] Respiratory 18 Rate Respiratory 20 Rate [Anterior Bilateral Throughout] Blood Pressure 92/42 O2 Sat by Pulse 98 Oximetry 11/15/18 11/15/1819 11:35 11:45 12:00 Temperature Pulse Rate 136 H 138 H 135 H Pulse Rate [ Anterior Bilateral Throughout] Respiratory Rate Respiratory Rate [Anterior Bilateral Throughout] Blood Pressure 95/24 120/24 105/24 O2 Sat by Pulse Oximetry 11/15/18 11/15/18 11/15/18 12:15 12:30 12:45 Temperature Pulse Rate 140 H 138 H 98 H Pulse Rate [ Anterior Bilateral Throughout] Respiratory Rate Respiratory Rate [Anterior Bilateral Throughout] Blood Pressure 101/27 140/75 98/42 O2 Sat by Pulse Oximetry 11/15/18 11/15/18 11/15/18 13:00 13:15 13:30 Temperature Pulse Rate 112 H 100 H 107 H Pulse Rate [ Anterior Bilateral Throughout] Respiratory Rate Respiratory Rate [Anterior Bilateral Throughout] Blood Pressure 97/28 90/26 100/27 O2 Sat by Pulse Oximetry 11/15/18 11/15/18 11/15/18 13:45 14:00 14:15 Temperature Pulse Rate 99 H 137 H 110 H Pulse Rate [ Anterior Bilateral Throughout] Respiratory Rate Respiratory Rate [Anterior Bilateral Throughout] Blood Pressure 93/26 87/26 98/32 O2 Sat by Pulse Oximetry 11/15/18 11/15/18 11/15/18 14:30 14:45 15:00 Temperature Pulse Rate 107 H 102 H 92 H Pulse Rate [ Anterior Bilateral Throughout] Respiratory Rate Respiratory Rate [Anterior Bilateral Throughout] Blood Pressure 92/28 100/42 102/38 O2 Sat by Pulse Oximetry 11/15/18 11/15/18 11/15/18 15:15 16:25 18:06 Temperature 98.2 F 97.6 F Pulse Rate 97 H 134 H Pulse Rate [ 110 H Anterior Bilateral Throughout] Respiratory 18 24 Rate Respiratory 18 Rate [Anterior Bilateral Throughout] Blood Pressure 108/42 103/16 O2 Sat by Pulse 78 L Oximetry 11/15/18 11/15/18 11/15/18 18:14 18:25 19:35 Temperature 97.5 F L Pulse Rate 138 H 139 H 136 H Pulse Rate [ Anterior Bilateral Throughout] Respiratory 16 Rate Respiratory Rate [Anterior Bilateral Throughout] Blood Pressure 104/24 104/24 90/39 O2 Sat by Pulse 99 96 Oximetry General appearance: Present: no acute distress, well-nourished - EENT Eyes: PERRL, EOM intact ENT: hearing intact, clear oral mucosa Ears: bilateral: normal - Neck Neck: supple, normal ROM - Respiratory Respiratory effort: normal Respiratory: bilateral: CTA - Breasts Breasts: deferred - Cardiovascular Rhythm: regular Heart Sounds: Present: S1 & S2. Absent: gallop, rub Extremities: pulses intact, No edema, normal color, Full ROM - Gastrointestinal General gastrointestinal: Present: soft, non-tender, non-distended, normal bowel sounds Rectal Exam: deferred - Genitourinary Female genitourinary: deferred - Integumentary Integumentary: clear, warm, dry - Musculoskeletal Musculoskeletal: 1, strength equal bilaterally - Neurologic Neurologic: moves all extremities - Psychiatric Psychiatric: memory intact, appropriate mood/affect, intact judgment & insight - Labs CBC & Chem 7: 11/15/18 16:14 11/15/18 16:14 Labs: Abnormal lab results 11/15/18 11/15/18 Range/Units 16:14 16:14 RBC 2.96 L (3.65-5.03) M/mm3 Hgb 8.9 L (10.1-14.3) gm/dl Hct 27.2 L (30.3-42.9) % RDW 18.0 H (13.2-15.2) % [place] % (Auto) 10.1 H (0.0-7.3) % [place] # 0.9 H (0.0-0.8) K/mm3 Seg Neutrophils % 70.9 H (40.0-70.0) % Creatinine 1.8 H D (0.7-1.2) mg/dL Glucose 144 H (65-100) mg/dL Calcium 8.3 L (8.4-10.2) mg/dL Medications & Allergies - Medications Allergies/Adverse Reactions: Allergies No Known Allergies Allergy (Unverified 06/20/18 15:19) Home Medications: Home Medications Medication Instructions Recorded Confirmed Last Taken Type Aspirin [Adult Aspirin] 81 mg PO DAILY 09/10/18 11/13/18 Unknown History Atorvastatin Calcium [Lipitor] 40 mg PO QPM 09/10/18 11/13/18 Unknown History Cholecalciferol Vit D3 [Vitamin D3] 1,000 unit PO QDAY 09/10/18 11/13/18 Unknown History Clotrimazole 1% [Lotrimin 1%] 1 applic TP BID 09/10/18 11/13/18 Unknown History Docusate Sodium [Colace CAP] 100 mg PO TID 09/10/18 11/13/18 Unknown History Fluticasone [Flonase] 2 sprays NS DAILY PRN 09/10/18 11/13/18 Unknown History Ipratropium/Albuterol Sulfate 1 ampul IH QID 09/10/18 11/13/18 Unknown History [DUONEB *Not for PRN Use*] Topiramate [Topamax] 25 mg PO BID 09/10/18 11/13/18 Unknown History tiZANidine [Zanaflex] 4 mg PO DAILY 09/10/18 11/13/18 Unknown History HYDROcodone/APAP 10-325 [[place] 1 each PO BID PRN #7 tablet 09/15/18 11/13/18 Unknown Rx 10-325 mg TAB] methIMAzole [Tapazole] 10 mg PO Q24HR #30 tablet 11/03/18 11/13/18 Unknown Rx Cinacalcet [Sensipar] 30 mg PO DAILY 11/06/18 11/13/18 Unknown History Metoprolol Tartrate 25 mg PO BID 11/06/18 11/13/18 Unknown History Ventolin HFA 2 puff IH BID PRN 11/06/18 11/13/18 Unknown History rifAMPin [Rifampin] 600 mg PO DAILY 11/06/18 11/13/18 Unknown History Apixaban [Eliquis] 5 mg PO Q12HR #60 tablet 11/12/18 11/13/18 Unknown Rx Active Medications: Generic Name Dose Route Start Last Admin Trade Name Freq PRN Reason Stop Dose Admin Acetaminophen/Hydrocodone Bitart 1 each 11/13/18 19:57 [place] 10/325 PO BID PRN Pain Albuterol 2.5 mg 11/13/18 20:14 11/15/18 11:03 Proventil IH 2.5 mg Q4HRT PRN Administration Shortness Of Breath Albuterol/Ipratropium 1 ampul 11/15/18 12:00 11/15/18 16:26 Duoneb *Not For Prn Use* IH 1 ampul QIDRT [facility] Administration Apixaban 5 mg 11/13/18 22:00 11/15/18 10:06 Eliquis PO 5 mg Q12HR [facility] Administration Protocol Aspirin 81 mg 11/14/18 10:00 11/15/18 10:07 Halfprin Ec PO 81 mg DAILY [facility] Administration Atorvastatin Calcium 40 mg 11/15/18 22:00 Lipitor PO QHS [facility] Cholecalciferol 1,000 unit 11/14/18 10:00 11/15/18 10:06 Vitamin D3 PO 1,000 unit QDAY [facility] Administration Cinacalcet 30 mg 11/14/18 10:00 11/15/18 10:06 Sensipar PO 30 mg DAILY [facility] Administration Clotrimazole 1 applic 11/13/18 22:00 11/15/18 10:08 Lotrimin TP 1 applic BID [facility] Administration Docusate Sodium 100 mg 11/13/18 20:00 11/15/18 13:20 Colace PO Not Given TID [facility] Fluticasone Propionate 100 mcg 11/13/18 19:57 Flonase NS DAILY PRN Allergy Symptoms Sodium Chloride 100 mls @ 999 mls/hr 11/13/18 18:21 Nacl 0.9% IV CAROL PRN Hypotension Sodium Chloride 100 mls @ 999 mls/hr 11/15/18 10:14 Nacl 0.9% IV CAROL PRN Hypotension Methimazole 10 mg 11/14/18 10:00 11/15/18 10:06 Tapazole PO 10 mg Q24HR [facility] Administration Metoprolol Tartrate 50 mg 11/15/18 22:00 Lopressor PO BID [facility] Rifampin 600 mg 11/15/18 10:00 11/15/18 10:09 Rifadin PO 600 mg QDAY [facility] Administration Tizanidine HCl 4 mg 11/14/18 10:00 11/15/18 10:05 Zanaflex PO 4 mg DAILY [facility] Administration Topiramate 25 mg 11/13/18 22:00 11/15/18 10:05 Topamax PO 25 mg BID [facility] Administration
[2018-11-15] MEDS ORDERED: NACL 0.9% 250ML 250 ML IV NR (22:16)
[2018-11-16] MEDS: PROVENTIL IH PRN (02:45)
[2018-11-16 06:43] LABS: Basophils % (Auto) 0.3 % (0.0-1.8); Eosinophils # (Auto) 0.2 K/mm3 (0.0-0.4); Eosinophils % (Auto) 1.9 % (0.0-4.3); Hematocrit 29.6 % (30.3-42.9); Hemoglobin 9.3 gm/dl (10.1-14.3); Lymphocytes # (Auto) 1.6 K/mm3 (1.2-5.4); Lymphocytes % (Auto) 19.4 % (13.4-35.0); Mean Corpuscular HGB Conc 32 % (30-34); Mean Corpuscular Volume 93 fl (79-97); Monocytes # (Auto) 0.6 K/mm3 (0.0-0.8); Monocytes % (Auto) 7.9 % (0.0-7.3); Platelet Count 168 K/mm3 (140-440); Red Cell Distribution Width 18.5 % (13.2-15.2)
[2018-11-16 07:12] LABS: Calcium 8.5 mg/dL (8.4-10.2)
[2018-11-16] MEDS: DUONEB *Not for PRN Use IH SCH ×4 (08:12→20:11)
[2018-11-16] MEDS: VITAMIN D3 PO SCH (09:34)
[2018-11-16] MEDS: TAPAZOLE PO SCH (09:34)
[2018-11-16] MEDS: TOPAMAX PO SCH ×2 (09:34→22:22)
[2018-11-16] MEDS: RIFADIN PO SCH (09:34)
[2018-11-16] MEDS: ELIQUIS PO SCH ×2 (09:34→22:22)
[2018-11-16] MEDS: COLACE PO SCH ×3 (09:34→22:22)
[2018-11-16] MEDS: SENSIPAR PO SCH (09:34)
[2018-11-16] MEDS: LOPRESSOR PO SCH ×2 (09:34→22:19)
[2018-11-16] MEDS: ZANAFLEX PO SCH (09:35)
[2018-11-16] MEDS: HALFPRIN EC PO SCH (09:35)
[2018-11-16] MEDS: LOTRIMIN TP SCH ×2 (09:35→22:31)
--- NOTE | 2018-11-16 12:09 | Progress Note ---
Assessment and Plan Impression: * End stage renal disease * Atrial fibrillation * Recent hx of staph epi bacteremia/RA lead vegetation * Acute on chronic respiratory failure * Anemia secondary to ESRD * Secondary hyperPTH Plan: * Hemodialysis today * UF limited due to HR in 140s at times w/ hypotension * Needs optimization of cardiac function/rate control * Abx per primary team * Dose medications for renal function * Renal diet Subjective Date of service: 11/16/18 Interval history: 24h events reviewed. Patient w/ HR as high as 140s during dialysis. Overnight, patient w/ HR in 130s. Also hypotensive - SBP in 80s. Patient given 250ml fluid bolus. PM Metoprolol held per RN notes. Objective - Vital Signs Vital signs: Vital Signs - 12hr 11/16/18 11/16/18 11/16/18 02:45 03:00 04:00 Temperature Pulse Rate 104 H Pulse Rate [ 100 H 100 H Anterior Bilateral Throughout] Respiratory Rate Respiratory 20 20 Rate [Anterior Bilateral Throughout] Blood Pressure O2 Sat by Pulse Oximetry 11/16/18 11/16/18 11/16/18 04:39 07:48 08:12 Temperature 98.5 F 98.2 F Pulse Rate 102 H 105 H Pulse Rate [ 99 H Anterior Bilateral Throughout] Respiratory 18 18 Rate Respiratory 20 Rate [Anterior Bilateral Throughout] Blood Pressure 120/31 115/31 O2 Sat by Pulse 100 100 Oximetry 11/16/18 11/16/18 11/16/18 08:22 10:00 10:15 Temperature Pulse Rate 99 H Pulse Rate [ 101 H Anterior Bilateral Throughout] Respiratory 18 Rate Respiratory 20 Rate [Anterior Bilateral Throughout] Blood Pressure O2 Sat by Pulse 96 Oximetry 11/16/18 11/16/18 11:23 11:33 Temperature Pulse Rate Pulse Rate [ 100 H 89 Anterior Bilateral Throughout] Respiratory Rate Respiratory 20 20 Rate [Anterior Bilateral Throughout] Blood Pressure O2 Sat by Pulse Oximetry - General Appearance General appearance: well-developed, well-nourished EENT: other Respiratory: Present: Decreased Breath Sounds Cardiology: irregular Gastrointestinal: normal, no tenderness, no distended Integumentary: warm and dry Psychiatric: cooperative - Lab 11/16/18 05:56 11/16/18 05:56 Most recent lab results Calcium 8.5 mg/dL (8.4-10.2) 11/16/18 05:56 Magnesium 1.70 mg/dL (1.7-2.3) 11/14/18 03:52 Medications & Allergies - Medications Allergies/Adverse Reactions: Allergies No Known Allergies Allergy (Unverified 06/20/18 15:19) Home Medications: Home Medications Medication Instructions Recorded Confirmed Last Taken Type Aspirin [Adult Aspirin] 81 mg PO DAILY 09/10/18 11/13/18 Unknown History Atorvastatin Calcium [Lipitor] 40 mg PO QPM 09/10/18 11/13/18 Unknown History Cholecalciferol Vit D3 [Vitamin D3] 1,000 unit PO QDAY 09/10/18 11/13/18 Unknown History Clotrimazole 1% [Lotrimin 1%] 1 applic TP BID 09/10/18 11/13/18 Unknown History Docusate Sodium [Colace CAP] 100 mg PO TID 09/10/18 11/13/18 Unknown History Fluticasone [Flonase] 2 sprays NS DAILY PRN 09/10/18 11/13/18 Unknown History Ipratropium/Albuterol Sulfate 1 ampul IH QID 09/10/18 11/13/18 Unknown History [DUONEB *Not for PRN Use*] Topiramate [Topamax] 25 mg PO BID 09/10/18 11/13/18 Unknown History tiZANidine [Zanaflex] 4 mg PO DAILY 09/10/18 11/13/18 Unknown History HYDROcodone/APAP 10-325 [[place] 1 each PO BID PRN #7 tablet 09/15/18 11/13/18 Unknown Rx 10-325 mg TAB] methIMAzole [Tapazole] 10 mg PO Q24HR #30 tablet 11/03/18 11/13/18 Unknown Rx Cinacalcet [Sensipar] 30 mg PO DAILY 11/06/18 11/13/18 Unknown History Metoprolol Tartrate 25 mg PO BID 11/06/18 11/13/18 Unknown History Ventolin HFA 2 puff IH BID PRN 11/06/18 11/13/18 Unknown History rifAMPin [Rifampin] 600 mg PO DAILY 11/06/18 11/13/18 Unknown History Apixaban [Eliquis] 5 mg PO Q12HR #60 tablet 11/12/18 11/13/18 Unknown Rx Active Medications: Generic Name Dose Route Start Last Admin Trade Name Freq PRN Reason Stop Dose Admin Acetaminophen/Hydrocodone Bitart 1 each 11/13/18 19:57 [place] 10/325 PO BID PRN Pain Albuterol 2.5 mg 11/13/18 20:14 11/16/18 02:45 Proventil IH 2.5 mg Q4HRT PRN Administration Shortness Of Breath Albuterol/Ipratropium 1 ampul 11/15/18 12:00 11/16/18 11:23 Duoneb *Not For Prn Use* IH 1 ampul QIDRT [facility] Administration Apixaban 5 mg 11/13/18 22:00 11/16/18 09:34 Eliquis PO 5 mg Q12HR [facility] Administration Protocol Aspirin 81 mg 11/14/18 10:00 11/16/18 09:35 Halfprin Ec PO 81 mg DAILY [facility] Administration Atorvastatin Calcium 40 mg 11/15/18 22:00 11/15/18 21:27 Lipitor PO 40 mg QHS [facility] Administration Cholecalciferol 1,000 unit 11/14/18 10:00 11/16/18 09:34 Vitamin D3 PO 1,000 unit QDAY [facility] Administration Cinacalcet 30 mg 11/14/18 10:00 11/16/18 09:34 Sensipar PO 30 mg DAILY [facility] Administration Clotrimazole 1 applic 11/13/18 22:00 11/16/18 09:35 Lotrimin TP 1 applic BID [facility] Administration Docusate Sodium 100 mg 11/13/18 20:00 11/16/18 09:34 Colace PO 100 mg TID [facility] Administration Fluticasone Propionate 100 mcg 11/13/18 19:57 Flonase NS DAILY PRN Allergy Symptoms Sodium Chloride 100 mls @ 999 mls/hr 11/13/18 18:21 Nacl 0.9% IV CAROL PRN Hypotension Sodium Chloride 100 mls @ 999 mls/hr 11/15/18 10:14 Nacl 0.9% IV CAROL PRN Hypotension Methimazole 10 mg 11/14/18 10:00 11/16/18 09:34 Tapazole PO 10 mg Q24HR [facility] Administration Metoprolol Tartrate 50 mg 11/15/18 22:00 11/16/18 09:34 Lopressor PO 50 mg BID [facility] Administration Rifampin 600 mg 11/15/18 10:00 11/16/18 09:34 Rifadin PO 600 mg QDAY [facility] Administration Tizanidine HCl 4 mg 11/14/18 10:00 11/16/18 09:35 Zanaflex PO 4 mg DAILY [facility] Administration Topiramate 25 mg 11/13/18 22:00 11/16/18 09:34 Topamax PO 25 mg BID [facility] Administration
--- NOTE | 2018-11-16 12:13 | Progress Note ---
Assessment and Plan During the night patient had mild hypotension. Today the rate and rhythm are stable. Blood pressure is low normal but she is tolerating it reasonably well. Is complaining of general weakness but no specific symptoms are noted. Plan is to continue current monitoring closely. - Patient Problems (1) SOB (shortness of breath) Current Visit: Yes Status: Acute (2) CHF (congestive heart failure) Current Visit: Yes Status: Chronic Qualifiers: Heart failure type: unspecified Heart failure chronicity: acute Qualified Code(s): I50.9 - Heart failure, unspecified (3) Atrial fibrillation with rapid ventricular response Current Visit: No Status: Acute Subjective Date of service: 11/16/18 Interval history: Patient complains about general weakness. Patient has no chest pain difficulty in breathing or palpitations. Heart rate has improved. During the night patient had an episode of hypotension and received a small bolus of fluids with which she has improved. Objective Vital Signs Temp Pulse Pulse Resp Resp BP Pulse Ox 11/16/18 11:33 89 20 11/16/18 11:23 100 H 20 11/16/18 10:15 99 H 11/16/18 10:00 18 96 11/16/18 08:22 101 H 20 11/16/18 08:12 99 H 20 11/16/18 07:48 98.2 F 105 H 18 115/31 100 11/16/18 04:39 98.5 F 102 H 18 120/31 100 11/16/18 04:00 104 H 11/16/18 03:00 100 H 20 11/16/18 02:45 100 H 20 11/15/18 23:23 98.5 F 98 H 16 91/29 99 11/15/18 21:30 96 H 18 83/26 97 11/15/18 21:28 97 H 83/26 11/15/18 21:24 134 H 18 11/15/18 21:15 135 H 20 95 11/15/18 19:35 97.5 F L 136 H 16 90/39 96 11/15/18 18:25 139 H 104/24 11/15/18 18:14 138 H 104/24 99 11/15/18 18:06 97.6 F 134 H 24 103/16 78 L 11/15/18 16:25 110 H 18 11/15/18 15:15 98.2 F 97 H 18 108/42 11/15/19 15:00 92 H 102/11/15/18 14:45 102 H 10011/15/18 14:30 107 H 9211/15/18 14:15 110 H 98/11/15/18 14:00 137 H 8711/15/18 13:45 99 H 9311/15/18 13:30 107 H 11/15/18 13:15 100 H 11/15/18 13:00 112 H 9711/15/18 12:45 98 H 9811/15/18 12:30 138 H 140/75 11/15/18 12:15 140 H - Physical Examination HEENT: Positive: PERRL, Normocephaly, Mucus Membranes Moist Neck: Positive: neck supple, Other (tracheostomy in place) Cardiac: Positive: irregularly irregular Lungs: Positive: clear to auscultation Neuro: Positive: Grossly Intact Abdomen: Positive: Soft. Negative: Tender Skin: Negative: Rash, Wound Musculoskeletal: No Pain Extremities: Absent: edema - Labs and Meds CBC 11/15/18 11/16/18 Range/Units 16:14 05:56 WBC 8.4 8.0 (4.5-11.0) K/mm3 RBC 2.96 L 3.20 L (3.65-5.03) M/mm3 Hgb 8.9 L 9.3 L (10.1-14.3) gm/dl Hct 27.2 L 29.6 L (30.3-42.9) % Plt Count 172 168 (140-440) K/mm3 Lymph # 1.4 1.6 (1.2-5.4) K/mm3 [place] # 0.9 H 0.6 (0.0-0.8) K/mm3 Eos # 0.2 0.2 (0.0-0.4) K/mm3 Baso # 0.0 0.0 (0.0-0.1) K/mm3 Comprehensive Metabolic Panel 11/15/18 11/16/18 Range/Units 16:14 05:56 Sodium 139 140 (137-145) mmol/L Potassium 3.9 D 4.1 (3.6-5.0) mmol/L Chloride 99.2 99.6 (98-107) mmol/L Carbon Dioxide 30 28 (22-30) mmol/L BUN 8 11 (7-17) mg/dL Creatinine 1.8 H D 2.3 H (0.7-1.2) mg/dL Glucose 144 H 98 (65-100) mg/dL Calcium 8.3 L 8.5 (8.4-10.2) mg/dL - Imaging and Cardiology EKG: report reviewed, image reviewed Echo: report reviewed (TTE done 10/13/2018 showed EF 65-70%, mod MS, mild TR, mild LVH, pseudonormalization, mod pulm HTN with RVSP 59mmHg) - EKG Sinus rhythms and dysrhythmias: sinus rhythm
--- NOTE | 2018-11-16 14:57 | Progress Note ---
Assessment and Plan - Patient Problems (1) Acute heart failure Current Visit: Yes Status: Acute Qualifiers: Heart failure type: unspecified Qualified Code(s): I50.9 - Heart failure, unspecified Plan to address problem: diuretics, echo. old result reviewed. follow cardiology rec. (2) Cardiac volume overload Current Visit: Yes Status: Acute Plan to address problem: see notes below. follow cardiology. better, following HD. Follow cardio/Renal services. (3) Chest pain Current Visit: Yes Status: Acute Qualifiers: Chest pain type: unspecified Qualified Code(s): R07.9 - Chest pain, unspecified Plan to address problem: continue w/up.,may get cardiology. Follow cardiology. subsided. (4) Elevated brain natriuretic peptide (BNP) level Current Visit: Yes Status: Acute Plan to address problem: diuretic ,until HD.may check 2decho. see notes up. (5) Elevated troponin I level Current Visit: Yes Status: Acute Plan to address problem: monitor labs. This may be due to renal failure. follow cardiology. (6) End-stage renal disease on hemodialysis Current Visit: Yes Status: Acute Plan to address problem: HD, follow renal (7) Hypoxia Current Visit: Yes Status: Acute Plan to address problem: oxygen support. (8) SOB (shortness of breath) Current Visit: Yes Status: Acute Plan to address problem: oxygen support. with oxygen. Subjective Date of service: 11/16/18 Interval history: Patient seen/erxamined, resting in bed, records reviewed, no new issues at this time.Appreciate the consultants input. Patient seen/examined, resting in bed, labs /records/notes reviewed.Will plan d/c back to the [facility] on saturday. unless renal, and cardio say otherwise. Patient seen/examined, resting in bed, VSS, HR was 140s overnight, with SBP in 80. Will like cardiology , to address these two parameters before patient can be d/sami.. Objective - Constitutional Vitals: Vital Signs - 12hr 11/16/18 11/16/18 11/16/18 03:00 04:00 04:39 Temperature 98.5 F Pulse Rate 104 H 102 H Pulse Rate [ 100 H Anterior Bilateral Throughout] Respiratory 18 Rate Respiratory 20 Rate [Anterior Bilateral Throughout] Blood Pressure 120/31 O2 Sat by Pulse 100 Oximetry O2 Sat by Pulse Oximetry [ Assessment] 11/16/18 11/16/18 11/16/18 07:48 08:12 08:22 Temperature 98.2 F Pulse Rate 105 H Pulse Rate [ 99 H 101 H Anterior Bilateral Throughout] Respiratory 18 Rate Respiratory 20 20 Rate [Anterior Bilateral Throughout] Blood Pressure 115/31 O2 Sat by Pulse 100 100 Oximetry O2 Sat by Pulse 100 Oximetry [ Assessment] 11/16/18 11/16/18 11/16/18 10:00 10:15 11:23 Temperature Pulse Rate 99 H Pulse Rate [ 100 H Anterior Bilateral Throughout] Respiratory 18 Rate Respiratory 20 Rate [Anterior Bilateral Throughout] Blood Pressure O2 Sat by Pulse 96 Oximetry O2 Sat by Pulse Oximetry [ Assessment] 11/16/18 11:33 Temperature Pulse Rate Pulse Rate [ 89 Anterior Bilateral Throughout] Respiratory Rate Respiratory 20 Rate [Anterior Bilateral Throughout] Blood Pressure O2 Sat by Pulse Oximetry O2 Sat by Pulse Oximetry [ Assessment] General appearance: Present: no acute distress, mild distress, well-nourished - EENT Eyes: PERRL, EOM intact ENT: hearing intact, clear oral mucosa Ears: bilateral: normal - Neck Neck: supple, normal ROM - Respiratory Respiratory effort: normal Respiratory: bilateral: CTA - Breasts Breasts: deferred - Cardiovascular Rhythm: regular Heart Sounds: Present: S1 & S2. Absent: gallop, rub Extremities: pulses intact, No edema, normal color, Full ROM - Gastrointestinal General gastrointestinal: Present: soft, non-tender, non-distended, normal bowel sounds Rectal Exam: deferred - Genitourinary Female genitourinary: deferred - Integumentary Integumentary: clear, warm, dry - Musculoskeletal Musculoskeletal: 1, strength equal bilaterally - Neurologic Neurologic: moves all extremities - Psychiatric Psychiatric: memory intact, appropriate mood/affect, intact judgment & insight - Labs CBC & Chem 7: 11/16/18 05:56 11/16/18 05:56 Labs: Abnormal lab results 11/15/18 11/15/18 11/16/18 Range/Units 16:14 16:14 05:56 RBC 2.96 L 3.20 L (3.65-5.03) M/mm3 Hgb 8.9 L 9.3 L (10.1-14.3) gm/dl Hct 27.2 L 29.6 L (30.3-42.9) % RDW 18.0 H 18.5 H (13.2-15.2) % [place] % (Auto) 10.1 H 7.9 H (0.0-7.3) % [place] # 0.9 H (0.0-0.8) K/mm3 Seg Neutrophils % 70.9 H 70.5 H (40.0-70.0) % Creatinine 1.8 H D (0.7-1.2) mg/dL Glucose 144 H (65-100) mg/dL Calcium 8.3 L (8.4-10.2) mg/dL 11/16/18 Range/Units 05:56 RBC (3.65-5.03) M/mm3 Hgb (10.1-14.3) gm/dl Hct (30.3-42.9) % RDW (13.2-15.2) % [place] % (Auto) (0.0-7.3) % [place] # (0.0-0.8) K/mm3 Seg Neutrophils % (40.0-70.0) % Creatinine 2.3 H (0.7-1.2) mg/dL Glucose (65-100) mg/dL Calcium (8.4-10.2) mg/dL Medications & Allergies - Medications Allergies/Adverse Reactions: Allergies No Known Allergies Allergy (Unverified 06/20/18 15:19) Home Medications: Home Medications Medication Instructions Recorded Confirmed Last Taken Type Aspirin [Adult Aspirin] 81 mg PO DAILY 09/10/18 11/13/18 Unknown History Atorvastatin Calcium [Lipitor] 40 mg PO QPM 09/10/18 11/13/18 Unknown History Cholecalciferol Vit D3 [Vitamin D3] 1,000 unit PO QDAY 09/10/18 11/13/18 Unknown History Clotrimazole 1% [Lotrimin 1%] 1 applic TP BID 09/10/18 11/13/18 Unknown History Docusate Sodium [Colace CAP] 100 mg PO TID 09/10/18 11/13/18 Unknown History Fluticasone [Flonase] 2 sprays NS DAILY PRN 09/10/18 11/13/18 Unknown History Ipratropium/Albuterol Sulfate 1 ampul IH QID 09/10/18 11/13/18 Unknown History [DUONEB *Not for PRN Use*] Topiramate [Topamax] 25 mg PO BID 09/10/18 11/13/18 Unknown History tiZANidine [Zanaflex] 4 mg PO DAILY 09/10/18 11/13/18 Unknown History HYDROcodone/APAP 10-325 [[place] 1 each PO BID PRN #7 tablet 09/15/18 11/13/18 Unknown Rx 10-325 mg TAB] methIMAzole [Tapazole] 10 mg PO Q24HR #30 tablet 11/03/18 11/13/18 Unknown Rx Cinacalcet [Sensipar] 30 mg PO DAILY 11/06/18 11/13/18 Unknown History Metoprolol Tartrate 25 mg PO BID 11/06/18 11/13/18 Unknown History Ventolin HFA 2 puff IH BID PRN 11/06/18 11/13/18 Unknown History rifAMPin [Rifampin] 600 mg PO DAILY 11/06/18 11/13/18 Unknown History Apixaban [Eliquis] 5 mg PO Q12HR #60 tablet 11/12/18 11/13/18 Unknown Rx Active Medications: Generic Name Dose Route Start Last Admin Trade Name Freq PRN Reason Stop Dose Admin Acetaminophen/Hydrocodone Bitart 1 each 11/13/18 19:57 [place] 10/325 PO BID PRN Pain Albuterol 2.5 mg 11/13/18 20:14 11/16/18 02:45 Proventil IH 2.5 mg Q4HRT PRN Administration Shortness Of Breath Albuterol/Ipratropium 1 ampul 11/15/18 12:00 11/16/18 11:23 Duoneb *Not For Prn Use* IH 1 ampul QIDRT CRYSTAL Administration Apixaban 5 mg 11/13/18 22:00 11/16/18 09:34 Eliquis PO 5 mg Q12HR CRYSTAL Administration Protocol Aspirin 81 mg 11/14/18 10:00 11/16/18 09:35 Halfprin Ec PO 81 mg DAILY CRYSTAL Administration Atorvastatin Calcium 40 mg 11/15/18 22:00 11/15/18 21:27 Lipitor PO 40 mg QHS CRYSTAL Administration Cholecalciferol 1,000 unit 11/14/18 10:00 11/16/18 09:34 Vitamin D3 PO 1,000 unit QDAY CRYSTAL Administration Cinacalcet 30 mg 11/14/18 10:00 11/16/18 09:34 Sensipar PO 30 mg DAILY CRYSTAL Administration Clotrimazole 1 applic 11/13/18 22:00 11/16/18 09:35 Lotrimin TP 1 applic BID CRYSTAL Administration Docusate Sodium 100 mg 11/13/18 20:00 11/16/18 14:34 Colace PO 100 mg TID CRYSTAL Administration Fluticasone Propionate 100 mcg 11/13/18 19:57 Flonase NS DAILY PRN Allergy Symptoms Sodium Chloride 100 mls @ 999 mls/hr 11/15/18 10:14 Nacl 0.9% IV CAROL PRN Hypotension Methimazole 10 mg 11/14/18 10:00 11/16/18 09:34 Tapazole PO 10 mg Q24HR CRYSTAL Administration Metoprolol Tartrate 50 mg 11/15/18 22:00 11/16/18 09:34 Lopressor PO 50 mg BID CRYSTAL Administration Rifampin 600 mg 11/15/18 10:00 11/16/18 09:34 Rifadin PO 600 mg QDAY CRYSTAL Administration Tizanidine HCl 4 mg 11/14/18 10:00 11/16/18 09:35 Zanaflex PO 4 mg DAILY CRYSTAL Administration Topiramate 25 mg 11/13/18 22:00 11/16/18 09:34 Topamax PO 25 mg BID CRYSTAL Administration
[2018-11-17] MEDS: NORCO 10/325 PO PRN ×2 (02:15→14:08)
[2018-11-17 06:55] LABS: Basophils % (Auto) 0.3 % (0.0-1.8); Eosinophils % (Auto) 0.5 % (0.0-4.3); Hematocrit 27.9 % (30.3-42.9); Hemoglobin 8.9 gm/dl (10.1-14.3); Lymphocytes # (Auto) 0.8 K/mm3 (1.2-5.4); Mean Corpuscular HGB Conc 32 % (30-34); Mean Corpuscular Volume 94 fl (79-97); Monocytes # (Auto) 0.6 K/mm3 (0.0-0.8); Monocytes % (Auto) 7.2 % (0.0-7.3); Platelet Count 165 K/mm3 (140-440); Red Blood Count 2.96 M/mm3 (3.65-5.03); Red Cell Distribution Width 18.3 % (13.2-15.2)
[2018-11-17 07:07] LABS: Calcium 8.5 mg/dL (8.4-10.2)
[2018-11-17] MEDS: DUONEB *Not for PRN Use IH SCH ×4 (08:05→21:55)
--- NOTE | 2018-11-17 08:47 | Progress Note ---
Assessment and Plan Impression: * End stage renal disease * Atrial fibrillation * Recent hx of staph epi bacteremia/RA lead vegetation * Acute on chronic respiratory failure * Anemia secondary to ESRD * Secondary hyperPTH Plan: * Continue hemodialysis * UF limited due to HR in 140s at times w/ hypotension * Needs optimization of cardiac function/rate control * Abx per primary team * Dose medications for renal function * Renal diet Subjective Date of service: 11/17/18 Interval history: Patient has no complaints today Objective - Vital Signs Vital signs: Vital Signs - 12hr 11/16/18 11/16/18 11/16/18 20:54 20:59 21:50 Temperature Pulse Rate 91 H Pulse Rate [ Anterior Bilateral Throughout] Respiratory 20 Rate Respiratory Rate [Anterior Bilateral Throughout] Blood Pressure Blood Pressure [Right] O2 Sat by Pulse 98 Oximetry O2 Sat by Pulse Oximetry [ Assessment] 11/16/18 11/17/18 11/17/18 22:00 04:00 04:11 Temperature 98.3 F 97.5 F L Pulse Rate 93 H 99 H Pulse Rate [ Anterior Bilateral Throughout] Respiratory 18 12 Rate Respiratory Rate [Anterior Bilateral Throughout] Blood Pressure 100/33 Blood Pressure 96/32 [Right] O2 Sat by Pulse 98 100 59 L Oximetry O2 Sat by Pulse Oximetry [ Assessment] 11/17/18 11/17/18 11/17/18 08:06 08:09 08:15 Temperature 97.7 F Pulse Rate Pulse Rate [ 83 Anterior Bilateral Throughout] Respiratory Rate Respiratory 18 Rate [Anterior Bilateral Throughout] Blood Pressure Blood Pressure [Right] O2 Sat by Pulse 92 Oximetry O2 Sat by Pulse Oximetry [ Assessment] 11/17/18 11/17/18 11/17/18 08:18 08:22 08:23 Temperature Pulse Rate 106 H Pulse Rate [ 95 H Anterior Bilateral Throughout] Respiratory 20 Rate Respiratory 20 Rate [Anterior Bilateral Throughout] Blood Pressure 118/23 Blood Pressure [Right] O2 Sat by Pulse 87 Oximetry O2 Sat by Pulse 95 Oximetry [ Assessment] - General Appearance General appearance: well-developed, well-nourished EENT: ATNC Neck: other (trach) Respiratory: Present: Decreased Breath Sounds Cardiology: regular, S1S2 Gastrointestinal: obese Integumentary: no rash, warm and dry Musculoskeletal: other (no edema) Psychiatric: cooperative - Lab 11/17/18 06:20 11/17/18 06:20 Most recent lab results Calcium 8.5 mg/dL (8.4-10.2) 11/17/18 06:20 Magnesium 1.70 mg/dL (1.7-2.3) 11/14/18 03:52 Medications & Allergies - Medications Allergies/Adverse Reactions: Allergies No Known Allergies Allergy (Unverified 06/20/18 15:19) Home Medications: Home Medications Medication Instructions Recorded Confirmed Last Taken Type Aspirin [Adult Aspirin] 81 mg PO DAILY 09/10/18 11/13/18 Unknown History Atorvastatin Calcium [Lipitor] 40 mg PO QPM 09/10/18 11/13/18 Unknown History Cholecalciferol Vit D3 [Vitamin D3] 1,000 unit PO QDAY 09/10/18 11/13/18 Unknown History Clotrimazole 1% [Lotrimin 1%] 1 applic TP BID 09/10/18 11/13/18 Unknown History Docusate Sodium [Colace CAP] 100 mg PO TID 09/10/18 11/13/18 Unknown History Fluticasone [Flonase] 2 sprays NS DAILY PRN 09/10/18 11/13/18 Unknown History Ipratropium/Albuterol Sulfate 1 ampul IH QID 09/10/18 11/13/18 Unknown History [DUONEB *Not for PRN Use*] Topiramate [Topamax] 25 mg PO BID 09/10/18 11/13/18 Unknown History tiZANidine [Zanaflex] 4 mg PO DAILY 09/10/18 11/13/18 Unknown History HYDROcodone/APAP 10-325 [[place] 1 each PO BID PRN #7 tablet 09/15/18 11/13/18 Unknown Rx 10-325 mg TAB] methIMAzole [Tapazole] 10 mg PO Q24HR #30 tablet 11/03/18 11/13/18 Unknown Rx Cinacalcet [Sensipar] 30 mg PO DAILY 11/06/18 11/13/18 Unknown History Metoprolol Tartrate 25 mg PO BID 11/06/18 11/13/18 Unknown History Ventolin HFA 2 puff IH BID PRN 11/06/18 11/13/18 Unknown History rifAMPin [Rifampin] 600 mg PO DAILY 11/06/18 11/13/18 Unknown History Apixaban [Eliquis] 5 mg PO Q12HR #60 tablet 11/12/18 11/13/18 Unknown Rx Active Medications: Generic Name Dose Route Start Last Admin Trade Name Freq PRN Reason Stop Dose Admin Acetaminophen/Hydrocodone Bitart 1 each 11/13/18 19:57 11/17/18 02:15 [place] 10/325 PO 1 each BID PRN Administration Pain Albuterol 2.5 mg 11/13/18 20:14 11/16/18 02:45 Proventil IH 2.5 mg Q4HRT PRN Administration Shortness Of Breath Albuterol/Ipratropium 1 ampul 11/15/18 12:00 11/17/18 08:05 Duoneb *Not For Prn Use* IH 1 ampul QIDRT CRYSTAL Administration Apixaban 5 mg 11/13/18 22:00 11/16/18 22:22 Eliquis PO 5 mg Q12HR CRYSTAL Administration Protocol Aspirin 81 mg 11/14/18 10:00 11/16/18 09:35 Halfprin Ec PO 81 mg DAILY CRYSTAL Administration Atorvastatin Calcium 40 mg 11/15/18 22:00 11/16/18 22:22 Lipitor PO 40 mg QHS CRYSTAL Administration Cholecalciferol 1,000 unit 11/14/18 10:00 11/16/18 09:34 Vitamin D3 PO 1,000 unit QDAY CRYSTAL Administration Cinacalcet 30 mg 11/14/18 10:00 11/16/18 09:34 Sensipar PO 30 mg DAILY CRYSTAL Administration Clotrimazole 1 applic 11/13/18 22:00 11/16/18 22:31 Lotrimin TP Not Given BID [facility] Docusate Sodium 100 mg 11/13/18 20:00 11/16/18 22:22 Colace PO 100 mg TID CRYSTAL Administration Fluticasone Propionate 100 mcg 11/13/18 19:57 Flonase NS DAILY PRN Allergy Symptoms Sodium Chloride 100 mls @ 999 mls/hr 11/15/18 10:14 Nacl 0.9% IV CAROL PRN Hypotension Methimazole 10 mg 11/14/18 10:00 11/16/18 09:34 Tapazole PO 10 mg Q24HR CRYSTAL Administration Metoprolol Tartrate 50 mg 11/15/18 22:00 11/16/18 22:19 Lopressor PO Not Given BID [facility] Rifampin 600 mg 11/15/18 10:00 11/16/18 09:34 Rifadin PO 600 mg QDAY CRYSTAL Administration Tizanidine HCl 4 mg 11/14/18 10:00 11/16/18 09:35 Zanaflex PO 4 mg DAILY CRYSTAL Administration Topiramate 25 mg 11/13/18 22:00 11/16/18 22:22 Topamax PO 25 mg BID CRYSTAL Administration
[2018-11-17] MEDS: COLACE PO SCH ×3 (09:08→22:24)
[2018-11-17] MEDS: VITAMIN D3 PO SCH (12:09)
[2018-11-17] MEDS: ZANAFLEX PO SCH (12:09)
[2018-11-17] MEDS: ELIQUIS PO SCH ×2 (12:10→22:24)
[2018-11-17] MEDS: TOPAMAX PO SCH ×2 (12:10→22:25)
[2018-11-17] MEDS: SENSIPAR PO SCH (12:10)
[2018-11-17] MEDS: TAPAZOLE PO SCH (12:11)
[2018-11-17] MEDS: LOPRESSOR PO SCH ×2 (12:11→22:31)
[2018-11-17] MEDS: RIFADIN PO SCH (12:11)
[2018-11-17] MEDS: HALFPRIN EC PO SCH (12:12)
--- NOTE | 2018-11-17 12:57 | Progress Note ---
Assessment and Plan Patient is comfortable today. Feels somewhat better. No new cardiac symptoms. Continue current management. - Patient Problems (1) SOB (shortness of breath) Current Visit: Yes Status: Acute (2) CHF (congestive heart failure) Current Visit: Yes Status: Chronic Qualifiers: Heart failure type: unspecified Heart failure chronicity: acute Qualified Code(s): I50.9 - Heart failure, unspecified (3) Atrial fibrillation with rapid ventricular response Current Visit: No Status: Acute Subjective Date of service: 11/17/18 Interval history: Patient is feeling better today. No chest pain difficulty in breathing or palpitations. Objective Vital Signs Temp Pulse Pulse Resp Resp BP BP 11/17/18 12:32 98 H 18 11/17/18 12:11 91 H 18 11/17/18 08:23 11/17/18 08:22 95 H 20 11/17/18 08:18 106 H 20 118/23 11/17/18 08:15 97.7 F 11/17/18 08:09 11/17/18 08:06 83 18 11/17/18 04:11 97.5 F L 99 H 12 100/33 11/17/18 04:00 11/16/18 22:00 98.3 F 93 H 18 96/32 11/16/18 21:50 11/16/18 20:59 20 11/16/18 20:54 91 H 11/16/18 20:15 80 16 11/16/18 19:40 97.8 F 91 H 16 106/36 11/16/18 19:00 11/16/18 16:16 86 20 11/16/18 16:05 85 20 Pulse Ox Pulse Ox 11/17/18 12:32 11/17/18 12:11 11/17/18 08:23 95 11/17/18 08:22 11/17/18 08:18 87 11/17/18 08:15 11/17/18 08:09 92 11/17/18 08:06 11/17/18 04:11 59 L 11/17/18 04:00 100 11/16/18 22:00 98 11/16/18 21:50 98 11/16/18 20:59 11/16/18 20:54 11/16/18 20:15 11/16/18 19:40 89 11/16/18 19:00 91 11/16/18 16:16 11/16/18 16:05 98 - Physical Examination HEENT: Positive: PERRL, Normocephaly, Mucus Membranes Moist Neck: Positive: neck supple, Other (tracheostomy in place) Cardiac: Positive: Reg Rate and Rhythm Lungs: Positive: Decreased Breath Sounds (both bases) Neuro: Positive: Grossly Intact Abdomen: Positive: Soft. Negative: Tender Skin: Negative: Rash, Wound Musculoskeletal: No Pain Extremities: Absent: edema - Labs and Meds CBC 11/17/18 Range/Units 06:20 WBC 8.5 (4.5-11.0) K/mm3 RBC 2.96 L (3.65-5.03) M/mm3 Hgb 8.9 L (10.1-14.3) gm/dl Hct 27.9 L (30.3-42.9) % Plt Count 165 (140-440) K/mm3 Lymph # 0.8 L (1.2-5.4) K/mm3 [place] # 0.6 (0.0-0.8) K/mm3 Eos # 0.0 (0.0-0.4) K/mm3 Baso # 0.0 (0.0-0.1) K/mm3 Comprehensive Metabolic Panel 11/17/18 Range/Units 06:20 Sodium 139 (137-145) mmol/L Potassium 4.3 (3.6-5.0) mmol/L Chloride 97.5 L (98-107) mmol/L Carbon Dioxide 29 (22-30) mmol/L BUN 19 H (7-17) mg/dL Creatinine 3.4 H (0.7-1.2) mg/dL Glucose 109 H (65-100) mg/dL Calcium 8.5 (8.4-10.2) mg/dL - Imaging and Cardiology EKG: report reviewed, image reviewed Echo: report reviewed (TTE done 10/13/2018 showed EF 65-70%, mod MS, mild TR, mild LVH, pseudonormalization, mod pulm HTN with RVSP 59mmHg) - EKG Sinus rhythms and dysrhythmias: sinus rhythm
[2018-11-17] MEDS: LOTRIMIN TP SCH ×2 (14:14→22:34)
--- NOTE | 2018-11-17 18:19 | Progress Note ---
Assessment and Plan - Patient Problems (1) Acute heart failure Current Visit: Yes Status: Acute Qualifiers: Heart failure type: unspecified Qualified Code(s): I50.9 - Heart failure, unspecified Plan to address problem: diuretics, echo. old result reviewed. follow cardiology rec. (2) Cardiac volume overload Current Visit: Yes Status: Acute Plan to address problem: see notes below. follow cardiology. better, following HD. Follow cardio/Renal services. (3) Chest pain Current Visit: Yes Status: Acute Qualifiers: Chest pain type: unspecified Qualified Code(s): R07.9 - Chest pain, unspecified Plan to address problem: continue w/up.,may get cardiology. Follow cardiology. subsided. (4) Elevated brain natriuretic peptide (BNP) level Current Visit: Yes Status: Acute Plan to address problem: diuretic ,until HD.may check 2decho. see notes up. (5) Elevated troponin I level Current Visit: Yes Status: Acute Plan to address problem: monitor labs. This may be due to renal failure. follow cardiology. (6) End-stage renal disease on hemodialysis Current Visit: Yes Status: Acute Plan to address problem: HD, follow renal (7) Hypoxia Current Visit: Yes Status: Acute Plan to address problem: oxygen support. (8) SOB (shortness of breath) Current Visit: Yes Status: Acute Plan to address problem: oxygen support. with oxygen. Subjective Date of service: 11/17/18 Interval history: Patient seen/erxamined, resting in bed, records reviewed, no new issues at this time.Appreciate the consultants input. Patient seen/examined, resting in bed, labs /records/notes reviewed.Will plan d/c back to the [place] on saturday. unless renal, and cardio say otherwise. Patient seen/examined, resting in bed, VSS, HR was 140s overnight, with SBP in 80. Will like cardiology , to address these two parameters before patient can be d/sami.. Patient seen/examined, resting in bed, labs reviewed, as well as notes. No adjustment in her cardiac meds by the cardiology. If she remains stable tomorrow, will d/c back to the NH, unless Renal, or cardiology objects.She will continue HD from the [place], as previously. Objective - Constitutional Vitals: Vital Signs - 12hr 11/17/18 11/17/18 11/17/18 08:06 08:09 08:15 Temperature 97.7 F Pulse Rate Pulse Rate [ 83 Anterior Bilateral Throughout] Respiratory Rate Respiratory 18 Rate [Anterior Bilateral Throughout] Blood Pressure O2 Sat by Pulse 92 Oximetry O2 Sat by Pulse Oximetry [ Assessment] 11/17/18 11/17/18 11/17/18 08:18 08:22 08:23 Temperature Pulse Rate 106 H Pulse Rate [ 95 H Anterior Bilateral Throughout] Respiratory 20 Rate Respiratory 20 Rate [Anterior Bilateral Throughout] Blood Pressure 118/23 O2 Sat by Pulse 87 Oximetry O2 Sat by Pulse 95 Oximetry [ Assessment] 11/17/18 11/17/18 11/17/18 12:11 12:32 16:00 Temperature Pulse Rate Pulse Rate [ 91 H 98 H 97 H Anterior Bilateral Throughout] Respiratory Rate Respiratory 18 18 18 Rate [Anterior Bilateral Throughout] Blood Pressure O2 Sat by Pulse Oximetry O2 Sat by Pulse 96 Oximetry [ Assessment] 11/17/18 11/17/18 16:12 18:08 Temperature 97.9 F Pulse Rate Pulse Rate [ 88 Anterior Bilateral Throughout] Respiratory Rate Respiratory 18 Rate [Anterior Bilateral Throughout] Blood Pressure O2 Sat by Pulse Oximetry O2 Sat by Pulse Oximetry [ Assessment] General appearance: Present: no acute distress - EENT Eyes: PERRL, EOM intact ENT: hearing intact, clear oral mucosa Ears: bilateral: normal - Neck Neck: supple, normal ROM - Respiratory Respiratory effort: normal Respiratory: bilateral: other (on oxygeen/traech.) - Breasts Breasts: deferred - Cardiovascular Rhythm: regular Heart Sounds: Present: S1 & S2. Absent: gallop, rub Extremities: pulses intact, No edema, normal color, Full ROM - Gastrointestinal General gastrointestinal: Present: soft, non-tender, non-distended, normal bowel sounds Rectal Exam: deferred - Genitourinary Female genitourinary: deferred - Integumentary Integumentary: clear, warm, dry - Musculoskeletal Musculoskeletal: 1, strength equal bilaterally - Neurologic Neurologic: moves all extremities - Psychiatric Psychiatric: memory intact, appropriate mood/affect, intact judgment & insight - Labs CBC & Chem 7: 11/17/18 06:20 11/17/18 06:20 Labs: Abnormal lab results 11/17/18 11/17/18 Range/Units 06:20 06:20 RBC 2.96 L (3.65-5.03) M/mm3 Hgb 8.9 L (10.1-14.3) gm/dl Hct 27.9 L (30.3-42.9) % RDW 18.3 H (13.2-15.2) % Lymph % (Auto) 10.0 L (13.4-35.0) % Lymph # 0.8 L (1.2-5.4) K/mm3 Seg Neutrophils % 82.0 H (40.0-70.0) % Chloride 97.5 L (98-107) mmol/L BUN 19 H (7-17) mg/dL Creatinine 3.4 H (0.7-1.2) mg/dL Glucose 109 H (65-100) mg/dL Medications & Allergies - Medications Allergies/Adverse Reactions: Allergies No Known Allergies Allergy (Unverified 06/20/18 15:19) Home Medications: Home Medications Medication Instructions Recorded Confirmed Last Taken Type Aspirin [Adult Aspirin] 81 mg PO DAILY 09/10/18 11/13/18 Unknown History Atorvastatin Calcium [Lipitor] 40 mg PO QPM 09/10/18 11/13/18 Unknown History Cholecalciferol Vit D3 [Vitamin D3] 1,000 unit PO QDAY 09/10/18 11/13/18 Unknown History Clotrimazole 1% [Lotrimin 1%] 1 applic TP BID 09/10/18 11/13/18 Unknown History Docusate Sodium [Colace CAP] 100 mg PO TID 09/10/18 11/13/18 Unknown History Fluticasone [Flonase] 2 sprays NS DAILY PRN 09/10/18 11/13/18 Unknown History Ipratropium/Albuterol Sulfate 1 ampul IH QID 09/10/18 11/13/18 Unknown History [DUONEB *Not for PRN Use*] Topiramate [Topamax] 25 mg PO BID 09/10/18 11/13/18 Unknown History tiZANidine [Zanaflex] 4 mg PO DAILY 09/10/18 11/13/18 Unknown History HYDROcodone/APAP 10-325 [[place] 1 each PO BID PRN #7 tablet 09/15/18 11/13/18 Unknown Rx 10-325 mg TAB] methIMAzole [Tapazole] 10 mg PO Q24HR #30 tablet 11/03/18 11/13/18 Unknown Rx Cinacalcet [Sensipar] 30 mg PO DAILY 11/06/18 11/13/18 Unknown History Metoprolol Tartrate 25 mg PO BID 11/06/18 11/13/18 Unknown History Ventolin HFA 2 puff IH BID PRN 11/06/18 11/13/18 Unknown History rifAMPin [Rifampin] 600 mg PO DAILY 11/06/18 11/13/18 Unknown History Apixaban [Eliquis] 5 mg PO Q12HR #60 tablet 11/12/18 11/13/18 Unknown Rx Active Medications: Generic Name Dose Route Start Last Admin Trade Name Freq PRN Reason Stop Dose Admin Acetaminophen/Hydrocodone Bitart 1 each 11/13/18 19:57 11/17/18 14:08 [place] 10/325 PO 1 each BID PRN Administration Pain Albuterol 2.5 mg 11/13/18 20:14 11/16/18 02:45 Proventil IH 2.5 mg Q4HRT PRN Administration Shortness Of Breath Albuterol/Ipratropium 1 ampul 11/15/18 12:00 11/17/18 16:08 Duoneb *Not For Prn Use* IH 1 ampul QIDRT CRYSTAL Administration Apixaban 5 mg 11/13/18 22:00 11/17/18 12:10 Eliquis PO 5 mg Q12HR CRYSTAL Administration Protocol Aspirin 81 mg 11/14/18 10:00 11/17/18 12:12 Halfprin Ec PO 81 mg DAILY CRYSTAL Administration Atorvastatin Calcium 40 mg 11/15/18 22:00 11/16/18 22:22 Lipitor PO 40 mg QHS CRYSTAL Administration Cholecalciferol 1,000 unit 11/14/18 10:00 11/17/18 12:09 Vitamin D3 PO 1,000 unit QDAY CRYSTAL Administration Cinacalcet 30 mg 11/14/18 10:00 11/17/18 12:10 Sensipar PO 30 mg DAILY CRYSTAL Administration Clotrimazole 1 applic 11/13/18 22:00 11/17/18 14:14 Lotrimin TP 1 applic BID CRYSTAL Administration Docusate Sodium 100 mg 11/13/18 20:00 11/17/18 14:07 Colace PO Not Given TID CRYSTAL Fluticasone Propionate 100 mcg 11/13/18 19:57 Flonase NS DAILY PRN Allergy Symptoms Sodium Chloride 100 mls @ 999 mls/hr 11/15/18 10:14 Nacl 0.9% IV CAROL PRN Hypotension Methimazole 10 mg 11/14/18 10:00 11/17/18 12:11 Tapazole PO 10 mg Q24HR CRYSTAL Administration Metoprolol Tartrate 50 mg 11/15/18 22:00 11/17/18 12:11 Lopressor PO 50 mg BID CRYSTAL Administration Rifampin 600 mg 11/15/18 10:00 11/17/18 12:11 Rifadin PO 600 mg QDAY CRYSTAL Administration Tizanidine HCl 4 mg 11/14/18 10:00 11/17/18 12:09 Zanaflex PO 4 mg DAILY CRYSTAL Administration Topiramate 25 mg 11/13/18 22:00 11/17/18 12:10 Topamax PO 25 mg BID CRYSTAL Administration
[2018-11-18 06:17] LABS: Basophils % (Auto) 0.3 % (0.0-1.8); Eosinophils # (Auto) 0.2 K/mm3 (0.0-0.4); Eosinophils % (Auto) 2.7 % (0.0-4.3); Hematocrit 29.5 % (30.3-42.9); Hemoglobin 9.4 gm/dl (10.1-14.3); Lymphocytes # (Auto) 1.6 K/mm3 (1.2-5.4); Lymphocytes % (Auto) 19.6 % (13.4-35.0); Mean Corpuscular HGB Conc 32 % (30-34); Mean Corpuscular Volume 95 fl (79-97); Monocytes # (Auto) 0.8 K/mm3 (0.0-0.8); Platelet Count 169 K/mm3 (140-440); Red Blood Count 3.12 M/mm3 (3.65-5.03); Red Cell Distribution Width 18.4 % (13.2-15.2)
[2018-11-18 06:43] LABS: Calcium 8.4 mg/dL (8.4-10.2)
[2018-11-18] MEDS: DUONEB *Not for PRN Use IH SCH ×4 (08:09→20:25)
[2018-11-18] MEDS: SENSIPAR PO SCH (09:55)
[2018-11-18] MEDS: ZANAFLEX PO SCH (09:55)
[2018-11-18] MEDS: RIFADIN PO SCH (09:55)
[2018-11-18] MEDS: LOPRESSOR PO SCH ×2 (09:56→23:03)
[2018-11-18] MEDS: TAPAZOLE PO SCH (09:56)
[2018-11-18] MEDS: HALFPRIN EC PO SCH (09:56)
[2018-11-18] MEDS: ELIQUIS PO SCH ×2 (09:56→23:03)
[2018-11-18] MEDS: COLACE PO SCH ×3 (09:56→20:41)
[2018-11-18] MEDS: VITAMIN D3 PO SCH (09:56)
[2018-11-18] MEDS: LOTRIMIN TP SCH ×2 (09:57→23:09)
[2018-11-18] MEDS: TOPAMAX PO SCH ×2 (09:57→23:03)
[2018-11-18] MEDS: NORCO 10/325 PO PRN (13:00)
--- NOTE | 2018-11-18 14:12 | Progress Note ---
Assessment and Plan ECHO 10/15/18: 1. Left ventricular ejection fraction is 60%. 2. Mild tricuspid regurgitation. 3. Moderate mitral annular calcification. 4. No pericardial effusion seen. 5. The tricuspid regurgitant velocity is 3.96 m/s, and with an assumed right atrial pressure of 8 mmHg, the estimated right ventricular systolic pressure is severely elevated at 70.7 mmHg. Acute heart failure with preserved EF Agree with present management. Volume optimization per nephrology. Acute on chronic respiratory failure with tracheostomy Atrial fibrillation/atrial flutter with RVR/SSS Currently in SR. Continue on beta aden and titrate as tolerated. Avoid aggressive treatment to avoid bradycardia and sinus pauses. 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 Cont IV Vancomycin, rifampin for 6 weeks records from [employer] discharge Patient will be on prolonged antibiotics and will need follow up with ID on suppressive therapies. MATEUS on 10/15/18 showed a 0.5x1.15cm echodensity of RA lead S/P Emergent pericardial window secondary to attempt at lead extractrion complicated by pericardial effusion possible due to RA tear after extraction of the RA lead Elevated Cardiac Enzymes Nonspecific given ESRD monitor for now HTN Low TSH/ Hyperthyroidism ESRD, on HD outpatient follow up with [facility] Hyperkalemia Management per nephrology C. Diff The patient has been seen in conjunction with Dr. Webber who agrees with the assessment and plan of care. Subjective Date of service: 11/18/18 Principal diagnosis: AFib Interval history: pt resting in bed, undergoing HD, no current complaints. currently in SR on tele with bouts of AFib RVR overnight. Objective Last Vital Signs Temp 97.7 F 11/18/18 13:50 Pulse 116 H 11/18/18 13:50 Resp 20 11/18/18 13:50 BP 90/45 11/18/18 13:50 Pulse Ox 94 11/18/18 10:00 - Physical Examination General: No Apparent Distress HEENT: Positive: PERRL, Normocephaly, Mucus Membranes Moist Neck: Positive: neck supple, Other (tracheostomy in place) Cardiac: Positive: Reg Rate and Rhythm, S1/S2 Lungs: Positive: Decreased Breath Sounds Neuro: Positive: Grossly Intact Abdomen: Positive: Soft. Negative: Tender Skin: Negative: Rash, Wound Musculoskeletal: No Pain Extremities: Absent: edema - Labs and Meds CBC 11/18/18 Range/Units 05:17 WBC 8.4 (4.5-11.0) K/mm3 RBC 3.12 L (3.65-5.03) M/mm3 Hgb 9.4 L (10.1-14.3) gm/dl Hct 29.5 L (30.3-42.9) % Plt Count 169 (140-440) K/mm3 Lymph # 1.6 (1.2-5.4) K/mm3 [place] # 0.8 (0.0-0.8) K/mm3 Eos # 0.2 (0.0-0.4) K/mm3 Baso # 0.0 (0.0-0.1) K/mm3 Comprehensive Metabolic Panel 11/18/18 Range/Units 05:17 Sodium 134 L (137-145) mmol/L Potassium 4.5 (3.6-5.0) mmol/L Chloride 92.2 L (98-107) mmol/L Carbon Dioxide 28 (22-30) mmol/L BUN 27 H (7-17) mg/dL Creatinine 4.2 H (0.7-1.2) mg/dL Glucose 88 (65-100) mg/dL Calcium 8.4 (8.4-10.2) mg/dL - Imaging and Cardiology EKG: report reviewed, image reviewed Echo: report reviewed (TTE done 10/13/2018 showed EF 65-70%, mod MS, mild TR, mild LVH, pseudonormalization, mod pulm HTN with RVSP 59mmHg) - EKG Sinus rhythms and dysrhythmias: sinus rhythm
[2018-11-18] MEDS: PROVENTIL IH PRN (14:40)
--- NOTE | 2018-11-18 18:06 | Progress Note ---
Assessment and Plan Impression: * End stage renal disease * Atrial fibrillation * Recent hx of staph epi bacteremia/RA lead vegetation * Acute on chronic respiratory failure * Anemia secondary to ESRD * Secondary hyperPTH Plan: * Hemodialysis today - UF as tolerated * UF has been limited due to HR in 140s at times w/ hypotension * Needs optimization of cardiac function/rate control * Abx per primary team * Dose medications for renal function * Renal diet Subjective Date of service: 11/18/18 Principal diagnosis: AFib Interval history: Patient has no complaint today. Objective - Vital Signs Vital signs: Vital Signs - 12hr 11/18/18 11/18/18 11/18/18 06:32 08:00 08:01 Temperature 97.3 F L Pulse Rate 88 89 Pulse Rate [ Anterior Bilateral Throughout] Respiratory Rate Respiratory Rate [Anterior Bilateral Throughout] Blood Pressure Blood Pressure 149/47 [Right] O2 Sat by Pulse Oximetry O2 Sat by Pulse 94 Oximetry [ Assessment] 11/18/18 11/18/18 11/18/18 08:09 08:18 08:19 Temperature Pulse Rate Pulse Rate [ 92 H 94 H Anterior Bilateral Throughout] Respiratory 18 Rate Respiratory 18 18 Rate [Anterior Bilateral Throughout] Blood Pressure Blood Pressure [Right] O2 Sat by Pulse 95 Oximetry O2 Sat by Pulse Oximetry [ Assessment] 11/18/18 11/18/18 11/18/18 09:14 10:00 10:15 Temperature 97.3 F L Pulse Rate 74 119 H Pulse Rate [ Anterior Bilateral Throughout] Respiratory 20 Rate Respiratory Rate [Anterior Bilateral Throughout] Blood Pressure 115/17 58/17 121/72 Blood Pressure [Right] O2 Sat by Pulse 94 Oximetry O2 Sat by Pulse Oximetry [ Assessment] 11/18/18 11/18/18 11/18/18 10:30 10:45 11:00 Temperature Pulse Rate 89 93 H 90 Pulse Rate [ Anterior Bilateral Throughout] Respiratory Rate Respiratory Rate [Anterior Bilateral Throughout] Blood Pressure 114/41 90/31 123/21 Blood Pressure [Right] O2 Sat by Pulse Oximetry O2 Sat by Pulse Oximetry [ Assessment] 11/18/18 11/18/18 11/18/18 11:15 11:30 11:45 Temperature Pulse Rate 93 H 79 102 H Pulse Rate [ Anterior Bilateral Throughout] Respiratory Rate Respiratory Rate [Anterior Bilateral Throughout] Blood Pressure 123/21 102/24 97/28 Blood Pressure [Right] O2 Sat by Pulse Oximetry O2 Sat by Pulse Oximetry [ Assessment] 11/18/18 11/18/18 11/18/18 12:00 12:15 12:30 Temperature Pulse Rate 87 66 94 H Pulse Rate [ Anterior Bilateral Throughout] Respiratory Rate Respiratory Rate [Anterior Bilateral Throughout] Blood Pressure 129/22 83/59 127/36 Blood Pressure [Right] O2 Sat by Pulse Oximetry O2 Sat by Pulse Oximetry [ Assessment] 11/18/18 11/18/18 11/18/18 12:45 13:00 13:50 Temperature 97.7 F Pulse Rate 60 93 H 116 H Pulse Rate [ Anterior Bilateral Throughout] Respiratory 20 20 Rate Respiratory Rate [Anterior Bilateral Throughout] Blood Pressure 90/55 100/26 90/45 Blood Pressure [Right] O2 Sat by Pulse Oximetry O2 Sat by Pulse Oximetry [ Assessment] 11/18/18 11/18/18 11/18/18 14:27 14:37 14:40 Temperature Pulse Rate Pulse Rate [ 96 H 97 H 98 H Anterior Bilateral Throughout] Respiratory Rate Respiratory 18 18 18 Rate [Anterior Bilateral Throughout] Blood Pressure Blood Pressure [Right] O2 Sat by Pulse Oximetry O2 Sat by Pulse Oximetry [ Assessment] 11/18/18 11/18/18 14:50 17:16 Temperature Pulse Rate 103 H Pulse Rate [ 99 H Anterior Bilateral Throughout] Respiratory Rate Respiratory 18 Rate [Anterior Bilateral Throughout] Blood Pressure 138/43 Blood Pressure [Right] O2 Sat by Pulse 100 Oximetry O2 Sat by Pulse Oximetry [ Assessment] - General Appearance General appearance: well-developed, well-nourished EENT: ATNC Respiratory: Present: Clear to Ascultation Cardiology: irregularly irregular Gastrointestinal: normal, no tenderness, no distended Integumentary: warm and dry Musculoskeletal: other (no edema) Psychiatric: cooperative - Lab 11/18/18 05:17 11/18/18 05:17 Most recent lab results Calcium 8.4 mg/dL (8.4-10.2) 11/18/18 05:17 Magnesium 1.70 mg/dL (1.7-2.3) 11/14/18 03:52 Medications & Allergies - Medications Allergies/Adverse Reactions: Allergies No Known Allergies Allergy (Unverified 06/20/18 15:19) Home Medications: Home Medications Medication Instructions Recorded Confirmed Last Taken Type Aspirin [Adult Aspirin] 81 mg PO DAILY 09/10/18 11/13/18 Unknown History Atorvastatin Calcium [Lipitor] 40 mg PO QPM 09/10/18 11/13/18 Unknown History Cholecalciferol Vit D3 [Vitamin D3] 1,000 unit PO QDAY 09/10/18 11/13/18 Unknown History Clotrimazole 1% [Lotrimin 1%] 1 applic TP BID 09/10/18 11/13/18 Unknown History Docusate Sodium [Colace CAP] 100 mg PO TID 09/10/18 11/13/18 Unknown History Fluticasone [Flonase] 2 sprays NS DAILY PRN 09/10/18 11/13/18 Unknown History Ipratropium/Albuterol Sulfate 1 ampul IH QID 09/10/18 11/13/18 Unknown History [DUONEB *Not for PRN Use*] Topiramate [Topamax] 25 mg PO BID 09/10/18 11/13/18 Unknown History tiZANidine [Zanaflex] 4 mg PO DAILY 09/10/18 11/13/18 Unknown History HYDROcodone/APAP 10-325 [[place] 1 each PO BID PRN #7 tablet 09/15/18 11/13/18 Unknown Rx 10-325 mg TAB] methIMAzole [Tapazole] 10 mg PO Q24HR #30 tablet 11/03/18 11/13/18 Unknown Rx Cinacalcet [Sensipar] 30 mg PO DAILY 11/06/18 11/13/18 Unknown History Metoprolol Tartrate 25 mg PO BID 11/06/18 11/13/18 Unknown History Ventolin HFA 2 puff IH BID PRN 11/06/18 11/13/18 Unknown History rifAMPin [Rifampin] 600 mg PO DAILY 11/06/18 11/13/18 Unknown History Apixaban [Eliquis] 5 mg PO Q12HR #60 tablet 11/12/18 11/13/18 Unknown Rx Active Medications: Generic Name Dose Route Start Last Admin Trade Name Freq PRN Reason Stop Dose Admin Acetaminophen/Hydrocodone Bitart 1 each 11/13/18 19:57 11/18/18 13:00 [place] 10/325 PO 1 each BID PRN Administration Pain Albuterol 2.5 mg 11/13/18 20:14 11/18/18 14:40 Proventil IH 2.5 mg Q4HRT PRN Administration Shortness Of Breath Albuterol/Ipratropium 1 ampul 11/15/18 12:00 11/18/18 15:47 Duoneb *Not For Prn Use* IH Not Given QIDRT CRYSTAL Apixaban 5 mg 11/13/18 22:00 11/18/18 09:56 Eliquis PO 5 mg Q12HR CRYSTAL Administration Protocol Aspirin 81 mg 11/14/18 10:00 11/18/18 09:56 Halfprin Ec PO 81 mg DAILY CRYSTAL Administration Atorvastatin Calcium 40 mg 11/15/18 22:00 11/17/18 22:25 Lipitor PO 40 mg QHS CRYSTAL Administration Cholecalciferol 1,000 unit 11/14/18 10:00 11/18/18 09:56 Vitamin D3 PO 1,000 unit QDAY CRYSTAL Administration Cinacalcet 30 mg 11/14/18 10:00 11/18/18 09:55 Sensipar PO 30 mg DAILY CRYSTAL Administration Clotrimazole 1 applic 11/13/18 22:00 11/18/18 09:57 Lotrimin TP 1 applic BID CRYSTAL Administration Docusate Sodium 100 mg 11/13/18 20:00 11/18/18 14:11 Colace PO 100 mg TID CRYSTAL Administration Fluticasone Propionate 100 mcg 11/13/18 19:57 Flonase NS DAILY PRN Allergy Symptoms Sodium Chloride 100 mls @ 999 mls/hr 11/15/18 10:14 Nacl 0.9% IV CAROL PRN Hypotension Methimazole 10 mg 11/14/18 10:00 11/18/18 09:56 Tapazole PO 10 mg Q24HR CRYSTAL Administration Metoprolol Tartrate 50 mg 11/15/18 22:00 11/18/18 09:56 Lopressor PO Not Given BID CRYSTAL Rifampin 600 mg 11/15/18 10:00 11/18/18 09:55 Rifadin PO 600 mg QDAY CRYSTAL Administration Tizanidine HCl 4 mg 11/14/18 10:00 11/18/18 09:55 Zanaflex PO 4 mg DAILY CRYSTAL Administration Topiramate 25 mg 11/13/18 22:00 11/18/18 09:57 Topamax PO 25 mg BID CRYSTAL Administration
--- NOTE | 2018-11-18 20:02 | Progress Note ---
Assessment and Plan - Patient Problems (1) Acute heart failure Current Visit: Yes Status: Acute Qualifiers: Heart failure type: unspecified Qualified Code(s): I50.9 - Heart failure, unspecified Plan to address problem: diuretics, echo. old result reviewed. follow cardiology rec. (2) Cardiac volume overload Current Visit: Yes Status: Acute Plan to address problem: see notes below. follow cardiology. better, following HD. Follow cardio/Renal services. (3) Chest pain Current Visit: Yes Status: Acute Qualifiers: Chest pain type: unspecified Qualified Code(s): R07.9 - Chest pain, unspecified Plan to address problem: continue w/up.,may get cardiology. Follow cardiology. subsided. (4) Elevated brain natriuretic peptide (BNP) level Current Visit: Yes Status: Acute Plan to address problem: diuretic ,until HD.may check 2decho. see notes up. (5) Elevated troponin I level Current Visit: Yes Status: Acute Plan to address problem: monitor labs. This may be due to renal failure. follow cardiology. (6) End-stage renal disease on hemodialysis Current Visit: Yes Status: Acute Plan to address problem: HD, follow renal (7) Hypoxia Current Visit: Yes Status: Acute Plan to address problem: oxygen support. (8) SOB (shortness of breath) Current Visit: Yes Status: Acute Plan to address problem: oxygen support. with oxygen. Subjective Date of service: 11/18/18 Principal diagnosis: AFib Interval history: Patient seen/erxamined, resting in bed, records reviewed, no new issues at this time.Appreciate the consultants input. Patient seen/examined, resting in bed, labs /records/notes reviewed.Will plan d/c back to the [facility] on saturday. unless renal, and cardio say otherwise. Patient seen/examined, resting in bed, VSS, HR was 140s overnight, with SBP in 80. Will like cardiology , to address these two parameters before patient can be d/sami.. Patient seen/examined, resting in bed, labs reviewed, as well as notes. No adjustment in her cardiac meds by the cardiology. If she remains stable tomorrow, will d/c back to the NH, unless Renal, or cardiology objects.She will continue HD from the [facility], as previously. Patient seen/examined, resting in bed, NAD, labs reviewed, case d/w her. I have discussed discharge back to the NH tomorrow with her. She wants MWF dialysis, and I have d/w the NH. They will try to see how to accommodate her schedule by there window caser. Objective - Constitutional Vitals: Vital Signs - 12hr 11/18/18 11/18/18 11/18/18 08:00 08:01 08:09 Temperature Pulse Rate 89 Pulse Rate [ 92 H Anterior Bilateral Throughout] Respiratory Rate Respiratory 18 Rate [Anterior Bilateral Throughout] Blood Pressure O2 Sat by Pulse Oximetry O2 Sat by Pulse 94 Oximetry [ Assessment] 11/18/18 11/18/18 11/18/18 08:18 08:19 09:14 Temperature Pulse Rate Pulse Rate [ 94 H Anterior Bilateral Throughout] Respiratory 18 Rate Respiratory 18 Rate [Anterior Bilateral Throughout] Blood Pressure 115/17 O2 Sat by Pulse 95 Oximetry O2 Sat by Pulse Oximetry [ Assessment] 11/18/18 11/18/18 11/18/18 10:00 10:15 10:30 Temperature 97.3 F L Pulse Rate 74 119 H 89 Pulse Rate [ Anterior Bilateral Throughout] Respiratory 20 Rate Respiratory Rate [Anterior Bilateral Throughout] Blood Pressure 58/17 121/72 114/41 O2 Sat by Pulse 94 Oximetry O2 Sat by Pulse Oximetry [ Assessment] 11/18/18 11/18/18 11/18/18 10:45 11:00 11:15 Temperature Pulse Rate 93 H 90 93 H Pulse Rate [ Anterior Bilateral Throughout] Respiratory Rate Respiratory Rate [Anterior Bilateral Throughout] Blood Pressure 90/31 123/21 123/21 O2 Sat by Pulse Oximetry O2 Sat by Pulse Oximetry [ Assessment] 11/18/18 11/18/18 11/18/18 11:30 11:45 12:00 Temperature Pulse Rate 79 102 H 87 Pulse Rate [ Anterior Bilateral Throughout] Respiratory Rate Respiratory Rate [Anterior Bilateral Throughout] Blood Pressure 102/24 97/28 129/22 O2 Sat by Pulse Oximetry O2 Sat by Pulse Oximetry [ Assessment] 11/18/18 11/18/18 11/18/18 12:15 12:30 12:45 Temperature Pulse Rate 66 94 H 60 Pulse Rate [ Anterior Bilateral Throughout] Respiratory Rate Respiratory Rate [Anterior Bilateral Throughout] Blood Pressure 83/59 127/36 90/55 O2 Sat by Pulse Oximetry O2 Sat by Pulse Oximetry [ Assessment] 11/18/18 11/18/1819 13:00 13:50 14:27 Temperature 97.7 F Pulse Rate 93 H 116 H Pulse Rate [ 96 H Anterior Bilateral Throughout] Respiratory 20 20 Rate Respiratory 18 Rate [Anterior Bilateral Throughout] Blood Pressure 100/26 90/45 O2 Sat by Pulse Oximetry O2 Sat by Pulse Oximetry [ Assessment] 11/18/18 11/18/18 11/18/18 14:37 14:40 14:50 Temperature Pulse Rate Pulse Rate [ 97 H 98 H 99 H Anterior Bilateral Throughout] Respiratory Rate Respiratory 18 18 18 Rate [Anterior Bilateral Throughout] Blood Pressure O2 Sat by Pulse Oximetry O2 Sat by Pulse Oximetry [ Assessment] 11/18/18 17:16 Temperature Pulse Rate 103 H Pulse Rate [ Anterior Bilateral Throughout] Respiratory Rate Respiratory Rate [Anterior Bilateral Throughout] Blood Pressure 138/43 O2 Sat by Pulse 100 Oximetry O2 Sat by Pulse Oximetry [ Assessment] General appearance: Present: no acute distress, well-nourished - EENT Eyes: PERRL, EOM intact ENT: hearing intact, clear oral mucosa Ears: bilateral: normal - Neck Neck: supple, normal ROM - Respiratory Respiratory effort: normal Respiratory: bilateral: CTA - Breasts Breasts: deferred - Cardiovascular Rhythm: regular Heart Sounds: Present: S1 & S2. Absent: gallop, rub Extremities: pulses intact, No edema, normal color, Full ROM - Gastrointestinal General gastrointestinal: Present: soft, non-tender, non-distended, normal bowel sounds Rectal Exam: deferred - Genitourinary Female genitourinary: deferred - Integumentary Integumentary: clear, warm, dry - Musculoskeletal Musculoskeletal: 1, strength equal bilaterally - Neurologic Neurologic: moves all extremities - Psychiatric Psychiatric: memory intact, appropriate mood/affect, intact judgment & insight - Labs CBC & Chem 7: 11/18/18 05:17 11/18/18 05:17 Labs: Abnormal lab results 11/18/18 11/18/18 Range/Units 05:17 05:17 RBC 3.12 L (3.65-5.03) M/mm3 Hgb 9.4 L (10.1-14.3) gm/dl Hct 29.5 L (30.3-42.9) % RDW 18.4 H (13.2-15.2) % [place] % (Auto) 9.0 H (0.0-7.3) % Sodium 134 L (137-145) mmol/L Chloride 92.2 L (98-107) mmol/L BUN 27 H (7-17) mg/dL Creatinine 4.2 H (0.7-1.2) mg/dL Medications & Allergies - Medications Allergies/Adverse Reactions: Allergies No Known Allergies Allergy (Unverified 06/20/18 15:19) Home Medications: Home Medications Medication Instructions Recorded Confirmed Last Taken Type Aspirin [Adult Aspirin] 81 mg PO DAILY 09/10/18 11/13/18 Unknown History Atorvastatin Calcium [Lipitor] 40 mg PO QPM 09/10/18 11/13/18 Unknown History Cholecalciferol Vit D3 [Vitamin D3] 1,000 unit PO QDAY 09/10/18 11/13/18 Unknown History Clotrimazole 1% [Lotrimin 1%] 1 applic TP BID 09/10/18 11/13/18 Unknown History Docusate Sodium [Colace CAP] 100 mg PO TID 09/10/18 11/13/18 Unknown History Fluticasone [Flonase] 2 sprays NS DAILY PRN 09/10/18 11/13/18 Unknown History Ipratropium/Albuterol Sulfate 1 ampul IH QID 09/10/18 11/13/18 Unknown History [DUONEB *Not for PRN Use*] Topiramate [Topamax] 25 mg PO BID 09/10/18 11/13/18 Unknown History tiZANidine [Zanaflex] 4 mg PO DAILY 09/10/18 11/13/18 Unknown History HYDROcodone/APAP 10-325 [[place] 1 each PO BID PRN #7 tablet 09/15/18 11/13/18 Unknown Rx 10-325 mg TAB] methIMAzole [Tapazole] 10 mg PO Q24HR #30 tablet 11/03/18 11/13/18 Unknown Rx Cinacalcet [Sensipar] 30 mg PO DAILY 11/06/18 11/13/18 Unknown History Metoprolol Tartrate 25 mg PO BID 11/06/18 11/13/18 Unknown History Ventolin HFA 2 puff IH BID PRN 11/06/18 11/13/18 Unknown History rifAMPin [Rifampin] 600 mg PO DAILY 11/06/18 11/13/18 Unknown History Apixaban [Eliquis] 5 mg PO Q12HR #60 tablet 11/12/18 11/13/18 Unknown Rx Active Medications: Generic Name Dose Route Start Last Admin Trade Name Freq PRN Reason Stop Dose Admin Acetaminophen/Hydrocodone Bitart 1 each 11/13/18 19:57 11/18/18 13:00 [place] 10/325 PO 1 each BID PRN Administration Pain Albuterol 2.5 mg 11/13/18 20:14 11/18/18 14:40 Proventil IH 2.5 mg Q4HRT PRN Administration Shortness Of Breath Albuterol/Ipratropium 1 ampul 11/15/18 12:00 11/18/18 15:47 Duoneb *Not For Prn Use* IH Not Given QIDRT CRYSTAL Apixaban 5 mg 11/13/18 22:00 11/18/18 09:56 Eliquis PO 5 mg Q12HR CRYSTAL Administration Protocol Aspirin 81 mg 11/14/18 10:00 11/18/18 09:56 Halfprin Ec PO 81 mg DAILY CRYSTAL Administration Atorvastatin Calcium 40 mg 11/15/18 22:00 11/17/18 22:25 Lipitor PO 40 mg QHS CRYSTAL Administration Cholecalciferol 1,000 unit 11/14/18 10:00 11/18/18 09:56 Vitamin D3 PO 1,000 unit QDAY CRYSTAL Administration Cinacalcet 30 mg 11/14/18 10:00 11/18/18 09:55 Sensipar PO 30 mg DAILY CRYSTAL Administration Clotrimazole 1 applic 11/13/18 22:00 11/18/18 09:57 Lotrimin TP 1 applic BID CRYSTAL Administration Docusate Sodium 100 mg 11/13/18 20:00 11/18/18 14:11 Colace PO 100 mg TID CRYSTAL Administration Fluticasone Propionate 100 mcg 11/13/18 19:57 Flonase NS DAILY PRN Allergy Symptoms Sodium Chloride 100 mls @ 999 mls/hr 11/15/18 10:14 Nacl 0.9% IV CAROL PRN Hypotension Methimazole 10 mg 11/14/18 10:00 11/18/18 09:56 Tapazole PO 10 mg Q24HR CRYSTAL Administration Metoprolol Tartrate 50 mg 11/15/18 22:00 11/18/18 09:56 Lopressor PO Not Given BID CRYSTAL Rifampin 600 mg 11/15/18 10:00 11/18/18 09:55 Rifadin PO 600 mg QDAY CRYSTAL Administration Tizanidine HCl 4 mg 11/14/18 10:00 11/18/18 09:55 Zanaflex PO 4 mg DAILY CRYSTAL Administration Topiramate 25 mg 11/13/18 22:00 11/18/18 09:57 Topamax PO 25 mg BID CRYSTAL Administration
[2018-11-19] MEDS: PROVENTIL IH PRN (02:39)
[2018-11-19 06:12] LABS: Basophils % (Auto) 0.4 % (0.0-1.8); Eosinophils # (Auto) 0.1 K/mm3 (0.0-0.4); Eosinophils % (Auto) 1.3 % (0.0-4.3); Hematocrit 30.5 % (30.3-42.9); Hemoglobin 9.6 gm/dl (10.1-14.3); Lymphocytes % (Auto) 12.2 % (13.4-35.0); Mean Corpuscular HGB Conc 32 % (30-34); Mean Corpuscular Volume 95 fl (79-97); Monocytes # (Auto) 0.6 K/mm3 (0.0-0.8); Monocytes % (Auto) 7.3 % (0.0-7.3); Platelet Count 165 K/mm3 (140-440); Red Cell Distribution Width 18.8 % (13.2-15.2)
[2018-11-19 06:30] LABS: Calcium 8.5 mg/dL (8.4-10.2)
[2018-11-19] MEDS: DUONEB *Not for PRN Use IH SCH ×4 (07:54→20:52)
--- NOTE | 2018-11-19 09:11 | Progress Note ---
Assessment and Plan Impression: * End stage renal disease * Atrial fibrillation * Recent hx of staph epi bacteremia/RA lead vegetation * Acute on chronic respiratory failure * Anemia secondary to ESRD * Secondary hyperPTH Plan: * Patient tolerated HD yesterday - HR remained stable * Continue HD TTS * UF as tolerated * Needs optimization of cardiac function/rate control * Abx per primary team * Dose medications for renal function * Renal diet Subjective Date of service: 11/19/18 Principal diagnosis: AFib Interval history: No acute events overnight. Objective - Vital Signs Vital signs: Vital Signs - 12hr 11/18/18 11/19/18 11/19/18 23:03 00:05 02:40 Temperature 97.5 F L Pulse Rate 101 H 91 H Pulse Rate [ 86 Anterior Bilateral Throughout] Respiratory 22 Rate Respiratory 18 Rate [Anterior Bilateral Throughout] Blood Pressure 121/29 O2 Sat by Pulse 92 Oximetry O2 Sat by Pulse Oximetry [ Assessment] 11/19/18 11/19/18 11/19/18 02:55 03:01 05:32 Temperature 97.4 F L Pulse Rate 93 H Pulse Rate [ 88 Anterior Bilateral Throughout] Respiratory 22 Rate Respiratory 18 Rate [Anterior Bilateral Throughout] Blood Pressure 116/33 O2 Sat by Pulse 88 Oximetry O2 Sat by Pulse 100 Oximetry [ Assessment] 11/19/18 11/19/18 11/19/18 06:11 07:45 07:52 Temperature 98.2 F Pulse Rate 90 91 H Pulse Rate [ 89 Anterior Bilateral Throughout] Respiratory 20 Rate Respiratory 20 Rate [Anterior Bilateral Throughout] Blood Pressure 130/33 O2 Sat by Pulse 98 Oximetry O2 Sat by Pulse Oximetry [ Assessment] 11/19/18 11/19/18 07:59 08:04 Temperature Pulse Rate Pulse Rate [ 100 H Anterior Bilateral Throughout] Respiratory Rate Respiratory 20 Rate [Anterior Bilateral Throughout] Blood Pressure O2 Sat by Pulse Oximetry O2 Sat by Pulse 100 Oximetry [ Assessment] - General Appearance General appearance: well-developed, well-nourished EENT: ATNC Neck: other (Trach) Respiratory: Present: Decreased Breath Sounds Cardiology: irregular Gastrointestinal: normal, no tenderness, no distended Integumentary: no rash, warm and dry Neurologic: alert and oriented x3 Musculoskeletal: other (no edema) Psychiatric: cooperative - Lab 11/19/18 05:26 11/19/18 05:26 Most recent lab results Calcium 8.5 mg/dL (8.4-10.2) 11/19/18 05:26 Magnesium 1.70 mg/dL (1.7-2.3) 11/14/18 03:52 Medications & Allergies - Medications Allergies/Adverse Reactions: Allergies No Known Allergies Allergy (Unverified 06/20/18 15:19) Home Medications: Home Medications Medication Instructions Recorded Confirmed Last Taken Type Aspirin [Adult Aspirin] 81 mg PO DAILY 09/10/18 11/13/18 Unknown History Atorvastatin Calcium [Lipitor] 40 mg PO QPM 09/10/18 11/13/18 Unknown History Cholecalciferol Vit D3 [Vitamin D3] 1,000 unit PO QDAY 09/10/18 11/13/18 Unknown History Clotrimazole 1% [Lotrimin 1%] 1 applic TP BID 09/10/18 11/13/18 Unknown History Docusate Sodium [Colace CAP] 100 mg PO TID 09/10/18 11/13/18 Unknown History Fluticasone [Flonase] 2 sprays NS DAILY PRN 09/10/18 11/13/18 Unknown History Ipratropium/Albuterol Sulfate 1 ampul IH QID 09/10/18 11/13/18 Unknown History [DUONEB *Not for PRN Use*] Topiramate [Topamax] 25 mg PO BID 09/10/18 11/13/18 Unknown History tiZANidine [Zanaflex] 4 mg PO DAILY 09/10/18 11/13/18 Unknown History HYDROcodone/APAP 10-325 [[place] 1 each PO BID PRN #7 tablet 09/15/18 11/13/18 Unknown Rx 10-325 mg TAB] methIMAzole [Tapazole] 10 mg PO Q24HR #30 tablet 11/03/18 11/13/18 Unknown Rx Cinacalcet [Sensipar] 30 mg PO DAILY 11/06/18 11/13/18 Unknown History Metoprolol Tartrate 25 mg PO BID 11/06/18 11/13/18 Unknown History Ventolin HFA 2 puff IH BID PRN 11/06/18 11/13/18 Unknown History rifAMPin [Rifampin] 600 mg PO DAILY 11/06/18 11/13/18 Unknown History Apixaban [Eliquis] 5 mg PO Q12HR #60 tablet 11/12/18 11/13/18 Unknown Rx Active Medications: Generic Name Dose Route Start Last Admin Trade Name Freq PRN Reason Stop Dose Admin Acetaminophen/Hydrocodone Bitart 1 each 11/13/18 19:57 11/18/18 13:00 [place] 10/325 PO 1 each BID PRN Administration Pain Albuterol 2.5 mg 11/13/18 20:14 11/19/18 02:39 Proventil IH 2.5 mg Q4HRT PRN Administration Shortness Of Breath Albuterol/Ipratropium 1 ampul 11/15/18 12:00 11/19/18 07:54 Duoneb *Not For Prn Use* IH 1 ampul QIDRT CRYSTAL Administration Apixaban 5 mg 11/13/18 22:00 11/18/18 23:03 Eliquis PO 5 mg Q12HR CRYSTAL Administration Protocol Aspirin 81 mg 11/14/18 10:00 11/18/18 09:56 Halfprin Ec PO 81 mg DAILY CRYSTAL Administration Atorvastatin Calcium 40 mg 11/15/18 22:00 11/18/18 23:03 Lipitor PO 40 mg QHS CRYSTAL Administration Cholecalciferol 1,000 unit 11/14/18 10:00 11/18/18 09:56 Vitamin D3 PO 1,000 unit QDAY CRYSTAL Administration Cinacalcet 30 mg 11/14/18 10:00 11/18/18 09:55 Sensipar PO 30 mg DAILY CRYSTAL Administration Clotrimazole 1 applic 11/13/18 22:00 11/18/18 23:09 Lotrimin TP Not Given BID [facility] Docusate Sodium 100 mg 11/13/18 20:00 11/18/18 20:41 Colace PO 100 mg TID CRYSTAL Administration Fluticasone Propionate 100 mcg 11/13/18 19:57 Flonase NS DAILY PRN Allergy Symptoms Sodium Chloride 100 mls @ 999 mls/hr 11/15/18 10:14 Nacl 0.9% IV CAROL PRN Hypotension Methimazole 10 mg 11/14/18 10:00 11/18/18 09:56 Tapazole PO 10 mg Q24HR CRYSTAL Administration Metoprolol Tartrate 50 mg 11/15/18 22:00 11/18/18 23:03 Lopressor PO 50 mg BID CRYSTAL Administration Rifampin 600 mg 11/15/18 10:00 11/18/18 09:55 Rifadin PO 600 mg QDAY CRYSTAL Administration Tizanidine HCl 4 mg 11/14/18 10:00 11/18/18 09:55 Zanaflex PO 4 mg DAILY CRYSTAL Administration Topiramate 25 mg 11/13/18 22:00 11/18/18 23:03 Topamax PO 25 mg BID CRYSTAL Administration
[2018-11-19] MEDS: TAPAZOLE PO SCH (10:06)
[2018-11-19] MEDS: SENSIPAR PO SCH (10:06)
[2018-11-19] MEDS: LOPRESSOR PO SCH ×2 (10:07→21:38)
[2018-11-19] MEDS: RIFADIN PO SCH (10:07)
[2018-11-19] MEDS: VITAMIN D3 PO SCH (10:07)
[2018-11-19] MEDS: ZANAFLEX PO SCH (10:07)
[2018-11-19] MEDS: COLACE PO SCH ×3 (10:07→21:39)
[2018-11-19] MEDS: HALFPRIN EC PO SCH (10:07)
[2018-11-19] MEDS: ELIQUIS PO SCH ×2 (10:07→21:39)
[2018-11-19] MEDS: TOPAMAX PO SCH ×2 (10:07→21:38)
[2018-11-19] MEDS: LOTRIMIN TP SCH ×2 (10:08→21:49)
--- NOTE | 2018-11-19 11:33 | Progress Note ---
Assessment and Plan ECHO 10/15/18: 1. Left ventricular ejection fraction is 60%. 2. Mild tricuspid regurgitation. 3. Moderate mitral annular calcification. 4. No pericardial effusion seen. 5. The tricuspid regurgitant velocity is 3.96 m/s, and with an assumed right atrial pressure of 8 mmHg, the estimated right ventricular systolic pressure is severely elevated at 70.7 mmHg. Acute heart failure with preserved EF Agree with present management. Volume optimization per nephrology. Acute on chronic respiratory failure with tracheostomy Atrial fibrillation/atrial flutter with RVR/SSS Currently in SR. Continue on beta aden and titrate as tolerated. Avoid aggressive treatment to avoid bradycardia and sinus pauses. 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 Cont IV Vancomycin, rifampin for 6 weeks records from [place] discharge Patient will be on prolonged antibiotics and will need follow up with ID on suppressive therapies. MATEUS on 10/15/18 showed a 0.5x1.15cm echodensity of RA lead S/P Emergent pericardial window secondary to attempt at lead extractrion complicated by pericardial effusion possible due to RA tear after extraction of the RA lead Elevated Cardiac Enzymes Nonspecific given ESRD monitor for now HTN Low TSH/ Hyperthyroidism ESRD, on HD outpatient follow up with [facility] Hyperkalemia Management per nephrology C. Diff The patient has been seen in conjunction with Dr. JORDAN Plummer who agrees with the assessment and plan of care. Subjective Date of service: 11/19/18 Principal diagnosis: AFib Interval history: The patient is resting in bed. C/o back pain. Sinus rhythm on the monitor. Objective Last Vital Signs Temp 98.2 F 11/19/18 07:45 Pulse 91 H 11/19/18 10:54 Resp 18 11/19/18 10:00 BP 130/33 11/19/18 07:45 Pulse Ox 96 11/19/18 10:00 - Physical Examination General: No Apparent Distress HEENT: Positive: PERRL, Normocephaly, Mucus Membranes Moist Neck: Positive: neck supple, Other (tracheostomy in place) Cardiac: Positive: Reg Rate and Rhythm, S1/S2 Lungs: Positive: clear to auscultation Neuro: Positive: Grossly Intact Abdomen: Positive: Soft. Negative: Tender Skin: Negative: Rash, Wound Musculoskeletal: No Pain Extremities: Absent: edema - Labs and Meds CBC 11/19/18 Range/Units 05:26 WBC 8.4 (4.5-11.0) K/mm3 RBC 3.20 L (3.65-5.03) M/mm3 Hgb 9.6 L (10.1-14.3) gm/dl Hct 30.5 (30.3-42.9) % Plt Count 165 (140-440) K/mm3 Lymph # 1.0 L (1.2-5.4) K/mm3 [place] # 0.6 (0.0-0.8) K/mm3 Eos # 0.1 (0.0-0.4) K/mm3 Baso # 0.0 (0.0-0.1) K/mm3 Comprehensive Metabolic Panel 11/19/18 Range/Units 05:26 Sodium 138 (137-145) mmol/L Potassium 4.0 (3.6-5.0) mmol/L Chloride 96.7 L (98-107) mmol/L Carbon Dioxide 30 (22-30) mmol/L BUN 14 (7-17) mg/dL Creatinine 2.8 H (0.7-1.2) mg/dL Glucose 105 H (65-100) mg/dL Calcium 8.5 (8.4-10.2) mg/dL - Imaging and Cardiology EKG: report reviewed, image reviewed Echo: report reviewed (TTE done 10/13/2018 showed EF 65-70%, mod MS, mild TR, mild LVH, pseudonormalization, mod pulm HTN with RVSP 59mmHg) - Telemetry EKG Rhythm: Sinus Rhythm - EKG Sinus rhythms and dysrhythmias: sinus rhythm
--- NOTE | 2018-11-19 12:03 | XRay Report ---
AP CHEST: HISTORY: Short of breath Compared to 11/13/18. Cardiomegaly, pulmonary venous congestion and moderate bilateral pleural effusions appear essentially unchanged since the exam 6 days ago. No new acute process. The tracheostomy remains in the same position. IMPRESSION: CHF unchanged since 11/13/18.
--- NOTE | 2018-11-19 18:42 | Discharge Summary ---
Providers - Providers Date of Admission: 11/13/18 16:08 Date of discharge: 11/19/18 Attending physician: ANTHONY FOREMAN 11/13/18 18:06 Consult to Physician [CONS] Routine Comment: Consulting Provider: KRISTIN VELÁSQUEZ Physician Instructions: Reason For Exam: hd. volume overload 11/13/18 20:22 Consult to Physician [CONS] Routine Comment: Consulting Provider: TASHIA QUIROZ Physician Instructions: Reason For Exam: CHF exa 11/15/18 06:46 Consult to Wound/ET Nurse [CONS] Routine Reason For Exam: wound eval Primary care physician: ANTHONY FOREMAN Hospitalization Reason for admission: Acute/chronic resp failure/A/C , sys/diast CHF. Condition: Fair Hospital course: Patient had presented from the [place], with CHAD/ESRD exa, with fluid retention.She was Admitted, and had several HD, BT, seen/monitored daily by all the physicians involved in her case, including RENal, cardiology.She had treach care, and oxygen support.she tolerated her treatments fairly well.Case was d/w her daily, as well as with her son, when ever , he was in the room.Dicharge planning was d/w her, and the protective services case worker, and briefly with her son, as far as what changes with be requested ,once patient gets back to the NH, according to his, and her needs. Patient was seen, and examined to day, and remains stable, and the consultants notes reviewed. she is as stable as she can get at this time, and will be d/c back to the NH. Disposition: [id number]/[place]-[id number] SNF W [facility] CERT - Discharge Diagnoses (1) Acute heart failure Status: Chronic Qualifiers: Heart failure type: combined systolic and diastolic Qualified Code(s): I50.41 - Acute combined systolic (congestive) and diastolic (congestive) heart failure (2) Cardiac volume overload Status: Chronic (3) Chest pain Status: Resolved Qualifiers: Chest pain type: unspecified Qualified Code(s): R07.9 - Chest pain, unspecified (4) Elevated brain natriuretic peptide (BNP) level Status: Chronic (5) Elevated troponin I level Status: Inactive (6) End-stage renal disease on hemodialysis Status: Chronic (7) Hypoxia Status: Chronic (8) SOB (shortness of breath) Status: Chronic Core Measure Documentation - Palliative Care Palliative Care/ Comfort Measures: Not Applicable - Core Measures Any of the following diagnoses?: none Exam - Constitutional Vitals: Temp Pulse Resp BP Pulse Ox 98.5 F 105 H 20 147/47 100 11/19/18 16:06 11/19/18 16:28 11/19/18 16:28 11/19/18 16:06 11/19/18 16:20 General appearance: Present: no acute distress, well-nourished - EENT Eyes: Present: PERRL ENT: hearing intact, clear oral mucosa - Neck Neck: Present: supple, normal ROM - Respiratory Respiratory effort: normal Respiratory: bilateral: other (coarse.) - Cardiovascular Heart Sounds: Present: S1 & S2. Absent: rub, click - Extremities Extremities: pulses symmetrical, No edema Peripheral Pulses: within normal limits - Abdominal General gastrointestinal: Present: soft, non-tender, non-distended, normal bowel sounds Female genitourinary: Present: deferred - Rectal Rectal Exam: deferred - Integumentary Integumentary: Present: clear, warm, dry - Musculoskeletal Musculoskeletal: gait normal, strength equal bilaterally - Psychiatric Psychiatric: appropriate mood/affect, intact judgment & insight - Neurologic Neurologic: CNII-XII intact, moves all extremities Plan Activity: up only with assistance, fall precautions Diet: renal Wound: change dressing (please transport by ambulance.) Follow up with: ANTHONY FOREMAN DO [Primary Care Provider] - 3-5 Days
[2018-11-19 20:21] VITALS: BP 171/47
== END 2018-11-19 22:00 | DRG 291 ==
LOC: ED 13:01 → 4A 16:08
PROVIDERS: ADMIT Internal Medicine Hematology & Oncology; ATTEND Internal Medicine Hematology & Oncology
PROC: 5A1D70Z Performance of Urinary Filtration, Intermittent, Less than 6 Hours Per Day (ICD-10-PCS; principal; 2018-11-13)
PROC: 5A1D70Z Performance of Urinary Filtration, Intermittent, Less than 6 Hours Per Day (ICD-10-PCS; 2018-11-15)
PROC: 5A1D70Z Performance of Urinary Filtration, Intermittent, Less than 6 Hours Per Day (ICD-10-PCS; 2018-11-18)
DX: I13.2 Hypertensive heart and chronic kidney disease with heart failure and with stage 5 chronic kidney disease, or end stage renal disease (principal); N18.6 End stage renal disease; I50.43 Acute on chronic combined systolic (congestive) and diastolic (congestive) heart failure; J96.21 Acute and chronic respiratory failure with hypoxia; I48.92 Unspecified atrial flutter; I25.10 Atherosclerotic heart disease of native coronary artery without angina pectoris; I48.0 Paroxysmal atrial fibrillation; E78.5 Hyperlipidemia, unspecified; I49.5 Sick sinus syndrome; I34.0 Nonrheumatic mitral (valve) insufficiency; I07.1 Rheumatic tricuspid insufficiency; E05.90 Thyrotoxicosis, unspecified without thyrotoxic crisis or storm; E87.70 Fluid overload, unspecified; E87.5 Hyperkalemia; D63.1 Anemia in chronic kidney disease; Z95.0 Presence of cardiac pacemaker; Z91.19 Patient's noncompliance with other medical treatment and regimen; Z93.0 Tracheostomy status; Z98.51 Tubal ligation status; Z82.49 Family history of ischemic heart disease and other diseases of the circulatory system; Z79.82 Long term (current) use of aspirin; Z79.899 Other long term (current) drug therapy
CPT/HCPCS: 36415; 71045; 78580; 80048; 80053; 80061; 82550; 82553; 82962; 83735; 83880; 84484; 85025; 93005; 93010; 94640; 94760; G0378; A9270-GY; A9540; J3490; J7040; J7050